=== PATIENT | female | born 1975 | race Caucasian/White ===

== ENCOUNTER 2018-03-28 23:15 | Emergency (ER) | payer MEDICAID, SELFPAY ==
[2018-03-28 23:23] VITALS: BP 155/95; PULSE 93; RESP 18; TEMP 37.1; O2SAT 96
[2018-03-29] MEDS: Lidocaine 5% Patch 1 PATCH TP (01:21)
[2018-03-29] MEDS: Ketorolac 60 MG/2 ML VIAL IM (01:22)
--- NOTE | 2018-03-29 01:47 | W.ED.GENAD ---
Discharge Plan Disposition Patient Disposition: HOME Condition: Stable Discharge Details Chief Complaint: Nk/Back Pain Clinical Impression: Radiculopathy of cervical region Primary Care Provider: Darby Reno ED Provider: David Prajapati Home Meds and New Rx's Prescriptions: Continue triamcinolone acetonide 15 GM cream 1 appful Topical BID PRNQty: 15 RF: 6 erythromycin with ethanol 60 ML solution 60 ml Topical PRN RF: 0 melatonin 5 MG tablet 5 mg PO HS Qty: 90 RF: 3 lorazepam 0.5 MG tablet 0.5 mg PO BID PRN PRNQty: 60 RF: 0 trazodone 50 MG tablet 100 mg PO HS PRNQty: 180 RF: 3 omeprazole 40 MG capsule,delayed release(DR/EC) 40 mg PO DAILY Qty: 90 RF: 3 amlodipine 5 MG tablet 5 mg PO DAILY Qty: 90 RF: 3 bupropion HCl [Wellbutrin XL] 150 MG tablet extended release 24 hr 150 mg PO DAILY Qty: 90 RF: 3 ferrous sulfate 325 MG tablet 325 mg PO DAILY Qty: 90 RF: 3 atorvastatin [Lipitor] 20 MG tablet 20 mg PO DAILY Qty: 90 RF: 3 carbamazepine 100 MG tablet,chewable 200 mg PO HS 90 Days Qty: 180 RF: 1 aspirin [Aspir-81] 81 MG tablet,delayed release (DR/EC) 81 mg PO DAILY Qty: 90 RF: 3 liothyronine 25 mcg tablet 25 mcg PO DAILY Qty: 90 RF: 3 omega-3 fatty acids-fish oil 300-1,000 mg capsule 2 cap PO HS Qty: 180 RF: 3 sertraline 100 mg tablet 200 mg PO DAILY Qty: 180 RF: 3 cholecalciferol (vitamin D3) 5,000 unit tablet 5,000 unit PO DAILY Qty: 90 RF: 3 pregabalin [Lyrica] 75 mg capsule 75 mg PO BID Qty: 60 RF: 0 acetaminophen [Acetaminophen Extra Strength] 500 MG tablet 1,000 mg PO Q8H PRN PRNQty: 120 RF: 0 ibuprofen 800 MG tablet 800 mg PO Q8H PRN PRN (Reason: Pain) Qty: 10 RF: 0 No Action mirabegron [Myrbetriq] 50 mg tablet extended release 24 hr 50 mg PO DAILY Qty: 30 RF: 3 Discharge Instructions Instructions: Lumbar Radiculopathy (ED) Additional Instructions: Return to emergency department immediately for any new or significant worsening of your symptoms including neck pain associate with fever chills, changes in bowel or bladder function inability to move lower extremities, saddle anesthesia Stand Alone Forms: Work Release Referrals: Darby Reno, FORESTRY PROFESSOR [Primary Care Provider] - (As needed for reassessment or if not improving over the next week) Discharge Data Discharge Date/Time-TO BE ENTERED AT DEPARTURE: 03/29/18 02:11 Medical Decision Making Patient presenting the emergency department for chief complaint of back pain. 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 Patient states that when she awoke this morning she had similar symptoms with severe back spasms, and shooting pain. Patient denies any fever chills, changes in bowel or bladder function, inability to move lower extremities, saddle anesthesia. Patient given IM ketorolac and lidocaine patch in the emergency department sent home with Sirisha with prescription for Flexeril and prednisone to begin tomorrow. Patient encouraged to return for any new or worsening symptoms otherwise follow-up with primary care in 1 week for reassessment. After discussion of diagnosis and plan of care patient has no further needs, questions, or concerns and states clear understanding to return to the emergency department for any worsening symptoms. HPI General Mode of arrival: ambulatory. Date/Time Provider Initiated Documentation: 03/28/18 23:16. Limitations to Documentation: no limitations. Information obtained by: patient and RN notes reviewed. History of Present Illness 43 year old F presents to the emergency department with the chief complaint of back pain, described as moderate, with intensity rated at 7. Quality is described as sharp, and is localized to the back. Patient started experiencing this day(s) (1) and it has been constant. No relieving factors improve symptom(s), Movement worsens symptoms . Patient notes no other symptoms.. Related Data Home Medications Medication Instructions Recorded Confirmed triamcinolone acetonide 1 appful TOPICAL BID PRN #15 gm 09/15/16 04/02/18 acetaminophen [Acetaminophen Extra 1,000 mg PO Q8H PRN PRN #120 tab 02/14/17 04/02/18 Strength] erythromycin with ethanol 60 ml TOPICAL PRN script 03/21/17 04/02/18 melatonin 5 mg PO HS #90 tab-cap 03/21/17 04/02/18 lorazepam 0.5 mg PO BID PRN PRN #60 tab 04/17/17 04/02/18 amlodipine 5 mg PO DAILY #90 tab-cap 07/25/17 04/02/18 omeprazole 40 mg PO DAILY #90 tab-cap 07/25/17 04/02/18 trazodone 100 mg PO HS PRN #180 tab 07/25/17 04/02/18 bupropion HCl [Wellbutrin XL] 150 mg PO DAILY #90 tab-cap 10/24/17 04/02/18 ferrous sulfate 325 mg PO DAILY #90 tab-cap 10/24/17 04/02/18 atorvastatin [Lipitor] 20 mg PO DAILY #90 tab-cap 11/21/17 04/02/18 carbamazepine 200 mg PO HS 90 Days #180 tab-cap 11/21/17 04/02/18 ibuprofen 800 mg PO Q8H PRN PRN #10 tab 12/03/17 04/02/18 aspirin [Aspir-81] 81 mg PO DAILY #90 tab-cap 02/01/18 04/02/18 liothyronine 25 mcg tablet 25 mcg PO DAILY #90 tab-cap 03/06/18 04/02/18 omega-3 fatty acids-fish oil 300 2 cap PO HS #180 tab-cap 03/06/18 04/02/18 mg-1,000 mg capsule cholecalciferol (vitamin D3) 5,000 5,000 unit PO DAILY #90 tab-cap 03/22/18 04/02/18 unit tablet pregabalin 75 mg capsule 75 mg PO BID #60 tab-cap 03/22/18 04/02/18 sertraline 100 mg tablet 200 mg PO DAILY #180 tab 03/22/18 04/02/18 mirabegron ER 50 mg 50 mg PO DAILY #30 tab 04/02/18 04/02/18 tablet,extended release 24 hr Previous Rx's Medication Instructions Recorded acetaminophen [Acetaminophen Extra 1,000 mg PO Q8H PRN PRN #120 tab 02/14/17 Strength] melatonin 5 mg PO HS #90 tab-cap 03/21/17 amlodipine 5 mg PO DAILY #90 tab-cap 02/20/18 omeprazole 40 mg PO DAILY #90 tab-cap 07/25/17 bupropion HCl [Wellbutrin XL] 150 mg PO DAILY #90 tab-cap 10/24/17 ferrous sulfate 325 mg PO DAILY #90 tab-cap 10/24/17 atorvastatin [Lipitor] 20 mg PO DAILY #90 tab-cap 11/21/17 carbamazepine 200 mg PO HS 90 Days #180 tab-cap 11/21/17 ibuprofen 800 mg PO Q8H PRN PRN #10 tab 12/03/17 aspirin [Aspir-81] 81 mg PO DAILY #90 tab-cap 02/01/18 liothyronine 25 mcg tablet 25 mcg PO DAILY #90 tab-cap 03/06/18 omega-3 fatty acids-fish oil 300 2 cap PO HS #180 tab-cap 03/06/18 mg-1,000 mg capsule cholecalciferol (vitamin D3) 5,000 5,000 unit PO DAILY #90 tab-cap 03/22/18 unit tablet pregabalin 75 mg capsule 75 mg PO BID #60 tab-cap 03/22/18 sertraline 100 mg tablet 200 mg PO DAILY #180 tab 03/22/18 mirabegron ER 50 mg 50 mg PO DAILY #30 tab 04/02/18 tablet,extended release 24 hr Allergies Allergy/AdvReac Type Severity Reaction Status Date / Time No Known Drug Allergies Allergy Unverified 04/02/18 15:43 General Stated Complaint: Nk/Back Pain TARIK: 4 Review of Systems Constitutional Denies chills and Denies fever(s) Cardiovascular Denies chest pain and Denies dyspnea on exertion Respiratory Denies dyspnea on exertion Gastrointestinal Denies abdominal pain, Denies change in bowel habits, Denies diarrhea, Denies nausea and Denies vomiting Genitourinary Denies urinary incontinence Musculoskeletal Reports as per HPI and Reports back pain Neurologic Denies sensory deficit PFSH Family History Mother Graves' disease Depression Father Alcoholism Grandmother Personal history of malignant neoplasm Other Personal history of malignant neoplasm Medical History Anemia Depression HLD (hyperlipidemia) HTN (hypertension) Migraine SHANTAL (obstructive sleep apnea) Tobacco use disorder Social History Smoking/Tobacco Use Status: Former Tobacco Use Surgical History Hysteroscopy (02/04/15) Pelvic floor reconstruction (~2009) Tonsillectomy & uvulectomy (~2009) Vaginal hysterectomy Exam Const General: cooperative and no acute distress Orientation: alert, awake and oriented x3 Neck Neck: normal visual inspection, full ROM and no meningeal signs Resp Effort & Inspection: normal respiratory effort Auscultation: clear to auscultation bilaterally Cardio Rate: regular rate Rhythm: regular rhythm Heart Sounds: S1 normal and S2 normal GI Palpation: no hepatosplenomegaly, no aortic enlargement, no masses and no pulsatile masses Back/Spine/Pelvis Thoracic/Lumbar Spine: pain with thoraco-lumbar ROM and thoraco-lumbar ROM limited Pelvis: no pain with anterior-posterior compression, no pain with lateral compression, buttock tenderness on the right and sciatic notch tenderness on the right Neuro General: alert, awake and oriented x3 DTR's: Rt Patellar: 2+, Lt Patellar: 2+, Rt Ankle: 2+ and Lt Ankle: 2+ Extrem Right lower extremity: hip/thigh Details: normal to inspection, knee Details: normal to inspection and lower leg Details: normal to inspection Course Vital Signs Temperature 37.1 C 03/28/18 23:23 Pulse 93 H 03/28/18 23:23 Respiratory Rate 18 03/28/18 23:23 Blood Pressure 155/95 H 03/28/18 23:23 Pulse Oximetry 96 03/28/18 23:23 Temperature 37.1 C 03/28/18 23:23 Temperature Source Temporal Artery Scan 03/28/18 23:23 Pulse 93 H 03/28/18 23:23 Respiratory Rate 18 03/28/18 23:23 Respiratory Effort 03/28/18 23:23 Blood Pressure 155/95 H 03/28/18 23:23 Blood Pressure Position Sitting 03/28/18 23:23 Pulse Oximetry 96 03/28/18 23:23 Oxygen Delivery Method Room Air 03/28/18 23:23 Oxygen Flow Rate 0 03/28/18 23:23 Pain Level 5 03/29/18 01:25
[2018-03-29] MEDS: Cyclobenzaprine 10 MG TAB PO (02:03)
[2018-03-29 02:04] VITALS: BP 138/95; PULSE 83; RESP 16; O2SAT 97
== END 2018-03-29 02:11 | disposition home or self-care (01) ==
PROVIDERS: Emergency Provider Nurse Practitioner Family; PCP Nurse Practitioner
DX: M54.12 Radiculopathy, cervical region (principal)
CPT/HCPCS: 96372; 99284; J1885

== ENCOUNTER 2018-05-07 09:05 | Outpatient (CLI) | payer MEDICAID, SELFPAY ==
[2018-05-07 09:55] LABS: HCT 40.9 % (36.0-46.0); HGB 13.4 g/dL (12.0-15.5); Mean Corp. HGB Concentration 32.8 g/dL (32.0-36.0); Mean Corpuscular Hemoglobin 28.4 pg (27.0-33.0); Mean Corpuscular Volume 86.7 fL (80-95); Mean Platelet Volume 10.2 fL (8.0-11.0); Platelet Count 249 x1000/uL (130-400); RBC 4.72 m/cumm (4.00-5.20); RBC Distribution Width 13.3 % (11.7-14.6); White Blood Cell Count 9.19 k/cumm (4.4-10.8)
[2018-05-07 10:39] LABS: ALT 48 U/L (12-78); AST 29 U/L (15-37); Albumin 3.9 g/dL (3.4-5.0); Alkaline Phosphatase 105 U/L (46-116); Anion Gap 8.6 mmol/L (3-11); BUN 14 mg/dL (7-18); Bilirubin, Total 0.3 mg/dL (0.2-1.0); CO2 29.4 mmol/L (21.0-32.0); CREATININE 0.82 mg/dL (0.55-1.02); Calcium 9.8 mg/dL (8.5-10.1); Chloride 102 mmol/L (98-107); Cholesterol 201 mg/dL (50-200); Glucose 152 mg/dL (70-100); HDL Cholesterol 46 mg/dL (40-60); LDL CHOLESTEROL 134 mg/dL (<100); Potassium 4.5 mmol/L (3.5-5.1); Sodium 140 mmol/L (136-145); TSH (W/Ref FT4) 0.91 uIU/mL (0.358-3.74); Total Protein 7.2 g/dL (6.4-8.2); Triglyceride 186 mg/dL (30-150)
[2018-05-07 10:56] LABS: FREE T4 0.64 ng/dL (0.76-1.46)
== END 2018-05-07 09:25 ==
PROVIDERS: PCP Nurse Practitioner; Visit Provider Nurse Practitioner
DX: E78.5 Hyperlipidemia, unspecified (principal); I10 Essential (primary) hypertension; E03.9 Hypothyroidism, unspecified; R07.89 Other chest pain
CPT/HCPCS: 36415; 80053; 80061; 83721; 85027; 84439; 84443

== ENCOUNTER 2018-05-16 15:29 | Outpatient (CLI) | payer MEDICAID, SELFPAY ==
--- NOTE | 2018-05-16 15:35 | DI.RAD_ITS ---
SYMPTOM/DIAGNOSIS: COUGH, POSSIBLE PNEUMONIA, HEADACHE G44.3 CHEST X-RAY: PA and lateral. Comparison 04/10/17 The heart is normal in size. The lungs are clear. The mediastinal structures and pleura appear intact. CONCLUSION: Normal chest.
== END 2018-05-16 15:49 ==
LOC: LBO 15:31 → DI 15:32
PROVIDERS: PCP Nurse Practitioner; Visit Provider Student in an Organized Health Care Education/Training Program
DX: R05 Cough (principal); R51 Headache
CPT/HCPCS: 71046

== ENCOUNTER 2018-05-27 14:53 | Emergency (ER) | payer MEDICAID, SELFPAY ==
[2018-05-27 15:00] VITALS: BP 162/97; PULSE 90; RESP 16; TEMP 36.6; O2SAT 95
[2018-05-27] MEDS: Lidocaine 2% Multi-Dose 50 ML VIAL (15:37)
[2018-05-27] MEDS: Silver Nitrate Stick 1 EACH (15:37)
--- NOTE | 2018-05-27 15:40 | ED.GENADUL_ITS ---
Discharge Plan Disposition Patient Disposition: HOME Condition: Good Discharge Details Chief Complaint: Orthopedic Clinical Impression: Ingrowing toenail Primary Care Provider: Darby Reno ED Provider: Cj De La Rosa Home Meds and New Rx's Prescriptions: No Action bupropion HCl [Wellbutrin XL] 300 mg tablet extended release 24 hr 300 mg PO QAM Qty: 90 RF: 3 lorazepam 0.5 mg tablet 0.5 mg PO BID PRN PRN (Reason: anxiety) Qty: 60 RF: 0 Myrbetriq 50 mg tablet extended release 24 hr 50 mg PO DAILY Qty: 30 RF: 3 benzonatate [Tessalon Perles] 100 mg capsule 100 mg PO QID PRN (Reason: cough) Qty: 20 RF: 0 ProAir HFA 90 mcg/actuation HFA aerosol inhaler 2 puff IH QID Qty: 8.5 RF: 0 triamcinolone acetonide 15 GM cream 1 appful Topical BID PRNQty: 15 RF: 6 erythromycin with ethanol 60 ML solution 60 ml Topical PRN RF: 0 trazodone 50 MG tablet 100 mg PO HS PRNQty: 180 RF: 3 omeprazole 40 MG capsule,delayed release(DR/EC) 40 mg PO DAILY Qty: 90 RF: 3 amlodipine 5 MG tablet 5 mg PO DAILY Qty: 90 RF: 3 ferrous sulfate 325 MG tablet 325 mg PO DAILY Qty: 90 RF: 3 atorvastatin [Lipitor] 20 MG tablet 20 mg PO DAILY Qty: 90 RF: 3 carbamazepine 100 MG tablet,chewable 200 mg PO HS 90 Days Qty: 180 RF: 1 aspirin [Aspir-81] 81 MG tablet,delayed release (DR/EC) 81 mg PO DAILY Qty: 90 RF: 3 liothyronine 25 mcg tablet 25 mcg PO DAILY Qty: 90 RF: 3 omega-3 fatty acids-fish oil 300-1,000 mg capsule 2 cap PO HS Qty: 180 RF: 3 sertraline 100 mg tablet 200 mg PO DAILY Qty: 180 RF: 3 cholecalciferol (vitamin D3) 5,000 unit tablet 5,000 unit PO DAILY Qty: 90 RF: 3 melatonin 5 mg tablet 5 mg PO HS Qty: 90 RF: 3 pregabalin [Lyrica] 75 mg capsule 75 mg PO BID Qty: 60 RF: 2 acetaminophen [Acetaminophen Extra Strength] 500 MG tablet 1,000 mg PO Q8H PRN PRNQty: 120 RF: 0 ibuprofen 800 MG tablet 800 mg PO Q8H PRN PRN (Reason: Pain) Qty: 10 RF: 0 Discharge Instructions Instructions: Ingrown Nail (ED) Additional Instructions: Please take Tylenol and Motrin as needed for pain. Please continue to wrap the toe and gauze and triple antibiotic or bacitracin ointment. If you notice any redness, fever or chills please return immediately. If you notice any worsening pain please return immediately. If you notice any color changes on the end of your toe please return immediately. If you notice any worsening of your symptoms, or any new symptoms such as vomiting, diarrhea, fever, chills, shortness of breath, chest pain, numbness, weakness, or fainting , please return immediately to the emergency department for reevaluation. Please follow up with your primary care provider as soon as possible for reassessment and reevaluation. As always, it was a pleasure participating in your medical care today. Referrals: Darby Reno NP [Primary Care Provider] - Medical Decision Making This is a 43-year-old female who presents for evaluation of ingrown toenail, primarily on her right foot on the great toe. It is located at the lateral aspect of the nail. There is no evidence of significant infection or purulent drainage. Patient presented today for removal of the nail itself. Verbal consent was obtained with nurse at bedside. Under sterile conditions the area was copiously cleaned and irrigated, after anesthetization with a 50-50 mixture of 2% lidocaine and 0.25% bupivacaine the lateral component of the nail was cut, the subungual space was , and the nail subsequently removed back through the base. No retained product was present. The area was then chemically cauterized. A tourniquet was initially placed, after tourniquet removal there was no significant bleeding. The area was covered in bacitracin, and then wrapped in gauze. Patient tolerated the procedure well. No evidence of significant infection I do not think an antibiotic is indicated. Recommended close follow-up with the patient's primary care provider as well as podiatry. We discussed red flags which to return the patient understands. Patient tolerated the procedure well has no questions with instructions. I have extensively reviewed the treatment plan and discharge instructions with the patient. I have addressed all patient concerns at this time. The patient was made aware of what symptoms to monitor for that would warrant a return to the emergency department. Discussed the plan with the patient, they demonstrate verbal understanding and agreement with our assessment and plan at this time. Procedure note nail removal: Verbal consent was obtained with nurse at bedside. Under sterile conditions the area was copiously cleaned and irrigated, after anesthetization with a 50-50 mixture of 2% lidocaine and 0.25% bupivacaine the lateral component of the nail was cut, the subungual space was , and the nail subsequently removed back through the base. No retained product was present. The area was then chemically cauterized. A tourniquet was initially placed, after tourniquet removal there was no significant bleeding. The area was covered in bacitracin, and then wrapped in gauze. Patient tolerated the procedure well. HPI General Date/Time Provider Initiated Documentation: 05/27/18 15:04 . HPI Narrative: This is a pleasant 43-year-old female who presents today for evaluation of ingrown toenail. She has a history of ingrown toes, did require partial nail removal in the past for the medial aspects of both no nails on her great toes. However over the last few weeks she has noticed a recurrence of the ingrown toenail on the lateral component of the great toenails for both feet, worse on the right than the left. She presents today for removal of the toenail and treatment of her symptoms. She denies any symptoms of fever chills drainage or significant redness. She denies any history of diabetes. She has no other complaints at this time. No other modifying factors aside for pain worse with movement and palpation. Related Data Home Medications Medication Instructions Recorded Confirmed triamcinolone acetonide 1 appful TOPICAL BID PRN #15 gm 09/15/16 05/27/18 acetaminophen [Acetaminophen Extra 1,000 mg PO Q8H PRN PRN #120 tab 02/14/17 05/27/18 Strength] erythromycin with ethanol 60 ml TOPICAL PRN script 03/21/17 05/16/18 amlodipine 5 mg PO DAILY #90 tab-cap 07/25/17 05/27/18 omeprazole 40 mg PO DAILY #90 tab-cap 07/25/17 05/27/18 trazodone 100 mg PO HS PRN #180 tab 07/25/17 05/27/18 ferrous sulfate 325 mg PO DAILY #90 tab-cap 10/24/17 05/27/18 atorvastatin [Lipitor] 20 mg PO DAILY #90 tab-cap 11/21/17 05/27/18 carbamazepine 200 mg PO HS 90 Days #180 tab-cap 11/21/17 05/27/18 ibuprofen 800 mg PO Q8H PRN PRN #10 tab 12/03/17 05/27/18 aspirin [Aspir-81] 81 mg PO DAILY #90 tab-cap 02/01/18 05/27/18 liothyronine 25 mcg tablet 25 mcg PO DAILY #90 tab-cap 03/06/18 05/27/18 omega-3 fatty acids-fish oil 300 2 cap PO HS #180 tab-cap 03/06/18 05/27/18 mg-1,000 mg capsule cholecalciferol (vitamin D3) 5,000 5,000 unit PO DAILY #90 tab-cap 03/22/18 05/27/18 unit tablet sertraline 100 mg tablet 200 mg PO DAILY #180 tab 03/22/18 05/27/18 mirabegron ER 50 mg 50 mg PO DAILY #30 tab 04/02/18 05/27/18 tablet,extended release 24 hr bupropion HCl XL 300 mg 24 hr 300 mg PO QAM #90 tab 04/16/18 05/27/18 tablet, extended release lorazepam 0.5 mg tablet 0.5 mg PO BID PRN PRN #60 tab 04/16/18 05/27/18 melatonin 5 mg tablet 5 mg PO HS #90 tab-cap 05/15/18 05/27/18 albuterol sulfate HFA 90 2 puff IH QID #8.5 gm 05/16/18 05/27/18 mcg/actuation aerosol inhaler benzonatate 100 mg capsule 100 mg PO QID PRN #20 cap 05/16/18 05/27/18 pregabalin 75 mg capsule 75 mg PO BID #60 tab-cap 05/16/18 05/27/18 Previous Rx's Medication Instructions Recorded acetaminophen [Acetaminophen Extra 1,000 mg PO Q8H PRN PRN #120 tab 02/14/17 Strength] amlodipine 5 mg PO DAILY #90 tab-cap 02/20/18 omeprazole 40 mg PO DAILY #90 tab-cap 07/25/17 ferrous sulfate 325 mg PO DAILY #90 tab-cap 10/24/17 atorvastatin [Lipitor] 20 mg PO DAILY #90 tab-cap 11/21/17 carbamazepine 200 mg PO HS 90 Days #180 tab-cap 11/21/17 ibuprofen 800 mg PO Q8H PRN PRN #10 tab 12/03/17 aspirin [Aspir-81] 81 mg PO DAILY #90 tab-cap 02/01/18 liothyronine 25 mcg tablet 25 mcg PO DAILY #90 tab-cap 03/06/18 omega-3 fatty acids-fish oil 300 2 cap PO HS #180 tab-cap 03/06/18 mg-1,000 mg capsule cholecalciferol (vitamin D3) 5,000 5,000 unit PO DAILY #90 tab-cap 03/22/18 unit tablet sertraline 100 mg tablet 200 mg PO DAILY #180 tab 03/22/18 mirabegron ER 50 mg 50 mg PO DAILY #30 tab 04/02/18 tablet,extended release 24 hr bupropion HCl XL 300 mg 24 hr 300 mg PO QAM #90 tab 04/16/18 tablet, extended release lorazepam 0.5 mg tablet 0.5 mg PO BID PRN PRN #60 tab 04/16/18 melatonin 5 mg tablet 5 mg PO HS #90 tab-cap 05/15/18 albuterol sulfate HFA 90 2 puff IH QID #8.5 gm 05/16/18 mcg/actuation aerosol inhaler benzonatate 100 mg capsule 100 mg PO QID PRN #20 cap 05/16/18 pregabalin 75 mg capsule 75 mg PO BID #60 tab-cap 05/16/18 Allergies Allergy/AdvReac Type Severity Reaction Status Date / Time No Known Drug Allergies Allergy Verified 05/27/18 15:05 General Stated Complaint: Orthopedic TARIK: 5 Review of Systems Review of Systems All systems reviewed & are unremarkable except as noted in HPI and below PFSH Medical History Anemia Depression HLD (hyperlipidemia) HTN (hypertension) Migraine SHANATL (obstructive sleep apnea) Tobacco use disorder Surgical History Hysteroscopy (02/04/15) Pelvic floor reconstruction (~2009) Tonsillectomy & uvulectomy (~2009) Vaginal hysterectomy Family History Mother Graves' disease Depression Father Alcoholism Grandmother Personal history of malignant neoplasm Other Personal history of malignant neoplasm Social History Smoking/Tobacco Use Status: Former Tobacco Use Exam Narrative Exam Narrative: 1.Const: Well-nourished, Well-developed, appearing stated age 2.Eyes: PERRL, no conjunctival injection, and symmetrical lids. 3.ENT: Atraumatic external nose and ears. Moist MM. Neck: Symmetric, trachea midline, No thyromegaly. 4.CVS: +S1/S2, No murmurs or gallops. Peripheral pulses 2+ and equal in all ex tremities. Brisk capillary refill in all extremities. 5.RESP: Unlabored respiratory effort. Clear to auscultation bilaterally. No wheezes rales or rhonchi 6.GI: Soft, Nontender/Nondistended, No hepatosplenomegaly. No guarding or rebound. 7.MSK: Normocephalic/Atraumatic, Extremities w/o deformity or ttp No cyanosis or clubbing, Normal movement of all extremities 8.Skin: Warm, Dry. No rashes or lesions. The patient's lower extremities demonstrate mild ingrown toenail, worse on the right than the left. Minimal erythema on the lateral aspect. No evidence of pus or purulence. No signs of tendon tenderness. No other significant abnormalities. 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 Sensation grossly intact, no focal neurologic deficits. 10.Psych: (AAO) x3. Appropriate mood and affect Course Vital Signs Temperature 36.6 C 05/27/18 15:00 Pulse 90 05/27/18 15:00 Respiratory Rate 16 05/27/18 15:00 Blood Pressure 162/97 H 05/27/18 15:00 Pulse Oximetry 95 05/27/18 15:00 Temperature 36.6 C 05/27/18 15:00 Temperature Source Temporal Artery Scan 05/27/18 15:00 Pulse 90 05/27/18 15:00 Respiratory Rate 16 05/27/18 15:00 Respiratory Effort Non-Labored 05/27/18 15:03 Blood Pressure 162/97 H 05/27/18 15:00 Blood Pressure Position Sitting 05/27/18 15:00 Pulse Oximetry 95 05/27/18 15:00 Oxygen Delivery Method Room Air 05/27/18 15:00 Oxygen Flow Rate 0 05/27/18 15:00 Pain Level 5 12/23/18 15:09
== END 2018-05-27 15:44 | disposition home or self-care (01) ==
PROVIDERS: Emergency Provider Student in an Organized Health Care Education/Training Program; PCP Nurse Practitioner
DX: L60.0 Ingrowing nail (principal); I10 Essential (primary) hypertension
CPT/HCPCS: 11730

== ENCOUNTER 2018-07-28 09:42 | Emergency (ER) | payer MEDICAID, SELFPAY ==
[2018-07-28 09:50] VITALS: BP 158/88; PULSE 75; RESP 16; TEMP 36.6; O2SAT 99
--- NOTE | 2018-07-28 10:28 | ED.GENADUL_ITS ---
Discharge Plan Disposition Patient Disposition: HOME Condition: Stable Discharge Details Chief Complaint: Vascular Clinical Impression: Peripheral edema, Dependent edema Primary Care Provider: Darby Reno ED Provider: Alam Peñaloza Home Meds and New Rx's Prescriptions: Continued bupropion HCl [Wellbutrin XL] 300 mg tablet extended release 24 hr 300 mg PO QAM Qty: 90 RF: 3 lorazepam 0.5 mg tablet 0.5 mg PO BID PRN PRN (Reason: anxiety) Qty: 60 RF: 0 Myrbetriq 50 mg tablet extended release 24 hr 50 mg PO DAILY Qty: 30 RF: 3 benzonatate [Tessalon Perles] 100 mg capsule 100 mg PO QID PRN (Reason: cough) Qty: 20 RF: 0 ProAir HFA 90 mcg/actuation HFA aerosol inhaler 2 puff IH QID Qty: 8.5 RF: 0 triamcinolone acetonide 15 GM cream 1 appful Topical BID PRNQty: 15 RF: 6 erythromycin with ethanol 60 ML solution 60 ml Topical PRN RF: 0 trazodone 50 MG tablet 100 mg PO HS PRNQty: 180 RF: 3 ferrous sulfate 325 MG tablet 325 mg PO DAILY Qty: 90 RF: 3 atorvastatin [Lipitor] 20 MG tablet 20 mg PO DAILY Qty: 90 RF: 3 aspirin [Aspir-81] 81 MG tablet,delayed release (DR/EC) 81 mg PO DAILY Qty: 90 RF: 3 liothyronine 25 mcg tablet 25 mcg PO DAILY Qty: 90 RF: 3 omega-3 fatty acids-fish oil 300-1,000 mg capsule 2 cap PO HS Qty: 180 RF: 3 sertraline 100 mg tablet 200 mg PO DAILY Qty: 180 RF: 3 cholecalciferol (vitamin D3) 5,000 unit tablet 5,000 unit PO DAILY Qty: 90 RF: 3 melatonin 5 mg tablet 5 mg PO HS Qty: 90 RF: 3 pregabalin [Lyrica] 75 mg capsule 75 mg PO BID Qty: 60 RF: 2 amlodipine 5 mg tablet 5 mg PO DAILY Qty: 90 RF: 3 omeprazole 40 mg capsule,delayed release(DR/EC) 40 mg PO DAILY Qty: 90 RF: 3 carbamazepine 100 mg tablet,chewable 200 mg PO HS 90 Days Qty: 180 RF: 0 acetaminophen [Acetaminophen Extra Strength] 500 MG tablet 1,000 mg PO Q8H PRN PRNQty: 120 RF: 0 ibuprofen 800 MG tablet 800 mg PO Q8H PRN PRN (Reason: Pain) Qty: 10 RF: 0 Discharge Instructions Instructions: Leg Edema (ED) Additional Instructions: Wear compression stockings daily. Watch your salt and sodium intake and processed foods specifically as this can contribute to water retention. Keep your legs elevated as much as possible. Follow-up with your primary care doctor next week for reevaluation. If you are still having leg swelling, she may consider adding a diuretic. If you have any worsening or new concerning symptoms, return to the emergency department for reevaluation and consideration for a leg ultrasound when ultrasound available Monday. Discharge Data Discharge Date/Time-TO BE ENTERED AT DEPARTURE: 07/28/18 10:40 Discharge Physician: Alam Peñaloza Medical Decision Making 43-year-old female who presents with bilateral leg swelling and pain extending from her feet up to her proximal lower legs since last night. She denies injury, recent travel, skin color change, recent surgery, hormone replacement therapy, chest pain, shortness of breath. She states she had been sitting more recently due to her ingrown toenails which were removed 4 days ago. She also states she has been eating [place] food, of which she last ate yesterday. Blood pressure mildly hypertensive, otherwise vitals within normal limits. She has nonpitting mild to moderate edema of her bilateral feet and legs. No calf tenderness. Negative Homans sign. Neurovascularly intact. No focal deficits. Lungs clear to auscultation. Diagnosis appears most likely consistent with dependent edema due to diet, and recent immobility. As her symptoms are bilateral and she has no other DVT/PE risk factors, I do not suspect a DVT. We do not have ultrasound available on the weekend. Patient is instructed to wear compression stockings, keep her legs elevated and limit her sodium intake. At this point in time, I do not see any indication for diuretics unless her symptoms do not improve or worsen. She is instructed to follow-up with her primary care doctor for reevaluation, and if her symptoms do not improve with the above mentioned interventions, to return to the emergency department on Monday for Doppler ultrasound. HPI General Mode of arrival: ambulatory . Date/Time Provider Initiated Documentation: 07/28/18 09:50 . Limitations to Documentation: no limitations . Information obtained by: patient . HPI Narrative: Patient is a 43-year-old female presents with bilateral leg swelling extending from her feeds to her proximal legs since last night. Patient states she had ingrown toenail repair 4 days ago. She states her toes are feeling better and denies any signs of infection. She states she had been sitting more recently due to her ingrown toenails. She also states she has been eating [place] food. She denies any recent travel, recent surgery, hormone replacement therapy, chest pain, shortness of breath. She states she has a history of chronic neuropathy in her feet due to diabetic neuropathy. Related Data Home Medications Medication Instructions Recorded Confirmed triamcinolone acetonide 1 appful TOPICAL BID PRN #15 gm 09/15/16 07/28/18 acetaminophen [Acetaminophen Extra 1,000 mg PO Q8H PRN PRN #120 tab 02/14/17 07/28/18 Strength] erythromycin with ethanol 60 ml TOPICAL PRN script 03/21/17 07/28/18 trazodone 100 mg PO HS PRN #180 tab 07/25/17 07/28/18 ferrous sulfate 325 mg PO DAILY #90 tab-cap 10/24/17 07/28/18 atorvastatin [Lipitor] 20 mg PO DAILY #90 tab-cap 11/21/17 07/28/18 ibuprofen 800 mg PO Q8H PRN PRN #10 tab 12/03/17 07/28/18 aspirin [Aspir-81] 81 mg PO DAILY #90 tab-cap 02/01/18 07/28/18 liothyronine 25 mcg tablet 25 mcg PO DAILY #90 tab-cap 03/06/18 07/28/18 omega-3 fatty acids-fish oil 300 2 cap PO HS #180 tab-cap 03/06/18 07/28/18 mg-1,000 mg capsule cholecalciferol (vitamin D3) 5,000 5,000 unit PO DAILY #90 tab-cap 03/22/18 07/28/18 unit tablet sertraline 100 mg tablet 200 mg PO DAILY #180 tab 03/22/18 07/28/18 mirabegron ER 50 mg 50 mg PO DAILY #30 tab 04/02/18 07/28/18 tablet,extended release 24 hr bupropion HCl XL 300 mg 24 hr 300 mg PO QAM #90 tab 04/16/18 07/28/18 tablet, extended release lorazepam 0.5 mg tablet 0.5 mg PO BID PRN PRN #60 tab 04/16/18 07/28/18 melatonin 5 mg tablet 5 mg PO HS #90 tab-cap 05/15/18 07/28/18 albuterol sulfate HFA 90 2 puff IH QID #8.5 gm 05/16/18 07/28/18 mcg/actuation aerosol inhaler benzonatate 100 mg capsule 100 mg PO QID PRN #20 cap 05/16/18 07/28/18 pregabalin 75 mg capsule 75 mg PO BID #60 tab-cap 05/16/18 07/28/18 amlodipine 5 mg tablet 5 mg PO DAILY #90 tab-cap 06/18/18 07/28/18 omeprazole 40 mg capsule,delayed 40 mg PO DAILY #90 tab-cap 06/18/18 07/28/18 release carbamazepine 100 mg chewable 200 mg PO HS 90 Days #180 tab-cap 06/19/18 07/28/18 tablet Previous Rx's Medication Instructions Recorded acetaminophen [Acetaminophen Extra 1,000 mg PO Q8H PRN PRN #120 tab 02/14/17 Strength] ferrous sulfate 325 mg PO DAILY #90 tab-cap 10/24/17 atorvastatin [Lipitor] 20 mg PO DAILY #90 tab-cap 11/21/17 ibuprofen 800 mg PO Q8H PRN PRN #10 tab 12/03/17 aspirin [Aspir-81] 81 mg PO DAILY #90 tab-cap 02/01/18 liothyronine 25 mcg tablet 25 mcg PO DAILY #90 tab-cap 03/06/18 omega-3 fatty acids-fish oil 300 2 cap PO HS #180 tab-cap 03/06/18 mg-1,000 mg capsule cholecalciferol (vitamin D3) 5,000 5,000 unit PO DAILY #90 tab-cap 03/22/18 unit tablet sertraline 100 mg tablet 200 mg PO DAILY #180 tab 03/22/18 mirabegron ER 50 mg 50 mg PO DAILY #30 tab 04/02/18 tablet,extended release 24 hr bupropion HCl XL 300 mg 24 hr 300 mg PO QAM #90 tab 04/16/18 tablet, extended release lorazepam 0.5 mg tablet 0.5 mg PO BID PRN PRN #60 tab 04/16/18 melatonin 5 mg tablet 5 mg PO HS #90 tab-cap 05/15/18 albuterol sulfate HFA 90 2 puff IH QID #8.5 gm 05/16/18 mcg/actuation aerosol inhaler benzonatate 100 mg capsule 100 mg PO QID PRN #20 cap 05/16/18 pregabalin 75 mg capsule 75 mg PO BID #60 tab-cap 05/16/18 amlodipine 5 mg tablet 5 mg PO DAILY #90 tab-cap 06/18/18 omeprazole 40 mg capsule,delayed 40 mg PO DAILY #90 tab-cap 06/18/18 release carbamazepine 100 mg chewable 200 mg PO HS 90 Days #180 tab-cap 06/19/18 tablet Allergies Allergy/AdvReac Type Severity Reaction Status Date / Time No Known Drug Allergies Allergy Verified 07/28/18 09:54 General Stated Complaint: Vascular TARIK: 4 Review of Systems Review of Systems All systems reviewed & are unremarkable except as noted in HPI and below Constitutional Reports as per HPI, Denies chills and Denies fever(s) Eyes Denies blurry vision ENT Denies dizziness, Denies sore throat and Denies throat swelling Cardiovascular Denies chest pain and Denies dyspnea Respiratory Denies cough and Denies dyspnea Gastrointestinal Denies abdominal pain, Denies diarrhea and Denies vomiting Genitourinary Denies hematuria and Denies dysuria Musculoskeletal Denies back pain and Denies numbness Integumentary/Breasts Denies lesions and Denies rash Neurologic Denies dizziness, Denies focal weakness and Denies numbness Allergic/Immunologic Denies throat swelling [facility] Medical History Anemia Depression HLD (hyperlipidemia) HTN (hypertension) Migraine SHANTAL (obstructive sleep apnea) Tobacco use disorder Surgical History Hysteroscopy (02/04/15) Pelvic floor reconstruction (~2009) Tonsillectomy & uvulectomy (~2009) Vaginal hysterectomy Family History Mother Graves' disease Depression Father Alcoholism Grandmother Personal history of malignant neoplasm Other Personal history of malignant neoplasm Social History (Reviewed 07/28/18 @ 16:36 by CARA Dukes Smoking and Tabacco status: Former Tobacco Use alcohol intake: current alcohol intake frequency: holidays/special occasions only substance use type: does not use Exam Const General: cooperative, healthy appearing and no acute distress HENMT Head: normal to inspection Face and sinus: normal facial exam Eyes General: appearance normal, both eyes and all related structures EOM: EOM intact bilaterally Neck Neck: normal visual inspection and No submandibular swelling Lymphatic: no lymphadenopathy noted Chest Chest: normal inspection of the chest and no tenderness Resp Effort & Inspection: normal respiratory effort and able to speak in complete sentences Auscultation: clear to auscultation bilaterally Cardio Rate: regular rate Rhythm: regular rhythm GI Inspection: normal to inspection Palpation: soft, not firm, not rigid and nontender Auscultation: normal bowel sounds Skin General skin exam: no rashes or lesions noted Neuro General: alert, awake and oriented x3 Cognition: normal cognition Speech: speech normal Motor: muscle tone normal throughout Sensory Exam: no sensory deficits noted Extrem General: full ROM, normal capillary refill, no calf tenderness bilaterally and edema Laterality: bilateral (nonpitting, extending from feet to proximal calf, minimal to moderate) Other: B/L DP/PT pulses intact. She has mild erythema and tenderness at the lateral aspects of the first great toe where she had a recent resection of ingrown toenails. Psych Appearance: grossly normal Mental Status: mental status grossly normal Speech and Movement: speech and movement normal Affect: normal affect Course Vital Signs Temperature 97.9 F 07/28/18 09:50 Pulse 75 07/28/18 09:50 Respiratory Rate 16 07/28/18 09:50 Blood Pressure 158/88 H 07/28/18 09:50 Pulse Oximetry 99 07/28/18 09:50 Temperature 97.9 F 07/28/18 09:50 Temperature Source Skin 07/28/18 09:50 Pulse 75 07/28/18 09:50 Respiratory Rate 16 07/28/18 09:50 Respiratory Effort Non-Labored 07/28/18 09:50 Blood Pressure 158/88 H 07/28/18 09:50 Blood Pressure Position Sitting 07/28/18 09:50 Pulse Oximetry 99 07/28/18 09:50 Oxygen Delivery Method Room Air 07/28/18 09:50 Oxygen Flow Rate 0 07/28/18 09:50 Pain Level 46 07/28/18 10:05
== END 2018-07-28 10:40 | disposition home or self-care (01) ==
LOC: ER 10:57
PROVIDERS: Emergency Provider Physician Assistant; PCP Nurse Practitioner
DX: L60.0 Ingrowing nail (principal); I10 Essential (primary) hypertension; E11.42 Type 2 diabetes mellitus with diabetic polyneuropathy
CPT/HCPCS: 99282

== ENCOUNTER 2018-08-16 01:20 | Outpatient (CLI) | payer MEDICAID, SELFPAY ==
--- NOTE | 2018-08-16 13:38 | DI.MRI_ITS ---
SYMPTOMS/DIAGNOSIS: LOW BACK PAIN, WEAKNESS, NUMBNESS, FALLS MRI OF THE LUMBAR SPINE: Routine noncontrast examination. Comparison Ct scan is 01/18/17. The conus medullaris has a normal appearance and location. At L5-S1, there is disc desiccation. Endplate degenerative signal changes and endplate osteophytes are seen. There is a diffuse disc bulge at this level. There are degenerative changes of the facets. No significant central spinal canal stenosis is seen. There is moderate bilateral neural foraminal stenosis present. There does appear to be some impingement of the nerve roots bilaterally. The remaining disc levels show no focal disc herniation, central spinal canal or neural foraminal stenosis. There is a hemangioma or fatty rest in the L3 and L4 vertebral bodies. Marrow signal is otherwise within normal limits. IMPRESSION: Degenerative disc disease and facet arthropathy at L5-S1 resulting in moderate bilateral neural foraminal stenosis.
== END 2018-08-16 01:40 ==
PROVIDERS: PCP Nurse Practitioner; Visit Provider Nurse Practitioner
DX: M54.5 Low back pain (principal); R20.0 Anesthesia of skin; M51.17 Intervertebral disc disorders with radiculopathy, lumbosacral region; M47.27 Other spondylosis with radiculopathy, lumbosacral region
CPT/HCPCS: 72148

== ENCOUNTER 2018-09-25 13:18 | Outpatient (CLI) | payer MEDICAID, SELFPAY ==
--- NOTE | 2018-09-25 14:20 | DI.MAMMO_ITS ---
SYMPTOM/DIAGNOSIS: LT BREAST PAIN MAMMOGRAMS: Mammograms were interpreted according to the usual protocol including computer analysis with CAD system, tomosynthesis and C view imaging. The patient notes diffuse left breast pain without focal abnormality. Comparison is made with mammograms from [id number]. The breasts are composed of scattered fibroglandular densities, breast density, Category B. No suspicious masses or suspicious microcalcifications or changes are seen. IMPRESSION: Category 1, negative mammogram. Yearly screening mammography is recommended. [facility] ASSESSMENT OF FINDINGS: Negative. Category 1. Patient will receive a letter notifying them of these results. BI-RADS category B. There are scattered areas of fibroglandular density.
== END 2018-09-25 13:38 ==
PROVIDERS: PCP Nurse Practitioner; Visit Provider Nurse Practitioner Family
DX: N64.4 Mastodynia (principal)
CPT/HCPCS: 77062; 77066; G0279

== ENCOUNTER 2018-10-12 16:31 | Outpatient (CLI) | payer MEDICAID, SELFPAY ==
--- NOTE | 2018-10-12 15:45 | DI.RAD_ITS ---
SYMPTOMS/DIAGNOSIS: PAIN IN LEFT AND RT GREAT TOES, M79.675, M79.674 RIGHT GREAT TOE: No fracture or dislocation is seen. The joint spaces are well maintained. No bony erosions or foreign bodies are identified. IMPRESSION: Negative right great toe. LEFT GREAT TOE: No fracture or dislocation is seen. There is no radiopaque foreign body or evidence of bony erosions. There is no hallux valgus. IMPRESSION: Negative left great toe.
== END 2018-10-12 16:51 ==
PROVIDERS: PCP Nurse Practitioner; Visit Provider Student in an Organized Health Care Education/Training Program
DX: M79.674 Pain in right toe(s) (principal); M79.675 Pain in left toe(s)
CPT/HCPCS: 73660

== ENCOUNTER 2018-11-19 12:39 | Outpatient (CLI) | payer MEDICAID, SELFPAY ==
--- NOTE | 2018-11-19 12:43 | DI.MRI_ITS ---
SYMPTOM/DIAGNOSIS: ABNL VISION EXAM, PERIPHERAL VISION LOSS, MEMORY CHANGES, TINGLING IN EXTREMITIES, H53.9,H53.459, R41.3,R20.2 BRAIN MRI: T 2 sagittal, T 1, T 2, FLAIR, diffusion and gradient echo axial sequences were performed. No intracranial hemorrhage, mass or infarct is seen. The ventricles are normal in size. The vascular flow voids appear intact. There are no abnormal high signal lesions in the white matter. The orbits, pituitary and sinuses are unremarkable. IMPRESSION: Negative MRI of the brain.
== END 2018-11-19 12:59 ==
PROVIDERS: PCP Nurse Practitioner; Visit Provider Nurse Practitioner
DX: H53.459 Other localized visual field defect, unspecified eye (principal); H53.9 Unspecified visual disturbance; R20.2 Paresthesia of skin; R41.3 Other amnesia
CPT/HCPCS: 70551

== ENCOUNTER 2018-11-21 16:32 | Outpatient (CLI) | payer MEDICAID, SELFPAY ==
[2018-11-21 18:42] LABS: Vitamin B12 488 pg/mL (193-986)
[2018-11-22 06:49] LABS: Vitamin D 25 Total 48.4 ng/ml (30-100)
== END 2018-11-21 16:52 ==
PROVIDERS: PCP Nurse Practitioner; Visit Provider Nurse Practitioner
DX: E55.9 Vitamin D deficiency, unspecified (principal); G64 Other disorders of peripheral nervous system
CPT/HCPCS: 36415; 82306; 82607

== ENCOUNTER 2018-12-27 01:31 | Outpatient (CLI) | payer MEDICAID, SELFPAY ==
--- NOTE | 2018-12-27 13:35 | DIABASSESS_ITS ---
DESCRIPTION: Nichol Lopez presents for diabetes self management with focus on nutrition and weight loss. She wishes to have a Life with Diabetes type class. Nichol has started using reji lettuce for bread and her children are doing this with her. She has questions about particular diets and is considering the 'whole 30 day' meal plan where she follows what is allowed. Blood sugars 131-164 fasting; occasionally in the 200s. She wonders what happened to her Victoza medication prescription. Nichol has been walking 1 mile some days but hips and knees continue to bother her. She continues to enjoy the reading challenge with her children. She is managing her stress by intentionally slowing down; not rushing; giving her kids time frames to be ready. INTERVENTION: Discussed her food plan and financing the food that is allowed on the whole 30 day program. Encouraged concept and what she can afford. Discussed physical activity and she wishes to check out the pool for non-weight bearing exercise. Discussed stress management and she feels this is managed at thsi time. PLAN: Check out pool Begin 'whole 30 day' food plan as she can afford it She will follow up in 2 weeks. She is engaged in discussion and motivated to continue changes.
== END 2018-12-27 01:51 ==
PROVIDERS: PCP Nurse Practitioner; Visit Provider Dietitian, Registered
DX: E11.9 Type 2 diabetes mellitus without complications (principal); Z71.3 Dietary counseling and surveillance
CPT/HCPCS: 97802

== ENCOUNTER 2019-01-14 11:55 | Emergency (ER) | payer MEDICAID, SELFPAY ==
[2019-01-14] VITALS (52 sets, daily range): BP systolic 117–141; BP diastolic 73–91; PULSE 75–94; RESP 4–30; TEMP 36.6–36.9; O2SAT 91–98
--- NOTE | 2019-01-14 12:02 | ED.GENADUL_ITS ---
Discharge Plan Disposition Patient Disposition: HOME Condition: Stable Discharge Details Chief Complaint: Chest Pain Clinical Impression: Chest pain, Arm numbness Primary Care Provider: Darby Reno ED Provider: Cj De La Rosa Home Meds and New Rx's Prescriptions: Continued bupropion HCl [Wellbutrin XL] 300 mg tablet extended release 24 hr 300 mg PO QAM Qty: 90 RF: 3 lorazepam 0.5 mg tablet 0.5 mg PO BID PRN PRN (Reason: anxiety) Qty: 60 RF: 0 trazodone 50 mg tablet 100 mg PO HS PRN (Reason: insomnia) Qty: 180 RF: 3 Myrbetriq 50 mg tablet extended release 24 hr 50 mg PO DAILY Qty: 30 RF: 3 ferrous sulfate 325 mg (65 mg iron) tablet 325 mg PO DAILY Qty: 90 RF: 3 albuterol sulfate [ProAir HFA] 90 mcg/actuation HFA aerosol inhaler 2 puff IH QID Qty: 8.5 RF: 0 ibuprofen 600 mg tablet 600 mg PO TID Qty: 30 RF: 1 atorvastatin [Lipitor] 20 mg tablet 20 mg PO DAILY Qty: 90 RF: 3 Lyrica 75 mg capsule 75 mg PO BID Qty: 60 RF: 2 (DME) pen needle, diabetic [Advocate Pen Needle] 29 gauge x 1/2 needle See Rx Instructions .ROUTE .MEDSUPPLY Qty: 100 RF: 3 alcohol swabs pads, medicated 1 pad TP DAILY Qty: 200 RF: 3 triamcinolone acetonide 15 GM cream 1 appful Topical BID PRNQty: 15 RF: 6 erythromycin with ethanol 60 ML solution 60 ml Topical PRN RF: 0 aspirin [Aspir-81] 81 MG tablet,delayed release (DR/EC) 81 mg PO DAILY Qty: 90 RF: 3 liothyronine 25 mcg tablet 25 mcg PO DAILY Qty: 90 RF: 3 omega-3 fatty acids-fish oil 300-1,000 mg capsule 2 cap PO HS Qty: 180 RF: 3 sertraline 100 mg tablet 200 mg PO DAILY Qty: 180 RF: 3 cholecalciferol (vitamin D3) 5,000 unit tablet 5,000 unit PO DAILY Qty: 90 RF: 3 melatonin 5 mg tablet 5 mg PO HS Qty: 90 RF: 3 amlodipine 5 mg tablet 5 mg PO DAILY Qty: 90 RF: 3 omeprazole 40 mg capsule,delayed release(DR/EC) 40 mg PO DAILY Qty: 90 RF: 3 (DME) blood-glucose meter [Home LeasingTouch Verio System] misc See Dose Instructions .ROUTE .MEDSUPPLY Qty: 1 RF: 0 (DME) OneTouch Verio strip See Dose Instructions .ROUTE .MEDSUPPLY Qty: 100 RF: 3 (DME) lancets [OneTouch Delica Lancets] 33 gauge misc See Dose Instructions .ROUTE .MEDSUPPLY Qty: 100 RF: 3 capsacin topical BID PRNRF: 0 acetaminophen [Acetaminophen Extra Strength] 500 MG tablet 1,000 mg PO Q8H PRN PRNQty: 120 RF: 0 Vitamin B-12 50 mcg Tablet PO HS RF: 0 ascorbic acid (vitamin C) [Vitamin C] 500 mg Tablet PO HS RF: 0 evening primrose oil 500 mg Capsule 500 mg PO HS RF: 0 No Action metformin 500 mg tablet extended release 24hr 1,000 mg PO DAILY Qty: 60 RF: 2 Discharge Instructions Instructions: Chest Pain (ED), Paresthesia (ED) Additional Instructions: Please return immediately to the emergency department if you develop any new or worsening symptoms or if you become otherwise concerned. It is extremely important that you undergo a stress test this week as we discussed. It is extremely important that you call as soon as possible to make an appointment to be seen in follow-up for this visit. Referrals: Merlin Winchester MD [ NON-[facility] STAFF PHYSICIAN] - Darby Reno NP [Primary Care Provider] - Discharge Data Discharge Date/Time-TO BE ENTERED AT DEPARTURE: 01/14/19 17:25 Medical Decision Making <Madison Westbrook MD - Last Filed: 01/17/19 21:40> Connie Lopez is a 43 y/o woman with history of hypertension, hyperlipidemia, obstructive sleep apnea, diabetes who presented to the emergency department with left arm tightness/numbness since yesterday and chest discomfort since this morning. On exam patient is well and nontoxic appearing. Benign cardiopulmonary exam. Benign neurologic exam. There is no tenderness of the left shoulder, upper arm, forearm. No edema or overlying skin changes. Radial pulses intact and symmetric. Brisk cap refill of the left fingers. Concern for ACS versus PE versus CVA versus other. Low suspicion for upper extremity DVT as patient has low risk for this. Exam/history is not consistent with acute aortic process, arterial pathology involving left upper extremity, sepsis. Plan for EKG, chest x-ray, screening labs including d-dimer, MRI brain. I discussed patient presentation with Dr. Almaraz of neurology, who recommended MRI brain without contrast, will see patient in follow-up next week as scheduled. MRI with some motion artifact but negative per radiology. On reassessment patient reporting chest pressure 6 out of 10. Patient states that she cannot tell if she is continuing to have arm symptoms because of blood pressure cuff placement. Patient is also requesting food. Plan for nitroglycerin for chest pressure, will hold off on food for now. Labs nondiagnostic at this point. Plan for 3-hour troponin and repeat EKG. Patient reports chest pressure relieved after nitroglycerin and also after eating a meal. Repeat troponin negative. Awaiting repeat EKG. Outpatient stress testing scheduled for 01/17/2019. I had a lengthy discussion with the patient regarding return to emergency department precautions, home care, and importance of outpatient follow-up with cardiology/PCP. Patient verbalized understanding of the plan was amenable. All questions were answered. Clear plan for outpatient follow-up was established prior to discharge. Patient was signed out to Dr. De La Rosa at time of shift change pending EKG. Medical Records Medical records reviewed: Yes I reviewed the patient's medical records. Imaging Data Radiologic Study: Attestation: I personally reviewed and interpreted this imaging study as follows: Radiologist's impression: CXR: No acute findings per radiology BRAIN MRI: MRI examination of the brain was performed according to the usual protocol. The examination was somewhat limited due to patient motion on all pulse sequences. Ventricular system is normal in appearance. No signal abnormality identified in the brain. There is normal flow void in the [place] vasculature. The orbital and temporal bone structures appear intact. Diffusion weighted imaging is within normal limits with no evidence of cerebral infarction. Susceptibility weighted imaging shows no evidence of hemorrhage. CONCLUSION: Normal brain MRI. Lab Data Lab results reviewed: Yes I reviewed the patient's lab results. Laboratory Tests Range/Units 01/14/19 01/14/19 01/14/19 12:37 12:37 12:37 WBC (4.4-10.8) k/cumm 8.87 RBC (4.00-5.20) m/cumm 4.78 Hgb (12.0-15.5) g/dL 13.7 Hct (36.0-46.0) % 40.7 MCV (80-95) fL 85.1 MCH (27.0-33.0) pg 28.7 MCHC (32.0-36.0) g/dL 33.7 RDW (11.7-14.6) % 12.6 Plt Count (130-400) x1000/uL 268 MPV (8.0-11.0) fL 10.4 Immature Gran % 0.5 Neutrophils % 57.0 Lymphocytes % 33.6 Monocytes % 7.6 Eosinophils % 0.8 Basophils % 0.5 Absolute Neutrophils (1.2-6.7) k/cumm 5.07 Absolute Lymphocytes (1.2-3.4) k/cumm 2.98 Absolute Monocytes (0.11-0.7) k/cumm 0.67 Absolute Eosinophils (0.0-0.7) k/cumm 0.07 Absolute Basophils (0.0-0.2) k/cumm 0.04 D-Dimer (<500) ng/mlFEU 253 Sodium (136-145) mmol/L 140 Potassium (3.5-5.1) mmol/L 4.0 Chloride (98-107) mmol/L 103 Carbon Dioxide (21.0-32.0) mmol/L 25.4 Anion Gap (3-11) mmol/L 11.6 H BUN (7-18) mg/dL 22 H Creatinine (0.55-1.02) mg/dL 0.78 Estimated GFR/1.73 m2 (mL/min/1.73m2) >= 60.00 Glucose (70-100) mg/dL 114 H Calcium (8.5-10.1) mg/dL 9.3 Magnesium (1.8-2.4) mg/dL 1.9 Total Bilirubin (0.2-1.0) mg/dL 0.2 AST (15-37) U/L 18 ALT (12-78) U/L 46 Alkaline Phosphatase (46-116) U/L 101 Troponin I (0.00-0.06) ng/mL < 0.05 Total Protein (6.4-8.2) g/dL 7.7 Albumin (3.4-5.0) g/dL 3.9 Range/Units 01/14/19 16:00 WBC (4.4-10.8) k/cumm RBC (4.00-5.20) m/cumm Hgb (12.0-15.5) g/dL Hct (36.0-46.0) % MCV (80-95) fL MCH (27.0-33.0) pg MCHC (32.0-36.0) g/dL RDW (11.7-14.6) % Plt Count (130-400) x1000/uL MPV (8.0-11.0) fL Immature Gran % Neutrophils % Lymphocytes % Monocytes % Eosinophils % Basophils % Absolute Neutrophils (1.2-6.7) k/cumm Absolute Lymphocytes (1.2-3.4) k/cumm Absolute Monocytes (0.11-0.7) k/cumm Absolute Eosinophils (0.0-0.7) k/cumm Absolute Basophils (0.0-0.2) k/cumm D-Dimer (<500) ng/mlFEU Sodium (136-145) mmol/L Potassium (3.5-5.1) mmol/L Chloride (98-107) mmol/L Carbon Dioxide (21.0-32.0) mmol/L Anion Gap (3-11) mmol/L BUN (7-18) mg/dL Creatinine (0.55-1.02) mg/dL Estimated GFR/1.73 m2 (mL/min/1.73m2) Glucose (70-100) mg/dL Calcium (8.5-10.1) mg/dL Magnesium (1.8-2.4) mg/dL Total Bilirubin (0.2-1.0) mg/dL AST (15-37) U/L ALT (12-78) U/L Alkaline Phosphatase (46-116) U/L Troponin I (0.00-0.06) ng/mL < 0.05 Total Protein (6.4-8.2) g/dL Albumin (3.4-5.0) g/dL ECG Data Attestation: I personally reviewed and interpreted this ECG (s) as follows: Interpretation: EKG shows sinus rhythm at 84, normal axis, no acute ischemic changes, nondiagnostic EKG <Cj De La Rosa DO - Last Filed: 01/14/19 17:16> Repeat EKG is unchanged and unremarkable. Patient stable for discharge. Please refer to Dr. Venita Westbrook's plan for outpatient plan. EKG 17: 05 Rate 83, intervals normal, sinus rhythm, no significant ST elevations or depressions, no T wave inversions. HPI <Madison Westbrook MD - Last Filed: 01/17/19 21:40> General Mode of arrival: ambulatory . Date/Time Provider Initiated Documentation: 01/14/19 12:02 . Limitations to Documentation: no limitations . Information obtained by: patient, RN notes reviewed and old records reviewed . HPI Narrative: Connie Lopez is a 43 y/o woman with history of hypertension, obstructive sleep apnea, hyperlipidemia, diabetes presenting to the emergency department with left arm numbness and chest discomfort. Patient reports that yesterday she was sitting at her desk at work when she developed a sensation in her left arm as if there was a blood pressure cuff on it. She describes this as a tight somewhat painful sensation in her upper arm and a numb/tingly sensation in her distal arm. Patient reports the sensation has been waxing and waning since onset yesterday but has not resolved fully. It is unchanged with exertion, position, movement of the arm, no known modifiers. Patient also reports that this morning while at rest she developed retrosternal chest discomfort that is mild, feels like heaviness. This pain is nonradiating. She denies any other pain, any other numbness/tingling, weakness, vomiting, diarrhea, shortness of breath, cough. No recent illness, no recent travel, has been eating and drinking as usual. No history of blood clots. Patient does note that several months ago she was seen by an eye doctor, who was concerned that she had peripheral vision loss that could be related to multiple sclerosis. Because of this she had an MRI performed 11/21 that was normal. She is scheduled to see Dr. Almaraz of neurology next week in follow-up for this. Related Data Home Medications Medication Instructions Recorded Confirmed triamcinolone acetonide 1 appful TOPICAL BID PRN #15 gm 09/15/16 01/14/19 acetaminophen [Acetaminophen Extra 1,000 mg PO Q8H PRN PRN #120 tab 02/14/17 01/14/19 Strength] erythromycin with ethanol 60 ml TOPICAL PRN script 03/21/17 01/14/19 aspirin [Aspir-81] 81 mg PO DAILY #90 tab-cap 02/01/18 01/14/19 liothyronine 25 mcg tablet 25 mcg PO DAILY #90 tab-cap 03/06/18 01/14/19 omega-3 fatty acids-fish oil 300 2 cap PO HS #180 tab-cap 03/06/18 01/14/19 mg-1,000 mg capsule cholecalciferol (vitamin D3) 5,000 5,000 unit PO DAILY #90 tab-cap 03/22/18 01/14/19 unit tablet sertraline 100 mg tablet 200 mg PO DAILY #180 tab 03/22/18 01/14/19 bupropion HCl 300 mg 24 hr tablet, 300 mg PO QAM #90 tab 04/16/18 01/14/19 extended release lorazepam 0.5 mg tablet 0.5 mg PO BID PRN PRN #60 tab 04/16/18 01/14/19 melatonin 5 mg tablet 5 mg PO HS #90 tab-cap 05/15/18 01/14/19 albuterol sulfate 90 mcg/actuation 2 puff IH QID #8.5 gm 05/16/18 01/14/19 aerosol inhaler amlodipine 5 mg tablet 5 mg PO DAILY #90 tab-cap 06/18/18 01/14/19 omeprazole 40 mg capsule,delayed 40 mg PO DAILY #90 tab-cap 06/18/18 01/14/19 release blood sugar diagnostic #100 each 08/09/18 12/13/18 blood-glucose meter #1 each 08/09/18 12/13/18 lancets 33 gauge #100 each 08/09/18 12/13/18 ferrous sulfate 325 mg (65 mg 325 mg PO DAILY #90 tab-cap 08/29/18 01/14/19 iron) tablet mirabegron 50 mg tablet,extended 50 mg PO DAILY #30 tab 08/29/18 01/14/19 release 24 hr trazodone 50 mg tablet 100 mg PO HS PRN #180 tab 08/29/18 01/14/19 ibuprofen 600 mg tablet 600 mg PO TID #30 tab 10/12/18 01/14/19 capsacin TOPICAL BID PRN 11/13/18 12/13/18 atorvastatin 20 mg tablet 20 mg PO DAILY #90 tab-cap 11/20/18 01/14/19 pregabalin 75 mg capsule 75 mg PO BID #60 tab-cap 11/20/18 01/14/19 alcohol swabs 1 pad TP DAILY #200 each 12/13/18 01/14/19 pen needle, diabetic 29 gauge x #100 each 12/13/18 12/13/18 1/2 Vitamin B-12 mcg PO HS 01/14/19 ascorbic acid (vitamin C) [Vitamin mg PO HS 01/14/19 C] evening primrose oil 500 mg PO HS 01/14/19 01/14/19 metformin 500 mg tablet,extended 1,000 mg PO DAILY #60 tab 01/17/19 01/17/19 release 24hr Previous Rx's Medication Instructions Recorded acetaminophen [Acetaminophen Extra 1,000 mg PO Q8H PRN PRN #120 tab 02/14/17 Strength] aspirin [Aspir-81] 81 mg PO DAILY #90 tab-cap 02/01/18 liothyronine 25 mcg tablet 25 mcg PO DAILY #90 tab-cap 03/06/18 omega-3 fatty acids-fish oil 300 2 cap PO HS #180 tab-cap 03/06/18 mg-1,000 mg capsule cholecalciferol (vitamin D3) 5,000 5,000 unit PO DAILY #90 tab-cap 03/22/18 unit tablet sertraline 100 mg tablet 200 mg PO DAILY #180 tab 03/22/18 bupropion HCl 300 mg 24 hr tablet, 300 mg PO QAM #90 tab 04/16/18 extended release lorazepam 0.5 mg tablet 0.5 mg PO BID PRN PRN #60 tab 04/16/18 melatonin 5 mg tablet 5 mg PO HS #90 tab-cap 05/15/18 albuterol sulfate 90 mcg/actuation 2 puff IH QID #8.5 gm 05/16/18 aerosol inhaler amlodipine 5 mg tablet 5 mg PO DAILY #90 tab-cap 06/18/18 omeprazole 40 mg capsule,delayed 40 mg PO DAILY #90 tab-cap 06/18/18 release blood sugar diagnostic #100 each 08/09/18 blood-glucose meter #1 each 08/09/18 lancets 33 gauge #100 each 08/09/18 ferrous sulfate 325 mg (65 mg 325 mg PO DAILY #90 tab-cap 08/29/18 iron) tablet mirabegron 50 mg tablet,extended 50 mg PO DAILY #30 tab 08/29/18 release 24 hr trazodone 50 mg tablet 100 mg PO HS PRN #180 tab 08/29/18 ibuprofen 600 mg tablet 600 mg PO TID #30 tab 10/12/18 atorvastatin 20 mg tablet 20 mg PO DAILY #90 tab-cap 11/20/18 pregabalin 75 mg capsule 75 mg PO BID #60 tab-cap 11/20/18 alcohol swabs 1 pad TP DAILY #200 each 12/13/18 pen needle, diabetic 29 gauge x #100 each 12/13/18 1/2 metformin 500 mg tablet,extended 1,000 mg PO DAILY #60 tab 01/17/19 release 24hr Allergies Allergy/AdvReac Type Severity Reaction Status Date / Time No Known Drug Allergies Allergy Verified 01/16/19 18:12 General TARIK: 4 Review of Systems <Madison Westbrook MD - Last Filed: 01/17/19 21:40> Review of Systems Constitutional: denies fevers Eyes: denies eye pain ENT: denies facial pain, dental pain, sore throat Cardiovascular: denies edema, reports chest pain Respiratory: denies SOB, cough GI: denies abdominal pain, vomiting, diarrhea : denies flank pain MSK: denies back pain, neck pain, arthralgias, reports arm pain Skin: denies rash Neuro: denies headaches, numbness, weakness PFSH <Madison Westbrook MD - Last Filed: 01/17/19 21:40> Medical History (Updated 01/16/19 @ 18:29 by Darby Reno NP) Adjustment disorder with mixed anxiety and depressed mood (Acute 08/17/17) Adult BMI > 30 (Acute) Anemia Anxiety (Acute 04/17/17) Depression Diabetes mellitus (Chronic) History of viral pericarditis (Acute 04/17/17) HLD (hyperlipidemia) HTN (hypertension) Incontinence in female (Acute) Migraine SHANTAL (obstructive sleep apnea) Tobacco use disorder Surgical History (Updated 11/13/18 @ 16:08 by Shira Camacho RN) H/O bilateral salpingectomy (Acute 03/05/15) Hysteroscopy (02/04/15) Pelvic floor reconstruction (~2009) Status post vaginal hysterectomy (Acute 03/05/15) Tonsillectomy & uvulectomy (~2009) Vaginal hysterectomy Social History Smoking/Tobacco Use Status: Former Tobacco Use Alcohol Intake: current Alcohol Intake frequency: holidays/special occasions only Drug use: Never Substance use type: does not use Do you feel safe at home: Yes Do you feel safe in your relationship?: Yes Exam <Mdaison Westbrook MD - Last Filed: 01/17/19 21:40> Narrative Exam Narrative: Constitutional: well and [id number], pleasant, conversing normally HENT: head atraumatic/normocephalic/normal inspection, mucous membranes moist Eyes: conjunctiva normal, sclera normal, pupils 3mm b/l RRLA, extraocular movements intact without nystagmus Neck: no stridor, normal ROM, trachea midline Chest: normal inspection Resp: normal work of breathing, LCTAB Cardio: normal rate, normal rhythm, no murmur appreciated GI: abdomen soft, non-tender, non-distended Back: normal inspection, no rash Skin: warm, dry, normal color, no rash Neuro: alert, not altered, cranial nerves II through XII intact, motor 5 out of 5 throughout, sensation of the upper extremities intact and symmetric, normal tone Ext: no edema, no posterior calf tenderness palpation Psych: normal mood, normal affect, normal behavior Sign Out <Madison Westbrook MD - Last Filed: 01/17/19 21:40> Sign Out Data: Sign Out Comment: Patient signed out to Dr. De La Rosa at time of shift change with repeat EKG pending Last updated by Madison Westbrook MD at 01/14/19 17:07
--- NOTE | 2019-01-14 12:34 | DI.RAD_ITS ---
SYMPTOMS/DIAGNOSIS: MID CHEST PAIN X 1 DAY, LEFT ARM NUMBNESS X 2 DAYS PA AND LATERAL CHEST: The heart is normal in size. The lungs are clear. The mediastinal structures and pleura appear intact. CONCLUSION: Normal chest.
[2019-01-14 12:51] LABS: Abs Immature Grans 0.04 k/cumm (0.0-0.09); Absolute Basophil Count 0.04 k/cumm (0.0-0.2); Absolute Eosinophil Count 0.07 k/cumm (0.0-0.7); Absolute Lymphocyte Count 2.98 k/cumm (1.2-3.4); Absolute Monocyte Count 0.67 k/cumm (0.11-0.7); Absolute Neutrophil Count 5.07 k/cumm (1.2-6.7); Basophils % 0.5; Eosinophils % 0.8; HCT 40.7 % (36.0-46.0); HGB 13.7 g/dL (12.0-15.5); Immature Grans % 0.5; Lymphocytes % 33.6; Mean Corp. HGB Concentration 33.7 g/dL (32.0-36.0); Mean Corpuscular Hemoglobin 28.7 pg (27.0-33.0); Mean Corpuscular Volume 85.1 fL (80-95); Mean Platelet Volume 10.4 fL (8.0-11.0); Monocytes % 7.6; Platelet Count 268 x1000/uL (130-400); RBC 4.78 m/cumm (4.00-5.20); RBC Distribution Width 12.6 % (11.7-14.6); White Blood Cell Count 8.87 k/cumm (4.4-10.8)
[2019-01-14 13:03] LABS: ALT 46 U/L (12-78); AST 18 U/L (15-37); Albumin 3.9 g/dL (3.4-5.0); Alkaline Phosphatase 101 U/L (46-116); Anion Gap 11.6 mmol/L (3-11); BUN 22 mg/dL (7-18); Bilirubin, Total 0.2 mg/dL (0.2-1.0); CO2 25.4 mmol/L (21.0-32.0); CREATININE 0.78 mg/dL (0.55-1.02); Calcium 9.3 mg/dL (8.5-10.1); Chloride 103 mmol/L (98-107); Glucose 114 mg/dL (70-100); Magnesium 1.9 mg/dL (1.8-2.4); Sodium 140 mmol/L (136-145); Total Protein 7.7 g/dL (6.4-8.2)
[2019-01-14 13:16] LABS: Troponin I < 0.05 ng/mL (0.00-0.06)
[2019-01-14 13:25] LABS: D-Dimer 253 ng/mlFEU (<500)
--- NOTE | 2019-01-14 13:50 | DI.MRI_ITS ---
SYMPTOMS/DIAGNOSIS: LEFT ARM NUMBNESS BRAIN MRI: MRI examination of the brain was performed according to the usual protocol. The examination was somewhat limited due to patient motion on all pulse sequences. Ventricular system is normal in appearance. No signal abnormality identified in the brain. There is normal flow void in the [place] of [place] vasculature. The orbital and temporal bone structures appear intact. Diffusion weighted imaging is within normal limits with no evidence of cerebral infarction. Susceptibility weighted imaging shows no evidence of hemorrhage. CONCLUSION: Normal brain MRI.
[2019-01-14] MEDS: Normal Saline 1,000 ML 1000 ML IV (15:57)
[2019-01-14 16:26] LABS: Troponin I < 0.05 ng/mL (0.00-0.06)
== END 2019-01-14 17:25 | disposition home or self-care (01) ==
PROVIDERS: Student in an Organized Health Care Education/Training Program; Emergency Provider Student in an Organized Health Care Education/Training Program; PCP Nurse Practitioner
DX: R07.9 Chest pain, unspecified (principal); R20.2 Paresthesia of skin; E11.9 Type 2 diabetes mellitus without complications; I10 Essential (primary) hypertension; Z79.84 Long term (current) use of oral hypoglycemic drugs
CPT/HCPCS: 36415; 80053; 93005; 96360; 96361; 99285; 70551; 71046; 83735; 84484; 85025; 85379; 93010

== ENCOUNTER 2019-01-17 00:06 | Outpatient (CLI) | payer MEDICAID, SELFPAY ==
--- NOTE | 2019-01-17 14:00 | ETT_ITS ---
*[facility]* *[facility]* [address] [place] [address] Stress Electrocardiography Leonardo protocol Date of study: 01/17/2019 *PATIENT PRESENTATION* Height: 167.6cm (66in) Blood Pressure: Weight: 110.5kg (243lb) BSA: 2.32m^2 Ordering physician: Madison Westbrook Impressions: Normal study after maximal exercise. Indication: R07.9. History: REASON FOR TESTING:PT PRESENTED TO THE ER WITH LEFT ARM TIGHTNESS /NUMBNESS AND CHEST DISCOMFORT.KY RULED OUT, D-DIMER SLIGHTLY ELEVATED. PE RULED OUT. CHEST PRESSURE RELIEVED AFTER NITROGLYCERIN, AND EATING. PMH: HYPERTENSION, KIDNEY STONE, MIGRAINE, PERIPHERAL NERVOUS SYSTEM DISEASE, OBSTRUCTIVE SLEEP APNEA, ANEMIA, HYPERLIPIDEMIA, DIABETES MELLITUS, HX OF VIRAL PERICARDITIS, ANXIETY, OBESITY, ADJUSTMENT DISORDER WITH ANXIETY AND DEPRESSION FAMILY HX: GRAVES DISEASE IN MOTHER. SMOKING: QUIT 3 YEARS AGO, STARTED AT AGE 8. 1/2 PPD X 25 YEARS. EXCERCISE: NO REGULAR EXCERCISE. Risk factors: Current tobacco use. Hypertension. Diabetes mellitus. Obesity. Dyslipidemia. Cholesterol: 236mg/dl. HDL: 46mg/dl. LDL: 134mg/dl. Triglycerides: 186mg/dl. ALLERGIES: NKDA. MEDICATIONS: TRIAMCINOLONE ACETONIDE TOPICAL BID PRN, TRAZADONE 100 MG HS PRN, SERTRALINE 200 MG DAILY, PREGABALIN 75 MG BID, OMEPRAZOLE 40 MG DAILY, [id number] MG DAIOLY, MELATONIN 5 MG HS, LORAZEPAM 0.5 MG BID PRN, LIOTHYRONINE 25 MG DAILY, IBUPROFEN 600 MG TID, FERROUS SULFATE 325 MG DAILY, EVENING PRIMROSE OIL 500 MG HS, ERYTHROMYCIN WITH ETHANOL TOPICAL PRN, VIT D3 5000 UNITS DAILY, BUPROPION HCL 300MG DAILY, ATORVASTATIN 20 MG DAILY, ASPIRIN 81 MG DAILY, VIT C HS, AMLODIPINE 5 MG DAILY, ALBUTEROL SULFATE 90 MCG/ACT 2 PUFFS QID. Protocol: Leonardo protocol. Baseline ECG: LAST EKG 01/14/19- SINUS RHYTHM, HR 83. TODAY'S EKG-SINUS RHYTHM, HR 86. Stress protocol: + +---+ +---+ !Stage !HR !BP (mmHg) !Sat! + +---+ +---+ ! !86 !156/82 (107)!---! + +---+ +---+ !Baseline standing !93 !154/90 (111)!97%! + +---+ +---+ !Stage I; 1.7mph, 10degrees; 3 min !130!162/80 (107)!---! + +---+ +---+ !Stage II; 2.5mph, 12degrees; 3 min!145!174/80 (111)!96%! + +---+ +---+ !Recovery; 1 min !150!190/50 (97) !---! + +---+ +---+ !Recovery; 3 min !102!186/64 (105)!---! + +---+ +---+ !Recovery; 6 min !101!166/76 (106)!---! + +---+ +---+ * Stress results: The rate-pressure product for the peak heart rate and blood pressure was 20105hy Hg/min. Stress ECG: EXCERCISE TESTING ENDED IN 7 MINS, 1 SEC DUE TO FATIGUE. MAX HR LUPIS 154, 88% OF TARGET. HYPERTENSIVE AT BASELINE, WITH A HYPERTENSIVE BLOOD PRESSURE RESPONSE. METS: 8.61 ECTOPY: NONE NOTED. ANGINA: NO REPORTED CHEST PAIN OR PRESSURE. ISCHEMIA: NO ISCHEMIC CHANGES NOTED. FUNCTIONAL CAPACITY: AVERAGE CAPACITY. Study data: Miranda Molina MD supervised and was readily available during the procedure. This study was interpreted by [facility]. Study status: Routine. Consent: The risks, benefits, and alternatives to the procedure were explained to the patient and informed consent was obtained. Procedure: Initial setup. A baseline ECG was recorded. Surface ECG leads and manual cuff blood pressure measurements were monitored. Heart sounds: Normal. Lung sounds: Normal. Treadmill exercise testing was performed using the Leonardo protocol. Study completion: The patient tolerated the procedure well and was discharged from the lab. Discharge: The patient left the laboratory in stable condition. Birthdate: Patient birthdate: 1975. Sex: Gender: female. Study date: Study date: 01/17/2019. Study time: 00:01 AM. Signature Documentation: The Stress ECG portion of this study was interpreted by Miranda Molina MD. Electronically signed by Miranda Molina 01/17/2019 15:24
== END 2019-01-17 00:26 ==
PROVIDERS: PCP Nurse Practitioner; Visit Provider Student in an Organized Health Care Education/Training Program
DX: R07.9 Chest pain, unspecified (principal); I10 Essential (primary) hypertension; E78.5 Hyperlipidemia, unspecified; E11.9 Type 2 diabetes mellitus without complications; Z87.891 Personal history of nicotine dependence
CPT/HCPCS: 93017

== ENCOUNTER 2019-01-30 09:16 | Emergency (ER) | payer MEDICAID, SELFPAY ==
[2019-01-30 09:22] VITALS: BP 150/95; PULSE 89; RESP 16; TEMP 37; O2SAT 95
--- NOTE | 2019-01-30 09:26 | W.ED.GENAD ---
Discharge Plan Disposition Patient Disposition: HOME Condition: Improving Discharge Details Chief Complaint: Nk/Back Pain Clinical Impression: Rhomboid muscle strain Primary Care Provider: Darby Reno ED Provider: Brandon Freeman Home Meds and New Rx's Prescriptions: New lidocaine [Lidoderm] 5 % adhesive patch,medicated 3 patch TP DAILY Qty: 3 RF: 0 Continued bupropion HCl [Wellbutrin XL] 300 mg tablet extended release 24 hr 300 mg PO QAM Qty: 90 RF: 3 lorazepam 0.5 mg tablet 0.5 mg PO BID PRN PRN (Reason: anxiety) Qty: 60 RF: 0 trazodone 50 mg tablet 100 mg PO HS PRN (Reason: insomnia) Qty: 180 RF: 3 Myrbetriq 50 mg tablet extended release 24 hr 50 mg PO DAILY Qty: 30 RF: 3 ferrous sulfate 325 mg (65 mg iron) tablet 325 mg PO DAILY Qty: 90 RF: 3 albuterol sulfate [ProAir HFA] 90 mcg/actuation HFA aerosol inhaler 2 puff IH QID Qty: 8.5 RF: 0 ibuprofen 600 mg tablet 600 mg PO TID Qty: 30 RF: 1 atorvastatin [Lipitor] 20 mg tablet 20 mg PO DAILY Qty: 90 RF: 3 Lyrica 75 mg capsule 75 mg PO BID Qty: 60 RF: 2 pregabalin [Lyrica] 150 mg capsule 150 mg PO BID Qty: 180 RF: 3 (DME) pen needle, diabetic [Advocate Pen Needle] 29 gauge x 1/2 needle See Rx Instructions .ROUTE .MEDSUPPLY Qty: 100 RF: 3 alcohol swabs pads, medicated 1 pad TP DAILY Qty: 200 RF: 3 metformin 500 mg tablet extended release 24hr 1,000 mg PO DAILY Qty: 60 RF: 2 triamcinolone acetonide 15 GM cream 1 appful Topical BID PRNQty: 15 RF: 6 erythromycin with ethanol 60 ML solution 60 ml Topical PRN RF: 0 aspirin [Aspir-81] 81 MG tablet,delayed release (DR/EC) 81 mg PO DAILY Qty: 90 RF: 3 liothyronine 25 mcg tablet 25 mcg PO DAILY Qty: 90 RF: 3 omega-3 fatty acids-fish oil 300-1,000 mg capsule 2 cap PO HS Qty: 180 RF: 3 sertraline 100 mg tablet 200 mg PO DAILY Qty: 180 RF: 3 cholecalciferol (vitamin D3) 5,000 unit tablet 5,000 unit PO DAILY Qty: 90 RF: 3 melatonin 5 mg tablet 5 mg PO HS Qty: 90 RF: 3 amlodipine 5 mg tablet 5 mg PO DAILY Qty: 90 RF: 3 omeprazole 40 mg capsule,delayed release(DR/EC) 40 mg PO DAILY Qty: 90 RF: 3 (DME) blood-glucose meter [[employer] Verio System] misc See Dose Instructions .ROUTE .MEDSUPPLY Qty: 1 RF: 0 (DME) OneTouch Verio strip See Dose Instructions .ROUTE .MEDSUPPLY Qty: 100 RF: 3 (DME) lancets [[employer]ica Lancets] 33 gauge misc See Dose Instructions .ROUTE .MEDSUPPLY Qty: 100 RF: 3 capsacin topical BID PRNRF: 0 acetaminophen [Acetaminophen Extra Strength] 500 MG tablet 1,000 mg PO Q8H PRN PRNQty: 120 RF: 0 Vitamin B-12 50 mcg Tablet PO HS RF: 0 ascorbic acid (vitamin C) [Vitamin C] 500 mg Tablet PO HS RF: 0 evening primrose oil 500 mg Capsule 500 mg PO HS RF: 0 Medical Decision Making 44-year-old female presents with right scapula pain that is reproducible at home and been constant over 4 days. Somewhat positional. She has not had a rash. No respiratory symptoms. She recently had a negative cardiac work-up. Most consistent with rhomboid strain, perhaps underlying latissimus attachment irritation. Will treat with lidocaine topical patch. She is stable for home management. She is to get a massage this weekend. She understands return precautions. HPI General Mode of arrival: ambulatory. Date/Time Provider Initiated Documentation: 01/30/19 09:17. Limitations to Documentation: no limitations. Information obtained by: patient. History of Present Illness 44 year old F presents to the emergency department with the chief complaint of Right scapula pain, described as moderate, Quality is described as dull, and is localized to the right and upper extremity. Patient reports no radiation. Patient started experiencing this day(s) and it has been constant. No relieving factors improve symptom(s), No exacerbating factors reported . Patient notes denies chest pain, fever/chills and rash. Patient did receive the following treatments prior to arrival, NSAID Related Data Home Medications Medication Instructions Recorded Confirmed triamcinolone acetonide 1 appful TOPICAL BID PRN #15 gm 09/15/16 01/14/19 acetaminophen [Acetaminophen Extra 1,000 mg PO Q8H PRN PRN #120 tab 02/14/17 01/14/19 Strength] erythromycin with ethanol 60 ml TOPICAL PRN script 03/21/17 01/14/19 aspirin [Aspir-81] 81 mg PO DAILY #90 tab-cap 02/01/18 01/14/19 liothyronine 25 mcg tablet 25 mcg PO DAILY #90 tab-cap 03/06/18 01/14/19 omega-3 fatty acids-fish oil 300 2 cap PO HS #180 tab-cap 03/06/18 01/14/19 mg-1,000 mg capsule cholecalciferol (vitamin D3) 5,000 5,000 unit PO DAILY #90 tab-cap 03/22/18 01/14/19 unit tablet sertraline 100 mg tablet 200 mg PO DAILY #180 tab 03/22/18 01/14/19 bupropion HCl 300 mg 24 hr tablet, 300 mg PO QAM #90 tab 04/16/18 01/14/19 extended release lorazepam 0.5 mg tablet 0.5 mg PO BID PRN PRN #60 tab 04/16/18 01/14/19 melatonin 5 mg tablet 5 mg PO HS #90 tab-cap 05/15/18 01/14/19 albuterol sulfate 90 mcg/actuation 2 puff IH QID #8.5 gm 05/16/18 01/14/19 aerosol inhaler amlodipine 5 mg tablet 5 mg PO DAILY #90 tab-cap 06/18/18 01/14/19 omeprazole 40 mg capsule,delayed 40 mg PO DAILY #90 tab-cap 06/18/18 01/14/19 release blood sugar diagnostic #100 each 08/09/18 12/13/18 blood-glucose meter #1 each 08/09/18 12/13/18 lancets 33 gauge #100 each 08/09/18 12/13/18 ferrous sulfate 325 mg (65 mg 325 mg PO DAILY #90 tab-cap 08/29/18 01/14/19 iron) tablet mirabegron 50 mg tablet,extended 50 mg PO DAILY #30 tab 08/29/18 01/14/19 release 24 hr trazodone 50 mg tablet 100 mg PO HS PRN #180 tab 08/29/18 01/14/19 ibuprofen 600 mg tablet 600 mg PO TID #30 tab 10/12/18 01/14/19 capsacin TOPICAL BID PRN 11/13/18 12/13/18 atorvastatin 20 mg tablet 20 mg PO DAILY #90 tab-cap 11/20/18 01/14/19 pregabalin 75 mg capsule 75 mg PO BID #60 tab-cap 11/20/18 01/14/19 alcohol swabs 1 pad TP DAILY #200 each 12/13/18 01/14/19 pen needle, diabetic 29 gauge x #100 each 12/13/18 12/13/1806/06 Vitamin B-12 mcg PO HS 01/14/19 ascorbic acid (vitamin C) [Vitamin mg PO HS 01/14/19 C] evening primrose oil 500 mg PO HS 01/14/19 01/14/19 metformin 500 mg tablet,extended 1,000 mg PO DAILY #60 tab 01/17/19 01/17/19 release 24hr pregabalin 150 mg capsule 150 mg PO BID #180 cap 01/29/19 01/29/19 lidocaine [Lidoderm] 3 patch TP DAILY #3 each 01/30/19 Previous Rx's Medication Instructions Recorded acetaminophen [Acetaminophen Extra 1,000 mg PO Q8H PRN PRN #120 tab 02/14/17 Strength] aspirin [Aspir-81] 81 mg PO DAILY #90 tab-cap 02/01/18 liothyronine 25 mcg tablet 25 mcg PO DAILY #90 tab-cap 03/06/18 omega-3 fatty acids-fish oil 300 2 cap PO HS #180 tab-cap 03/06/18 mg-1,000 mg capsule cholecalciferol (vitamin D3) 5,000 5,000 unit PO DAILY #90 tab-cap 03/22/18 unit tablet sertraline 100 mg tablet 200 mg PO DAILY #180 tab 03/22/18 bupropion HCl 300 mg 24 hr tablet, 300 mg PO QAM #90 tab 04/16/18 extended release lorazepam 0.5 mg tablet 0.5 mg PO BID PRN PRN #60 tab 04/16/18 melatonin 5 mg tablet 5 mg PO HS #90 tab-cap 05/15/18 albuterol sulfate 90 mcg/actuation 2 puff IH QID #8.5 gm 05/16/18 aerosol inhaler amlodipine 5 mg tablet 5 mg PO DAILY #90 tab-cap 06/18/18 omeprazole 40 mg capsule,delayed 40 mg PO DAILY #90 tab-cap 06/18/18 release blood sugar diagnostic #100 each 08/09/18 blood-glucose meter #1 each 08/09/18 lancets 33 gauge #100 each 08/09/18 ferrous sulfate 325 mg (65 mg 325 mg PO DAILY #90 tab-cap 08/29/18 iron) tablet mirabegron 50 mg tablet,extended 50 mg PO DAILY #30 tab 08/29/18 release 24 hr trazodone 50 mg tablet 100 mg PO HS PRN #180 tab 08/29/18 ibuprofen 600 mg tablet 600 mg PO TID #30 tab 10/12/18 atorvastatin 20 mg tablet 20 mg PO DAILY #90 tab-cap 11/20/18 pregabalin 75 mg capsule 75 mg PO BID #60 tab-cap 11/20/18 alcohol swabs 1 pad TP DAILY #200 each 12/13/18 pen needle, diabetic 29 gauge x #100 each 12/13/18 1/2 metformin 500 mg tablet,extended 1,000 mg PO DAILY #60 tab 01/17/19 release 24hr pregabalin 150 mg capsule 150 mg PO BID #180 cap 01/29/19 lidocaine [Lidoderm] 3 patch TP DAILY #3 each 01/30/19 Allergies Allergy/AdvReac Type Severity Reaction Status Date / Time No Known Drug Allergies Allergy Verified 01/30/19 09:29 General TARIK: 4 Review of Systems Review of Systems No fever, chills, rash. Recent negative cardiac work-up. 6 systems reviewed and otherwise negative [facility] Medical History Adjustment disorder with mixed anxiety and depressed mood (Acute 08/17/17) Adult BMI > 30 (Acute) Anemia Anxiety (Acute 04/17/17) Depression Diabetes mellitus (Chronic) Diabetic neuropathy (Acute) History of viral pericarditis (Acute 04/17/17) HLD (hyperlipidemia) HTN (hypertension) Incontinence in female (Acute) Kidney stone (Acute) Migraine SHANTAL (obstructive sleep apnea) S/P tubal ligation (Acute) Tobacco use disorder Vitamin D deficiency (Acute) Surgical History H/O bilateral salpingectomy (Acute 03/05/15) Hysteroscopy (02/04/15) uterus,cervix,left fallopian tube and salpingectomy. Dr. Wong Pelvic floor reconstruction (~2009) [facility] [place], [place] Dr. Hardin S/P shoulder surgery (Acute) left Status post vaginal hysterectomy (Acute 03/05/15) Stenosis of tear duct (Acute) Tonsillectomy & uvulectomy (~2009) Vaginal hysterectomy 2015 [facility] with Bilateral distal salpingectomy - Dr Smith Family History Mother Graves' disease Depression Father Alcoholism drug addicion Grandmother Personal history of malignant neoplasm skin Other Personal history of malignant neoplasm colon Social History Smoking/Tobacco Use Status: Former Tobacco Use Alcohol Intake: current Alcohol Intake frequency: holidays/special occasions only Drug use: Never Substance use type: does not use Household members: children Number of Children: 4 current occupation: Former [employer]; 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 [employer] Do you feel safe at home: Yes Do you feel safe in your relationship?: Yes Exam Narrative Exam Narrative: GEN: awake, alert, oriented 3. Pleasant, well groomed, interactive. HEAD: Normocephalic, atraumatic ENT: Mucous membranes moist, oropharynx unremarkable, External ear exam unremarkable EYES: PERRL, EOMI NECK: Full ROM, no VERNA, no menigismus CHEST/RESP: Nontender, clear to auscultation bilateral, no wheeze/rhonchi/rales Right posterior scapular pain at inferior border, increased with winging out of the scapula. CARDIOVASCULAR: RRR, no murmur, rub rufina. 2+ Rad pulse bilateral ABDOMEN: Soft, nontender, no mass. +Bowel sounds EXT: Full ROM, no edema, no rash Neuro: Grossly normal neurologic exam, conversant, interactive. Psych: Speech fluent, thoughts congruent, affect normal
[2019-01-30] MEDS: Lidocaine 5% Patch 1 PATCH TP (09:30)
== END 2019-01-30 09:35 | disposition home or self-care (01) ==
PROVIDERS: Emergency Provider Emergency Medicine; PCP Nurse Practitioner
DX: S29.012A Strain of muscle and tendon of back wall of thorax, initial encounter (principal); X58.XXXA Exposure to other specified factors, initial encounter; E11.9 Type 2 diabetes mellitus without complications; Z79.84 Long term (current) use of oral hypoglycemic drugs; I10 Essential (primary) hypertension
CPT/HCPCS: 99282

== ENCOUNTER 2019-02-06 17:27 | Outpatient (REF) | payer MEDICAID, SELFPAY | END 2019-02-06 17:47 | LOC: LBN 17:27 | PROVIDERS: PCP Nurse Practitioner; Visit Provider Internal Medicine | DX: N39.0 Urinary tract infection, site not specified (principal) | CPT/HCPCS: 87077; 87086; 87186 ==

== ENCOUNTER 2019-03-20 02:07 | Outpatient (CLI) | payer MEDICAID, SELFPAY ==
[2019-03-20 08:54] LABS: Total Iron Binding Capacity 319 ug/dL (250-450)
[2019-03-20 09:22] LABS: ALT 49 U/L (14-59); AST 19 U/L (15-37); Albumin 3.7 g/dL (3.4-5.0); Alkaline Phosphatase 98 U/L (46-116); Anion Gap 11.9 mmol/L (3-11); BUN 16 mg/dL (7-18); Bilirubin, Total 0.2 mg/dL (0.2-1.0); CO2 26.1 mmol/L (21.0-32.0); CREATININE 0.88 mg/dL (0.55-1.02); Calcium 9.1 mg/dL (8.5-10.1); Calculated LDL 54 mg/dL; Chloride 106 mmol/L (98-107); Cholesterol 136 mg/dL (50-200); Ferritin 167 ng/mL (8-388); Glucose 125 mg/dL (70-100); HDL Cholesterol 34 mg/dL (40-60); Potassium 4.2 mmol/L (3.5-5.1); Sodium 144 mmol/L (136-145); Total Protein 6.8 g/dL (6.4-8.2); Triglyceride 240 mg/dL (30-150); Vitamin B12 1062 pg/mL (193-986)
== END 2019-03-20 02:27 ==
PROVIDERS: PCP Nurse Practitioner; Visit Provider Nurse Practitioner
DX: I10 Essential (primary) hypertension (principal); E11.9 Type 2 diabetes mellitus without complications
CPT/HCPCS: 36415; 80053; 80061; 82607; 82728; 83550

== ENCOUNTER 2019-03-20 08:03 | Outpatient (REF) | payer MEDICAID, SELFPAY ==
[2019-03-21 12:52] LABS: Helicobacter pylori Ag, Feces Negative (NEGAT)
== END 2019-03-20 08:23 ==
LOC: LBN 08:03
PROVIDERS: PCP Nurse Practitioner; Visit Provider Nurse Practitioner
DX: K21.9 Gastro-esophageal reflux disease without esophagitis (principal)
CPT/HCPCS: 87338

== ENCOUNTER 2019-07-24 12:11 | Emergency (ER) | payer OTHER, SELFPAY ==
[2019-07-24] VITALS (13 sets, daily range): BP systolic 118–124; BP diastolic 68–85; PULSE 77–96; RESP 14–18; TEMP 36.5–36.6; O2SAT 93–98
--- NOTE | 2019-07-24 12:30 | DI.CT_ITS ---
EXAM: CT HEAD WO CLINICAL HISTORY: TONY, Visual changes, can't focus. TECHNIQUE: Imaging Protocol: Axial computed tomography images with coronal and sagittal reformatted images were created and reviewed COMPARISON: CERVICAL SPINE WITHOUT CONTRA from 06/01/2015 FINDINGS: Ventricles and Extra axial spaces: Normal in size and morphology for the patient's age. Hemorrhage: None. Cerebral parenchyma: Normal. Midline shift: None. Brainstem/Cerebellum: Normal. Calvarium: Normal. Visualized Paranasal sinuses/Mastoids: Clear. IMPRESSION: Normal CT of the head. DATA REPOSITORY: All CT scans at this facility are submitted to the National Radiology Data Registry (NRDR) Dose Index Registry (DIR) with the [employer] (ACR). RADIATION OPTIMIZATION: All CT scans at this facility use at least one of these dose optimization te chniques: automated exposure control; mA and/or kV adjustment per patient size (includes targeted exa ms where dose is matched to clinical indication); or iterative reconstruction.
--- NOTE | 2019-07-24 12:59 | ED.GENADUL_ITS ---
Discharge Plan Disposition Patient Disposition: HOME Condition: Stable Discharge Details Chief Complaint: GenMedical Clinical Impression: Cephalgia, Chest pressure Primary Care Provider: Darby Reno ED Provider: Govind Lyle Home Meds and New Rx's Prescriptions: Continued lorazepam 0.5 mg tablet 0.5 mg PO BID PRN PRN (Reason: anxiety) Qty: 60 RF: 0 trazodone 50 mg tablet 100 mg PO HS PRN (Reason: insomnia) Qty: 180 RF: 3 ferrous sulfate 325 mg (65 mg iron) tablet 325 mg PO DAILY Qty: 90 RF: 3 albuterol sulfate [ProAir HFA] 90 mcg/actuation HFA aerosol inhaler 2 puff IH QID Qty: 8.5 RF: 0 ibuprofen 600 mg tablet 600 mg PO TID Qty: 30 RF: 1 alcohol swabs pads, medicated 1 pad TP DAILY Qty: 200 RF: 3 pregabalin [Lyrica] 150 mg capsule 150 mg PO BID RF: 0 bupropion HCl [Wellbutrin XL] 300 mg tablet extended release 24 hr 300 mg PO QHS RF: 0 amlodipine 5 mg tablet 5 mg PO DAILY Qty: 90 RF: 3 atorvastatin [Lipitor] 20 mg tablet 20 mg PO DAILY Qty: 90 RF: 3 liothyronine 25 mcg tablet 25 mcg PO DAILY Qty: 90 RF: 3 melatonin 5 mg tablet 5 mg PO HS Qty: 90 RF: 3 Victoza 3-Rui 0.6 mg/0.1 mL (18 mg/3 mL) pen injector See Rx Instructions SC .COMPLEX Qty: 9 RF: 3 (DME) pen needle, diabetic [Advocate Pen Needle] 29 gauge x 1/2 needle See Rx Instructions .ROUTE .MEDSUPPLY Qty: 100 RF: 3 triamcinolone acetonide 15 GM cream 1 appful Topical BID PRNQty: 15 RF: 6 omeprazole 40 mg capsule,delayed release(DR/EC) 40 mg PO DAILY Qty: 90 RF: 3 cholecalciferol (vitamin D3) 5,000 unit tablet 5,000 unit PO DAILY Qty: 90 RF: 3 Myrbetriq 50 mg tablet extended release 24 hr 50 mg PO DAILY Qty: 90 RF: 2 metformin 500 mg tablet extended release 24hr 1,000 mg PO DAILY Qty: 180 RF: 2 omega-3 fatty acids-fish oil 300-1,000 mg capsule 2 cap PO HS Qty: 180 RF: 2 sertraline 100 mg tablet 200 mg PO DAILY Qty: 180 RF: 2 (DME) OneTouch Verio Strip See Dose Instructions .ROUTE .MEDSUPPLY Qty: 200 RF: 3 (DME) lancets [OneTouch Delica Lancets] 33 gauge misc See Dose Instructions .ROUTE .MEDSUPPLY Qty: 200 RF: 3 acetaminophen [Acetaminophen Extra Strength] 500 MG tablet 1,000 mg PO Q8H PRN PRNQty: 120 RF: 0 Vitamin B-12 50 mcg Tablet 50 mcg PO HS RF: 0 ascorbic acid (vitamin C) [Vitamin C] 500 mg Tablet 500 mg PO HS RF: 0 evening primrose oil 500 mg Capsule 500 mg PO HS RF: 0 Discharge Instructions Instructions: Chest Pain (ED), General Headache (ED) Additional Instructions: Work-up here in the ER including rapid cardiac rule out with 3-hour repeat troponin and EKG, head CT, do not reveal any clear explanation of your symptoms. Please watch for new or worsening symptoms and return to the ER for any concerns. I strongly recommend that you reach out to your primary care provider tomorrow for prompt outpatient reevaluation. Referral to specialty services may be indicated for further evaluation of your ongoing symptoms Medical Decision Making 44-year-old male with extensive history presents with rash under she describes it as visual changes, difficulty focusing, chest pressure, paresthesias in her left arm. These were new symptoms however it sounds as though they had been actually for at least 6 months and she was seen by both her primary care provider and a neurologist for this. Did say of these symptoms are related. She appears well, nontoxic. She is using her cell phone without difficulty. She is neurologically intact. Given her chest pressure and left arm symptoms we will initiate cardiac work-up including a repeat troponin EKG at 3 hours. We will also obtain head CT to rule out intracranial process. Will give aspirin for this. Discussed work-up with patient. She had 2 Grubel wait for repeat troponin and EKG. Upon reevaluation she appears well, nontoxic tach. She is using her cell difficulty. Repeat EKG performed at 1544 reveals sinus rhythm, ventricular rate of 82. No acute ST elevation or depression segments. Unchanged from initial EKG. Repeat troponin is undetectable. Discussed findings with patient. She is there are no acute findings but it is quite sure noted that this for the next half a year with no clear explanation. She is comfortable with discharge at this time, encouraged to return to the ED for any new symptoms, otherwise contact her primary care provider for outpatient evaluation and referral to subspecialties. Patient is neurologically intact. Reports chest pressure or head pressure. She reports that her vision has improved. She reports that she still has occasional dizziness, not like the room is spinning. She was able to ambulate steadily Medical Records Medical records reviewed: Yes I reviewed the patient's medical records. Imaging Data Radiologic Study: Attestation: I personally reviewed and interpreted this imaging study as follows: Imaging: X-Ray My impression: Chest, read as by me Radiologic Study #2: Imaging: CT Scan (neg per radiology) Lab Data Lab results reviewed: Yes I reviewed the patient's lab results. Lab results narrative: Laboratory Tests Range/Units 07/24/19 07/24/19 07/24/19 12:55 12:55 12:55 WBC (4.4-10.8) k/cumm 8.59 RBC (4.00-5.20) m/cumm 4.87 Hgb (12.0-15.5) g/dL 13.2 Hct (36.0-46.0) % 40.7 MCV (80-95) fL 83.6 MCH (27.0-33.0) pg 27.1 MCHC (32.0-36.0) g/dL 32.4 RDW (11.7-14.6) % 14.1 Plt Count (130-400) x1000/uL 271 MPV (8.0-11.0) fL 10.1 Immature Gran % % 0.2 Neutrophils % 55.5 Lymphocytes % 32.9 Monocytes % 9.9 Eosinophils % 0.9 Basophils % 0.6 Absolute Neutrophils (1.2-6.7) k/cumm 4.76 Absolute Lymphocytes (1.2-3.4) k/cumm 2.83 Absolute Monocytes (0.11-0.7) k/cumm 0.85 H Absolute Eosinophils (0.0-0.7) k/cumm 0.08 Absolute Basophils (0.0-0.2) k/cumm 0.05 PT (9.3-11.0) sec 9.9 INR (0.9-1.1) 1.0 APTT (21.0-31.4) sec 22.9 Sodium (136-145) mmol/L 142 Potassium (3.5-5.1) mmol/L 3.8 Chloride (98-107) mmol/L 104 Carbon Dioxide (21.0-32.0) mmol/L 27.1 Anion Gap (3-11) mmol/L 10.9 BUN (7-18) mg/dL 20 H Creatinine (0.55-1.02) mg/dL 0.88 Estimated GFR/1.73 m2 (mL/min/1.73m2) >= 60.00 Glucose (74-106) mg/dL 84 Calcium (8.5-10.1) mg/dL 9.1 Magnesium (1.8-2.4) mg/dL 2.0 Total Bilirubin (0.2-1.0) mg/dL 0.2 AST (15-37) U/L 16 ALT (14-59) U/L 34 Alkaline Phosphatase (46-116) U/L 75 Troponin I (<0.06) ng/Ml < 0.05 Total Protein (6.4-8.2) g/dL 7.2 Albumin (3.4-5.0) g/dL 3.8 Urine Color (Yellow) Urine Clarity (Clear) Urine pH (5-8) Ur Specific Parachute (1.005-1.025) Urine Protein (Negative) mg/dL Urine Ketones (Negative) mg/dL Urine Blood (Negative) Urine Nitrite (Negative) Urine Bilirubin (Negative) Urine Urobilinogen (Up TO 0.2) EU/dL Ur Leukocyte Esterase (Negative) Urine RBC (0-2) HPF Urine WBC (0-5) HPF Ur Epithelial Cells (Negative) HPF Urine Crystals (Negative) HPF Urine Bacteria (Negative) HPF Urine Casts (Negative) LPF Urine Mucus (Negative) Ur Culture Indicated? Urine Glucose (Negative) mg/dL Range/Units 07/24/19 07/24/19 14:00 15:38 WBC (4.4-10.8) k/cumm RBC (4.00-5.20) m/cumm Hgb (12.0-15.5) g/dL Hct (36.0-46.0) % MCV (80-95) fL MCH (27.0-33.0) pg MCHC (32.0-36.0) g/dL RDW (11.7-14.6) % Plt Count (130-400) x1000/uL MPV (8.0-11.0) fL Immature Gran % % Neutrophils % Lymphocytes % Monocytes % Eosinophils % Basophils % Absolute Neutrophils (1.2-6.7) k/cumm Absolute Lymphocytes (1.2-3.4) k/cumm Absolute Monocytes (0.11-0.7) k/cumm Absolute Eosinophils (0.0-0.7) k/cumm Absolute Basophils (0.0-0.2) k/cumm PT (9.3-11.0) sec INR (0.9-1.1) APTT (21.0-31.4) sec Sodium (136-145) mmol/L Potassium (3.5-5.1) mmol/L Chloride (98-107) mmol/L Carbon Dioxide (21.0-32.0) mmol/L Anion Gap (3-11) mmol/L BUN (7-18) mg/dL Creatinine (0.55-1.02) mg/dL Estimated GFR/1.73 m2 (mL/min/1.73m2) Glucose (74-106) mg/dL Calcium (8.5-10.1) mg/dL Magnesium (1.8-2.4) mg/dL Total Bilirubin (0.2-1.0) mg/dL AST (15-37) U/L ALT (14-59) U/L Alkaline Phosphatase (46-116) U/L Troponin I (<0.06) ng/Ml < 0.05 Total Protein (6.4-8.2) g/dL Albumin (3.4-5.0) g/dL Urine Color (Yellow) Yellow Urine Clarity (Clear) Clear Urine pH (5-8) 5.5 Ur Specific Parachute (1.005-1.025) >= 1.030 H Urine Protein (Negative) mg/dL Negative Urine Ketones (Negative) mg/dL Negative Urine Blood (Negative) Negative Urine Nitrite (Negative) Negative Urine Bilirubin (Negative) Negative Urine Urobilinogen (Up TO 0.2) EU/dL 0.2 Ur Leukocyte Esterase (Negative) Small H Urine RBC (0-2) HPF Negative Urine WBC (0-5) HPF 3-5 Ur Epithelial Cells (Negative) HPF Moderate Urine Crystals (Negative) HPF Few amorphous Urine Bacteria (Negative) HPF Few Urine Casts (Negative) LPF Negative Urine Mucus (Negative) Moderate Ur Culture Indicated? No/sq. contamination Urine Glucose (Negative) mg/dL Negative ECG Data Attestation: I personally reviewed and interpreted this ECG (s) as follows: Interpretation: Sinus rhythm, ventricular 80. No ST elevation or depression s egments HPI General Mode of arrival: ambulatory . Date/Time Provider Initiated Documentation: 07/24/19 12:20 . Limitations to Documentation: no limitations . Information obtained by: patient . HPI Narrative: 44-year-old female with an extensive past medical history that includes chronic pain, diabetic neuropathy, fibromyalgia, dysmenorrhea, hypertension, migraines, sleep apnea, anemia, depression, hyperlipidemia, anxiety, presents to the ER for multiple complaints. Initially she tells me a mild global pressure, not really pain, associated with difficulty focusing, and seeing visual strobe lights. She reports this began at work around 9-930 this morning. Patient is left-handed, has had left shoulder surgery, and reports 3-day history of left shoulder discomfort a ssociated with paresthesias throughout the hand, this is not necessarily new. Patient denies any recent illness or trauma. Denies any neck pain, chest pain, abdominal pain, nausea, vomiting, dysuria, hematuria, diarrhea, pain or swelling in her legs. Denies lower extremity numbness, tingling, weakness. She later tells me that she has had chest pressure earlier today but does not describe this as the pain. She told me that she has a history of migraines but this does not really feel like her typical migraine. Typically her migraines are associated with finger discomfort and if it does move into her middle finger this is when she has nausea and vomiting. She has never really had the symptoms that brought her to the ER today but then later tells me that she has been worked up for stroke as an outpatient and 6 months ago had very similar symptoms as to what she has today. She reports to me now that she has felt wonky for a minimum of 6 months, have been evaluated by her primary care provider for the same symptoms without any clear etiology of her symptoms, subsequently sent to neurology for outpatient work-up, she reports the work-up was negative and she was told that she simply has fibromyalgia. Related Data Home Medications Medication Instructions Recorded Confirmed triamcinolone acetonide 1 appful TOPICAL BID PRN #15 gm 09/15/16 07/24/19 acetaminophen [Acetaminophen Extra 1,000 mg PO Q8H PRN PRN #120 tab 02/14/17 07/24/19 Strength] lorazepam 0.5 mg tablet 0.5 mg PO BID PRN PRN #60 tab 04/16/18 07/24/19 albuterol sulfate 90 mcg/actuation 2 puff IH QID #8.5 gm 05/16/18 07/24/19 aerosol inhaler omeprazole 40 mg capsule,delayed 40 mg PO DAILY #90 tab-cap 06/18/18 07/24/19 release ferrous sulfate 325 mg (65 mg 325 mg PO DAILY #90 tab-cap 08/29/18 07/24/19 iron) tablet trazodone 50 mg tablet 100 mg PO HS PRN #180 tab 08/29/18 07/24/19 ibuprofen 600 mg tablet 600 mg PO TID #30 tab 10/12/18 07/24/19 alcohol swabs 1 pad TP DAILY #200 each 12/13/18 07/24/19 Vitamin B-12 50 mcg PO HS 01/14/19 07/24/19 ascorbic acid (vitamin C) [Vitamin 500 mg PO HS 01/14/19 07/24/19 C] evening primrose oil 500 mg PO HS 01/14/19 07/24/19 cholecalciferol (vitamin D3) 125 5,000 unit PO DAILY #90 tab-cap 01/30/19 07/24/19 mcg (5,000 unit) tablet metformin 500 mg tablet,extended 1,000 mg PO DAILY #180 tab 02/07/19 07/24/19 release 24hr mirabegron 50 mg tablet,extended 50 mg PO DAILY #90 tab 02/07/19 07/24/19 release 24 hr omega-3 fatty acids-fish oil 300 2 cap PO HS #180 tab-cap 02/07/19 07/24/19 mg-1,000 mg capsule sertraline 100 mg tablet 200 mg PO DAILY #180 tab 02/07/19 07/24/19 amlodipine 5 mg tablet 5 mg PO DAILY #90 tab-cap 02/19/19 07/24/19 atorvastatin 20 mg tablet 20 mg PO DAILY #90 tab-cap 02/19/19 07/24/19 bupropion HCl 300 mg 24 hr tablet, 300 mg PO QHS tab 02/19/19 07/24/19 extended release liothyronine 25 mcg tablet 25 mcg PO DAILY #90 tab-cap 02/19/19 07/24/19 melatonin 5 mg tablet 5 mg PO HS #90 tab-cap 02/19/19 07/24/19 pregabalin 150 mg capsule 150 mg PO BID cap 03/12/19 07/24/19 liraglutide 0.6 mg/0.1 mL (18 mg/3 See Rx Instructions SC .COMPLEX #9 03/19/19 07/24/19 mL) subcutaneous pen injector ml pen needle, diabetic 29 gauge x #100 each 03/19/19 03/19/19 1 blood sugar diagnostic #200 each 05/27/19 lancets 33 gauge #200 each 05/27/19 Previous Rx's Medication Instructions Recorded acetaminophen [Acetaminophen Extra 1,000 mg PO Q8H PRN PRN #120 tab 02/14/17 Strength] lorazepam 0.5 mg tablet 0.5 mg PO BID PRN PRN #60 tab 04/16/18 albuterol sulfate 90 mcg/actuation 2 puff IH QID #8.5 gm 05/16/18 aerosol inhaler omeprazole 40 mg capsule,delayed 40 mg PO DAILY #90 tab-cap 06/18/18 release ferrous sulfate 325 mg (65 mg 325 mg PO DAILY #90 tab-cap 08/29/18 iron) tablet trazodone 50 mg tablet 100 mg PO HS PRN #180 tab 08/29/18 ibuprofen 600 mg tablet 600 mg PO TID #30 tab 10/12/18 alcohol swabs 1 pad TP DAILY #200 each 12/13/18 cholecalciferol (vitamin D3) 125 5,000 unit PO DAILY #90 tab-cap 01/30/19 mcg (5,000 unit) tablet metformin 500 mg tablet,extended 1,000 mg PO DAILY #180 tab 02/07/19 release 24hr mirabegron 50 mg tablet,extended 50 mg PO DAILY #90 tab 02/07/19 release 24 hr omega-3 fatty acids-fish oil 300 2 cap PO HS #180 tab-cap 02/07/19 mg-1,000 mg capsule sertraline 100 mg tablet 200 mg PO DAILY #180 tab 02/07/19 amlodipine 5 mg tablet 5 mg PO DAILY #90 tab-cap 02/19/19 atorvastatin 20 mg tablet 20 mg PO DAILY #90 tab-cap 02/19/19 liothyronine 25 mcg tablet 25 mcg PO DAILY #90 tab-cap 02/19/19 melatonin 5 mg tablet 5 mg PO HS #90 tab-cap 02/19/19 liraglutide 0.6 mg/0.1 mL (18 mg/3 See Rx Instructions SC .COMPLEX #9 03/19/19 mL) subcutaneous pen injector ml pen needle, diabetic 29 gauge x #100 each 03/19/19 1/ blood sugar diagnostic #200 each 05/27/19 lancets 33 gauge #200 each 05/27/19 Allergies Allergy/AdvReac Type Severity Reaction Status Date / Time No Known Drug Allergies Allergy Verified 07/24/19 12:22 General Stated Complaint: GenMedical TARIK: 3 Review of Systems Constitutional Constitutional: Denies chills, Denies fatigue, Denies fever(s), Reports headache(s) and Denies weakness Eyes Eyes: Reports change in vision ENT Ears, Nose, Mouth, and Throat: Denies vertigo, Reports dizziness, Reports headache(s) and Denies sore throat Cardiovascular Cardiovascular: Denies chest pain, Denies syncope, Denies edema, Denies dyspnea and Reports other (Chest pressure) Respiratory Respiratory: Denies cough and Denies dyspnea Gastrointestinal Gastrointestinal: Denies abdominal pain, Denies nausea and Denies vomiting Genitourinary Genitourinary: Denies dysuria Musculoskeletal Musculoskeletal: Reports myalgias (Chronic) Integumentary/Breasts Skin/Breast: Denies rash Neurologic Neurologic: Reports confusion, Denies vertigo, Reports dizziness, Denies syncope, Reports headache(s) and Denies weakness Psychiatric Psychiatric: Reports anxiety and Reports confusion Endocrine Endocrine: Denies fatigue FOR[facility] Medical History Adjustment disorder with mixed anxiety and depressed mood (Acute 08/17/17) Adult BMI > 30 (Acute) Anemia Anxiety (Acute 04/17/17) Depression Diabetes mellitus (Chronic) Diabetic neuropathy (Acute) History of viral pericarditis (Acute 04/17/17) HLD (hyperlipidemia) HTN (hypertension) Incontinence in female (Acute) Kidney stone (Acute) Migraine SHANTAL (obstructive sleep apnea) Tobacco use disorder Vitamin D deficiency (Acute) Surgical History H/O bilateral salpingectomy (Acute 03/05/15) Hysteroscopy (02/04/15) uterus,cervix,left fallopian tube and salpingectomy. Dr. Wong Pelvic floor reconstruction (~2009) [facility] Dr. Hardin S/P shoulder surgery (Acute) left S/P tubal ligation (Acute) Status post vaginal hysterectomy (Acute 03/05/15) Stenosis of tear duct (Acute) Tonsillectomy & uvulectomy (~2009) Vaginal hysterectomy 2015 TV with Bilateral distal salpingectomy - Dr Smith Family History Mother Graves' disease Depression Father Alcoholism drug addicion Grandmother Personal history of malignant neoplasm skin Other Personal history of malignant neoplasm colon Social History Smoking/Tobacco Use Status: Former Tobacco Use Alcohol Intake: current Alcohol Intake frequency: holidays/special occasions only Drug use: Never Substance use type: does not use Household members: children Number of Children: 4 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 occupation: 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 [employer]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[employer]; 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 [employer] Do you feel safe at home: Yes Do you feel safe in your relationship?: Yes Exam Const General: cooperative, healthy appearing, comfortable and no acute distress Orientation: alert, awake and oriented x3 HENMT Head: normal to inspection, normocephalic and atraumatic Ears: hearing grossly normal bilaterally, external ears normal, TM's normal bilaterally and EAC's normal Mouth: oral mucosae normal and moist mucous membranes Throat: posterior oropharynx normal Eyes General: appearance normal, both eyes and all related structures Periorbital: periorbital findings normal Eyelids: eyelids normal Conjunctivae: conjunctivae normal Sclera: sclerae normal Cornea: corneas normal Pupils: PERRL EOM: EOM intact bilaterally Direct ophthalmoscopy: normal light reflex Neck Neck: normal visual inspection, full ROM, no lymphadenopathy, no meningeal signs, trachea midline and supple Resp Effort & Inspection: normal respiratory effort and able to speak in complete sentences Auscultation: clear to auscultation bilaterally Cardio Rate: regular rate Rhythm: regular rhythm GI Inspection: normal to inspection Palpation: soft and nontender Skin General skin exam: no rashes or lesions noted Neuro General: alert, awake, oriented x3, gait normal, moves all extremities and no focal motor deficits Cranial Nerves: CN's II-XI intact bilaterally Cognition: normal cognition Speech: speech normal Gait: normal gait Motor: muscle tone normal throughout, strength 5/5 throughout, no pronator drift, no movement abnormalities noted and no fasciculations Sensory Exam: no sensory deficits noted Extrem General: normal to inspection, full ROM and normal capillary refill Psych Appearance: grossly normal Mental Status: mental status grossly normal Course Vital Signs Vital signs: Vital Signs Temperature 36.5 C 07/24/19 12:18 Pulse 84 07/24/19 12:18 Respiratory Rate 18 07/24/19 12:18 Blood Pressure 124/85 07/24/19 12:18 Pulse Oximetry 98 07/24/19 12:18 Temperature 36.5 C 07/24/19 12:18 Temperature Source Skin 07/24/19 12:18 Pulse 84 07/24/19 12:18 Respiratory Rate 18 07/24/19 12:18 Respiratory Effort Non-Labored 07/24/19 12:20 Blood Pressure 124/85 07/24/19 12:18 Blood Pressure Position Sitting 07/24/19 12:18 Pulse Oximetry 98 07/24/19 12:18 Oxygen Delivery Method Room Air 07/24/19 12:18 Oxygen Flow Rate 0 07/24/19 12:18
[2019-07-24 13:04] LABS: Abs Immature Grans 0.02 k/cumm (0.0-0.09); Absolute Basophil Count 0.05 k/cumm (0.0-0.2); Absolute Eosinophil Count 0.08 k/cumm (0.0-0.7); Absolute Lymphocyte Count 2.83 k/cumm (1.2-3.4); Absolute Monocyte Count 0.85 k/cumm (0.11-0.7); Absolute Neutrophil Count 4.76 k/cumm (1.2-6.7); Basophils % 0.6; Eosinophils % 0.9; HCT 40.7 % (36.0-46.0); HGB 13.2 g/dL (12.0-15.5); Immature Grans % 0.2 %; Lymphocytes % 32.9; Mean Corp. HGB Concentration 32.4 g/dL (32.0-36.0); Mean Corpuscular Hemoglobin 27.1 pg (27.0-33.0); Mean Corpuscular Volume 83.6 fL (80-95); Mean Platelet Volume 10.1 fL (8.0-11.0); Monocytes % 9.9; Neutrophils % 55.5; Platelet Count 271 x1000/uL (130-400); RBC 4.87 m/cumm (4.00-5.20); RBC Distribution Width 14.1 % (11.7-14.6); White Blood Cell Count 8.59 k/cumm (4.4-10.8)
--- NOTE | 2019-07-24 13:08 | DI.RAD_ITS ---
EXAM: XR CHEST 2V PA LATERAL CLINICAL HISTORY: CP, L arm pain. TECHNIQUE: 2D digital imaging was performed. COMPARISON: XR CHEST 2V PA LATERAL from 01/14/2019 FINDINGS: LUNGS: Clear. No pleural abnormality seen. HEART: Normal. MEDIASTINUM: Normal. OTHER FINDINGS:Normal. BONE:Normal. IMPRESSION: No acute pulmonary findings.
[2019-07-24 13:16] LABS: PTT Activated 22.9 sec (21.0-31.4); Prothrombin Time 9.9 sec (9.3-11.0)
[2019-07-24 13:25] LABS: ALT 34 U/L (14-59); AST 16 U/L (15-37); Albumin 3.8 g/dL (3.4-5.0); Alkaline Phosphatase 75 U/L (46-116); Anion Gap 10.9 mmol/L (3-11); BUN 20 mg/dL (7-18); Bilirubin, Total 0.2 mg/dL (0.2-1.0); CO2 27.1 mmol/L (21.0-32.0); CREATININE 0.88 mg/dL (0.55-1.02); Calcium 9.1 mg/dL (8.5-10.1); Chloride 104 mmol/L (98-107); Glucose 84 mg/dL (74-106); Potassium 3.8 mmol/L (3.5-5.1); Sodium 142 mmol/L (136-145); Total Protein 7.2 g/dL (6.4-8.2)
[2019-07-24] MEDS: Aspirin 81 MG CHEW 324 MG CH (13:25)
[2019-07-24 13:26] LABS: Troponin I < 0.05 ng/Ml (<0.06)
[2019-07-24 14:12] LABS: Bilirubin Negative (Negative); Blood Negative (Negative); Clarity Clear (Clear); Glucose Negative (Negative); Ketones Negative (Negative); Leukocyte Esterase Small (Negative); Nitrite Negative (Negative); Specific Gravity >= 1.030 (1.005-1.025); Urobilinogen 0.2 EU/dL (Up TO 0.2); pH 5.5 (5-8)
[2019-07-24 14:24] LABS: Bacteria Few HPF (Negative); C & S Indicated? No/Sq. Contamination; Casts Negative LPF (Negative); Crystals Few Amorphous HPF (Negative); Epithelial Cells Moderate HPF (Negative); Mucus Moderate (Negative); RBC Negative HPF (0-2)
[2019-07-24 16:06] LABS: Troponin I < 0.05 ng/Ml (<0.06)
== END 2019-07-24 16:31 | disposition home or self-care (01) ==
PROVIDERS: Emergency Provider Physician Assistant; PCP Nurse Practitioner
DX: R07.89 Other chest pain (principal); R51 Headache; I10 Essential (primary) hypertension; E11.40 Type 2 diabetes mellitus with diabetic neuropathy, unspecified; Z79.84 Long term (current) use of oral hypoglycemic drugs
CPT/HCPCS: 36415; 80053; 99284; 70450; 71046; 81003; 81015; 83735; 84484; 85025; 85610; 85730

== ENCOUNTER 2019-07-25 11:14 | Outpatient (CLI) | payer OTHER, SELFPAY ==
[2019-07-25 12:43] LABS: ESR 7 mm/hr (0-20)
[2019-07-25 12:44] LABS: C-Reactive Protein 0.17 mg/dL (0.0-0.3)
[2019-07-25 16:52] LABS: Rheumatoid Factor <8.6 IU/mL (<12.0)
[2019-07-26 15:14] LABS: ANA Interpretation Negative (Negative)
== END 2019-07-25 11:34 ==
PROVIDERS: PCP Nurse Practitioner; Visit Provider Nurse Practitioner
DX: R53.83 Other fatigue (principal); R20.2 Paresthesia of skin; M25.50 Pain in unspecified joint
CPT/HCPCS: 36415; 85652; 84443; 86038; 86140; 86431

== ENCOUNTER 2019-11-16 19:26 | Emergency (ER) | payer OTHER, SELFPAY ==
[2019-11-16 19:35] VITALS: BP 140/80; PULSE 93; RESP 18; TEMP 36.6; O2SAT 97
--- NOTE | 2019-11-16 20:00 | DI.RAD_ITS ---
EXAM: XR CHEST 2V PA LATERAL CLINICAL HISTORY: chest pain, suspect pericarditis TECHNIQUE: 2D digital imaging was performed. COMPARISON: CR XR CHEST 2V PA LATERAL from 07/24/2019 FINDINGS: MEDIASTINUM: Normal. HEART: Normal. PULMONARY VASCULATURE: Normal. LUNGS: Clear. PLEURAL SPACE: No pleural effusion or pneumothorax. BONE:Normal. OTHER FINDINGS:Normal. IMPRESSION: No acute pulmonary findings. DATA REPOSITORY: RADIATION DOSE DELIVERED:
[2019-11-16 20:10] LABS: Abs Immature Grans 0.04 k/cumm (0.0-0.09); Absolute Basophil Count 0.03 k/cumm (0.0-0.2); Absolute Eosinophil Count 0.12 k/cumm (0.0-0.7); Absolute Lymphocyte Count 3.06 k/cumm (1.2-3.4); Absolute Monocyte Count 0.74 k/cumm (0.11-0.7); Absolute Neutrophil Count 4.13 k/cumm (1.2-6.7); Basophils % 0.4; Eosinophils % 1.5; HCT 39.6 % (36.0-46.0); HGB 13.1 g/dL (12.0-15.5); Immature Grans % 0.5 %; Lymphocytes % 37.7; Mean Corp. HGB Concentration 33.1 g/dL (32.0-36.0); Mean Corpuscular Hemoglobin 27.2 pg (27.0-33.0); Mean Corpuscular Volume 82.2 fL (80-95); Mean Platelet Volume 10.6 fL (8.0-11.0); Monocytes % 9.1; Neutrophils % 50.8; Platelet Count 282 x1000/uL (130-400); RBC 4.82 m/cumm (4.00-5.20); RBC Distribution Width 14.3 % (11.7-14.6); White Blood Cell Count 8.12 k/cumm (4.4-10.8)
[2019-11-16] MEDS: Acetaminophen 500 MG TAB 1000 MG PO (20:17)
[2019-11-16] MEDS: Ketorolac 30 MG/ML VIAL IVP (20:18)
[2019-11-16 20:23] LABS: ALT 46 U/L (14-59); AST 21 U/L (15-37); Albumin 3.8 g/dL (3.4-5.0); Alkaline Phosphatase 116 U/L (46-116); Anion Gap 10.4 mmol/L (3-11); BUN 16 mg/dL (7-18); Bilirubin, Total 0.2 mg/dL (0.2-1.0); CO2 26.6 mmol/L (21.0-32.0); CREATININE 1.03 mg/dL (0.55-1.02); Calcium 9.4 mg/dL (8.5-10.1); Chloride 103 mmol/L (98-107); Estimated GFR 57.95 (mL/min/1.73m2); Glucose 203 mg/dL (74-106); Potassium 3.8 mmol/L (3.5-5.1); Sodium 140 mmol/L (136-145); Total Protein 7.3 g/dL (6.4-8.2); Troponin I < 0.05 ng/mL (<0.06)
--- NOTE | 2019-11-16 20:27 | W.ED.GENAD ---
Discharge Plan Disposition Patient Disposition: HOME Condition: Good Discharge Details Chief Complaint: Chest Pain Clinical Impression: Pericarditis Primary Care Provider: Darby Reno ED Provider: Cj De La Rosa Home Meds and New Rx's Prescriptions: Continued lorazepam 0.5 mg tablet 0.5 mg PO BID PRN PRN (Reason: anxiety) Qty: 60 RF: 0 trazodone 50 mg tablet 100 mg PO HS PRN (Reason: insomnia) Qty: 180 RF: 3 ferrous sulfate 325 mg (65 mg iron) tablet 325 mg PO DAILY Qty: 90 RF: 3 albuterol sulfate [ProAir HFA] 90 mcg/actuation HFA aerosol inhaler 2 puff IH QID Qty: 8.5 RF: 0 ibuprofen 600 mg tablet 600 mg PO TID Qty: 30 RF: 1 alcohol swabs pads, medicated 1 pad TP DAILY Qty: 200 RF: 3 amlodipine 5 mg tablet 5 mg PO DAILY Qty: 90 RF: 3 atorvastatin [Lipitor] 20 mg tablet 20 mg PO DAILY Qty: 90 RF: 3 liothyronine 25 mcg tablet 25 mcg PO DAILY Qty: 90 RF: 3 melatonin 5 mg tablet 5 mg PO HS Qty: 90 RF: 3 (DME) pen needle, diabetic [Advocate Pen Needle] 29 gauge x 1/2 needle See Rx Instructions .ROUTE .MEDSUPPLY Qty: 100 RF: 3 triamcinolone acetonide 15 GM cream 1 appful Topical BID PRNQty: 15 RF: 6 cholecalciferol (vitamin D3) 5,000 unit tablet 5,000 unit PO DAILY Qty: 90 RF: 3 Myrbetriq 50 mg tablet extended release 24 hr 50 mg PO DAILY Qty: 90 RF: 2 metformin 500 mg tablet extended release 24hr 1,000 mg PO DAILY Qty: 180 RF: 2 omega-3 fatty acids-fish oil 300-1,000 mg capsule 2 cap PO HS Qty: 180 RF: 2 (DME) blood sugar diagnostic [OneTouch Verio test strips] Strip See Dose Instructions .ROUTE .MEDSUPPLY Qty: 200 RF: 3 sertraline 100 mg tablet 200 mg PO DAILY Qty: 180 RF: 2 Victoza 3-Rui 0.6 mg/0.1 mL (18 mg/3 mL) pen injector See Rx Instructions SC .COMPLEX Qty: 9 RF: 3 omeprazole 40 mg capsule,delayed release(DR/EC) 40 mg PO DAILY Qty: 90 RF: 3 bupropion HCl [Wellbutrin XL] 300 mg tablet extended release 24 hr 300 mg PO QHS Qty: 90 RF: 3 pregabalin [Lyrica] 150 mg capsule 150 mg PO BID Qty: 60 RF: 2 (DME) lancets [OneTouch Delica Plus Lancet] 33 gauge misc 0 .ROUTE .MEDSUPPLY Qty: 200 RF: 3 (DME) lancing device with lancets [OneTouch Delica Plus Lanc Dev] Kit See Rx Instructions .ROUTE .MEDSUPPLY Qty: 200 RF: 3 acetaminophen [Acetaminophen Extra Strength] 500 MG tablet 1,000 mg PO Q8H PRN PRNQty: 120 RF: 0 Vitamin B-12 50 mcg Tablet 50 mcg PO HS RF: 0 ascorbic acid (vitamin C) [Vitamin C] 500 mg Tablet 500 mg PO HS RF: 0 evening primrose oil 500 mg Capsule 500 mg PO HS RF: 0 Discharge Instructions Instructions: Acute Pericarditis (ED) Additional Instructions: At this time I feel that your symptoms are secondary to mild pericarditis. Please take 1000 mg of Tylenol every 6 hours and 800 mg of ibuprofen every 6 hours. These are the maximum doses. Get plenty of rest. Drink plenty of fluids. If your symptoms do not improve over the next 5 to 7 days, I do think it is prudent to follow-up closely with your primary care provider for reassessment and potential additional testing. If you notice any worsening of your symptoms, or any new symptoms such as vomiting, diarrhea, fever, chills, shortness of breath, chest pain, numbness, weakness, or fainting , please return immediately to the emergency department for reevaluation. Please follow up with your primary care provider as soon as possible for reassessment and reevaluation. As always, it was a pleasure participating in your medical care today. Referrals: Darby Reno NP [Primary Care Provider] - Medical Decision Making Very pleasant 44-year-old female with past medical history of previous viral pericarditis, fibromyalgia, diabetes, hypertension, mild obesity, previous tobacco abuse in the past, presents today for evaluation of chest pain. Patient states that for the last 2 to 3 weeks she has developed mild right-sided chest pain, which she describes as an achy-like sensation, it is only relieved when she presses on her right anterior chest wall. It is worsened when she lies back, improves when she sits up and leans forward. Questionable minimal exertional component, but more so related to movement and palpation/leaning forward. She denies any cough, fever, chills, recent URI, or other complaints. She denies any tearing or ripping sensation. She denies any severe shortness of breath, denies PE risk factors such as recent long car rides, immobilization, recent surgery, prior history of DVT or PE, family history of PE or DVT, morbid obesity, exogenous estrogen and smoking, hemoptysis, history of cancer. Patient states that her symptoms feel notably similar to her previous episode of pericarditis. She has not taken any NSAIDs. She denies any history of cardiac disease otherwise. No other complaints. No trauma recently. No other modifying factors. Physical exam is notably unremarkable, she does have a questionable small mild friction rub, symptoms notably improved here when sitting upright and leaning forward. Small amount of reproducible chest pain on the right anterior chest wall. No calf tenderness. Signs and symptoms appear inconsistent with PE or dissection. Symptoms are certainly concerning for mild pericarditis. Portable bedside ultrasound shows minimal trace pericardial effusion, no significant wall motion abnormalities. Because of the patient's risk factors we will perform a basic cardiac work-up, we will give NSAIDs for suspected pericarditis, monitor closely gand reassess. 9 PM Patient's chest x-ray has returned negative per virtual radiology, EKG unremarkable, laboratory work-up benign, no white count left shift bandemia electrolyte abnormality or other abnormality. Troponin negative. Patient has notable improvement of her symptomatology with Toradol and Tylenol. Signs and symptoms appear clinically consistent with pericarditis, mild. Inconsistent clinically at this time with PE, dissection, or STEMI. Patient will be discharged home, recommend close follow-up with PCP if symptoms do not improve. Discussed red flags which to return. I have extensively reviewed the treatment plan and discharge instructions with the patient. I have addressed all patient concerns at this time. The patient was made aware of what symptoms to monitor for that would warrant a return to the emergency department. Discussed the plan with the patient, they demonstrate verbal understanding and agreement with our assessment and plan at this time. EKG 19: 34 Rate 83, intervals normal, sinus rhythm, no significant ST elevations or depressions, no evidence of STEMI, no electrical alternans. FINDINGS: Lungs: Unremarkable. No consolidation. Pleural space: Unremarkable. No pleural effusion. No pneumothorax. Heart/Mediastinum: Unremarkable. No cardiomegaly. Bones/joints: Unremarkable. IMPRESSION: No acute findings. Thank you for allowing us to participate in the care of your patient. Dictated and Authenticated by: Dickson Purvis MD 11/16/2019 8:56 PM Eastern Time ([place] & [place]) HPI General Date/Time Provider Initiated Documentation: 11/16/19 19:30. HPI Narrative: Very pleasant 44-year-old female with past medical history of previous viral pericarditis, fibromyalgia, diabetes, hypertension, mild obesity, previous tobacco abuse in the past, presents today for evaluation of chest pain. Patient states that for the last 2 to 3 weeks she has developed mild right-sided chest pain, which she describes as an achy-like sensation, it is only relieved when she presses on her right anterior chest wall. It is worsened when she lies back, improves when she sits up and leans forward. Questionable minimal exertional component, but more so related to movement and palpation/leaning forward. She denies any cough, fever, chills, recent URI, or other complaints. She denies any tearing or ripping sensation. She denies any severe shortness of breath, denies PE risk factors such as recent long car rides, immobilization, recent surgery, prior history of DVT or PE, family history of PE or DVT, morbid obesity, exogenous estrogen and smoking, hemoptysis, history of cancer. Patient states that her symptoms feel notably similar to her previous episode of pericarditis. She has not taken any NSAIDs. She denies any history of cardiac disease otherwise. No other complaints. No trauma recently. No other modifying factors. Related Data Home Medications Medication Instructions Recorded Confirmed triamcinolone acetonide 1 appful TOPICAL BID PRN #15 gm 09/15/16 11/16/19 acetaminophen [Acetaminophen Extra 1,000 mg PO Q8H PRN PRN #120 tab 02/14/17 11/16/19 Strength] lorazepam 0.5 mg tablet 0.5 mg PO BID PRN PRN #60 tab 04/16/18 11/16/19 albuterol sulfate 90 mcg/actuation 2 puff IH QID #8.5 gm 05/16/18 11/16/19 aerosol inhaler ferrous sulfate 325 mg (65 mg 325 mg PO DAILY #90 tab-cap 08/29/18 11/16/19 iron) tablet trazodone 50 mg tablet 100 mg PO HS PRN #180 tab 08/29/18 11/16/19 ibuprofen 600 mg tablet 600 mg PO TID #30 tab 10/12/18 11/16/19 alcohol swabs 1 pad TP DAILY #200 each 12/13/18 11/16/19 Vitamin B-12 50 mcg PO HS 01/14/19 11/16/19 ascorbic acid (vitamin C) [Vitamin 500 mg PO HS 01/14/19 11/16/19 C] evening primrose oil 500 mg PO HS 01/14/19 11/16/19 cholecalciferol (vitamin D3) 125 5,000 unit PO DAILY #90 tab-cap 01/30/19 11/16/19 mcg (5,000 unit) tablet metformin 500 mg tablet,extended 1,000 mg PO DAILY #180 tab 02/07/19 11/16/19 release 24hr mirabegron 50 mg tablet,extended 50 mg PO DAILY #90 tab 02/07/19 11/16/19 release 24 hr omega-3 fatty acids-fish oil 300 2 cap PO HS #180 tab-cap 02/07/19 11/16/19 mg-1,000 mg capsule amlodipine 5 mg tablet 5 mg PO DAILY #90 tab-cap 02/19/19 11/16/19 atorvastatin 20 mg tablet 20 mg PO DAILY #90 tab-cap 02/19/19 11/16/19 liothyronine 25 mcg tablet 25 mcg PO DAILY #90 tab-cap 02/19/19 11/16/19 melatonin 5 mg tablet 5 mg PO HS #90 tab-cap 02/19/19 11/16/19 pen needle, diabetic 29 gauge x #100 each 03/19/19 11/16/19 1/2 blood sugar diagnostic #200 each 05/27/19 11/16/19 sertraline 100 mg tablet 200 mg PO DAILY #180 tab 07/29/19 11/16/19 liraglutide 0.6 mg/0.1 mL (18 mg/3 See Rx Instructions SC .COMPLEX #9 08/06/19 11/16/19 mL) subcutaneous pen injector ml bupropion HCl 300 mg 24 hr tablet, 300 mg PO QHS #90 tab 08/19/19 11/16/19 extended release omeprazole 40 mg capsule,delayed 40 mg PO DAILY #90 tab-cap 08/19/19 11/16/19 release pregabalin 150 mg capsule 150 mg PO BID #60 cap 08/20/19 11/16/19 lancets 33 gauge #200 each 11/14/19 11/16/19 lancing device with lancets #200 each 11/14/19 11/16/19 Previous Rx's Medication Instructions Recorded acetaminophen [Acetaminophen Extra 1,000 mg PO Q8H PRN PRN #120 tab 02/14/17 Strength] lorazepam 0.5 mg tablet 0.5 mg PO BID PRN PRN #60 tab 04/16/18 albuterol sulfate 90 mcg/actuation 2 puff IH QID #8.5 gm 05/16/18 aerosol inhaler ferrous sulfate 325 mg (65 mg 325 mg PO DAILY #90 tab-cap 08/29/18 iron) tablet trazodone 50 mg tablet 100 mg PO HS PRN #180 tab 08/29/18 ibuprofen 600 mg tablet 600 mg PO TID #30 tab 10/12/18 alcohol swabs 1 pad TP DAILY #200 each 12/13/18 cholecalciferol (vitamin D3) 125 5,000 unit PO DAILY #90 tab-cap 01/30/19 mcg (5,000 unit) tablet metformin 500 mg tablet,extended 1,000 mg PO DAILY #180 tab 02/07/19 release 24hr mirabegron 50 mg tablet,extended 50 mg PO DAILY #90 tab 02/07/19 release 24 hr omega-3 fatty acids-fish oil 300 2 cap PO HS #180 tab-cap 02/07/19 mg-1,000 mg capsule amlodipine 5 mg tablet 5 mg PO DAILY #90 tab-cap 02/19/19 atorvastatin 20 mg tablet 20 mg PO DAILY #90 tab-cap 02/19/19 liothyronine 25 mcg tablet 25 mcg PO DAILY #90 tab-cap 02/19/19 melatonin 5 mg tablet 5 mg PO HS #90 tab-cap 02/19/19 pen needle, diabetic 29 gauge x #100 each 10/15/19 1/2 blood sugar diagnostic #200 each 05/27/19 sertraline 100 mg tablet 200 mg PO DAILY #180 tab 07/29/19 liraglutide 0.6 mg/0.1 mL (18 mg/3 See Rx Instructions SC .COMPLEX #9 08/06/19 mL) subcutaneous pen injector ml bupropion HCl 300 mg 24 hr tablet, 300 mg PO QHS #90 tab 08/19/19 extended release omeprazole 40 mg capsule,delayed 40 mg PO DAILY #90 tab-cap 08/19/19 release pregabalin 150 mg capsule 150 mg PO BID #60 cap 08/20/19 lancets 33 gauge #200 each 11/14/19 lancing device with lancets #200 each 11/14/19 Allergies Allergy/AdvReac Type Severity Reaction Status Date / Time No Known Drug Allergies Allergy Verified 07/25/19 10:41 General Stated Complaint: Chest Pain TARIK: 2 Review of Systems All systems reviewed & are unremarkable except as noted in HPI and below PFS Medical History Adjustment disorder with mixed anxiety and depressed mood (Acute 08/17/17) Adult BMI > 30 (Acute) Anemia Anxiety (Acute 04/17/17) Depression Diabetes mellitus (Chronic) Diabetic neuropathy (Acute) History of viral pericarditis (Acute 04/17/17) HLD (hyperlipidemia) HTN (hypertension) Incontinence in female (Acute) Kidney stone (Acute) Migraine SHANTAL (obstructive sleep apnea) Tobacco use disorder Vitamin D deficiency (Acute) Surgical History H/O bilateral salpingectomy (Acute 03/05/15) Hysteroscopy (02/04/15) uterus,cervix,left fallopian tube and salpingectomy. Dr. Wong Pelvic floor reconstruction (~2009) [facility] [place] Dr. Hardin S/P shoulder surgery (Acute) left S/P tubal ligation (Acute) Status post vaginal hysterectomy (Acute 03/05/15) Stenosis of tear duct (Acute) Tonsillectomy & uvulectomy (~2009) Vaginal hysterectomy 2014 [facility] with Bilateral distal salpingectomy - Dr Smith Family History Mother Graves' disease Depression Father Alcoholism drug addicion Grandmother Personal history of malignant neoplasm skin Other Personal history of malignant neoplasm colon Social History Smoking/Tobacco Use Status: Former Tobacco Use Alcohol Intake: current Alcohol Intake frequency: holidays/special occasions only Drug use: Never Substance use type: does not use Household members: children Number of Children: 4 current occupation: Former [employer]; 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 [employer] Do you feel safe at home: Yes Do you feel safe in your relationship?: Yes Exam Narrative Exam Narrative: 1.Const: Well-nourished, Well-developed, appearing stated age 2.Eyes: PERRL, no conjunctival injection, and symmetrical lids. 3.ENT: Atraumatic external nose and ears. Moist MM. Neck: Symmetric, trachea midline, No thyromegaly. 4.CVS: +S1/S2, No murmurs or gallops. Peripheral pulses 2+ and equal in all extremities. Brisk capillary refill in all extremities. Minimal questionable friction rub. 5.RESP: Unlabored respiratory effort. Clear to auscultation bilaterally. No wheezes rales or rhonchi 6.GI: Soft, Nontender/Nondistended, No hepatosplenomegaly. No guarding or rebound. 7.MSK: Normocephalic/Atraumatic, Extremities w/o deformity or ttp No cyanosis or clubbing, Normal movement of all extremities. Reproducible chest pain over the right anterior parasternal border. 8.Skin: Warm, Dry. No rashes or lesions. 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 Sensation grossly intact, no focal neurologic deficits. 10.Psych: (AAO) x3. Appropriate mood and affect Course Vital Signs Vital signs: Vital Signs Temperature 36.6 C 11/16/19 19:35 Pulse 93 H 11/16/19 19:35 Respiratory Rate 18 11/16/19 19:35 Blood Pressure 140/80 11/16/19 19:35 Pulse Oximetry 97 11/16/19 19:35 Temperature 36.6 C 11/16/19 19:35 Temperature Source Temporal Artery Scan 11/16/19 19:35 Pulse 93 H 11/16/19 19:35 Respiratory Rate 18 11/16/19 19:35 Respiratory Effort 11/16/19 19:42 Blood Pressure 140/80 11/16/19 19:35 Pulse Oximetry 97 11/16/19 19:35 Oxygen Delivery Method Room Air 11/16/19 19:35 Oxygen Flow Rate 0 11/16/19 19:35 Pain Level 8 11/16/19 19:35 Lab/Test Results Lab/Test Results: Laboratory Tests Range/Units 11/16/19 11/16/19 20:05 20:05 WBC (4.4-10.8) k/cumm 8.12 RBC (4.00-5.20) m/cumm 4.82 Hgb (12.0-15.5) g/dL 13.1 Hct (36.0-46.0) % 39.6 MCV (80-95) fL 82.2 MCH (27.0-33.0) pg 27.2 MCHC (32.0-36.0) g/dL 33.1 RDW (11.7-14.6) % 14.3 Plt Count (130-400) x1000/uL 282 MPV (8.0-11.0) fL 10.6 Immature Gran % % 0.5 Neutrophils % 50.8 Lymphocytes % 37.7 Monocytes % 9.1 Eosinophils % 1.5 Basophils % 0.4 Absolute Neutrophils (1.2-6.7) k/cumm 4.13 Absolute Lymphocytes (1.2-3.4) k/cumm 3.06 Absolute Monocytes (0.11-0.7) k/cumm 0.74 H Absolute Eosinophils (0.0-0.7) k/cumm 0.12 Absolute Basophils (0.0-0.2) k/cumm 0.03 Sodium (136-145) mmol/L 140 Potassium (3.5-5.1) mmol/L 3.8 Chloride (98-107) mmol/L 103 Carbon Dioxide (21.0-32.0) mmol/L 26.6 Anion Gap (3-11) mmol/L 10.4 BUN (7-18) mg/dL 16 Creatinine (0.55-1.02) mg/dL 1.03 H Estimated GFR/1.73 m2 (mL/min/1.73m2) 57.95 Glucose (74-106) mg/dL 203 H Calcium (8.5-10.1) mg/dL 9.4 Magnesium (1.8-2.4) mg/dL 2.0 Total Bilirubin (0.2-1.0) mg/dL 0.2 AST (15-37) U/L 21 ALT (14-59) U/L 46 Alkaline Phosphatase (46-116) U/L 116 Troponin I (<0.06) ng/mL < 0.05 Total Protein (6.4-8.2) g/dL 7.3 Albumin (3.4-5.0) g/dL 3.8
--- NOTE | 2019-11-16 20:56 | DI.VRAD_ITS ---
PROCEDURE INFORMATION: Exam: XR Chest, 2 Views Exam date and time: 11/16/2019 8:40 PM Age: 44 years old Clinical indication: Other: Cp, ? pericarditis TECHNIQUE: Imaging protocol: XR of the chest Views: 2 views. COMPARISON: CR XR CHEST 2V PA LATERAL 07/24/2019 1:04 PM FINDINGS: Lungs: Unremarkable. No consolidation. Pleural space: Unremarkable. No pleural effusion. No pneumothorax. Heart/Mediastinum: Unremarkable. No cardiomegaly. Bones/joints: Unremarkable. IMPRESSION: No acute findings. Dictated and Authenticated by: Dickson Purvis MD. Ordering:JARRET Corona MD
== END 2019-11-16 21:30 | disposition home or self-care (01) ==
PROVIDERS: Physician Assistant; Emergency Provider Student in an Organized Health Care Education/Training Program; PCP Nurse Practitioner
DX: I30.8 Other forms of acute pericarditis (principal); I10 Essential (primary) hypertension; E11.9 Type 2 diabetes mellitus without complications; Z79.84 Long term (current) use of oral hypoglycemic drugs
CPT/HCPCS: 36415; 80053; 93005; 96374; 99285; 71046; 83735; 84484; 85025; 93010; 99284; J1885

== ENCOUNTER 2020-02-28 07:54 | Outpatient (CLI) | payer OTHER, SELFPAY ==
[2020-02-29 23:41] LABS: COVID-19 RT-PCR Result NEGATIVE (Negative)
== END 2020-02-28 08:14 ==
PROVIDERS: PCP Nurse Practitioner; Visit Provider Surgery
DX: Z11.59 Encounter for screening for other viral diseases (principal); Z01.818 Encounter for other preprocedural examination
CPT/HCPCS: U0003

== ENCOUNTER 2020-03-02 06:08 | Day surgery (SDC) | payer OTHER, SELFPAY ==
[2020-03-02 06:26] VITALS: BP 123/81; PULSE 83; RESP 18; TEMP 36.5; O2SAT 99
[2020-03-02] MEDS: Lactated Ringers 1,000 ML 80 ML IV (06:53)
--- NOTE | 2020-03-02 07:55 | STOM_PTH ---
PATIENT: Connie Lopez LOC: [facility] U#:[id number] AGE/SX: 45/F ROOM: RE03/02/[address]: Yessy Wheeler : 1975 BED: DIS: 03/02/2020 SPEC #: [id number] RECD: 03/02/20 12:55 STATUS: MAURICIO RE #: [id number] NORTH: 03/02/20 07:[address]: Yessy Wheeler DEPT: Surgical Specimen RECD BY: Muriel Hernández ENTERED: 03/02/20 12:56 SP TYPE: STOMACH OTHR DR: Darby Reno APRN Tissues: 1 - BIOPSY BOWEL 2 - STOMACH BIOPSY 3 - STOMACH BIOPSY 4 - ESOPHAGUS BIOPSY 5 - ESOPHAGUS BIOPSY Procedures: GROSS AND MICRO LEVEL 4 Comments: [id number]
--- NOTE | 2020-03-02 08:14 | ENDO_ITS ---
Date of service: 03/02/20 Time of Service: 08:14 Endoscopy Report DATE OF PROCEDURE: 03/02/20 PRE-OP DIAGNOSIS: GERD POST-OP DIAGNOSIS: other (gastritis/sm hiatal hernia/esophagitis ) PROCEDURE: EGD w/ Bx SURGEON: Yessy Wheeler ANESTHESIA: GETA ESTIMATED BLOOD LOSS: 1 PATHOLOGY: other COMPLICATIONS: None DISPOSITION: same day PROCEDURE DESCRIPTION: After informed consent was obtained the patient was take to the procedure room and placed in a supine position. Monitors were applied and a time out was done. The patients name, date of , procedure type, allergies to medications and metal in their body was reviewed. A bite block was placed and the patient was sedated. Once sedated and comfortable the gastroscope was advanced through the oropharynx which was grossly normal into the esophagus. The proximal and mid-esophagus were nl. In the distal esophagus there was no: varices/diverticula or strictures apparent. There is mild esophagitis, no signs of Gardiner's. The scope was advanced into the stomach a nd through the pylorus into the 3rd portion of the duodenum. The duodenum was noted to be nl. Biopsies were done: all specimens are retrieved adn no bleeding is noted. She has some mild gastritis in a striped fashion radiating out from the antrum. The scope was retracted back into the stomach and biopsies were done to rule out H. pylori. There were no ulcers. The scope was retroflexed. The cardia and fundus were noted to be normal. There is a small hiatal hernia noted. The scope was retracted back into the esophagus and biopsies were done of the GE junction to rule out Gardiner's. The Z line was irregular. The GE junction was at 40 cm. The scope was removed and the patient was woken up and taken back to [facility] in stable condition. Incidentally noted the pt has severe sleep apnea and desaturates significantly and has severe obstruction w/ sleep and should be on CPAP- possibly BiPAP. Jaw thrush maneuver had to be employed continuously throughout the case in order to maintain airway.
--- NOTE | 2020-03-02 08:23 | W.PM.DSUDISC ---
Discharge Plan Disposition Patient Disposition: HOME Condition: Good Discharge Details Reason For Visit: stomach scope Attending Provider: Yessy hWeeler Primary Care Provider: Darby Reno Home Meds and New Rx's Prescriptions: Continued lorazepam 0.5 mg tablet 0.5 mg PO BID PRN PRN (Reason: anxiety) Qty: 60 RF: 0 ferrous sulfate 325 mg (65 mg iron) tablet 325 mg PO DAILY Qty: 90 RF: 3 albuterol sulfate [ProAir HFA] 90 mcg/actuation HFA aerosol inhaler 2 puff IH QID Qty: 8.5 RF: 0 alcohol swabs pads, medicated 1 pad TP DAILY Qty: 200 RF: 3 melatonin 5 mg tablet 5 mg PO HS Qty: 90 RF: 3 (DME) pen needle, diabetic [Advocate Pen Needle] 29 gauge x 1/2 needle See Rx Instructions .ROUTE .MEDSUPPLY Qty: 100 RF: 3 sucralfate [Carafate] 1 gram tablet 1 g PO BID Qty: 60 RF: 12 triamcinolone acetonide 15 GM cream 1 appful Topical BID PRNQty: 15 RF: 6 cholecalciferol (vitamin D3) 5,000 unit tablet 5,000 unit PO DAILY Qty: 90 RF: 3 omega-3 fatty acids-fish oil 300-1,000 mg capsule 2 cap PO HS Qty: 180 RF: 2 (DME) OneTouch Verio test strips Strip See Dose Instructions .ROUTE .MEDSUPPLY Qty: 200 RF: 3 sertraline 100 mg tablet 200 mg PO DAILY Qty: 180 RF: 2 Victoza 3-Rui 0.6 mg/0.1 mL (18 mg/3 mL) pen injector See Rx Instructions SC .COMPLEX Qty: 9 RF: 3 bupropion HCl [Wellbutrin XL] 300 mg tablet extended release 24 hr 300 mg PO QHS Qty: 90 RF: 3 (DME) lancets [OneTouch Delica Plus Lancet] 33 gauge misc 0 .ROUTE .MEDSUPPLY Qty: 200 RF: 3 (DME) lancing device with lancets [OneTouch Delica Plus Lanc Dev] Kit See Rx Instructions .ROUTE .MEDSUPPLY Qty: 200 RF: 3 metformin 500 mg tablet extended release 24hr 1,000 mg PO DAILY Qty: 180 RF: 3 pregabalin [Lyrica] 150 mg capsule 150 mg PO BID Qty: 60 RF: 3 Myrbetriq 50 mg tablet extended release 24 hr 50 mg PO DAILY Qty: 90 RF: 2 atorvastatin [Lipitor] 20 mg tablet 20 mg PO DAILY Qty: 90 RF: 3 trazodone 50 mg tablet 100 mg PO HS PRN (Reason: insomnia) Qty: 180 RF: 3 liothyronine 25 mcg tablet 25 mcg PO DAILY Qty: 90 RF: 3 amlodipine 5 mg tablet 5 mg PO DAILY Qty: 90 RF: 3 acetaminophen [Acetaminophen Extra Strength] 500 MG tablet 1,000 mg PO Q8H PRN PRNQty: 120 RF: 0 Vitamin B-12 50 mcg Tablet 50 mcg PO HS RF: 0 evening primrose oil 500 mg Capsule 500 mg PO HS RF: 0 Discontinued ibuprofen 600 mg tablet 600 mg PO TID Qty: 30 RF: 1 omeprazole 40 mg capsule,delayed release(DR/EC) 40 mg PO DAILY Qty: 90 RF: 3 ascorbic acid (vitamin C) [Vitamin C] 500 mg Tablet 500 mg PO HS RF: 0 Discharge Instructions Additional Instructions: Findings:gastritis/hiatal hernia Severe sleep apnea. You need to wear sleep apnea mask when sleeping. Continue with lifestyle modifications: no alcohol, tobacco products, Aspirin or NSAID's (ibuprofen, Motrin, Naprosyn, aleve, etc), soda pop/any carbonated beverages, caffeine (including tea & chocolate), and acidic foods, (tomatoes, citrus, onions, peppermints) spicy or fried/fatty foods. Do not lie down for 30 minutes after eating, and do not eat 2 hours prior to bedtime. Avoid wearing tight fitting clothing/ belts use carafate in am, at bedtime, and if taking NSAID's or caffeine Follow up:2-3 wks. Please call if you develop: fevers >101.5 Nausea or Vomiting Abdominal pain that is not transient DAY SURGERY UNIT POST COLONOSCOPY INSTRUCTIONS 1. Because there will be medication in your system for the next 24 hours, you may feel a little sleepy. Your coordination will be affected. Therefore: a. Do not drive or operate dangerous equipment for 24 hours. b. Do not drink alcohol beverages for 24 hours (not even beer). c. Plan to go home and rest for the day. 2. Generally there are no restrictions on your activity after a day or so has gone by, but you may feel a bit fatigued for a few days. 3 After you arrive home you may have a light meal and return to a normal diet as you can tolerate it without feeling sick to your stomach. 4. After surgery, you may feel pain or discomfort. This should be only transient, but if it persists please contact your doctor. 5. If there are any questions regarding the findings of your procedure, please feel free to contact your doctor. 6. If you are unable to contact your doctor with a problem, contact the hospital at [phone]. 7. Continue all your regular medications unless directed otherwise. I understand the above instructions and have no questions. Signature of Patient or Responsible Adult Escort Date/Time Name of Responsible Adult Escort Signature of Nurse Date/Time Activity:: no strenuous acitivty or liftig over 20#'s x 24 hrs Diet:: small light meals x 24 hrs Discharge Orders Discharge Orders: Discharge Order (Routine); Ordered 03/02/20 Ordered By: Yessy Wheeler DS: Diagnosis Discharge Diagnosis (1) Sleep apnea, obstructive: Status: Chronic (2) Hiatal hernia with GERD: Status: Acute (3) Chronic erosive gastritis: Status: Acute (4) Chronic erosive gastritis: Status: Acute
[2020-03-02 08:52] VITALS: BP 115/75; PULSE 80; RESP 17; TEMP 36.5; O2SAT 94
== END 2020-03-02 09:25 | disposition home or self-care (01) ==
PROVIDERS: PCP Nurse Practitioner; Visit Provider Surgery
PROC: 0DJ68ZZ Inspection of Stomach, Via Natural or Artificial Opening Endoscopic (ICD-10-PCS; CPT 43235; principal; 2020-03-02 07:30)
DX: K29.60 Other gastritis without bleeding (principal); K44.9 Diaphragmatic hernia without obstruction or gangrene; K20.9 Esophagitis, unspecified
CPT/HCPCS: 43239; 88305; J2250; J2704

== ENCOUNTER 2020-03-02 14:07 | Emergency (ER) | payer OTHER, SELFPAY ==
--- NOTE | 2020-03-02 14:15 | RT.EKG_ITS ---
APPROVED REPORT Exam: Resting ECG Patient Location: E HR:75 bpm ECG Measurements Heart Rate 75 AXIS MN 184 P 29 QRSd 89 QRS 13 QT 397 T 32 QTc 444 Conclusion Sinus rhythm...normal P axis, V-rate 60- 99
[2020-03-02 14:27] VITALS: BP 127/77; PULSE 80; RESP 19; TEMP 36.6; O2SAT 95
--- NOTE | 2020-03-02 14:45 | DI.CT_ITS ---
EXAM: CT CHEST W CLINICAL HISTORY: Pain status post endoscopy TECHNIQUE: Imaging Protocol: Axial computed tomography images with coronal and sagittal reformatted images were created and reviewed CONTRAST MATERIAL: Intravenous: Omnipaque 350 Contrast volume:structured data in ml. COMPARISON: CT CHEST ABD PELVIS WITH CONTRAST from 12/03/2017 CR,XR XR CHEST 2V PA LATERAL from 11/16/2019 FINDINGS: Tracheobronchial tree: Patent where visualized. Mediastinum and Marissa: No dominant adenopathy or fluid collection. Mediastinum. Pulmonary parenchyma: No consolidation or dominant measurable mass. No architectural distortion. Pleura: No effusion or pneumothorax. Heart: The heart is not dilated. No coronary artery calcifications are seen. Aorta: Thoracic aorta non-dilated. Upper abdomen: Fatty liver. The stomach a and esophagus appear normal. No evidence of free air or fluid. Lymph nodes: Within normal limits. Bones: Minimal degenerative disc changes. Soft tissues: Unremarkable. IMPRESSION: Normal CT of the thorax. RADIATION DOSE DELIVERED: 827.86mGy.cm Total DLP DATA REPOSITORY: All CT scans at this facility are submitted to the National Radiology Data Registry (NRDR) Dose Index Registry (DIR) with the [employer] (A[employer]). RADIATION OPTIMIZATION: All CT scans at this facility use at least one of these dose optimization te chniques: automated exposure control; mA and/or kV adjustment per patient size (includes targeted exa ms where dose is matched to clinical indication); or iterative reconstruction.
--- NOTE | 2020-03-02 14:56 | ED.GENADUL_ITS ---
Discharge Plan Disposition Patient Disposition: HOME Condition: Stable Discharge Details Clinical Impression: Abdominal pain Primary Care Provider: Darby Reno ED Provider: Govind Lyle Home Meds and New Rx's Prescriptions: Continued lorazepam 0.5 mg tablet 0.5 mg PO BID PRN PRN (Reason: anxiety) Qty: 60 RF: 0 ferrous sulfate 325 mg (65 mg iron) tablet 325 mg PO DAILY Qty: 90 RF: 3 albuterol sulfate [ProAir HFA] 90 mcg/actuation HFA aerosol inhaler 2 puff IH QID Qty: 8.5 RF: 0 alcohol swabs pads, medicated 1 pad TP DAILY Qty: 200 RF: 3 melatonin 5 mg tablet 5 mg PO HS Qty: 90 RF: 3 (DME) pen needle, diabetic [Advocate Pen Needle] 29 gauge x 1/2 needle See Rx Instructions .ROUTE .MEDSUPPLY Qty: 100 RF: 3 sucralfate [Carafate] 1 gram tablet 1 g PO BID Qty: 60 RF: 12 triamcinolone acetonide 15 GM cream 1 appful Topical BID PRNQty: 15 RF: 6 cholecalciferol (vitamin D3) 5,000 unit tablet 5,000 unit PO DAILY Qty: 90 RF: 3 omega-3 fatty acids-fish oil 300-1,000 mg capsule 2 cap PO HS Qty: 180 RF: 2 (DME) OneTouch Verio test strips Strip See Dose Instructions .ROUTE .MEDSUPPLY Qty: 200 RF: 3 sertraline 100 mg tablet 200 mg PO DAILY Qty: 180 RF: 2 Victoza 3-Rui 0.6 mg/0.1 mL (18 mg/3 mL) pen injector See Rx Instructions SC .COMPLEX Qty: 9 RF: 3 bupropion HCl [Wellbutrin XL] 300 mg tablet extended release 24 hr 300 mg PO QHS Qty: 90 RF: 3 (DME) lancets [OneTouch Delica Plus Lancet] 33 gauge misc 0 .ROUTE .MEDSUPPLY Qty: 200 RF: 3 (DME) lancing device with lancets [OneTouch Delica Plus Lanc Dev] Kit See Rx Instructions .ROUTE .MEDSUPPLY Qty: 200 RF: 3 metformin 500 mg tablet extended release 24hr 1,000 mg PO DAILY Qty: 180 RF: 3 pregabalin [Lyrica] 150 mg capsule 150 mg PO BID Qty: 60 RF: 3 Myrbetriq 50 mg tablet extended release 24 hr 50 mg PO DAILY Qty: 90 RF: 2 atorvastatin [Lipitor] 20 mg tablet 20 mg PO DAILY Qty: 90 RF: 3 trazodone 50 mg tablet 100 mg PO HS PRN (Reason: insomnia) Qty: 180 RF: 3 liothyronine 25 mcg tablet 25 mcg PO DAILY Qty: 90 RF: 3 amlodipine 5 mg tablet 5 mg PO DAILY Qty: 90 RF: 3 acetaminophen [Acetaminophen Extra Strength] 500 MG tablet 1,000 mg PO Q8H PRN PRNQty: 120 RF: 0 Vitamin B-12 50 mcg Tablet 50 mcg PO HS RF: 0 evening primrose oil 500 mg Capsule 500 mg PO HS RF: 0 Discharge Instructions Instructions: Abdominal Pain (ED) Additional Instructions: At this time your work-up here in the ER does not reveal any obvious emergent process. We discussed dietary precautions. You already take a PPI medication, we discussed adding on an H2 hugh like Pepcid as directed. Please watch for new or worsening symptoms and return to the ER for any concerns. I would like you to contact both your primary care provider and your surgeon tomorrow for prompt outpatient reevaluation. Medical Decision Making 45-year-old female who had outpatient endoscopy earlier today presents for epigastric pain. Very well could be secondary to her chronic GERD, erosive gastritis, pain from the biopsy however certainly cannot rule out diagnosis such as esophageal, or gastric tear, atypical ACS, etc. Will obtain CBC, CMP, lipase, urinalysis, troponin, EKG and give Mylanta-lidocaine. Apparently Dr. Wheeler called down to the ER, I personally take the call, but Dr. Freeman relays the request of a chest CT for further evaluation. Laboratories pending. Patient reports modest relief with Mylanta and lidocaine. Laboratory values reveal a white blood cell count of 7.13 hemoglobin 12.4 hematocrit 39.2 platelet count 245. Electrolytes unremarkable, creatinine 0.81 with a GFR greater than 60. LFTs unremarkable. Troponin less than 0.05. Lipase 138. CT of the chest with contrast read by radiology as negative. Discussed work-up including laboratory values and CT findings with Dr. Wheeler. She had no additional suggestions here from the ER and felt as though the patient could be safely discharged. I discussed work-up per my conversation with Dr. Wheeler with the patient. She is relieved that her work-up is unremarkable for obvious emergent process and does report modest relief with the Mylanta and lidocaine. Patient already takes a proton pump inhibitor, we did discuss the addition of an H2 hugh such as Pepcid for additional relief. We discussed dietary restrictions. She was encouraged to watch for new or worsening symptoms and return to the ER for any concerns. Otherwise contacting her primary care provider and/or surgeon tomorrow for prompt outpatient reevaluation. Medical Records Medical records reviewed: Yes I reviewed the patient's medical records. Lab Data Lab results reviewed: Yes I reviewed the patient's lab results. Lab results narrative: Laboratory Tests Range/Units 03/02/20 03/02/20 15:05 15:05 WBC (4.4-10.8) 10^3/uL 7.13 RBC (3.93-5.22) 10^6/uL 4.70 Hgb (11.2-15.7) g/dL 12.4 Hct (36.0-46.0) % 39.2 MCV (80-95) fL 83.4 MCH (27.0-33.0) pg 26.4 L MCHC (32.0-36.0) % 31.6 L RDW (11.7-14.6) % 13.5 Plt Count (130-400) 10^3/uL 245 MPV (8.0-11.0) fL 10.4 Immature Gran % 0.4 Neutrophils % 52.2 Lymphocytes % 35.3 Monocytes % 10.5 Eosinophils % 1.0 Basophils % 0.6 Nucleated RBC % % 0 Absolute Neutrophils (1.2-6.7) 10^3/uL 3.72 Absolute Lymphocytes (1.2-3.4) 10^3/uL 2.52 Absolute Monocytes (0.1-0.8) 10^3/uL 0.75 Absolute Eosinophils (0.0-0.7) 10^3/uL 0.07 Absolute Basophils (0.0-0.2) 10^3/uL 0.04 Sodium (136-145) mmol/L 141 Potassium (3.5-5.1) mmol/L 3.7 Chloride (98-107) mmol/L 107 Carbon Dioxide (21.0-32.0) mmol/L 25.9 Anion Gap (3-11) mmol/L 8.1 BUN (7-18) mg/dL 18 Creatinine (0.55-1.02) mg/dL 0.81 Estimated GFR/1.73 m2 (mL/min/1.73m2) >= 60.00 Glucose (74-106) mg/dL 129 H Calcium (8.5-10.1) mg/dL 9.1 Total Bilirubin (0.2-1.0) mg/dL 0.2 AST (15-37) U/L 21 ALT (14-59) U/L 44 Alkaline Phosphatase (46-116) U/L 94 Troponin I (<0.06) ng/mL < 0.05 Total Protein (6.4-8.2) g/dL 7.2 Albumin (3.4-5.0) g/dL 3.8 Lipase (73-393) U/L 138 ECG Data Attestation: I personally reviewed and interpreted this ECG (s) as follows: Interpretation: Please see official report by Dr. Freeman. Sinus rhythm, ventricular rate of 75, no STEMI HPI General Mode of arrival: ambulatory . Date/Time Provider Initiated Documentation: 03/02/20 14:43 . Limitations to Documentation: no limitations . Information obtained by: patient . HPI Narrative: This is a 45-year-old female with history of hiatal hernia, GERD, chronic erosive gastritis, former smoker, migraines, hypertension, fibromyalgia, diabetes, presenting to the ER today for evaluation of epigastric discomfort. She tells me she had an endoscopy this morning around [address] Wheeler. She was subsequently discharged without any complication and home by 1015. She developed pain around 11:00 which was mild in nature, progressively got worse and by 1230 the pain was much more severe. Associate with mild nausea but no vomiting. She denies any chest pain, headache, fever, lower abdominal pain, dysuria, hematuria, diarrhea or constipation. She reports that the pain is slightly worse when taking a deep breath and does occasionally radiate into her back. Related Data Home Medications Medication Instructions Recorded Confirmed triamcinolone acetonide 1 appful TOPICAL BID PRN #15 gm 09/15/16 03/02/20 acetaminophen [Acetaminophen Extra 1,000 mg PO Q8H PRN PRN #120 tab 02/14/17 03/02/20 Strength] lorazepam 0.5 mg tablet 0.5 mg PO BID PRN PRN #60 tab 04/16/18 03/02/20 albuterol sulfate 90 mcg/actuation 2 puff IH QID #8.5 gm 05/16/18 03/02/20 aerosol inhaler ferrous sulfate 325 mg (65 mg 325 mg PO DAILY #90 tab-cap 08/29/18 03/02/20 iron) tablet alcohol swabs 1 pad TP DAILY #200 each 12/13/18 03/02/20 Vitamin B-12 50 mcg PO HS 01/14/19 03/02/20 evening primrose oil 500 mg PO HS 01/14/19 03/02/20 cholecalciferol (vitamin D3) 125 5,000 unit PO DAILY #90 tab-cap 01/30/19 03/02/20 mcg (5,000 unit) tablet omega-3 fatty acids-fish oil 300 2 cap PO HS #180 tab-cap 02/07/19 03/02/20 mg-1,000 mg capsule melatonin 5 mg tablet 5 mg PO HS #90 tab-cap 02/19/19 03/02/20 pen needle, diabetic 29 gauge x #100 each 03/19/19 03/02/20 1/2 blood sugar diagnostic #200 each 05/27/19 03/02/20 sertraline 100 mg tablet 200 mg PO DAILY #180 tab 07/29/19 03/02/20 liraglutide 0.6 mg/0.1 mL (18 mg/3 See Rx Instructions SC .COMPLEX #9 08/06/19 03/02/20 mL) subcutaneous pen injector ml bupropion HCl 300 mg 24 hr tablet, 300 mg PO QHS #90 tab 08/19/19 03/02/20 extended release lancets 33 gauge #200 each 11/14/19 03/02/20 lancing device with lancets kit #200 each 11/14/19 03/02/20 metformin 500 mg tablet,extended 1,000 mg PO DAILY #180 tab 11/27/19 03/02/20 release 24hr pregabalin 150 mg capsule 150 mg PO BID #60 cap 11/27/19 03/02/20 mirabegron 50 mg tablet,extended 50 mg PO DAILY #90 tab 01/30/20 03/02/20 release 24 hr atorvastatin 20 mg tablet 20 mg PO DAILY #90 tab-cap 02/14/20 03/02/20 trazodone 50 mg tablet 100 mg PO HS PRN #180 tab 02/14/20 03/02/20 sucralfate 1 gram tablet 1 g PO BID #60 tab 02/19/20 03/02/20 amlodipine 5 mg tablet 5 mg PO DAILY #90 tab-cap 02/21/20 03/02/20 liothyronine 25 mcg tablet 25 mcg PO DAILY #90 tab-cap 02/21/20 03/02/20 Previous Rx's Medication Instructions Recorded acetaminophen [Acetaminophen Extra 1,000 mg PO Q8H PRN PRN #120 tab 02/14/17 Strength] lorazepam 0.5 mg tablet 0.5 mg PO BID PRN PRN #60 tab 04/16/18 albuterol sulfate 90 mcg/actuation 2 puff IH QID #8.5 gm 05/16/18 aerosol inhaler ferrous sulfate 325 mg (65 mg 325 mg PO DAILY #90 tab-cap 08/29/18 iron) tablet alcohol swabs 1 pad TP DAILY #200 each 12/13/18 cholecalciferol (vitamin D3) 125 5,000 unit PO DAILY #90 tab-cap 01/30/19 mcg (5,000 unit) tablet omega-3 fatty acids-fish oil 300 2 cap PO HS #180 tab-cap 02/07/19 mg-1,000 mg capsule melatonin 5 mg tablet 5 mg PO HS #90 tab-cap 02/19/19 pen needle, diabetic 29 gauge x #100 each 03/19/19 1 blood sugar diagnostic #200 each 05/27/19 sertraline 100 mg tablet 200 mg PO DAILY #180 tab 07/29/19 liraglutide 0.6 mg/0.1 mL (18 mg/3 See Rx Instructions SC .COMPLEX #9 08/06/19 mL) subcutaneous pen injector ml bupropion HCl 300 mg 24 hr tablet, 300 mg PO QHS #90 tab 08/19/19 extended release lancets 33 gauge #200 each 11/14/19 lancing device with lancets kit #200 each 11/14/19 metformin 500 mg tablet,extended 1,000 mg PO DAILY #180 tab 11/27/19 release 24hr pregabalin 150 mg capsule 150 mg PO BID #60 cap 11/27/19 mirabegron 50 mg tablet,extended 50 mg PO DAILY #90 tab 01/30/20 release 24 hr atorvastatin 20 mg tablet 20 mg PO DAILY #90 tab-cap 02/14/20 trazodone 50 mg tablet 100 mg PO HS PRN #180 tab 02/14/20 sucralfate 1 gram tablet 1 g PO BID #60 tab 02/19/20 amlodipine 5 mg tablet 5 mg PO DAILY #90 tab-cap 02/21/20 liothyronine 25 mcg tablet 25 mcg PO DAILY #90 tab-cap 02/21/20 Allergies Allergy/AdvReac Type Severity Reaction Status Date / Time No Known Drug Allergies Allergy Verified 03/02/20 14:36 General Stated Complaint: Abd Prob TARIK: 3 Review of Systems Constitutional Constitutional: Denies fever(s) Cardiovascular Cardiovascular: Denies chest pain and Denies dyspnea Respiratory Respiratory: Denies cough and Denies dyspnea Gastrointestinal Gastrointestinal: Reports abdominal pain, Reports nausea and Denies vomiting Genitourinary Genitourinary: Denies dysuria Musculoskeletal Musculoskeletal: Reports back pain Integumentary/Breasts Skin/Breast: Denies rash [facility], [facility] Medical History Adjustment disorder with mixed anxiety and depressed mood (08/17/17) Adult BMI > 30 Anemia Anxiety (04/17/17) Chronic erosive gastritis Chronic erosive gastritis Depression Diabetes mellitus Diabetic neuropathy Hiatal hernia with GERD History of viral pericarditis (04/17/17) Per pt. states, 04/2018 felt like her chest was so heavy and couldn't take a breath, was admitted for observation, and was tx with rx and stated it resolved HLD (hyperlipidemia) HTN (hypertension) Incontinence in female Kidney stone Migraine SHANTAL (obstructive sleep apnea) Sleep apnea, obstructive Tobacco use disorder Vitamin D deficiency Surgical History H/O bilateral salpingectomy (03/05/15) Hysteroscopy (02/04/15) uterus,cervix,left fallopian tube and salpingectomy. Dr. Wong Pelvic floor reconstruction (~2009) [facility] Dr. Hardin S/P shoulder surgery left S/P tubal ligation Status post vaginal hysterectomy (03/05/15) Stenosis of tear duct Tonsillectomy & uvulectomy (~2009) Vaginal hysterectomy 2015 [facility] with Bilateral distal salpingectomy - Dr Smith Family History Mother Graves' disease Depression Father Alcoholism drug addicion Grandmother Personal history of malignant neoplasm skin Other Personal history of malignant neoplasm colon Social History Smoking/Tobacco Use Status: Former Tobacco Use Quit Date: 04/05/16 Alcohol Intake: current Alcohol Intake frequency: holidays/special occasions only Drug use: Never Substance use type: does not use Household members: children Number of Children: 4 current occupation: Former [employer]; 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 [employer] Current gender identity: female Do you feel safe at home: Yes Additional Social history: not in a relationship Exam Const General: cooperative, healthy appearing, comfortable and no acute distress Orientation: alert and awake HENMT Head: normal to inspection, normocephalic and atraumatic Mouth: moist mucous membranes Throat: posterior oropharynx normal Eyes Conjunctivae: conjunctivae normal Sclera: sclerae normal Neck Neck: normal visual inspection, full ROM, trachea midline and supple Resp Effort & Inspection: normal respiratory effort and able to speak in complete sentences Auscultation: clear to auscultation bilaterally Cardio Rate: regular rate Rhythm: regular rhythm GI Inspection: normal to inspection Palpation: soft, not firm, no guarding, not rigid and tender in the epigastrum; with no rebound tenderness Auscultation: normal bowel sounds Back/Spine/Pelvis Back: No back tenderness Skin General skin exam: no rashes or lesions noted Neuro General: patient alert, patient awake, moves all extremities and no focal motor deficits Sensory Exam: no sensory deficits noted Psych Appearance: grossly normal Mental Status: mental status grossly normal Course Vital Signs Vital signs: Vital Signs Temperature 36.6 C 03/02/20 14:27 Pulse 80 03/02/20 14:27 Respiratory Rate 19 03/02/20 14:27 Blood Pressure 127/77 03/02/20 14:27 Pulse Oximetry 95 03/02/20 14:27 Temperature 36.6 C 03/02/20 14:27 Temperature Source Temporal Artery Scan 03/02/20 14:27 Pulse 80 03/02/20 14:27 Respiratory Rate 19 03/02/20 14:27 Respiratory Effort 03/02/20 14:32 Blood Pressure 127/77 03/02/20 14:27 Blood Pressure Position Supine 03/02/20 14:27 Pulse Oximetry 95 03/02/20 14:27 Oxygen Delivery Method Room Air 03/02/20 14:27 Oxygen Flow Rate 0 03/02/20 14:27 Pain Level 7 03/02/20 14:27
[2020-03-02 15:12] LABS: Abs Immature Grans 0.03 10^3/uL (0.0-0.06); Absolute Basophil Count 0.04 10^3/uL (0.0-0.2); Absolute Eosinophil Count 0.07 10^3/uL (0.0-0.7); Absolute Lymphocyte Count 2.52 10^3/uL (1.2-3.4); Absolute Monocyte Count 0.75 10^3/uL (0.1-0.8); Absolute Neutrophil Count 3.72 10^3/uL (1.2-6.7); Basophils % 0.6; HCT 39.2 % (36.0-46.0); HGB 12.4 g/dL (11.2-15.7); Immature Grans % 0.4; Lymphocytes % 35.3; MCH 26.4 pg (27.0-33.0); MCHC 31.6 % (32.0-36.0); MCV 83.4 fL (80-95); MPV 10.4 fL (8.0-11.0); Monocytes % 10.5; Neutrophils % 52.2; Nucleated RBC 0 %; Platelet Count 245 10^3/uL (130-400); RDW 13.5 % (11.7-14.6); RDW-SD 41.1 fL; WBC 7.13 10^3/uL (4.4-10.8)
[2020-03-02] MEDS: Omnipaque 350 MG/ML 100 ML BTL IJ (15:32)
[2020-03-02] MEDS: Normal Saline - Diluent 50 ML VIAL IV (15:32)
[2020-03-02 15:36] LABS: ALT 44 U/L (14-59); AST 21 U/L (15-37); Albumin 3.8 g/dL (3.4-5.0); Alkaline Phosphatase 94 U/L (46-116); Anion Gap 8.1 mmol/L (3-11); BUN 18 mg/dL (7-18); Bilirubin, Total 0.2 mg/dL (0.2-1.0); CO2 25.9 mmol/L (21.0-32.0); CREATININE 0.81 mg/dL (0.55-1.02); Calcium 9.1 mg/dL (8.5-10.1); Chloride 107 mmol/L (98-107); Glucose 129 mg/dL (74-106); Lipase 138 U/L (73-393); Potassium 3.7 mmol/L (3.5-5.1); Sodium 141 mmol/L (136-145); Total Protein 7.2 g/dL (6.4-8.2)
[2020-03-02 15:37] LABS: Troponin I < 0.05 ng/mL (<0.06)
[2020-03-02 16:11] VITALS: BP 122/82; PULSE 72; RESP 16; TEMP 36.4; O2SAT 96
== END 2020-03-02 16:10 | disposition home or self-care (01) ==
PROVIDERS: Emergency Provider Physician Assistant; PCP Nurse Practitioner
DX: R10.13 Epigastric pain (principal); G89.18 Other acute postprocedural pain; R11.0 Nausea; Y84.8 Other medical procedures as the cause of abnormal reaction of the patient, or of later complication, without mention of misadventure at the time of the procedure; K29.00 Acute gastritis without bleeding; E11.9 Type 2 diabetes mellitus without complications; Z79.84 Long term (current) use of oral hypoglycemic drugs; I10 Essential (primary) hypertension
CPT/HCPCS: 36415; 80053; 83690; 93005; 99285; 71260; 81003; 84484; 85025; 93010; 99284; J3490

== ENCOUNTER 2020-03-26 11:27 | Outpatient (CLI) | payer OTHER, SELFPAY ==
[2020-03-26 12:10] LABS: Bilirubin Negative (Negative); Blood Moderate (Negative); Clarity Sl Cloudy (Clear); Glucose Negative (Negative); Ketones Negative (Negative); Leukocyte Esterase Moderate (Negative); Nitrite Positive (Negative); Specific Gravity 1.025 (1.005-1.025)
[2020-03-26 12:17] LABS: Bacteria Many HPF (Negative); C & S Indicated? Yes; Epithelial Cells Few HPF (Negative); WBC >50 HPF (0-5)
== END 2020-03-26 11:47 ==
PROVIDERS: Family Medicine; PCP Nurse Practitioner; Visit Provider Internal Medicine
DX: R39.15 Urgency of urination (principal)
CPT/HCPCS: 87077; 81003; 81015; 87086; 87186

== ENCOUNTER 2020-05-12 04:16 | Outpatient (CLI) | payer OTHER, SELFPAY ==
[2020-05-12 08:33] LABS: Hemoglobin A1C 6.6 % (<5.7)
[2020-05-12 09:22] LABS: Calculated LDL 85 mg/dL (<100); Cholesterol 167 mg/dL (<200); HDL Cholesterol 48 mg/dL (40-60); Triglyceride 170 mg/dL (<150)
== END 2020-05-12 04:36 ==
PROVIDERS: PCP Nurse Practitioner; Visit Provider Nurse Practitioner
DX: E11.9 Type 2 diabetes mellitus without complications (principal)
CPT/HCPCS: 36415; 80061; 83036; 84443

== ENCOUNTER 2020-05-28 00:39 | Outpatient (CLI) | payer OTHER, SELFPAY ==
--- OUTSIDE RECORDS SUMMARY | 2020-05-28 00:43 | XMS_ITS ---
:1975 Author Care Team Providers Name Role Phone ALICJA SAUNDERS NP Primary Care Provider [phone] Allergies Code Code System Name Reaction Severity Status Onset NKDA ? Medications Name Status Start Date Stop Date ? ? Ambien 5 mg tablet Active ? Not available take 1-2 PO night of sleep study if needed amlodipine Active ? Not available atorvastatin Active ? Not available Erythrocin Active ? Not available Flexeril Active ? Not available liothyronine Active ? Not available melatonin Active ? Not available metformin Active ? Not available Mobic Active ? Not available multivitamin Active ? Not available Myrbetriq Active ? Not available omeprazole Completed ? 03/25/2020 pantoprazole Active ? Not available sertraline Active ? Not available trazodone Active ? Not available Vitamin D-3 with Aloe Active ? Not availa ble Problems Name Status Onset Date Source ? Anemia Active 03/24/2020 ? 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 Tobacco User Active 03/24/2020 ? Migraine Active 03/24/2020 ? Allergic Rhinitis Active 03/24/2020 ? Kidney Stone Active 03/24/2020 ? Dysmenorrhea Active 03/24/2020 ? Pain in Pelvis Active 03/24/2020 ? Menorrhagia Active 03/24/2020 ? Eczema Active 03/24/2020 ? Shoulder Pain Active 03/24/2020 ? Congenital Blocked Tear Duct Active 03/24/2020 ? Upper Airway Resistance Syndrome Active 03/24/2020 ? Fatigue Active 03/24/2020 ? Dyspnea Active 03/24/2020 ? Sleep Related Hypoxemia Active 04/20/2020 ? Tobacco Dependence Syndrome Active ? Hist ory Depressive Disorder Active ? History Obstructive Sleep Apnea Syndrome Active ? History Organic Sleep Disorder Active ? History Lack of Energy Active ? History Snoring Active ? History Procedures Date Name Performed by ? 03/25/2020 Polysomnogram Information not avai lable Results Lab Results None recorded. Past Encounters 04/21/2020 Obstructive Sleep Apnea Syndrome; Sleep Related Hypoxemia Malu Banuelos EQUIP TECH: [address] [place] [phone], Ph. 03/25/2020 Obstructive Sleep Apnea Syndrome Malu Banuelos, EQUIP TECH: [address] [place] [address] [address] [facility] [address], [place] [address], Ph. Social History Tobacco Smoking Status Former Smoker (2 PPW) Notes: 04/14 Vaccine List None recorded. Plan of Care Reminders Provider Appointments None ? ? recorded. Lab None ? ? recorded. Referral None ? ? recorded. Procedures None ? ? recorded. Surgeries None ? ? recorded. Imaging None ? ? recorded. Vitals 04/21/2020 11:15AM Office 30 Height Weight BMI 167.64 cm 111.13 kg 39.5 kg/m2 03/25/2020 09:00AM New Patient 45 Height Weight BMI Blood Pressure 167.64 cm 112.08 kg 39.9 kg/m2 130/68 mm[Hg] 05/25/2015 Weight Blood Pressure 108.86 kg 150/80 mm[Hg] 03/09/2015 Height Weight Blood Pressure 170.18 cm 102.71 kg 142/82 mm[Hg]
--- OUTSIDE RECORDS SUMMARY | 2020-05-28 00:43 | XMS_ITS | Encounter Summary ---
:1975 Author Care Team Providers Name Role Phone Darby Reno NP Primary Care Provider [phone] Reason for Visit None recorded. Assessment and Plan 1. Obstructive sleep apnea syndr ome SHANTAL initially diagnosed in 200 7 at [facility] while and AHI was 13/hr. She subsequently had a UPPP. A repeat study in 03/2015 (BMI 35.39) revealed an RDI of 3.4/hr. Recent PSG showed very m ild SHANTAL with an AHI of 4/hr, RDI of 6/hr and significant hypoxemia out of proportion to the SHANTAL with sp02 lila of 83% and 85 minutes spent with 02 saturation <88%. She failed an appliance in the pas t and already had a UPPP. She used CPAP in the past and did not love it but was able to use it some. She found the mask bulky and made her feel claustrophobic. CPAP is recommended today and she is agree able to trying this again. CPAP 6-16cm i s ordered. I discussed different mask options and the importance of finding the mask that will work for her within the first 30 days. I discussed how to adjust hu midity for dryness/congestion and that t he goal will be to use nightly for her total sleep time. I covered insurance compliance requirements and the DME's mask exchange policy. She will have a titration study for fine tuning of therapy and to ensure adequate oxygenation on CPAP therapy. I will see her back between 31-90 days after starting CPAP and he is encouraged to call me sooner if she is having a ny difficulties tolerating CPAP. Drowsy driving precautions were reviewed I provided greater than 25 minutes in th e care of this patient, more than half the time was spent in [id number] counseling. ? CPAP machine ? Ambien 5 mg tablet 2. Sleep related hypoxemia Her recent PSG showed nocturna l hypoxemia out of proportion to the mild sleep apnea noted. No known cardiac, pul monary or neuromuscular disease. Will start CPAP and get follow-up titration to ensu re adequate oxygenation. If unable to tolerate CPAP will start nocturnal 02 at 2 lpm. Consider further work-up (PFT's ECHO). Discussion Note: None recorded.Patient educational handouts: No information available. Plan of Care Reminders Provider Appointments Office 30 06/25/2020 Daljit Banuelos, 8:00AM BASEBALL PLAYER Lab None ? ? recorded. Referral None ? ? recorded. Procedures None ? ? recorded. Surgeries None ? ? recorded. Imaging None ? ? recorded. Medications Name Start Date ? ? Ambien 5 mg tablet ? take 1-2 PO night of sleep study if needed amlodipine ? atorvastatin ? Erythrocin ? Flexeril ? liothyronine ? melatonin ? metformin ? Mobic ? multivitamin ? Myrbetriq ? pantoprazole ? sertraline ? trazodone ? Vitamin D-3 with Aloe ? Medications Administered None recorded. Vitals Height Weight BMI 5 ft 6 in 245 lbs 39.5 kg/m2 Results Lab Results None recorded. Allergies Code Code System Name Reaction Severity Onset NKDA ? ? ? Problems Name Status Onset Date Source ? [...] ? 03/25/2020 Polysomnogram Information not avai lable Vaccine List None recorded. Social History Tobacco Smoking Status Former Smoker (2 PPW) Notes: 04/14 Alcohol intake None Live alone or with others? with others Notes: 2 fernie enrique 13 year old 11 year old Animal exposure? Y Notes: 2 dogs cat dragon fish Are you currently employed? Y Smokeless Tobacco Status Never used smokeless tobacco Blind or serious difficulty N Notes: we ars glasses seeing Chewing tobacco none Hard of hearing or deaf in N one or both ears? E-cigarette/Vape Status Never used electronic cigarettes Caffeine intake None Drug Use N Guns present in home N Occupation acess sp. Functional Status No Impairment. Past Encounters 04/21/2020 Obstructive Sleep Apnea Syndrome; Sleep Related Hypoxemia Malu Banuelos BASEBALL PLAYER: [address] [place] [phone], Ph. 03/25/2020 Obstructive Sleep Apnea Syndrome Malu Banuelos BASEBALL PLAYER: [address] [place] [address], [place] [address], Ph. History of Present Illness Note: <p>Connie Lopez has a phone visit for PSG results. She has given consent to have a telehealth visit. Patient is at home, provider is in the office</p><p>
</p><p>Connie was seen by me on 03/25/20. She has a medical history to include migraine, GERD, fibromyalgia, DM, diabetic peripheral neuropathy, depression, obesity and SHANTAL. PSG 04/24/07 AHI 13/hr, supine AHI 40/hr sp02 lila did not go below 90%. She subsequently had a UPPP. PSG 03/21/15 (BMI 35.39), AHI 3.4/hr, RDI 3.4/hr, sp02 lila 87%, PLMi 5.4/hr, PLMai 2.8/hr. She was fit with an oral appliance after her last PSG and she used it only occasionally when she was around other people to help with the snoring but she found it difficult to sleep with and would come out at night in her sleep. She also did not perceive any benefit from it. Labs reviewed from 03/02/20 CBC unremarkable, CMP glucose 129, remainder unremarkable. She had an endoscopy on 03/02/20 and was told by the that 02 dropped to 40% and they had to hold her jaw forward while she was under sedation so she was told she needed to be evaluated here.</p><p>She noted symptoms of loud snoring, non- restorative sleep, nocturia, nocturnal heartburn and daytime sleepiness (ESS 9).</p><p>Polysomnogram was completed on {{DATE 04/12/2020}} (BMI 39.86) and I reviewed the results with {{him her*}} in detail today. Sleep efficiency was {{92# 80}}%, AHI {{4# NUMBER}}/hr, RDI {{6# NUMBER}}/hr, REM AHI {{3.4# NUMBER}}/hr, REM RDI {{6# NUMBER}}/hr, supine AHI {{7# NUMBER}}/hr, right lateral AHI {{1# NUMBER}}/hr, left lateral AHI {{7# NUMBER}}/hr, sp02 lila {{83# NUMBER}}%, {{85# NUMBER}} minutes were spent at a saturation <88%, arousal index {{8# NUMBER}}/hr, PLMi {{7.1# NUMBER}}/hr, PLM arousal index {{1.6# NUMBER}}/hr. EKG showed {{PVC's and PAC's# NSR}}.</p><p>
</p><p>Nichol tells me things went well for the study. She slept well with the Ambien. She still has above symptoms and no new sleep complaints today. </p>Review of Systems: ROS as noted in the HPI Review of Systems None recorded. Physical Exam ? Notes: <p>N/A</p>
--- OUTSIDE RECORDS SUMMARY | 2020-05-28 00:43 | XMS_ITS ---
:1975 Author Care Team Providers Name Role Phone DR. ALICJA SAUNDERS Primary Care Provider [phone] DR. ALICJA SAUNDERS Referring Provider [phone] Allergies Code Code System Name Reaction Severity Status Onset NKDA ? Medications Name Status Start Date Stop Date ? ? acetaminophen 500 mg tablet Completed ? 07/07 Take 2 tablets every 8 hours by oral route as needed. albuterol sulfate HFA 90 mcg/actuation aerosol inhaler Active ? Not available Inhale 2 puffs every 4 hours by inhalation route as needed. amlodipine 5 mg tablet Active ? Not avail able Take 1 tablet every day by oral route. Aspir-81 mg tablet,delayed release Active ? Not available Take 1 tablet every day by oral route. atorvastatin 20 mg tablet Active ? Not av ailable Take 1 tablet every day by oral route. benzonatate 100 mg capsule Active ? Not a vailable Take 1 capsule 4 times a day by oral route. bupropion HCl XL 300 mg 24 hr tablet, extended release Active ? Not available Take 1 tablet every day by oral route. carbamazepine 200 mg tablet Active ? Not available Take 1 tablet every day by oral route. erythromycin with ethanol 2 % topical gel Active ? Not available APPLY A THIN LAYER TO THE AFFECTED AREA (S) BY TOPICAL ROUTE 2 TIMES PER DAY IN THE MORNING AND EVENING ferrous sulfate 325 mg (65 mg iron) tablet Active ? Not available Take 1 tablet every day by oral route. ibuprofen 800 mg tablet Active ? Not avai lable Take 1 tablet every 8 hours by oral route as needed. liothyronine 25 mcg tablet Active ? Not a vailable Take 1 tablet every day by oral route. lorazepam 0.5 mg tablet Active ? Not avai lable Take 1 tablet twice a day by oral route as needed. melatonin 5 mg capsule Active ? Not avail able Take 1 capsule every day by oral route. mirabegron ER 50 mg tablet,extended release 24 hr Active ? Not available Take 1 tablet every day by oral route. omega 3 183.3 mg-dha 75 mg-epa 91.6 mg-fish oil 306 mg capsule A ctive ? Not available Take 1 capsule every day by oral route. omeprazole 40 mg capsule,delayed release Active ? Not available Take 1 capsule every day by oral route. pregabalin 75 mg capsule Active ? Not benji ilable Take 1 capsule twice a day by oral route. sertraline 100 mg tablet Active ? Not benji ilable Take 2 tablets every day by oral route. trazodone 100 mg tablet Active ? Not avai lable Take 1 tablet as needed by oral route at bedtime. triamcinolone acetonide 0.1 % topical cream Active ? Not available APPLY A THIN LAYER TO THE AFFECTED AREA(S) BY TOPICAL ROUTE 2 T IMES PER DAY Vitamin D3 Active ? Not available 5000 units daily Problems Name Status Onset Date Source ? Hypothyroidism Active 05/31/2018 ? Hyperlipidemia Active 05/31/2018 ? Anemia Active 05/31/2018 ? Tobacco User Active 05/31/2018 ? Depressive Disorder Active 05/31/2018 ? Obstructive Sleep Apnea Syndrome Active 05/31/2018 ? Migraine Active 05/31/2018 ? Essential Hypertension Active 05/31/2018 ? Ingrowing Nail Active 05/31/2018 ? Degeneration of Intervertebral Disc Active 05/31/2018 ? Low Back Pain Active 05/31/2018 ? Chest Pain Active 05/31/2018 ? Pain in Toe Active 10/16/2018 ? Procedures Date Name Performed by ? 02/04/2013 Hysteroscopy Information not avai lable 06/05/2009 Tonsilectomy/adenoids Information not av ailable 06/05/2009 Reconstruction of Pelvic Floor Informati on not available ? Hysterectomy Information not avai lable Results Lab Results None recorded. Past Encounters None recorded. Social History Tobacco Smoking Status Never Smoker Notes: 11/13/18 Vaccine List None recorded. Plan of Care Reminders Provider Appointments None ? ? recorded. Lab None ? ? recorded. Referral None ? ? recorded. Procedures None ? ? recorded. Surgeries None ? ? recorded. Imaging None ? ? recorded. Vitals 11/13/2018 02:00PM PODIATRY FOLLOW UP Height Weight BMI Blood Pressure 167.64 cm 108.86 kg 38.7 kg/m2 126/66 mm[Hg] 08/09/2018 09:00AM PODIATRY FOLLOW UP Height Weight BMI Blood Pressure 167.64 cm 108.86 kg 38.7 kg/m2 124/68 mm[Hg] 07/25/2018 03:30PM PODIATRY NEW PATIENT Height Weight BMI Blood Pressure 167.64 cm 108.86 kg 38.7 kg/m2 122/68 mm[Hg]
--- OUTSIDE RECORDS SUMMARY | 2020-05-28 00:43 | XMS_ITS | Encounter Summary ---
:1975 Author Care Team Providers Name Role Phone Darby Reno NP Primary Care Provider [phone] Reason for Visit None recorded. Assessment and Plan 1. Obstructive sleep apnea syndr ome SHANTAL initially diagnosed in 200 7 at [facility] while and AHI was 13/hr. She subsequently had a UPPP. A repeat study in 03/2015 (BMI 35.39) revealed an RDI of 3.4/hr. She now has symptoms of loud snoring, non-restorative sleep, noc turia, nocturnal heartburn and daytime sleepiness with a [place] score of 3/3 indicating a high likelihood of sleep apnea. She has HTN and DM which may be caused o r worsened by untreated sleep apnea. Giv en her symptoms and weight gain (her BMI is up to 39.9 from 35.4 at the time of her last study), it is very likely that she may have clinically significant sleep apnea again. I reminded her of the patho physiology of obstructive sleep apnea and the potential consequences of untreated SHANTAL including how it relates to her symptoms and comorbidities. I ordered a poly somnogram and discussed what will take p branyd the night of the sleep study. She is given a Rx for Ambien fr the study and she is advised that if taken she will need to not drive for at least eight hours after taking or longer if for any residu al drowsiness. Also will need to use caution when getting up at night after taking Ambien. I will see her back to review the results as soon as they are available. Drowsy driving precautions were reviewed. I provided greater than 40 minutes in e care of this patient, more than half the time was spent in [id number] counseling. ? polysomnogram ? Ambien 5 mg tablet Discussion Note: None recorded.Patient educational handouts: No information available. Plan of Care Reminders Provider Appointments Office 30 Daljit Banuelos, 06/25/2020 FLIGHT SERVICE AGENT 8:00AM Lab None recorded. ? ? Referral None recorded. ? ? Procedures None recorded. ? ? Surgeries None recorded. ? ? Imaging Polysomnogram ? 03/25/2020 Medications Name Start Date ? ? Ambien 5 mg tablet ? take 1-2 PO night of sleep study if needed amlodipine ? atorvastatin ? Erythrocin ? Flexeril ? liothyronine ? melatonin ? metformin ? Mobic ? multivitamin ? Myrbetriq ? pantoprazole ? sertraline ? trazodone ? Vitamin D-3 with Aloe ? Medications Administered None recorded. Vitals Height Weight BMI Blood Pressure 5 ft 6 in 247.1 lbs 39.9 kg/m2 130/68 mm[Hg] Results Lab Results None recorded. Allergies Code [...] sp. Functional Status No Impairment. Past Encounters 03/25/2020 Obstructive Sleep Apnea Syndrome Malu Banuelos NP: [address] [place] [address] [address], [place] [phone], Ph. History of Present Illness Note: <p>Connie Lopez is seen in consultation at the request of Agnes Baltazar NP for evaluation of hypoxemia.</p><p>
</p><p>Connie has a medical history to include migraine, GERD, fibromyalgia, DM, diabetic peripheral neuropathy, depression, obesity and SHANTAL. PSG 04/24/07 AHI 13/hr, supine AHI 40/hr sp02 lila did not go below 90%. She subsequently had a UPPP. PSG 03/21/15 (BMI 35.39), AHI 3.4/hr, RDI 3.4/hr, sp02 lila 87%, PLMi 5.4/hr, PLMai 2.8/hr. She was last seen in our sleep clinic by Dr. Conroy on 05/25/15. Her PSG results were discussed and she wanted to work on weight loss. Labs reviewed from 03/02/20 CBC unremarkable, CMP glucose 129, remainderunremarkable. Nichol tells me she actually was fit with an oral appliance after her last PSG and she used it only occasionally when she was around other people to help with the snoring but she found it difficult to sleep with and would come out at night in her sleep. She also did not perceive any benefitfrom it. </p><p>
</p><p>She had an endoscopy on 03/02/20 and was told by the that 02 dropped to 40% and they had to hold her jaw forward while she was under sedation so she was told she needed to be evaluated here. </p><p>
</p><p>{{Connie# Patient}} feels {{his her*}} biggest problem with sleep is {{snoring waking up a lot not feeling rested*}}. {{He She*}} typically goes to bed at {{9:30# 9}}pm. It takes {{20-30# 5}} minutesto fall asleep. {{He She*}} wakes up {{2-3# 1 2 3}} times a night to use the {{unknown reason pain bathroom*}} and it takes {{a few# }} minutes up to hours (this is rare) to get back to sleep. {{He She *}} gets up at {{6# 5 6 7 8}}am to start {{his her*}} day. {{He She*}} does take naps whenever she gets a chance for about two hours. {{He She*}} has disturbances to {{his her*}} sleep but likes a radion on at night. {{He She*}} sleeps {{alone * with someone}} in a bed.&lt ;br>
SLEEP QUALITY: Feels quality of sleep most nights is {{good okay poor*}}.

DAYTIME ALERTNESS: Reports level of alertness most days to be {{alert low energy * sleepy very sleepy}}.

PSYCH SYMPTOMS: {{Has Has not*}} noted worsening memory {{but has# and or}} concentration. {{Does have* Denies current problems with }} irritability and depression, {{but denies# and or}} anxiety. {{Has Has not*}} noted difficulty with calculations.

INSOMNIA SYMPTOMS: {{Does have * Does not have}} an active mind at night when trying to sleep. {{Does have Does not have*}} stressful thoughts interfering with sleep. {{Does Does not*}} watch the clock throughout the night. {{Does * Does not}} worry about getting a good night's sleep.

BREATHING SYMPTOMS: {{Does have * Does not have}} snoring. {{Does have Does not have*}} witnessed apnea. {{Does have Does not have*}} nocturnal choking/gasping/dyspnea.{{Does have Does not have*}} mouth breathing. {{Does have Does not have*}} nasal congestion at night.

MOVEMENT SYMPTOMS: {{Does have * Does not have}} tossing & turning. {{Does have * Does not have}} messy sheets in the morning. {{Does have Does not have*}} leg or arm jerks, kicks or twitches in sleep or prior to falling asleep. {{Does * Does not}} have an aching, restless or crawling feeling in legs at night. {{Does * Does not}} have a hard time keeping legs still when trying to sleep. <span>She has neuropathy with a tingling/burning feeling in feet at night. This more recently has started to affect her legs but there is no reliefwhen moves them. </span> {{Does Does not*}} have muscle cramps or Anthony horses. {{Does Does not*}} have sleep walking or talking.

DREAM SYMPTOMS: {{Does have Does not have*}} nightmares often that affect ability to sleep. {{Does have Does not have*}} dreams of suffocating/drowning. {{Does Does not*}} dream shortly after falling asleep. {{Does Does not*}} see dreams in the room even when awake.{{Does Does not*}} see or hear things in the room when falling asleep that aren't really there. {{Does Does not*}} see things in the road when driving that aren't really there. {{Has Has not*}} had someone see then act our their dreams. {{Has Has not*}} accidentally injured themselves while sleeping due to own movements/behaviors.

CATAPLEXY SYMPTOMS: {{Does have Does not have*}} feel limp, lose strength, or fall asleep when veryangry, surprised or laughing. {{Does have Does not have*}} leg, arm or face weakness when upset. {{Has Has not*}} had episodes of being unable to move when waking up which is often frightening.

DRIVING: {{Has Has not*}} fallen asleep or nearly fallen asleep driving. {{Has had Has not had*}} an accident related to drowsy driving or not paying attention. {{Does Does not*}} forget the last few miles or minutes while driving. {{Has Has not*}} driven out of julio and crossedcenter line or gone onto shoulder when driving. {{Has Has not*}} had a passenger tell them they look sleepy when driving.

ESS today 02/26
[place] Questionnaire Score /3</p>Review of Systems: ROS as noted in the HPI Review of Systems ? Notes: <p>wakes with dry mouth, rachele th clenching, heartburn (wakes with this if not taking omeprazole), nocturia 2-3/night, headaches (not waking with these recently), joint pain (arms and legs), numbness/tingling (feet/legs). </p> Physical Exam ? Notes: <p>General: A&O, well groome d, answers questions appropriately, {{over weight obese * morbidly obese normal weight thin}}.
HEAD: normocephalic & atraumatic, {{normal appeari ng chin * retrognathia}}.
EYES: non icteric.
NOSE: open nasal passages, septum midline, no polyps or masses.
THROAT/MOUTH: kerri st mucous membranes, modified mallampati score {{1 2 3 4*}}, tonsils and uvula surgically absent. Lateral wall narrowing grade {{1 * 2 3}}. Tongue scalloping {{is * is not}} noted.
NECK: supple without palpable lymp h nodes.
LUNGS: CTA all meadows. Good air movement.
CARDIO: RRR wit hout murmur, gallop or thrill.
ABDOMEN: soft and non tender with positive bowel sounds.
MS: Good ROM of all extremities. No cyanosis, clubbing or adriane ma.
NEURO: A&O. Normal gait.
PSYCH: Normal mood and affect.
CUTANEOU S: no overt lesions or rashes</p>
--- NOTE | 2020-05-28 06:30 | DI.MAMMO_ITS ---
EXAM: MG MAMMO SCREENING CLINICAL HISTORY: screening,Z12.39 TECHNIQUE: Bilateral full field digital CC and MLO mammographic images were obtained with 3D tomosyn thesis and utilizing computer aided detection (CAD). COMPARISON: Available for comparison. FINDINGS: Masses/Architectural Distortion: None seen. Microcalcifications: No suspicious pleomorphic-type are seen. Skin Thickening/Nipple Retraction: None. IMPRESSION: 1. No significant interval change with no specific features of malignancy noted. 2. Unless there is more urgent need, screening mammography is recommended, as per [employer] guidelines. BI-RADS Category 1 - Negative Breast Density - Category B - Scattered areas of fibroglandular density Breast density category C or D implies that the patient has dense breast tissue. Dense breast tissue is very common and is not abnormal but dense breast tissue can make it harder to find cancer on a ma mmogram. Also, dense breast tissue may increase their breast cancer risk. This information about the result of the mammogram report was provided to the patient to raise their awareness. Use this report when you speak with the patient about their risks for breast cancer, which includes their family hist ory. At that time, you may recommend for more screening tests (Ultrasound or MRI) as they might be us eful based on their risk. A negative radiographic report should not delay biopsy if a dominant or clinically suspicious mass is present. Up to ten percent of cancers are not identified on mammography. A negative report may reinforce clinical impression. Adenosis and dense breasts may obscure an underlying neoplasm. False positive reports average 6 to 10%. Patient will receive a letter notifying them of these results.
== END 2020-05-28 00:59 ==
PROVIDERS: PCP Nurse Practitioner; Visit Provider Nurse Practitioner
DX: Z12.31 Encounter for screening mammogram for malignant neoplasm of breast (principal)
CPT/HCPCS: 77063; 77067

== ENCOUNTER 2020-06-12 00:19 | Outpatient (CLI) | payer OTHER, SELFPAY ==
--- NOTE | 2020-06-12 11:00 | NS.NUTBLAN_ITS ---
Connie was referred for Medical Nutrition Therapy for obesity and diabetes management. Wt: 260 lbs, 5'6 BMI 42. She reports that she lost 30 lbs last year by following low sugar diet but regained it when she stopped meal plan. Her goal weight is 180-190 lbs. Current diet recall indicates that she typically skips breakfast, eats lunch and dinner. Meals are mostly well balanced however, she does endorse binge eating at night. Binge foods tend to be simple carbohydrates such as cookies. She works FT and has 4 daughters. She is single mother with little time to herself. She denies smoking and drinking. She has a therapist and has seen Dr. Rodriguez in the past for medical management of depression. Most recent A1c; 6.6% indicating well controlled DM2. Meds include victoza and metfromin 500 mg BID Discussion today included information on weight loss expectation with diet/exercise and touched on the benefits/dangers of weight loss surgery. At this time, Brittney would like to pursue diet/exercise to achieve goal weight. Plan is for her to follow [id number] kcal meal plan with emphasis on complex carbs, lean protein and non starchy vegetables - 3 meals/2 snacks daily with 30 min of cardio 6 x per week. No follow up visit planned at this time. Brittney will reach out when she needs more diet guidance.
== END 2020-06-12 00:39 ==
PROVIDERS: PCP Nurse Practitioner; Visit Provider Dietitian, Registered
DX: E11.9 Type 2 diabetes mellitus without complications (principal); Z79.84 Long term (current) use of oral hypoglycemic drugs; E66.9 Obesity, unspecified; Z68.41 Body mass index [BMI] 40.0-44.9, adult; Z71.3 Dietary counseling and surveillance
CPT/HCPCS: 97802

== ENCOUNTER 2020-07-09 01:59 | Outpatient (CLI) | payer OTHER, SELFPAY ==
[2020-07-10 15:33] LABS: COVID-19 RT-PCR UVMMC Result Negative (Negative)
== END 2020-07-09 02:00 | disposition home or self-care (01) ==
LOC: LBO 02:00
PROVIDERS: PCP Nurse Practitioner; Visit Provider Nurse Practitioner
DX: R05 Cough (principal); Z20.822 Contact with and (suspected) exposure to COVID-19
CPT/HCPCS: U0003

== ENCOUNTER 2020-08-13 11:40 | Outpatient (CLI) | payer OTHER, SELFPAY ==
--- NOTE | 2020-08-13 11:07 | DI.RAD_ITS ---
EXAM: XR WRIST LT COMP NAVICULAR CLINICAL HISTORY: thumb pain. TECHNIQUE: 2D digital imaging was performed. COMPARISON: No exams were available for comparison FINDINGS: BONES: No acute fracture is present. No bony destructive lesion is seen. JOINTS: The carpal bones are normally aligned. Mild hypertrophic changes are seen at the 1st CMC join t. SOFT TISSUE: Normal. IMPRESSION: Mild degenerative changes of the 1st CMC joint. DATA REPOSITORY: RADIATION DOSE DELIVERED:
== END 2020-08-13 11:41 | disposition home or self-care (01) ==
LOC: DIORS 11:41
PROVIDERS: PCP Nurse Practitioner; Referring Provider Nurse Practitioner; Visit Provider Physician Assistant Surgical
DX: M18.12 Unilateral primary osteoarthritis of first carpometacarpal joint, left hand (principal)
CPT/HCPCS: 73110

== ENCOUNTER 2020-09-28 01:48 | Outpatient (CLI) | payer OTHER, SELFPAY ==
[2020-09-28 08:12] LABS: CREATININE 0.9 mg/dL (0.55-1.02)
[2020-09-28] MEDS: Normal Saline - Diluent 50 ML VIAL IV (08:49)
[2020-09-28] MEDS: Omnipaque 350 MG/ML 100 ML BTL IJ (08:50)
--- NOTE | 2020-09-28 09:02 | DI.CT_ITS ---
EXAM: CT NECK W CLINICAL HISTORY: LT SIDED FOCAL PAIN WITH SWALLOWING,CERVICALGIA,M54,2. TECHNIQUE: Imaging Protocol: Axial CT angiography was performed with multi-slice acquisition and mu lti-planar and/or 3D reconstructions. CONTRAST MATERIAL: Intravenous: Omnipaque 350 Contrast volume:structured data in ml COMPARISON: CT CERVICAL SPINE WITHOUT CONTRA from 06/01/2015 FINDINGS: PARANASAL SINUSES: Clear. Mastoid air cells are also clear VISUALIZED ORBITS: Unremarkable. NASOPHARYNX: Tissues of the nasopharynx are symmetrical. No mass at this level. OROPHARYNX: The uvula is midline. No obvious mass at this level. HYPOPHARYNX: Free edge of the epiglottis appears unremarkable as do the vallecula by. Aryepiglottic folds appear unremarkable. VOCAL CORDS: Unremarkable, as is the subglottic airway. THYROID: Unremarkable SALIVARY GLANDS: The parotid and submandibular gland appear unremarkable. No masses nor calculi. LYMPH NODES: There is no significant lymphadenopathy in the neck and supraclavicular regions. VESSELS: No significant stenosis in the visualized common carotid arteries, carotid bifurcations, nor within the internal carotid arteries in neck. OSSEOUS: No significant osseous lesions evident. IMPRESSION: 1. No significant focal soft tissue abnormality evident in the neck. No mass evident. 2. No lymphadenopathy evident. RADIATION DOSE DELIVERED: 570.72mGy.cm Total DLP DATA REPOSITORY: All CT scans at this facility are submitted to the National Radiology Data Registry (NRDR) Dose Index Registry (DIR) with the [employer] (A[employer]). RADIATION OPTIMIZATION: All CT scans at this facility use at least one of these dose optimization te chniques: automated exposure control; mA and/or kV adjustment per patient size (includes targeted exa ms where dose is matched to clinical indication); or iterative reconstruction.
== END 2020-09-28 02:08 ==
PROVIDERS: PCP Nurse Practitioner; Visit Provider Otolaryngology
DX: M54.2 Cervicalgia (principal); R13.19 Other dysphagia
CPT/HCPCS: 70491; 82565; J3490

== ENCOUNTER 2020-11-10 20:21 | Emergency (ER) | payer OTHER, SELFPAY ==
[2020-11-10 20:43] VITALS: BP 132/97; PULSE 87; RESP 18; TEMP 36.4; O2SAT 97
[2020-11-10 20:47] VITALS: RESP 18
--- NOTE | 2020-11-10 21:08 | ED.GENADUL_ITS ---
Discharge Plan Disposition Patient Disposition: HOME Condition: Good Discharge Details Clinical Impression: Bilateral leg pain Primary Care Provider: Darby Reno ED Provider: Muriel Greenwood Home Meds and New Rx's Prescriptions: New cyclobenzaprine 10 mg tablet 10 mg PO TID PRNQty: 10 RF: 0 Continued lorazepam 0.5 mg tablet 0.5 mg PO BID PRN PRN (Reason: anxiety) Qty: 60 RF: 0 ferrous sulfate 325 mg (65 mg iron) tablet 325 mg PO DAILY Qty: 90 RF: 3 pantoprazole [Protonix] 40 mg tablet,delayed release (DR/EC) 40 mg PO DAILY Qty: 30 RF: 12 turmeric PO RF: 0 nystatin 100,000 unit/gram powder 1 applic topical TID PRN (Reason: Abdominal fold rash) Qty: 60 RF: 3 alcohol swabs pads, medicated 1 pad TP DAILY Qty: 200 RF: 3 melatonin 5 mg tablet 5 mg PO HS Qty: 90 RF: 3 (DME) pen needle, diabetic [Advocate Pen Needle] 29 gauge x 1/2 needle See Rx Instructions .ROUTE .MEDSUPPLY Qty: 100 RF: 3 diclofenac sodium 1 % gel 2 g topical QID Qty: 2 RF: 1 bupropion HCl [Wellbutrin XL] 300 mg tablet extended release 24 hr 300 mg PO QHS Qty: 90 RF: 3 lisinopril 20 mg tablet 20 mg PO DAILY Qty: 90 RF: 3 Amberen 2 cap PO DAILY RF: 0 pregabalin 200 mg capsule 200 mg PO BID Qty: 60 RF: 3 triamcinolone acetonide 15 GM cream 1 appful Topical BID PRNQty: 15 RF: 6 cholecalciferol (vitamin D3) 5,000 unit tablet 5,000 unit PO DAILY Qty: 90 RF: 3 omega-3 fatty acids-fish oil 300-1,000 mg capsule 2 cap PO HS Qty: 180 RF: 2 (DME) OneTouch Verio test strips Strip See Dose Instructions .ROUTE .MEDSUPPLY Qty: 200 RF: 3 Victoza 3-Rui 0.6 mg/0.1 mL (18 mg/3 mL) pen injector See Rx Instructions SC .COMPLEX Qty: 9 RF: 3 (DME) lancets [OneTouch Delica Plus Lancet] 33 gauge misc 0 .ROUTE .MEDSUPPLY Qty: 200 RF: 3 (DME) lancing device with lancets [OneTouch Delica Plus Lanc Dev] Kit See Rx Instructions .ROUTE .MEDSUPPLY Qty: 200 RF: 3 metformin 500 mg tablet extended release 24hr 1,000 mg PO DAILY Qty: 180 RF: 3 Myrbetriq 50 mg tablet extended release 24 hr 50 mg PO DAILY Qty: 90 RF: 2 atorvastatin [Lipitor] 20 mg tablet 20 mg PO DAILY Qty: 90 RF: 3 trazodone 50 mg tablet 100 mg PO HS PRN (Reason: insomnia) Qty: 180 RF: 3 liothyronine 25 mcg tablet 25 mcg PO DAILY Qty: 90 RF: 3 sertraline 100 mg tablet 200 mg PO DAILY Qty: 180 RF: 2 (DME) FreeStyle Sandeep 14 Day Union Misc See Rx Instructions .ROUTE .MEDSUPPLY Qty: 1 RF: 0 (DME) FreeStyle Sandeep 14 Day Sensor Kit See Rx Instructions .ROUTE .MEDSUPPLY Qty: 1 RF: 12 acetaminophen [Acetaminophen Extra Strength] 500 MG tablet 1,000 mg PO Q8H PRN PRNQty: 120 RF: 0 Vitamin B-12 50 mcg Tablet 50 mcg PO HS RF: 0 evening primrose oil 500 mg Capsule 500 mg PO HS RF: 0 Discharge Instructions Instructions: Leg Pain (ED) Additional Instructions: Please follow-up with primary care physician in 1 to 2 days for reevaluation Take muscle as needed for pain Tylenol 650 every 4-6 hours Elevate your leg Return earlier should you have new or worsening complaints Stand Alone Forms: Work Release Discharge Data Discharge Date/Time-TO BE ENTERED AT DEPARTURE: 11/10/20 22:42 Medical Decision Making diagnostic labs wnl for pt, mild hyperglycemia very low clinical suspicion for dvt, bilateral tenderness to LE, primarily anter ior distal pulses intact ambulatory with steady gait mild improvement with patients baldomerorica instructed to f/u with pcp do not see any concerning reason for pt's symptoms at this time, recheck in 24 hours recommended HPI General Mode of arrival: ambulatory . Date/Time Provider Initiated Documentation: 11/10/20 20:33 . Limitations to Documentation: no limitations . Information obtained by: patient . HPI Narrative: This 45-year-old female with diabetes, vitamin D deficiency, hypertension, hyperlipidemia presents with bilateral lower extremity pain morning. Is located in both of her lower extremities. She denies any chest pain or shortness of breath. She states she had a similar episode several years ago with vitamin D deficiency. She denies any fever or chills. She denies any injuries. She denies any new medications. She denies stiff neck or headache. She denies chest pain or shortness of breath. Denies chance of . Related Data Home Medications Medication Instructions Recorded Confirmed triamcinolone acetonide 1 appful TOPICAL BID PRN #15 gm 09/15/16 11/11/20 acetaminophen [Acetaminophen Extra 1,000 mg PO Q8H PRN PRN #120 tab 02/14/17 11/11/20 Strength] lorazepam 0.5 mg tablet 0.5 mg PO BID PRN PRN #60 tab 04/16/18 11/11/20 ferrous sulfate 325 mg (65 mg 325 mg PO DAILY #90 tab-cap 08/29/18 11/11/20 iron) tablet alcohol swabs 1 pad TP DAILY #200 each 12/13/18 11/11/20 Vitamin B-12 50 mcg PO HS 01/14/19 11/11/20 evening primrose oil 500 mg PO HS 01/14/19 11/11/20 cholecalciferol (vitamin D3) 125 5,000 unit PO DAILY #90 tab-cap 01/30/19 11/11/20 mcg (5,000 unit) tablet omega-3 fatty acids-fish oil 300 2 cap PO HS #180 tab-cap 02/07/19 11/11/20 mg-1,000 mg capsule melatonin 5 mg tablet 5 mg PO HS #90 tab-cap 02/19/19 11/11/20 pen needle, diabetic 29 gauge x #100 each 03/19/19 11/11/20 1/2 blood sugar diagnostic #200 each 05/27/19 11/11/20 liraglutide 0.6 mg/0.1 mL (18 mg/3 See Rx Instructions SC .COMPLEX #9 08/06/19 11/11/20 mL) subcutaneous pen injector ml lancets 33 gauge #200 each 11/14/19 11/11/20 lancing device with lancets kit #200 each 11/14/19 11/11/20 metformin 500 mg tablet,extended 1,000 mg PO DAILY #180 tab 11/27/19 11/11/20 release 24hr mirabegron 50 mg tablet,extended 50 mg PO DAILY #90 tab 01/30/20 11/11/20 release 24 hr atorvastatin 20 mg tablet 20 mg PO DAILY #90 tab-cap 02/14/20 11/11/20 trazodone 50 mg tablet 100 mg PO HS PRN #180 tab 02/14/20 11/11/20 liothyronine 25 mcg tablet 25 mcg PO DAILY #90 tab-cap 02/21/20 11/11/20 pantoprazole 40 mg tablet,delayed 40 mg PO DAILY #30 tab 03/11/20 11/11/20 release diclofenac sodium 1 % topical gel 2 g TOPICAL QID #2 g 04/08/20 11/11/20 sertraline 100 mg tablet 200 mg PO DAILY #180 tab 05/05/20 11/11/20 nystatin 100,000 unit/gram topical 1 applic TOPICAL TID PRN #60 g 05/25/20 11/11/20 powder turmeric PO 05/25/20 11/11/20 flash glucose scanning reader #1 ea 06/15/20 11/11/20 flash glucose sensor #1 ea 06/15/20 11/11/20 bupropion HCl 300 mg 24 hr tablet, 300 mg PO QHS #90 tab 07/20/20 11/11/20 extended release lisinopril 20 mg tablet 20 mg PO DAILY #90 tab 07/20/20 11/11/20 Amberen 2 cap PO DAILY 10/26/20 11/11/20 pregabalin 200 mg capsule 200 mg PO BID #60 cap 10/26/20 11/11/20 cyclobenzaprine 10 mg PO TID PRN #10 tab 11/10/20 11/11/20 Previous Rx's Medication Instructions Recorded acetaminophen [Acetaminophen Extra 1,000 mg PO Q8H PRN PRN #120 tab 02/14/17 Strength] lorazepam 0.5 mg tablet 0.5 mg PO BID PRN PRN #60 tab 04/16/18 ferrous sulfate 325 mg (65 mg 325 mg PO DAILY #90 tab-cap 08/29/18 iron) tablet alcohol swabs 1 pad TP DAILY #200 each 12/13/18 cholecalciferol (vitamin D3) 125 5,000 unit PO DAILY #90 tab-cap 01/30/19 mcg (5,000 unit) tablet omega-3 fatty acids-fish oil 300 2 cap PO HS #180 tab-cap 02/07/19 mg-1,000 mg capsule melatonin 5 mg tablet 5 mg PO HS #90 tab-cap 02/19/19 pen needle, diabetic 29 gauge x #100 each 03/19/19 1/2 blood sugar diagnostic #200 each 05/27/19 liraglutide 0.6 mg/0.1 mL (18 mg/3 See Rx Instructions SC .COMPLEX #9 08/06/19 mL) subcutaneous pen injector ml lancets 33 gauge #200 each 11/14/19 lancing device with lancets kit #200 each 11/14/19 metformin 500 mg tablet,extended 1,000 mg PO DAILY #180 tab 11/27/19 release 24hr mirabegron 50 mg tablet,extended 50 mg PO DAILY #90 tab 01/30/20 release 24 hr atorvastatin 20 mg tablet 20 mg PO DAILY #90 tab-cap 02/14/20 trazodone 50 mg tablet 100 mg PO HS PRN #180 tab 02/14/20 liothyronine 25 mcg tablet 25 mcg PO DAILY #90 tab-cap 02/21/20 pantoprazole 40 mg tablet,delayed 40 mg PO DAILY #30 tab 03/11/20 release diclofenac sodium 1 % topical gel 2 g TOPICAL QID #2 g 04/08/20 sertraline 100 mg tablet 200 mg PO DAILY #180 tab 05/05/20 nystatin 100,000 unit/gram topical 1 applic TOPICAL TID PRN #60 g 05/25/20 powder flash glucose scanning reader #1 ea 06/15/20 flash glucose sensor #1 ea 06/15/20 bupropion HCl 300 mg 24 hr tablet, 300 mg PO QHS #90 tab 07/20/20 extended release lisinopril 20 mg tablet 20 mg PO DAILY #90 tab 07/20/20 pregabalin 200 mg capsule 200 mg PO BID #60 cap 10/26/20 cyclobenzaprine 10 mg PO TID PRN #10 tab 11/10/20 Allergies Allergy/AdvReac Type Severity Reaction Status Date / Time No Known Drug Allergies Allergy Verified 11/11/20 15:26 General Stated Complaint: GenMedical TARIK: 4 Review of Systems Narrative: Review of systems obtained x7 aside from where indicated in HPI [facility] Medical History Adjustment disorder with mixed anxiety and depressed mood (08/17/17) Adult BMI > 30 Anemia Anxiety (04/17/17) Bilateral carpal tunnel syndrome Chronic erosive gastritis Depression Diabetes mellitus Diabetic neuropathy Hiatal hernia with GERD History of viral pericarditis (04/17/17) Per pt. states, 04/2018 felt like her chest was so heavy and couldn't take a breath, was admitted for observation, and was tx with rx and stated it resolved HLD (hyperlipidemia) HTN (hypertension) Incontinence in female Kidney stone Migraine Obesity SHANTAL (obstructive sleep apnea) Sleep apnea, obstructive 04/12/20-sleep study. baseline significant nocturnal hypoxemia. the degree of hypoxemia is out of proportion to the degree of sleep apnea. Govind Conroy MD Tobacco use disorder Vitamin D deficiency Surgical History H/O bilateral salpingectomy (03/05/15) Hysteroscopy (02/04/15) uterus,cervix,left fallopian tube and salpingectomy. Dr. Wong Pelvic floor reconstruction (~2009) [facility] [place] S/P shoulder surgery left S/P tubal ligation Status post vaginal hysterectomy (03/05/15) Stenosis of tear duct Tonsillectomy & uvulectomy (~2009) Vaginal hysterectomy 2014 [facility] with Bilateral distal salpingectomy - Dr Smith Family History Mother Graves' disease Depression Father Alcoholism drug addicion Grandmother Personal history of malignant neoplasm skin Other Personal history of malignant neoplasm colon Social History Smoking/Tobacco Use Status: Former Tobacco Use Smoking risk assessment performed?: Yes Alcohol Intake: current Alcohol Intake frequency: holidays/special occasions only Drug use: Never Substance use type: does not use Household members: children Number of Children: 4 Communication Needs: Corrective Lenses current occupation: Former [employer]; 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 [employer] Current gender identity: female Do you feel safe at home: Yes Additional Social history: not in a relationship Exam Const General: cooperative, comfortable and no acute distress Orientation: alert and oriented x3 Resp Effort & Inspection: normal respiratory effort Auscultation: clear to auscultation bilaterally Cardio Rate: regular rate Rhythm: regular rhythm Other: distal pulses intact GI Other: No abdominal bruit or pulsatile mass, no CVA tenderness Back/Spine/Pelvis Other: No midline tenderness Skin General skin exam: no rashes or lesions noted Neuro General: patient alert and patient oriented x3 Extrem Other: No peripheral edema, no calf swelling or tenderness Predominantly tender to anterior portion of legs Course Vital Signs Vital signs: Vital Signs Temperature 36.4 C L 11/10/20 20:43 Pulse 87 11/10/20 20:43 Respiratory Rate 18 11/10/20 20:43 Blood Pressure 132/97 H 11/10/20 20:43 Pulse Oximetry 97 11/10/20 20:43 Temperature 36.4 C L 11/10/20 20:43 Temperature Source Temporal Artery Scan 11/10/20 20:43 Pulse 87 11/10/20 20:43 Respiratory Rate 18 11/10/20 20:47 Respiratory Effort Non-Labored 11/10/20 20:47 Respiratory Pattern Normal 11/10/20 20:47 Blood Pressure 132/97 H 11/10/20 20:43 Pulse Oximetry 97 11/10/20 20:43 Oxygen Delivery Method Room Air 11/10/20 20:43 Oxygen Flow Rate 0 11/10/20 20:43 Pain Level 8 11/10/20 20:43
[2020-11-10 21:32] LABS: Abs Immature Grans 0.03 10^3/uL (0.0-0.06); Absolute Basophil Count 0.04 10^3/uL (0.0-0.2); Absolute Lymphocyte Count 3.47 10^3/uL (1.2-3.4); Absolute Monocyte Count 0.76 10^3/uL (0.1-0.8); Absolute Neutrophil Count 3.53 10^3/uL (1.2-6.7); Basophils % 0.5; Eosinophils % 1.3; HCT 39.2 % (36.0-46.0); Immature Grans % 0.4; Lymphocytes % 43.8; MCH 28.3 pg (27.0-33.0); MCHC 33.2 % (32.0-36.0); MCV 85.4 fL (80-95); MPV 10.6 fL (8.0-11.0); Monocytes % 9.6; Neutrophils % 44.4; Nucleated RBC 0 %; Platelet Count 225 10^3/uL (130-400); RBC 4.59 10^6/uL (3.93-5.22); RDW 12.8 % (11.7-14.6); RDW-SD 39.6 fL; WBC 7.93 10^3/uL (4.4-10.8)
[2020-11-10 21:40] LABS: ALT 49 U/L (14-59); AST 16 U/L (15-37); Albumin 3.9 g/dL (3.4-5.0); Alkaline Phosphatase 118 U/L (46-116); Anion Gap 6.8 mmol/L (3-11); BUN 18 mg/dL (7-18); Bilirubin, Total 0.2 mg/dL (0.2-1.0); CO2 27.2 mmol/L (21.0-32.0); CREATININE 0.8 mg/dL (0.55-1.02); Calcium 9.2 mg/dL (8.5-10.1); Chloride 104 mmol/L (98-107); Creatine Kinase 75 U/L (26-192); Glucose 195 mg/dL (74-106); Potassium 3.6 mmol/L (3.5-5.1); Sodium 138 mmol/L (136-145); Total Protein 7.2 g/dL (6.4-8.2)
== END 2020-11-10 22:42 | disposition home or self-care (01) ==
PROVIDERS: Emergency Provider Physician Assistant; PCP Nurse Practitioner
DX: M79.661 Pain in right lower leg (principal); M79.662 Pain in left lower leg
CPT/HCPCS: 80053; 80061; 82550; 99283; 83036; 83735; 85025; 86140

== ENCOUNTER 2020-11-17 15:26 | Outpatient (CLI) | payer OTHER, SELFPAY ==
[2020-11-11 16:50] LABS: ESR 7 mm/hr (0-20)
[2020-11-11 16:56] LABS: Hemoglobin A1C 6.7 % (<5.7)
[2020-11-11 17:28] LABS: Calculated LDL 52 mg/dL (<100); Cholesterol 162 mg/dL (<200); HDL Cholesterol 36 mg/dL (40-60); Triglyceride 372 mg/dL (<150)
[2020-11-11 17:43] LABS: C-Reactive Protein 0.11 mg/dL (0.0-0.3)
[2020-11-13 10:22] LABS: Lyme Ab w Rflx to Lyme Confirm Negative (Negative)
[2020-11-13 13:46] LABS: ANA Interpretation Negative (Negative)
[2020-11-13 22:37] LABS: Anaplasma phagocytophilum Negative (Negative); B. miyamotoi PCR Negative (Negative); Babesia divergens/MO-1 Negative (Negative); Babesia duncani Negative (Negative); Babesia microti Negative (Negative); Ehrlichia chaffeensis Negative (Negative); Ehrlichia ewingii/canis Negative (Negative); Ehrlichia muris eauclairensis Negative (Negative)
== END 2020-11-17 15:27 | disposition home or self-care (01) ==
LOC: LBO 15:27
PROVIDERS: PCP Nurse Practitioner; Visit Provider Nurse Practitioner
DX: M79.604 Pain in right leg (principal); M79.605 Pain in left leg
CPT/HCPCS: 36415; 85652; 87798; 86038; 86618

== ENCOUNTER 2021-01-01 10:31 | Emergency (ER) | payer OTHER, SELFPAY ==
[2021-01-01] VITALS (54 sets, daily range): BP systolic 94–142; BP diastolic 60–88; PULSE 66–108; RESP 9–26; TEMP 36.2; O2SAT 90–97
--- NOTE | 2021-01-01 10:41 | W.ED.GENAD ---
Discharge Plan Disposition Patient Disposition: HOME Condition: Improving Discharge Details Clinical Impression: Headache, Dizziness Primary Care Provider: Darby Reno ED Provider: Alma Peñaloza Home Meds and New Rx's Prescriptions: Continued lorazepam 0.5 mg tablet 0.5 mg PO BID PRN PRN (Reason: anxiety) Qty: 60 RF: 0 ferrous sulfate 325 mg (65 mg iron) tablet 325 mg PO DAILY Qty: 90 RF: 3 pantoprazole [Protonix] 40 mg tablet,delayed release (DR/EC) 40 mg PO DAILY Qty: 30 RF: 12 turmeric PO RF: 0 nystatin 100,000 unit/gram powder 1 applic topical TID PRN (Reason: Abdominal fold rash) Qty: 60 RF: 3 alcohol swabs pads, medicated 1 pad TP DAILY Qty: 200 RF: 3 melatonin 5 mg tablet 5 mg PO HS Qty: 90 RF: 3 (DME) pen needle, diabetic [Advocate Pen Needle] 29 gauge x 1/2 needle See Rx Instructions .ROUTE .MEDSUPPLY Qty: 100 RF: 3 diclofenac sodium 1 % gel 2 g topical QID Qty: 2 RF: 1 bupropion HCl [Wellbutrin XL] 300 mg tablet extended release 24 hr 300 mg PO QHS Qty: 90 RF: 3 lisinopril 20 mg tablet 20 mg PO DAILY Qty: 90 RF: 3 Amberen 2 cap PO DAILY RF: 0 prednisone 5 mg tablet 5 mg PO DAILY Qty: 30 RF: 0 triamcinolone acetonide 15 GM cream 1 appful Topical BID PRNQty: 15 RF: 6 cholecalciferol (vitamin D3) 5,000 unit tablet 5,000 unit PO DAILY Qty: 90 RF: 3 omega-3 fatty acids-fish oil 300-1,000 mg capsule 2 cap PO HS Qty: 180 RF: 2 (DME) BeelineTouch Verio test strips Strip See Dose Instructions .ROUTE .MEDSUPPLY Qty: 200 RF: 3 Victoza 3-Rui 0.6 mg/0.1 mL (18 mg/3 mL) pen injector See Rx Instructions SC .COMPLEX Qty: 9 RF: 3 (DME) lancets [OneTouch Delica Plus Lancet] 33 gauge misc 0 .ROUTE .MEDSUPPLY Qty: 200 RF: 3 (DME) lancing device with lancets [OneTouch Delica Plus Lanc Dev] Kit See Rx Instructions .ROUTE .MEDSUPPLY Qty: 200 RF: 3 atorvastatin [Lipitor] 20 mg tablet 20 mg PO DAILY Qty: 90 RF: 3 trazodone 50 mg tablet 100 mg PO HS PRN (Reason: insomnia) Qty: 180 RF: 3 liothyronine 25 mcg tablet 25 mcg PO DAILY Qty: 90 RF: 3 sertraline 100 mg tablet 200 mg PO DAILY Qty: 180 RF: 2 (DME) FreeStyle Sandeep 14 Day Dumont Misc See Rx Instructions .ROUTE .MEDSUPPLY Qty: 1 RF: 0 (DME) FreeStyle Sandeep 14 Day Sensor Kit See Rx Instructions .ROUTE .MEDSUPPLY Qty: 1 RF: 12 metformin 500 mg tablet extended release 24hr 1,000 mg PO DAILY Qty: 180 RF: 3 Myrbetriq 50 mg tablet extended release 24 hr 50 mg PO DAILY Qty: 90 RF: 3 pregabalin 200 mg capsule 200 mg PO BID Qty: 60 RF: 3 acetaminophen [Acetaminophen Extra Strength] 500 MG tablet 1,000 mg PO Q8H PRN PRNQty: 120 RF: 0 Vitamin B-12 50 mcg Tablet 50 mcg PO HS RF: 0 evening primrose oil 500 mg Capsule 500 mg PO HS RF: 0 cyclobenzaprine 10 mg tablet 10 mg PO TID PRNQty: 10 RF: 0 Discharge Instructions Instructions: Dizziness (ED), General Headache (ED) Additional Instructions: Drink plenty of fluids and get plenty of rest. Take Tylenol as needed and directed for headache or pain. Take the tramadol as needed and directed for pain not relieved with Tylenol. Follow-up with your primary care doctor in 1 week. Return to the emergency department with any worsening or new concerning symptoms such as persistent headaches, persistent dizziness or any other concerns. Discharge Data Discharge Date/Time-TO BE ENTERED AT DEPARTURE: 01/01/21 16:21 Discharge Physician: Alma Peñaloza Medical Decision Making 5530 -- 45-year-old female with a history of obesity, diabetes, fibromyalgia, anxiety, depression presents for headache, dizziness, chest pain or shortness of breath today. She has had headache and dizziness for the past couple days but worse today. Patient appears nontoxic she is afebrile with normal heart rate and blood pressure. Her oxygen saturation is low to mid 90s on room air. Her lungs are clear bilaterally. She has no calf tenderness or focal deficits. Differential diagnosis includes dehydration, viral syndrome, electrolyte abnormality, or less likely PE. History and presentation does not appear consistent with subarachnoid hemorrhage, ACS or dissection. Will obtain screening labs, urinalysis, D-dimer and imaging of chest accordingly. Will place an IV, give bolus IV fluids, Tylenol, Toradol and decadron and reassess. 1220 --patient reassessed and her headache is improved. She admits to fatigue. Oxygen saturation into the low 90s when sleeping. She has a history of sleep apnea. Labs reviewed and unremarkable. Normal white blood cell count. Trop negative. D-dimer negative. VBG negative. EKG unremarkable. 1400 --patient complained of some repeated headaches on the top of her head and requested food and additional fluids. 1530 -- She was able to eat and given additional fluids and states her headache is no worse. Patient states she would like to go home to rest. Discussed that I do not think her presentation appears consistent with an acute neurological condition such as meningitis or stroke, but we can proceed with CT imaging which she declines. Patient states she would rather go home and get some rest. She states she needs to drive herself home and does not want any further medication here. She was given a dose of Tylenol prior to discharge. Due to her persistent pain, we will send with 2 tabs of tramadol to take if needed. Otherwise she is advised to just get plenty of rest and fluids and take Tylenol. She is advised to return here immediately if her headaches continue to persist or worsen for reevaluation and consideration for imaging at that time. Medical Records Medical records reviewed: Yes I reviewed the patient's medical records. Imaging Data Radiologic Study: Radiologist's impression: XR CHEST 2V PA LATERAL CLINICAL HISTORY: shortness of breath, r/o acute disease TECHNIQUE: 2D digital imaging was performed. COMPARISON: CR,XR XR CHEST 2V PA LATERAL from 11/16/2019 FINDINGS: MEDIASTINUM: Normal. HEART: Normal. PULMONARY VASCULATURE: Normal. LUNGS: Clear. PLEURAL SPACE: No pleural effusion or pneumothorax. BONE:Within normal limits for the patient's age. OTHER FINDINGS:Normal. IMPRESSION: No acute pulmonary findings. Lab Data Lab results reviewed: Yes I reviewed the patient's lab results. Labs: Laboratory Tests Range/Units 01/01/21 01/01/21 01/01/21 10:42 10:42 10:57 WBC (4.4-10.8) 10^3/uL RBC (3.93-5.22) 10^6/uL Hgb (11.2-15.7) g/dL Hct (36.0-46.0) % MCV (80-95) fL MCH (27.0-33.0) pg MCHC (32.0-36.0) % RDW (11.7-14.6) % Plt Count (130-400) 10^3/uL MPV (8.0-11.0) fL Immature Gran % Neutrophils % Lymphocytes % Monocytes % Eosinophils % Basophils % Nucleated RBC % % Absolute Neutrophils (1.2-6.7) 10^3/uL Absolute Lymphocytes (1.2-3.4) 10^3/uL Absolute Monocytes (0.1-0.8) 10^3/uL Absolute Eosinophils (0.0-0.7) 10^3/uL Absolute Basophils (0.0-0.2) 10^3/uL D-Dimer (<500) ng/mlFEU VBG pH (7.31-7.41) 7.39 VBG pCO2 (41-51) mmHg 44 VBG pO2 mmHg 60 VBG HCO3 (23-28) mmol/L 27 VBG Total CO2 (24-29) mmol/L 24 VBG O2 Saturation % 90 VBG Base Excess (-2-3) mmol/L 2 Sodium (136-145) mmol/L 140 Potassium (3.5-5.1) mmol/L 4.2 Chloride (98-107) mmol/L 103 Carbon Dioxide (21.0-32.0) mmol/L 26.1 Anion Gap (3-11) mmol/L 10.9 BUN (7-18) mg/dL 19 H Creatinine (0.55-1.02) mg/dL 0.9 Estimated GFR/1.73 m2 (mL/min/1.73m2) >= 60.00 Glucose (74-106) mg/dL 176 H Calcium (8.5-10.1) mg/dL 9.4 Total Bilirubin (0.2-1.0) mg/dL 0.3 AST (15-37) U/L 20 ALT (14-59) U/L 54 Alkaline Phosphatase (46-116) U/L 85 Troponin I (<0.06) ng/mL < 0.05 Total Protein (6.4-8.2) g/dL 7.2 Albumin (3.4-5.0) g/dL 3.8 Urine Color (Yellow) Urine Clarity (Clear) Urine pH (5-8) Ur Specific [place] (1.005-1.025) Urine Protein (Negative) mg/dL Urine Ketones (Negative) mg/dL Urine Blood (Negative) Urine Nitrite (Negative) Urine Bilirubin (Negative) Urine Urobilinogen (Up TO 0.2) EU/dL Ur Leukocyte Esterase (Negative) Urine Glucose (Negative) mg/dL Range/Units 01/01/21 01/01/21 01/01/21 10:57 11:03 11:28 WBC (4.4-10.8) 10^3/uL 6.36 RBC (3.93-5.22) 10^6/uL 4.61 Hgb (11.2-15.7) g/dL 13.0 Hct (36.0-46.0) % 39.8 MCV (80-95) fL 86.3 MCH (27.0-33.0) pg 28.2 MCHC (32.0-36.0) % 32.7 RDW (11.7-14.6) % 12.7 Plt Count (130-400) 10^3/uL 246 MPV (8.0-11.0) fL 10.6 Immature Gran % 0.5 Neutrophils % 49.6 Lymphocytes % 38.5 Monocytes % 10.2 Eosinophils % 0.6 Basophils % 0.6 Nucleated RBC % % 0 Absolute Neutrophils (1.2-6.7) 10^3/uL 3.15 Absolute Lymphocytes (1.2-3.4) 10^3/uL 2.45 Absolute Monocytes (0.1-0.8) 10^3/uL 0.65 Absolute Eosinophils (0.0-0.7) 10^3/uL 0.04 Absolute Basophils (0.0-0.2) 10^3/uL 0.04 D-Dimer (<500) ng/mlFEU 285 VBG pH (7.31-7.41) VBG pCO2 (41-51) mmHg VBG pO2 mmHg VBG HCO3 (23-28) mmol/L VBG Total CO2 (24-29) mmol/L VBG O2 Saturation % VBG Base Excess (-2-3) mmol/L Sodium (136-145) mmol/L Potassium (3.5-5.1) mmol/L Chloride (98-107) mmol/L Carbon Dioxide (21.0-32.0) mmol/L Anion Gap (3-11) mmol/L BUN (7-18) mg/dL Creatinine (0.55-1.02) mg/dL Estimated GFR/1.73 m2 (mL/min/1.73m2) Glucose (74-106) mg/dL Calcium (8.5-10.1) mg/dL Total Bilirubin (0.2-1.0) mg/dL AST (15-37) U/L ALT (14-59) U/L Alkaline Phosphatase (46-116) U/L Troponin I (<0.06) ng/mL Total Protein (6.4-8.2) g/dL Albumin (3.4-5.0) g/dL Urine Color (Yellow) Yellow Urine Clarity (Clear) Clear Urine pH (5-8) 5.5 Ur Specific [place] (1.005-1.025) >= 1.030 H Urine Protein (Negative) mg/dL Negative Urine Ketones (Negative) mg/dL Negative Urine Blood (Negative) Negative Urine Nitrite (Negative) Negative Urine Bilirubin (Negative) Negative Urine Urobilinogen (Up TO 0.2) EU/dL 0.2 Ur Leukocyte Esterase (Negative) Negative Urine Glucose (Negative) mg/dL Negative ECG Data Attestation: I personally reviewed and interpreted this ECG (s) as follows: Interpretation: rate of 76, sinus, no acute ST elevation or depression. AR 182. QTc 428. HPI General Mode of arrival: ambulatory. Date/Time Provider Initiated Documentation: 01/01/21 10:41. Limitations to Documentation: no limitations. Information obtained by: patient. HPI Narrative: Patient is a 45-year-old female with a history of obesity, diabetes, fibromyalgia, GERD, hysterectomy presents for headache, dizziness, chest pain, shortness of breath for the past couple days, worse this morning. Patient states she developed a left-sided headache a few days ago but states it is worse today, aching and currently 6/10. She states it feels different than her usual migraine and that she usually has nausea and vomiting with this. Patient states she has intermittent chest pain and shortness of breath along with headache and dizziness that she gets with her hot flashes but states the dizziness is worse today than usual. She feels more woozy and and that she is having difficulty concentrating. 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 She states it is not worse with movement or deep breath. She states she does have anxiety episodes and can have similar chest pain or shortness of breath with this. She states she usually does not have the difficulty for the same with her anxiety episodes. She took Tylenol at 630 this morning. She denies any known fever, blurry vision, neck pain, acute cough, abdominal pain, recent travel, leg pain or swelling Related Data Home Medications Medication Instructions Recorded Confirmed triamcinolone acetonide 1 appful TOPICAL BID PRN #15 gm 09/15/16 11/14/20 acetaminophen [Acetaminophen Extra 1,000 mg PO Q8H PRN PRN #120 tab 02/14/17 12/24/20 Strength] lorazepam 0.5 mg tablet 0.5 mg PO BID PRN PRN #60 tab 04/16/18 11/14/20 ferrous sulfate 325 mg (65 mg 325 mg PO DAILY #90 tab-cap 08/29/18 11/14/20 iron) tablet alcohol swabs 1 pad TP DAILY #200 each 12/13/18 11/14/20 Vitamin B-12 50 mcg PO HS 01/14/19 11/14/20 evening primrose oil 500 mg PO HS 01/14/19 11/14/20 cholecalciferol (vitamin D3) 125 5,000 unit PO DAILY #90 tab-cap 01/30/19 11/14/20 mcg (5,000 unit) tablet omega-3 fatty acids-fish oil 300 2 cap PO HS #180 tab-cap 02/07/19 11/14/20 mg-1,000 mg capsule melatonin 5 mg tablet 5 mg PO HS #90 tab-cap 02/19/19 11/14/20 pen needle, diabetic 29 gauge x #100 each 03/19/19 11/14/20 1/2 blood sugar diagnostic #200 each 05/27/19 11/14/20 liraglutide 0.6 mg/0.1 mL (18 mg/3 See Rx Instructions SC .COMPLEX #9 08/06/19 11/14/20 mL) subcutaneous pen injector ml lancets 33 gauge #200 each 11/14/19 11/14/20 lancing device with lancets kit #200 each 11/14/19 11/14/20 atorvastatin 20 mg tablet 20 mg PO DAILY #90 tab-cap 02/14/20 11/14/20 trazodone 50 mg tablet 100 mg PO HS PRN #180 tab 02/14/20 11/14/20 liothyronine 25 mcg tablet 25 mcg PO DAILY #90 tab-cap 02/21/20 11/14/20 pantoprazole 40 mg tablet,delayed 40 mg PO DAILY #30 tab 03/11/20 11/14/20 release diclofenac sodium 1 % topical gel 2 g TOPICAL QID #2 g 04/08/20 12/24/20 sertraline 100 mg tablet 200 mg PO DAILY #180 tab 05/05/20 11/14/20 nystatin 100,000 unit/gram topical 1 applic TOPICAL TID PRN #60 g 05/25/20 11/14/20 powder turmeric PO 05/25/20 11/14/20 flash glucose scanning reader #1 ea 06/15/20 11/14/20 flash glucose sensor #1 ea 06/15/20 11/14/20 bupropion HCl 300 mg 24 hr tablet, 300 mg PO QHS #90 tab 07/20/20 11/14/20 extended release lisinopril 20 mg tablet 20 mg PO DAILY #90 tab 07/20/20 11/14/20 Amberen 2 cap PO DAILY 10/26/20 11/14/20 cyclobenzaprine 10 mg PO TID PRN #10 tab 11/10/20 11/14/20 prednisone 5 mg tablet 5 mg PO DAILY #30 tab 11/13/20 11/13/20 metformin 500 mg tablet,extended 1,000 mg PO DAILY #180 tab 11/16/20 release 24hr mirabegron 50 mg tablet,extended 50 mg PO DAILY #90 tab 11/16/20 release 24 hr pregabalin 200 mg capsule 200 mg PO BID #60 cap 11/16/20 Previous Rx's Medication Instructions Recorded acetaminophen [Acetaminophen Extra 1,000 mg PO Q8H PRN PRN #120 tab 02/14/17 Strength] lorazepam 0.5 mg tablet 0.5 mg PO BID PRN PRN #60 tab 04/16/18 ferrous sulfate 325 mg (65 mg 325 mg PO DAILY #90 tab-cap 08/29/18 iron) tablet alcohol swabs 1 pad TP DAILY #200 each 12/13/18 cholecalciferol (vitamin D3) 125 5,000 unit PO DAILY #90 tab-cap 01/30/19 mcg (5,000 unit) tablet omega-3 fatty acids-fish oil 300 2 cap PO HS #180 tab-cap 02/07/19 mg-1,000 mg capsule melatonin 5 mg tablet 5 mg PO HS #90 tab-cap 02/19/19 pen needle, diabetic 29 gauge x #100 each 03/19/19 1/ blood sugar diagnostic #200 each 05/27/19 liraglutide 0.6 mg/0.1 mL (18 mg/3 See Rx Instructions SC .COMPLEX #9 08/06/19 mL) subcutaneous pen injector ml lancets 33 gauge #200 each 11/14/19 lancing device with lancets kit #200 each 11/14/19 atorvastatin 20 mg tablet 20 mg PO DAILY #90 tab-cap 02/14/20 trazodone 50 mg tablet 100 mg PO HS PRN #180 tab 02/14/20 liothyronine 25 mcg tablet 25 mcg PO DAILY #90 tab-cap 02/21/20 pantoprazole 40 mg tablet,delayed 40 mg PO DAILY #30 tab 03/11/20 release diclofenac sodium 1 % topical gel 2 g TOPICAL QID #2 g 04/08/20 sertraline 100 mg tablet 200 mg PO DAILY #180 tab 05/05/20 nystatin 100,000 unit/gram topical 1 applic TOPICAL TID PRN #60 g 05/25/20 powder flash glucose scanning reader #1 ea 06/15/20 flash glucose sensor #1 ea 06/15/20 bupropion HCl 300 mg 24 hr tablet, 300 mg PO QHS #90 tab 07/20/20 extended release lisinopril 20 mg tablet 20 mg PO DAILY #90 tab 07/20/20 cyclobenzaprine 10 mg PO TID PRN #10 tab 11/10/20 prednisone 5 mg tablet 5 mg PO DAILY #30 tab 11/13/20 metformin 500 mg tablet,extended 1,000 mg PO DAILY #180 tab 11/16/20 release 24hr mirabegron 50 mg tablet,extended 50 mg PO DAILY #90 tab 11/16/20 release 24 hr pregabalin 200 mg capsule 200 mg PO BID #60 cap 11/16/20 Allergies Allergy/AdvReac Type Severity Reaction Status Date / Time No Known Drug Allergies Allergy Verified 11/13/20 08:18 General Stated Complaint: Diabetes TARIK: 3 Review of Systems All systems reviewed & are unremarkable except as noted in HPI and below Constitutional Constitutional: Reports as per HPI, Denies chills, Denies fever(s) and Reports headache(s) Eyes Eyes: Denies blurry vision ENT Ears, Nose, Mouth, and Throat: Reports dizziness, Reports headache(s), Denies sore throat and Denies throat swelling Cardiovascular Cardiovascular: Reports chest pain and Reports dyspnea Respiratory Respiratory: Reports cough and Reports dyspnea Gastrointestinal Gastrointestinal: Denies abdominal pain, Denies diarrhea and Denies vomiting Genitourinary Genitourinary: Denies hematuria and Denies dysuria Musculoskeletal Musculoskeletal: Denies back pain and Denies numbness Integumentary/Breasts Skin/Breast: Denies lesions and Denies rash Neurologic Neurologic: Reports dizziness, Reports headache(s), Denies localized weakness and Denies numbness Allergic/Immunologic Allergic/Immunologic: Denies throat swelling [facility] Medical History Adjustment disorder with mixed anxiety and depressed mood (08/17/17) Adult BMI > 30 Anemia Anxiety (04/17/17) Bilateral carpal tunnel syndrome Chronic erosive gastritis Depression Diabetes mellitus Diabetic neuropathy Hiatal hernia with GERD History of viral pericarditis (04/17/17) Per pt. states, 04/2018 felt like her chest was so heavy and couldn't take a breath, was admitted for observation, and was tx with rx and stated it resolved HLD (hyperlipidemia) HTN (hypertension) Incontinence in female Kidney stone Migraine Obesity SHANTAL (obstructive sleep apnea) Sleep apnea, obstructive 04/12/20-sleep study. baseline significant nocturnal hypoxemia. the degree of hypoxemia is out of proportion to the degree of sleep apnea. Govind Conroy MD Tobacco use disorder Vitamin D deficiency Surgical History H/O bilateral salpingectomy (03/05/15) Hysteroscopy (02/04/15) uterus,cervix,left fallopian tube and salpingectomy. Dr. Wong Pelvic floor reconstruction (~2009) [facility] [place] Dr. Hardin S/P shoulder surgery left S/P tubal ligation Status post vaginal hysterectomy (03/05/15) Stenosis of tear duct Tonsillectomy & uvulectomy (~2009) Vaginal hysterectomy 2015 TV with Bilateral distal salpingectomy - Dr Smith Family History Mother Graves' disease Depression Father Alcoholism drug addicion Grandmother Personal history of malignant neoplasm skin Other Personal history of malignant neoplasm colon Social History Smoking/Tobacco Use Status: Former Tobacco Use Quit Date: 04/05/17 Smoking risk assessment performed?: Yes Alcohol Intake: current Alcohol Intake frequency: holidays/special occasions only Drug use: Never Substance use type: does not use Household members: children Number of Children: 4 Communication Needs: Corrective Lenses current occupation: Former [email or web address]; 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 [employer] Current gender identity: female Do you feel safe at home: Yes Additional Social history: not in a relationship Exam Const General: cooperative, healthy appearing and no acute distress Orientation: alert, awake and oriented x3 HENMT Head: normal to inspection Ears: hearing grossly normal bilaterally, external ears normal and TM's normal bilaterally General nose exam: external nose normal Face and sinus: normal facial exam Mouth: oral mucosae normal Teeth and gingiva: dentition normal Throat: posterior oropharynx normal Eyes General: appearance normal, both eyes and all related structures Eyelids: eyelids normal Pupils: PERRL EOM: EOM intact bilaterally Neck Neck: normal visual inspection Lymphatic: no lymphadenopathy noted Chest Chest: normal inspection of the chest, normal palpation of entire chest wall and no tenderness Resp Effort & Inspection: normal respiratory effort and able to speak in complete sentences Auscultation: clear to auscultation bilaterally Cardio Rate: regular rate Rhythm: regular rhythm GI Inspection: normal to inspection and obesity Palpation: soft, not firm, no guarding, no hepatosplenomegaly, no masses and nontender Auscultation: normal bowel sounds Back/Spine/Pelvis Back: no CVA tenderness Skin General skin exam: no rashes or lesions noted Neuro General: patient alert, patient awake, patient oriented x3, moves all extremities, no meningeal signs and no focal motor deficits Cranial Nerves: CN's II-XI intact bilaterally Cognition: normal cognition Speech: speech normal Gait: normal gait Motor: muscle tone normal throughout and strength 5/5 throughout Sensory Exam: no sensory deficits noted Extrem General: normal to inspection, full ROM and capillary refill normal Psych Appearance: grossly normal Mental Status: mental status grossly normal Speech and Movement: speech and movement normal Affect: normal affect Thought Process: normal Course Vital Signs Vital signs: Vital Signs Temperature 97.2 F L 01/01/21 10:33 Pulse 88 01/01/21 10:33 Respiratory Rate 20 01/01/21 10:33 Blood Pressure 135/75 01/01/21 10:33 Pulse Oximetry 96 01/01/21 10:33 Temperature 97.2 F L 01/01/21 10:33 Temperature Source Skin 01/01/21 10:33 Pulse 88 01/01/21 10:33 Respiratory Rate 20 01/01/21 10:33 Blood Pressure 135/75 01/01/21 10:33 Blood Pressure Position Sitting 01/01/21 10:33 Pulse Oximetry 96 01/01/21 10:33 Oxygen Delivery Method Room Air 01/01/21 10:33 Oxygen Flow Rate 0 01/01/21 10:33 Pain Level 6 01/01/21 10:33
[2021-01-01 11:10] LABS: Bilirubin Negative (Negative); Blood Negative (Negative); Clarity Clear (Clear); Glucose Negative (Negative); Ketones Negative (Negative); Leukocyte Esterase Negative (Negative); Nitrite Negative (Negative); Specific Gravity >= 1.030 (1.005-1.025); Urobilinogen 0.2 EU/dL (Up TO 0.2); pH 5.5 (5-8)
[2021-01-01] MEDS: Normal Saline 1,000 ML 1000 ML IV ×2 (11:14→13:00)
--- NOTE | 2021-01-01 11:15 | RT.EKG_ITS ---
APPROVED REPORT Exam: Resting ECG Reason for Exam: chest pain Patient Location: E HR:76 bpm ECG Measurements Heart Rate 76 AXIS VT 182 P 20 QRSd 88 QRS 6 QT 379 T 27 QTc 428 Conclusion Sinus rhythm...normal P axis, V-rate 60- 99 Low voltage, precordial leads...precordial leads <1.0mV. No STEMI. I have reviewed and interpreted ECG and agree with software generated interpretation.
[2021-01-01 11:17] LABS: Abs Immature Grans 0.03 10^3/uL (0.0-0.06); Absolute Basophil Count 0.04 10^3/uL (0.0-0.2); Absolute Eosinophil Count 0.04 10^3/uL (0.0-0.7); Absolute Lymphocyte Count 2.45 10^3/uL (1.2-3.4); Absolute Monocyte Count 0.65 10^3/uL (0.1-0.8); Absolute Neutrophil Count 3.15 10^3/uL (1.2-6.7); Basophils % 0.6; Eosinophils % 0.6; HCT 39.8 % (36.0-46.0); Immature Grans % 0.5; Lymphocytes % 38.5; MCH 28.2 pg (27.0-33.0); MCHC 32.7 % (32.0-36.0); MCV 86.3 fL (80-95); MPV 10.6 fL (8.0-11.0); Monocytes % 10.2; Neutrophils % 49.6; Nucleated RBC 0 %; Platelet Count 246 10^3/uL (130-400); RBC 4.61 10^6/uL (3.93-5.22); RDW 12.7 % (11.7-14.6); RDW-SD 39.8 fL; WBC 6.36 10^3/uL (4.4-10.8)
[2021-01-01 11:18] LABS: BE (Venous) 2 mmol/L (-2-3); HCO3 (Venous) 27 mmol/L (23-28); O2 Sat (Venous) 90 %; TCO2 (Venous) 24 mmol/L (24-29); pCO2 (Venous) 44 mmHg (41-51); pH (Venous) 7.39 (7.31-7.41); pO2 (Venous) 60 mmHg
[2021-01-01 11:39] LABS: ALT 54 U/L (14-59); AST 20 U/L (15-37); Albumin 3.8 g/dL (3.4-5.0); Alkaline Phosphatase 85 U/L (46-116); Anion Gap 10.9 mmol/L (3-11); BUN 19 mg/dL (7-18); Bilirubin, Total 0.3 mg/dL (0.2-1.0); CO2 26.1 mmol/L (21.0-32.0); CREATININE 0.9 mg/dL (0.55-1.02); Calcium 9.4 mg/dL (8.5-10.1); Chloride 103 mmol/L (98-107); Glucose 176 mg/dL (74-106); Potassium 4.2 mmol/L (3.5-5.1); Sodium 140 mmol/L (136-145); Total Protein 7.2 g/dL (6.4-8.2)
[2021-01-01] MEDS: Ketorolac 30 MG/ML VIAL IVP (11:40)
[2021-01-01] MEDS: ACETAMINOPHEN 1,000 MG/100 ML BTL 400 MG IVPB (11:40)
[2021-01-01] MEDS: Dexamethasone 10 MG/ML VIAL IVP (11:41)
[2021-01-01 12:12] LABS: D-Dimer 285 ng/mlFEU (<500)
--- NOTE | 2021-01-01 12:30 | DI.RAD_ITS ---
Exam(s) XR CHEST 2V PA LATERAL EXAM: XR CHEST 2V PA LATERAL CLINICAL HISTORY: shortness of breath, r/o acute disease TECHNIQUE: 2D digital imaging was performed. COMPARISON: CR,XR XR CHEST 2V PA LATERAL from 11/16/2019 FINDINGS: MEDIASTINUM: Normal. HEART: Normal. PULMONARY VASCULATURE: Normal. LUNGS: Clear. PLEURAL SPACE: No pleural effusion or pneumothorax. BONE:Within normal limits for the patient's age. OTHER FINDINGS:Normal. IMPRESSION: No acute pulmonary findings. DATA REPOSITORY: RADIATION DOSE DELIVERED:
[2021-01-01 13:37] LABS: Troponin I < 0.05 ng/mL (<0.06)
[2021-01-01] MEDS: Normal Saline 500 ML IV (15:41)
[2021-01-01] MEDS: Acetaminophen 325 MG TAB 650 MG PO (16:13)
== END 2021-01-01 16:21 | disposition home or self-care (01) ==
PROVIDERS: Emergency Provider Physician Assistant; PCP Nurse Practitioner
DX: R51.9 Headache, unspecified (principal); R42 Dizziness and giddiness; R07.9 Chest pain, unspecified; R06.02 Shortness of breath
CPT/HCPCS: 36415; 36416; 80053; 81025; 82805; 82962; 93005; 96361; 96365; 96375; 99285; 71046; 81003; 84484; 85025; 85379; 93010; J0131; J1100; J1885

== ENCOUNTER 2021-04-27 07:29 | Emergency (ER) | payer OTHER, SELFPAY ==
--- NOTE | 2021-04-27 08:00 | DI.RAD_ITS ---
Exam(s) XR PORTABLE CHEST AP EXAM: XR PORTABLE CHEST AP CLINICAL HISTORY: cough. TECHNIQUE: 2D digital imaging was performed. COMPARISON: CR XR CHEST 2V PA LATERAL from 01/01/2021 FINDINGS: LUNGS: Clear. No pleural abnormality seen. HEART: Normal. MEDIASTINUM: Normal. OTHER FINDINGS: None. IMPRESSION: No acute pulmonary findings. DATA REPOSITORY: RADIATION DOSE DELIVERED: Total DLP
[2021-04-27 08:10] VITALS: BP 125/74; PULSE 115; RESP 16; TEMP 36.2; O2SAT 96
--- NOTE | 2021-04-27 08:12 | ED.GENADUL_ITS ---
Discharge Plan Disposition Patient Disposition: HOME Condition: Stable Discharge Details Clinical Impression: URI (upper respiratory infection) Primary Care Provider: Darby Reno ED Provider: Mariella Casanova Home Meds and New Rx's Prescriptions: Continued lorazepam 0.5 mg tablet 0.5 mg PO BID PRN PRN (Reason: anxiety) Qty: 60 RF: 0 ferrous sulfate 325 mg (65 mg iron) tablet 325 mg PO DAILY Qty: 90 RF: 3 turmeric PO RF: 0 nystatin 100,000 unit/gram powder 1 applic topical TID PRN (Reason: Abdominal fold rash) Qty: 60 RF: 3 pregabalin 150 mg capsule 150 mg PO TID Qty: 90 RF: 3 phentermine-topiramate 7.5-46 mg capsule, ER multiphase 24 hr 1 cap PO DAILY Qty: 28 RF: 0 pantoprazole [Protonix] 40 mg tablet,delayed release (DR/EC) 40 mg PO DAILY Qty: 90 RF: 3 venlafaxine [Effexor XR] 150 mg capsule,extended release 24hr 150 mg PO QHS Qty: 90 RF: 3 alcohol swabs pads, medicated 1 pad TP DAILY Qty: 200 RF: 3 melatonin 5 mg tablet 5 mg PO HS Qty: 90 RF: 3 bupropion HCl [Wellbutrin XL] 300 mg tablet extended release 24 hr 300 mg PO QHS Qty: 90 RF: 3 lisinopril 20 mg tablet 20 mg PO DAILY Qty: 90 RF: 3 Amberen 2 cap PO DAILY RF: 0 cholecalciferol (vitamin D3) 5,000 unit tablet 5,000 unit PO DAILY Qty: 90 RF: 3 omega-3 fatty acids-fish oil 300-1,000 mg capsule 2 cap PO HS Qty: 180 RF: 2 (DME) lancing device with lancets [OneTouch Delica Plus Lanc Dev] Kit See Rx Instructions .ROUTE .MEDSUPPLY Qty: 200 RF: 3 (DME) FreeStyle Snadeep 14 Day [place] Misc See Rx Instructions .ROUTE .MEDSUPPLY Qty: 1 RF: 0 (DME) FreeStyle Sandeep 14 Day Sensor Kit See Rx Instructions .ROUTE .MEDSUPPLY Qty: 1 RF: 12 metformin 500 mg tablet extended release 24hr 1,000 mg PO DAILY Qty: 180 RF: 3 Myrbetriq 50 mg tablet extended release 24 hr 50 mg PO DAILY Qty: 90 RF: 3 (DME) OneTouch Verio test strips Strip See Dose Instructions .ROUTE .MEDSUPPLY Qty: 200 RF: 3 (DME) lancets [OneTouch Delica Plus Lancet] 33 gauge misc 0 .ROUTE .MEDSUPPLY Qty: 200 RF: 3 Victoza 3-Rui 0.6 mg/0.1 mL (18 mg/3 mL) pen injector See Rx Instructions SC .COMPLEX Qty: 9 RF: 3 (DME) pen needle, diabetic [Advocate Pen Needle] 29 gauge x 1/2 needle See Rx Instructions .ROUTE .MEDSUPPLY Qty: 100 RF: 3 diclofenac sodium 1 % gel 2 g topical QID Qty: 2 RF: 1 (DME) blood-glucose meter [OneTouch Verio Meter] Misc See Rx Instructions .ROUTE .MEDSUPPLY Qty: 1 RF: 0 diphenhydramine HCl 25 mg capsule 25 mg PO Q6H PRN (Reason: itching) Qty: 20 RF: 0 triamcinolone acetonide 0.1 % cream 1 applic Topical BID PRN (Reason: hand rash) Qty: 15 RF: 0 atorvastatin [Lipitor] 20 mg tablet 20 mg PO DAILY Qty: 90 RF: 3 liothyronine 25 mcg tablet 25 mcg PO DAILY Qty: 90 RF: 3 trazodone 50 mg tablet 100 mg PO HS PRN (Reason: insomnia) Qty: 180 RF: 3 acetaminophen [Acetaminophen Extra Strength] 500 MG tablet 1,000 mg PO Q8H PRN PRNQty: 120 RF: 0 Vitamin B-12 50 mcg Tablet 50 mcg PO HS RF: 0 evening primrose oil 500 mg Capsule 500 mg PO HS RF: 0 cyclobenzaprine 10 mg tablet 10 mg PO TID PRNQty: 10 RF: 0 Discharge Instructions Instructions: Upper Respiratory Infection (ED) Additional Instructions: Your x-ray and exam are reassuring here today. Likely a viral illness. No evidence of a bacterial pneumonia. Please encourage hydration. Tylenol and/or ibuprofen as needed for discomfort. As discussed, you will need to quarantine until your COVID-19 test results are back. We will call you with results as they have come in. If you develop shortness of breath, chest pain, difficulty breathing or other new/worsening symptom please seek care urgently once again. Otherwise, please follow-up with your primary care in the next 1 to 2 weeks for reevaluation Referrals: Darby Reno NP [Primary Care Provider] - Medical Decision Making Patient is a pleasant 46-year-old female presented with chief complaint of cough. States that this began 4 days ago. Her children have been sick with the same. Patient has had a COVID-19 vaccine as well as her. Her children have been negative for Covid. She denies any shortness of breath. Denies any GI upset. States that she has been having general malaise, myalgias and chills at night. On exam, patient appears nontoxic. She was initially slightly tachycardic with heart rate ranging between 110 and 115. Her lungs are clear, normal respiratory effort, oxygen normal limits. Normal HEENT exam. Patient is PERC negative. Her lungs are clear and she is afebrile. Low suspicion for bacterial infection. However, out of an abundance of caution I do feel that chest x-ray would be appropriate with her cough. Do not see indication at this time to obtain laboratory evaluation. Will obtain outpatient COVID-19 testing. Surgical history is pertinent for hysterectomy. Past medical history is pertinent for obesity, GERD, SHANTAL, fibromyalgia hyperlipidemia hypertension, anxiety. Patient was seen by primary care physician yesterday. Chart review shows that patient is therefore phentermine topiramate refill. No note at that time for acute illness. FINDINGS: LUNGS: Clear. No pleural abnormality seen. HEART: Normal. MEDIASTINUM: Normal. OTHER FINDINGS: None. IMPRESSION: No acute pulmonary findings. Vital signs stable. Patient feels improved after Toradol and Tylenol for her body aches. She was encouraged to increase oral hydration. She will continue with Tylenol and ibuprofen as needed for discomfort. Return precautions were discussed. Advise follow-up with primary care in the next 1 to 2 weeks for reevaluation. Advise quarantine until results of her COVID-19 testing have returned. All of her questions and concerns were addressed and she is in agreement this plan. HPI General Mode of arrival: ambulatory . Date/Time Provider Initiated Documentation: 04/27/21 08:11 . Limitations to Documentation: no limitations . Information obtained by: patient and RN notes reviewed . History of Present Illness 46 year old F presents to the emergency department with the chief complaint of cough, general malaise, body aches, described as mild, with intensity rated at 3. Quality is described as aching (general body aches), Patient started experiencing this day(s) (4) and it has been constant. No relieving factors improve symptom(s), No exacerbating factors reported . Patient notes cough and fever/chills (chills, no fever); denies chest pain, diaphoresis, headaches, loss of appetite, nausea/vomiting, rash and shortness of breath. Patient did receive the following treatments prior to arrival, none Related Data Home Medications Medication Instructions Recorded Confirmed acetaminophen [Acetaminophen Extra 1,000 mg PO Q8H PRN PRN #120 tab 02/14/17 04/27/21 Strength] lorazepam 0.5 mg tablet 0.5 mg PO BID PRN PRN #60 tab 04/16/18 04/27/21 ferrous sulfate 325 mg (65 mg 325 mg PO DAILY #90 tab-cap 08/29/18 04/27/21 iron) tablet alcohol swabs 1 pad TP DAILY #200 each 12/13/18 04/27/21 Vitamin B-12 50 mcg PO HS 01/14/19 04/27/21 evening primrose oil 500 mg PO HS 01/14/19 04/27/21 cholecalciferol (vitamin D3) 125 5,000 unit PO DAILY #90 tab-cap 01/30/19 04/27/21 mcg (5,000 unit) tablet omega-3 fatty acids-fish oil 300 2 cap PO HS #180 tab-cap 02/07/19 04/27/21 mg-1,000 mg capsule melatonin 5 mg tablet 5 mg PO HS #90 tab-cap 02/19/19 04/27/21 lancing device with lancets kit #200 each 11/14/19 04/27/21 nystatin 100,000 unit/gram topical 1 applic TOPICAL TID PRN #60 g 05/25/20 04/27/21 powder turmeric PO 05/25/20 03/29/21 flash glucose scanning reader #1 ea 06/15/20 04/27/21 flash glucose sensor #1 ea 06/15/20 04/27/21 bupropion HCl 300 mg 24 hr tablet, 300 mg PO QHS #90 tab 07/20/20 04/27/21 extended release lisinopril 20 mg tablet 20 mg PO DAILY #90 tab 07/20/20 04/27/21 Amberen 2 cap PO DAILY 10/26/20 04/27/21 cyclobenzaprine 10 mg PO TID PRN #10 tab 11/10/20 04/27/21 metformin 500 mg tablet,extended 1,000 mg PO DAILY #180 tab 11/16/20 04/27/21 release 24hr mirabegron 50 mg tablet,extended 50 mg PO DAILY #90 tab 11/16/20 04/27/21 release 24 hr blood sugar diagnostic #200 each 01/27/21 04/27/21 diclofenac sodium 1 % topical gel 2 g TOPICAL QID #2 g 01/27/21 04/27/21 lancets 33 gauge #200 each 01/27/21 04/27/21 liraglutide 0.6 mg/0.1 mL (18 mg/3 See Rx Instructions SC .COMPLEX #9 01/27/21 04/27/21 mL) subcutaneous pen injector ml pen needle, diabetic 29 gauge x #100 each 01/27/21 04/27/21 1/2 blood-glucose meter #1 ea 01/29/21 04/27/21 pregabalin 150 mg capsule 150 mg PO TID #90 cap 02/01/21 04/27/21 diphenhydramine HCl 25 mg capsule 25 mg PO Q6H PRN #20 cap 02/05/21 04/27/21 triamcinolone acetonide 0.1 % 1 applic TOPICAL BID PRN #15 g 02/05/21 04/27/21 topical cream atorvastatin 20 mg tablet 20 mg PO DAILY #90 tab-cap 03/16/21 04/27/21 liothyronine 25 mcg tablet 25 mcg PO DAILY #90 tab-cap 03/16/21 04/27/21 trazodone 50 mg tablet 100 mg PO HS PRN #180 tab 03/16/21 04/27/21 pantoprazole 40 mg tablet,delayed 40 mg PO DAILY #90 tab 04/26/21 04/27/21 release phentermine 7.5 mg-topiramate ER 1 cap PO DAILY #28 cap 04/26/21 04/27/21 46 mg capsule,ext.release 24hr mphase venlafaxine 150 mg 150 mg PO QHS #90 cap 04/26/21 04/27/21 capsule,extended release 24 hr Previous Rx's Medication Instructions Recorded acetaminophen [Acetaminophen Extra 1,000 mg PO Q8H PRN PRN #120 tab 02/14/17 Strength] lorazepam 0.5 mg tablet 0.5 mg PO BID PRN PRN #60 tab 04/16/18 ferrous sulfate 325 mg (65 mg 325 mg PO DAILY #90 tab-cap 08/29/18 iron) tablet alcohol swabs 1 pad TP DAILY #200 each 12/13/18 cholecalciferol (vitamin D3) 125 5,000 unit PO DAILY #90 tab-cap 01/30/19 mcg (5,000 unit) tablet omega-3 fatty acids-fish oil 300 2 cap PO HS #180 tab-cap 02/07/19 mg-1,000 mg capsule melatonin 5 mg tablet 5 mg PO HS #90 tab-cap 02/19/19 lancing device with lancets kit #200 each 11/14/19 nystatin 100,000 unit/gram topical 1 applic TOPICAL TID PRN #60 g 05/25/20 powder flash glucose scanning reader #1 ea 06/15/20 flash glucose sensor #1 ea 06/15/20 bupropion HCl 300 mg 24 hr tablet, 300 mg PO QHS #90 tab 07/20/20 extended release lisinopril 20 mg tablet 20 mg PO DAILY #90 tab 07/20/20 cyclobenzaprine 10 mg PO TID PRN #10 tab 11/10/20 metformin 500 mg tablet,extended 1,000 mg PO DAILY #180 tab 11/16/20 release 24hr mirabegron 50 mg tablet,extended 50 mg PO DAILY #90 tab 11/16/20 release 24 hr blood sugar diagnostic #200 each 01/27/21 diclofenac sodium 1 % topical gel 2 g TOPICAL QID #2 g 01/27/21 lancets 33 gauge #200 each 01/27/21 liraglutide 0.6 mg/0.1 mL (18 mg/3 See Rx Instructions SC .COMPLEX #9 01/27/21 mL) subcutaneous pen injector ml pen needle, diabetic 29 gauge x #100 each 01/27/21 1/2 blood-glucose meter #1 ea 01/29/21 pregabalin 150 mg capsule 150 mg PO TID #90 cap 02/01/21 diphenhydramine HCl 25 mg capsule 25 mg PO Q6H PRN #20 cap 02/05/21 triamcinolone acetonide 0.1 % 1 applic TOPICAL BID PRN #15 g 02/05/21 topical cream atorvastatin 20 mg tablet 20 mg PO DAILY #90 tab-cap 03/16/21 liothyronine 25 mcg tablet 25 mcg PO DAILY #90 tab-cap 03/16/21 trazodone 50 mg tablet 100 mg PO HS PRN #180 tab 03/16/21 pantoprazole 40 mg tablet,delayed 40 mg PO DAILY #90 tab 04/26/21 release phentermine 7.5 mg-topiramate ER 1 cap PO DAILY #28 cap 04/26/21 46 mg capsule,ext.release 24hr mphase venlafaxine 150 mg 150 mg PO QHS #90 cap 04/26/21 capsule,extended release 24 hr Allergies Allergy/AdvReac Type Severity Reaction Status Date / Time No Known Drug Allergies Allergy Verified 04/27/21 08:14 General TARIK: 3 Review of Systems Constitutional Constitutional: Reports as per HPI and Denies headache(s) Eyes Eyes: Reports as per HPI, Denies eye discharge and Denies irritation ENT Ears, Nose, Mouth, and Throat: Reports as per HPI and Denies headache(s) Cardiovascular Cardiovascular: Reports as per HPI, Denies chest pain and Denies dyspnea Respiratory Respiratory: Reports as per HPI and Denies dyspnea Gastrointestinal Gastrointestinal: Reports as per HPI, Denies abdominal pain, Denies change in bowel habits, Denies nausea and Denies vomiting Integumentary/Breasts Skin/Breast: Reports as per HPI and Denies rash Neurologic Neurologic: Reports as per HPI and Denies headache(s) [facility] Medical History Adjustment disorder with mixed anxiety and depressed mood (08/17/17) Adult BMI > 30 Anemia Anxiety (04/17/17) Bilateral carpal tunnel syndrome Chronic erosive gastritis Depression Diabetes mellitus Diabetic neuropathy Hiatal hernia with GERD History of viral pericarditis (04/17/17) Per pt. states, 04/2018 felt like her chest was so heavy and couldn't take a breath, was admitted for observation, and was tx with rx and stated it resolved HLD (hyperlipidemia) HTN (hypertension) Incontinence in female Kidney stone Migraine Obesity SHANTAL (obstructive sleep apnea) Sleep apnea, obstructive 04/12/20-sleep study. baseline significant nocturnal hypoxemia. the degree of hypoxemia is out of proportion to the degree of sleep apnea. Govind Conroy MD Tobacco use disorder Vitamin D deficiency Surgical History Hysteroscopy (02/04/15) uterus,cervix,left fallopian tube and salpingectomy. Dr. Wong Pelvic floor reconstruction (~2009) [facility] Dr. Hardin S/P shoulder surgery left S/P tubal ligation Stenosis of tear duct Tonsillectomy & uvulectomy (~2009) Vaginal hysterectomy 2015 [facility] with Bilateral distal salpingectomy - Dr Smith Family History Mother Graves' disease Depression Father Alcoholism drug addicion Grandmother Personal history of malignant neoplasm skin Other Personal history of malignant neoplasm colon Social History Smoking/Tobacco Use Status: Former Tobacco Use Quit Date: 04/05/17 Smoking risk assessment performed?: Yes Alcohol Intake: current Alcohol Intake frequency: holidays/special occasions only Drug use: Never Substance use type: does not use Household members: children Number of Children: 4 Communication Needs: Corrective Lenses 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; 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 [employer] Current gender identity: female Do you feel safe at home: Yes Additional Social history: not in a relationship Exam Const General: cooperative, healthy appearing, comfortable, no acute distress, well developed and well groomed Nutritional Appearance: well nourished and overweight Orientation: alert and awake [facility] Head: normal to inspection, normocephalic and atraumatic Ears: hearing grossly normal bilaterally, external ears normal and TM's normal bilaterally General nose exam: external nose normal and nares normal Face and sinus: normal facial exam, sinuses nontender and face symmetric Mouth: oral mucosae normal, lip normal, tongue normal, oropharynx normal and moist mucous membranes Teeth and gingiva: dentition normal Throat: posterior oropharynx normal, tonsils normal and uvula not midline (no uvula) Eyes General: appearance normal, both eyes and all related structures Neck Neck: normal visual inspection, full ROM, no lymphadenopathy and no meningeal signs Resp Effort & Inspection: normal respiratory effort, able to speak in complete sentences and no respiratory distress Auscultation: clear to auscultation bilaterally, no rales, no rhonchi and no wheezes Cardio Rate: regular rate Rhythm: regular rhythm Heart Sounds: S1 normal and S2 normal Skin General skin exam: no rashes or lesions noted Neuro General: patient alert and patient awake Cognition: normal cognition Speech: speech normal Gait: normal gait Extrem General: no pedal edema, no calf tenderness and normal gait Psych Appearance: grossly normal and well kempt Mental Status: mental status grossly normal Speech and Movement: speech and movement normal
[2021-04-27] MEDS: Acetaminophen 500 MG TAB 1000 MG PO (08:28)
[2021-04-27] MEDS: Ketorolac 15 MG/ML VIAL IM (08:29)
[2021-04-27 09:36] VITALS: BP 127/84; PULSE 85; RESP 18; TEMP 37; O2SAT 98
[2021-04-28 15:53] LABS: COVID-19 RT-PCR UVMMC Result Negative (Negative)
--- NOTE | 2021-04-30 09:26 | NUR.NOTE ---
negative covid result relayed to pt via phone.Nursing Note:
== END 2021-04-27 09:52 | disposition home or self-care (01) ==
PROVIDERS: Emergency Provider Physician Assistant; PCP Nurse Practitioner
DX: J06.9 Acute upper respiratory infection, unspecified (principal)
CPT/HCPCS: 96372; 99284; U0003; 71045; 99283; J1885

== ENCOUNTER 2021-08-09 16:10 | Outpatient (CLI) | payer OTHER, SELFPAY ==
--- NOTE | 2021-08-09 12:30 | DI.RAD_ITS ---
Exam(s) XR FOOT LT COMPLETE XR FOOT RT COMPLETE EXAM: XR FOOT LT COMPLETE CLINICAL HISTORY: bilateral foot pain M79.671 M79.672. TECHNIQUE: 2D digital imaging was performed. COMPARISON: CR XR FOOT RT COMPLETE from 08/09/2021 FINDINGS: BONES: No acute fracture is present. No bony destructive lesion is seen. JOINTS: No dislocation present. No significant degenerative changes. SOFT TISSUE: Normal. IMPRESSION: Unremarkable radiographs of the bilateral feet DATA REPOSITORY: RADIATION DOSE DELIVERED:
== END 2021-08-09 16:30 ==
PROVIDERS: PCP Nurse Practitioner; Visit Provider Nurse Practitioner
DX: M79.671 Pain in right foot (principal); M79.672 Pain in left foot
CPT/HCPCS: 73630

== ENCOUNTER 2021-08-10 07:51 | Emergency (ER) | payer OTHER, SELFPAY ==
[2021-08-10 07:54] VITALS: BP 114/82; PULSE 95; RESP 16; TEMP 36.2; O2SAT 95
--- NOTE | 2021-08-10 08:15 | DI.RAD_ITS ---
Exam(s) XR WRIST RT COMPLETE EXAM: XR WRIST RT COMPLETE CLINICAL HISTORY: fell, pain around ular styloid. TECHNIQUE: 2D digital imaging was performed. COMPARISON: CR XR WRIST LT COMP NAVICULAR from 08/13/2020 FINDINGS: Three views of the right wrist reveal no evidence of fracture nor dislocation. No significant ulnar variance. Bone density is normal. No osseous lesions IMPRESSION: No significant radiographic findings. DATA REPOSITORY: RADIATION DOSE DELIVERED:
--- NOTE | 2021-08-10 08:35 | W.ED.GENAD ---
Discharge Plan Disposition Patient Disposition: HOME Condition: Stable Discharge Details Clinical Impression: Muscle strain of right wrist Primary Care Provider: Darby Reno ED Provider: Muriel Greenwood Home Meds and New Rx's Prescriptions: Continued lorazepam 0.5 mg tablet 0.5 mg PO BID PRN PRN (Reason: anxiety) Qty: 60 0RF ferrous sulfate 325 mg (65 mg iron) tablet 325 mg PO DAILY Qty: 90 3RF Rx Instructions: FOR HISTORY OF LOW IRON turmeric PO 0RF nystatin 100,000 unit/gram powder 1 applic topical TID PRN (Reason: Abdominal fold rash) Qty: 60 3RF pantoprazole [Protonix] 40 mg tablet,delayed release (DR/EC) 40 mg PO DAILY Qty: 90 3RF venlafaxine [Effexor XR] 150 mg capsule,extended release 24hr 150 mg PO QHS Qty: 90 3RF melatonin 5 mg tablet 5 mg PO HS Qty: 90 3RF bupropion HCl [Wellbutrin XL] 300 mg tablet extended release 24 hr 300 mg PO QHS Qty: 90 3RF lisinopril 20 mg tablet 20 mg PO DAILY Qty: 90 3RF meclizine 12.5 mg tablet 12.5 mg PO TID PRN (Reason: dizziness) Qty: 20 0RF pregabalin 150 mg capsule 150 mg PO TID Qty: 90 3RF semaglutide 0.25 mg or 0.5 mg(2 mg/1.5 mL) pen injector 0.25 mg subcut QWEEK Qty: 1.5 0RF Rx Instructions: for 4 doses cholecalciferol (vitamin D3) 5,000 unit tablet 5,000 unit PO DAILY Qty: 90 3RF omega-3 fatty acids-fish oil 300-1,000 mg capsule 2 cap PO HS Qty: 180 2RF (DME) lancing device with lancets [OneTouch Delica Plus Lanc Dev] Kit See Rx Instructions .ROUTE .MEDSUPPLY Qty: 200 3RF Rx Instructions: Test BID (DME) FreeStyle Sandeep 14 Day [place] Misc See Rx Instructions .ROUTE .MEDSUPPLY Qty: 1 0RF Rx Instructions: Test BID, keep A1c under 7 (DME) FreeStyle Sandeep 14 Day Sensor Kit See Rx Instructions .ROUTE .MEDSUPPLY Qty: 1 12RF Rx Instructions: Test BID, keep A1c under 7 metformin 500 mg tablet extended release 24hr 1,000 mg PO DAILY Qty: 180 3RF Myrbetriq 50 mg tablet extended release 24 hr 50 mg PO DAILY Qty: 90 3RF (DME) OneTouch Verio test strips Strip See Dose Instructions .ROUTE .MEDSUPPLY Qty: 200 3RF Dose Instruction: As directed Rx Instructions: Test BID (DME) lancets [OneTouch Delica Plus Lancet] 33 gauge misc 0 .ROUTE .MEDSUPPLY Qty: 200 3RF Rx Instructions: Test BID (DME) pen needle, diabetic [Advocate Pen Needle] 29 gauge x 1/2 needle See Rx Instructions .ROUTE .MEDSUPPLY Qty: 100 3RF Rx Instructions: As directed daily with Victoza diclofenac sodium 1 % gel 2 g topical QID Qty: 2 1RF Rx Instructions: apply to single elbow, wrist or hand; for hand includes palm/fingers/back of hand (DME) blood-glucose meter [OneTouch Verio Meter] Misc See Rx Instructions .ROUTE .MEDSUPPLY Qty: 1 0RF Rx Instructions: As directed diphenhydramine HCl 25 mg capsule 25 mg PO Q6H PRN (Reason: itching) Qty: 20 0RF triamcinolone acetonide 0.1 % cream 1 applic Topical BID PRN (Reason: hand rash) Qty: 15 0RF atorvastatin [Lipitor] 20 mg tablet 20 mg PO DAILY Qty: 90 3RF liothyronine 25 mcg tablet 25 mcg PO DAILY Qty: 90 3RF trazodone 50 mg tablet 100 mg PO HS PRN (Reason: insomnia) Qty: 180 3RF Rx Instructions: for mood and sleep acetaminophen [Acetaminophen Extra Strength] 500 MG tablet 1,000 mg PO Q8H PRN PRNQty: 120 0RF Vitamin B-12 50 mcg Tablet 50 mcg PO HS 0RF evening primrose oil 500 mg Capsule 500 mg PO HS 0RF cyclobenzaprine 10 mg tablet 10 mg PO TID PRNQty: 10 0RF Discharge Instructions Instructions: Muscle Strain (ED) Additional Instructions: You may apply Voltaren gel as needed for discomfort Take Tylenol as needed for pain every 4-6 hours Follow with PCP with persistent discomfort Referrals: Darby Reno NP [Primary Care Provider] - Discharge Data Discharge Date/Time-TO BE ENTERED AT DEPARTURE: 08/10/21 08:45 Medical Decision Making Patient appears well, no additional evidence of trauma X-ray did not show a fracture to my interpretation, pending radiology review Plan Repeat x-ray in 1 week with persistent pain Patient otherwise appears well Return precautions discussed and patient expressed understanding Medical Records Medical records reviewed: Yes I reviewed the patient's medical records. HPI General Date/Time Provider Initiated Documentation: 08/10/21 08:05. HPI Narrative: This 46-year-old female presents with report of right wrist pain for the past week. She denies any trauma but does have used her mouth frequently at work. She is left-hand dominant. She states today she was moving bags and accidentally lost her balance, falling onto her right wrist. She denies any additional injuries. She took some Tylenol prior to arrival. She denies chance of . She denies any numbness or tingling. She had elbow pain. Related Data Home Medications Medication Instructions Recorded Confirmed acetaminophen 500 mg tablet 1,000 mg PO Q8H PRN PRN #120 tab 02/14/17 08/10/21 (Acetaminophen Extra Strength) lorazepam 0.5 mg tablet 0.5 mg PO BID PRN PRN #60 tab 04/16/18 08/10/21 ferrous sulfate 325 mg (65 mg 325 mg PO DAILY #90 tab-cap 08/29/18 08/10/21 iron) tablet cyanocobalamin (vitamin B-12) 50 50 mcg PO HS 01/14/19 08/10/21 mcg tablet (Vitamin B-12) evening primrose oil 500 mg capsule 500 mg PO HS 01/14/19 08/10/21 cholecalciferol (vitamin D3) 125 5,000 unit PO DAILY #90 tab-cap 01/30/19 08/10/21 mcg (5,000 unit) tablet omega-3 fatty acids-fish oil 300 2 cap PO HS #180 tab-cap 02/07/19 08/10/21 mg-1,000 mg capsule melatonin 5 mg tablet 5 mg PO HS #90 tab-cap 02/19/19 08/10/21 lancing device with lancets kit #200 each 11/14/19 08/02/21 (OneTouch Delica Plus Lanc Dev) nystatin 100,000 unit/gram topical 1 applic TOPICAL TID PRN #60 g 05/25/20 08/10/21 powder turmeric PO 05/25/20 08/02/21 flash glucose scanning reader #1 ea 06/15/20 08/02/21 (FreeStyle Sandeep 14 Day [place]) flash glucose sensor (FreeStyle #1 ea 06/15/20 08/02/21 Sandeep 14 Day Sensor) bupropion HCl 300 mg 24 hr tablet, 300 mg PO QHS #90 tab 07/20/20 08/10/21 extended release (Wellbutrin XL) lisinopril 20 mg tablet 20 mg PO DAILY #90 tab 07/20/20 08/10/21 cyclobenzaprine 10 mg tablet 10 mg PO TID PRN #10 tab 11/10/20 08/10/21 metformin 500 mg tablet,extended 1,000 mg PO DAILY #180 tab 11/16/20 08/10/21 release 24hr mirabegron 50 mg tablet,extended 50 mg PO DAILY #90 tab 11/16/20 08/10/21 release 24 hr (Myrbetriq) blood sugar diagnostic (OneTouch #200 each 01/27/21 08/02/21 Verio test strips) diclofenac sodium 1 % topical gel 2 g TOPICAL QID #2 g 01/27/21 08/10/21 lancets 33 gauge (OneTouch Delica #200 each 01/27/21 08/02/21 Plus Lancet) pen needle, diabetic 29 gauge x #100 each 01/27/21 08/02/21 1/2 (Advocate Pen Needle) blood-glucose meter (OneTouch #1 ea 01/29/21 08/02/21 Verio Meter) diphenhydramine HCl 25 mg capsule 25 mg PO Q6H PRN #20 cap 02/05/21 08/10/21 triamcinolone acetonide 0.1 % 1 applic TOPICAL BID PRN #15 g 02/05/21 08/10/21 topical cream atorvastatin 20 mg tablet (Lipitor) 20 mg PO DAILY #90 tab-cap 03/16/21 08/10/21 liothyronine 25 mcg tablet 25 mcg PO DAILY #90 tab-cap 03/16/21 08/10/21 trazodone 50 mg tablet 100 mg PO HS PRN #180 tab 03/16/21 08/10/21 pantoprazole 40 mg tablet,delayed 40 mg PO DAILY #90 tab 04/26/21 08/10/21 release (Protonix) venlafaxine 150 mg 150 mg PO QHS #90 cap 04/26/21 08/10/21 capsule,extended release 24 hr (Effexor XR) meclizine 12.5 mg tablet 12.5 mg PO TID PRN #20 tab 05/10/21 08/10/21 pregabalin 150 mg capsule 150 mg PO TID #90 cap 07/01/21 08/10/21 semaglutide 0.25 mg (0.2 mL) SUBCUT QWEEK #1.5 08/02/21 08/10/21 ml Previous Rx's Medication Instructions Recorded acetaminophen 500 mg tablet 1,000 mg PO Q8H PRN PRN #120 tab 02/14/17 (Acetaminophen Extra Strength) lorazepam 0.5 mg tablet 0.5 mg PO BID PRN PRN #60 tab 04/16/18 ferrous sulfate 325 mg (65 mg 325 mg PO DAILY #90 tab-cap 08/29/18 iron) tablet cholecalciferol (vitamin D3) 125 5,000 unit PO DAILY #90 tab-cap 01/30/19 mcg (5,000 unit) tablet omega-3 fatty acids-fish oil 300 2 cap PO HS #180 tab-cap 02/07/19 mg-1,000 mg capsule melatonin 5 mg tablet 5 mg PO HS #90 tab-cap 02/19/19 lancing device with lancets kit #200 each 11/14/19 (OneTouch Delica Plus Lanc Dev) nystatin 100,000 unit/gram topical 1 applic TOPICAL TID PRN #60 g 05/25/20 powder flash glucose scanning reader #1 ea 06/15/20 (FreeStyle Sandeep 14 Day [place]) flash glucose sensor (FreeStyle #1 ea 06/15/20 Sandeep 14 Day Sensor) bupropion HCl 300 mg 24 hr tablet, 300 mg PO QHS #90 tab 07/20/20 extended release (Wellbutrin XL) lisinopril 20 mg tablet 20 mg PO DAILY #90 tab 07/20/20 cyclobenzaprine 10 mg tablet 10 mg PO TID PRN #10 tab 11/10/20 metformin 500 mg tablet,extended 1,000 mg PO DAILY #180 tab 11/16/20 release 24hr mirabegron 50 mg tablet,extended 50 mg PO DAILY #90 tab 11/16/20 release 24 hr (Myrbetriq) blood sugar diagnostic ([facility] each 01/27/21 Verio test strips) diclofenac sodium 1 % topical gel 2 g TOPICAL QID #2 g 01/27/21 lancets 33 gauge (OneTouch Delica #200 each 01/27/21 Plus Lancet) pen needle, diabetic 29 gauge x #100 each 01/27/21 1/2 (Advocate Pen Needle) blood-glucose meter (OneTouch #1 ea 01/29/21 Verio Meter) diphenhydramine HCl 25 mg capsule 25 mg PO Q6H PRN #20 cap 02/05/21 triamcinolone acetonide 0.1 % 1 applic TOPICAL BID PRN #15 g 02/05/21 topical cream atorvastatin 20 mg tablet (Lipitor) 20 mg PO DAILY #90 tab-cap 03/16/21 liothyronine 25 mcg tablet 25 mcg PO DAILY #90 tab-cap 03/16/21 trazodone 50 mg tablet 100 mg PO HS PRN #180 tab 03/16/21 pantoprazole 40 mg tablet,delayed 40 mg PO DAILY #90 tab 04/26/21 release (Protonix) venlafaxine 150 mg 150 mg PO QHS #90 cap 04/26/21 capsule,extended release 24 hr (Effexor XR) meclizine 12.5 mg tablet 12.5 mg PO TID PRN #20 tab 05/10/21 pregabalin 150 mg capsule 150 mg PO TID #90 cap 07/01/21 semaglutide 0.25 mg (0.2 mL) SUBCUT QWEEK #1.5 08/02/21 ml Allergies Allergy/AdvReac Type Severity Reaction Status Date / Time No Known Drug Allergies Allergy Verified 08/10/21 08:00 General Stated Complaint: Orthopedic TARIK: 4 Review of Systems Narrative: Review of systems obtained x3 and negative aside from indication history PFSH All Active Problems (Updated 08/10/21 @ 08:39 by MELISSA Galicia) Muscle strain of right wrist (Acute) URI (upper respiratory infection) (Acute) Obesity (Chronic) Hot flashes (Acute) Hoarseness (Acute) Headache (Acute) Dizziness (Acute) Cervicalgia (Acute) Bilateral leg pain (Acute) Skin breakdown (Acute) Chronic neck and back pain (Acute) Large breasts (Acute) Medial epicondylitis, left elbow (Acute) Arthritis of carpometacarpal (CMC) joint of thumb (Chronic) left Globus sensation (Acute) Left elbow pain (Acute) Binge eating (Acute) Obesity (Chronic) Bilateral carpal tunnel syndrome (Acute) Pain in both upper extremities (Acute) Neck pain, bilateral posterior (Acute) Chronic erosive gastritis (Acute) Hiatal hernia with GERD (Acute) Sleep apnea, obstructive (Chronic) 04/12/20-sleep study. baseline significant nocturnal hypoxemia. the degree of hypoxemia is out of proportion to the degree of sleep apnea. Govind Conroy MD Paresthesia and pain of both upper extremities (Acute) Peripheral nervous system disease (Acute) per Dr. Dee, 11/13/18, RH H/O bilateral salpingectomy (Acute 03/05/15) Tobacco use disorder (Acute) Status post vaginal hysterectomy (Acute 03/05/15) Pain in female pelvis (Acute 11/24/14) Migraine (Acute) Menorrhagia (Acute 11/24/14) Elevated blood-pressure reading without diagnosis of hypertension (Acute 06/16/15) Dysmenorrhea (Acute 11/24/14) Dry eye (Acute) Refraction error (Acute) Fibromyalgia (Acute) Chronic pain (Chronic) Memory changes (Acute) Cephalgia (Acute) Chest pressure (Acute) Fatigue (Acute) Paresthesia (Acute) Vision changes (Acute) Skin lesion (Acute) Encounter for screening for other viral diseases (Acute) GERD (gastroesophageal reflux disease) (Chronic) Kidney stone (Acute) Diabetic neuropathy (Acute) Incontinence in female (Acute) Diabetes mellitus (Chronic) H/O bilateral salpingectomy (Acute 03/05/15) Status post vaginal hysterectomy (Acute 03/05/15) History of viral pericarditis (Acute 04/17/17) Per pt. states, 04/2018 felt like her chest was so heavy and couldn't take a breath, was admitted for observation, and was tx with rx and stated it resolved Anxiety (Acute 04/17/17) Adult BMI > 30 (Acute) Adjustment disorder with mixed anxiety and depressed mood (Acute 08/17/17) Medical History Adjustment disorder with mixed anxiety and depressed mood (08/17/17) Adult BMI > 30 Anemia Anxiety (04/17/17) Bilateral carpal tunnel syndrome Chronic erosive gastritis Depression Diabetes mellitus Diabetic neuropathy Hiatal hernia with GERD History of viral pericarditis (04/17/17) Per pt. states, 04/2018 felt like her chest was so heavy and couldn't take a breath, was admitted for observation, and was tx with rx and stated it resolved HLD (hyperlipidemia) HTN (hypertension) Incontinence in female Kidney stone Migraine Obesity SHANTAL (obstructive sleep apnea) Sleep apnea, obstructive 04/12/20-sleep study. baseline significant nocturnal hypoxemia. the degree of hypoxemia is out of proportion to the degree of sleep apnea. Govind Conroy MD Tobacco use disorder Vitamin D deficiency Surgical History Hysteroscopy (02/04/15) uterus,cervix,left fallopian tube and salpingectomy. Dr. Wong Pelvic floor reconstruction (~2009) [facility] [place] S/P shoulder surgery left S/P tubal ligation Stenosis of tear duct Tonsillectomy & uvulectomy (~2009) Vaginal hysterectomy 2014 [facility] with Bilateral distal salpingectomy - Dr Smith Family History Mother Graves' disease Depression Father Alcoholism drug addicion Grandmother Personal history of malignant neoplasm skin Other Personal history of malignant neoplasm colon Social History Smoking/Tobacco Use Status: Former Tobacco Use Quit Date: 04/05/17 Smoking risk assessment performed?: Yes Alcohol Intake: current Alcohol Intake frequency: holidays/special occasions only Drug use: Never Substance use type: does not use Household members: children Number of Children: 4 Communication Needs: Corrective Lenses 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; 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 [employer] Current gender identity: female Do you feel safe at home: Yes Do you feel safe in your relationship?: Yes Additional Social history: not in a relationship Exam Extrem Other: Right wrist with tenderness, predominantly over her ulnar styloid Flexion and extension without discomfort, neurovascularly intact No tenderness to palpation over elbow Course Vital Signs Vital signs: Vital Signs Temperature 36.2 C L 08/10/21 07:54 Pulse 95 H 08/10/21 07:54 Respiratory Rate 16 08/10/21 07:54 Blood Pressure 114/82 08/10/21 07:54 Pulse Oximetry 95 08/10/21 07:54 Temperature 36.2 C L 08/10/21 07:54 Temperature Source Temporal Artery Scan 08/10/21 07:54 Pulse 95 H 08/10/21 07:54 Respiratory Rate 16 08/10/21 07:54 Respiratory Effort Non-Labored 08/10/21 07:58 Blood Pressure 114/82 08/10/21 07:54 Blood Pressure Position Sitting 08/10/21 07:54 Pulse Oximetry 95 08/10/21 07:54 Oxygen Delivery Method Room Air 08/10/21 07:54 Oxygen Flow Rate 0 08/10/21 07:54 Pain Level 8 08/10/21 07:59
== END 2021-08-10 08:45 | disposition home or self-care (01) ==
PROVIDERS: Emergency Provider Physician Assistant; PCP Nurse Practitioner
DX: S66.811A Strain of other specified muscles, fascia and tendons at wrist and hand level, right hand, initial encounter (principal); W18.39XA Other fall on same level, initial encounter
CPT/HCPCS: 29125; 99283; 73110

== ENCOUNTER → 2021-08-30 11:16 | Outpatient (CLI) | payer OTHER, SELFPAY ==
--- NOTE | 2021-08-30 10:16 | DI.RAD_ITS ---
Exam(s) XR CHEST 2V PA LATERAL EXAM: XR CHEST 2V PA LATERAL CLINICAL HISTORY: Diff taking deep breath. Covid +, U07.1, R06.02 TECHNIQUE: 2D digital imaging was performed. COMPARISON: CR XR PORTABLE CHEST AP from 04/27/2021 FINDINGS: MEDIASTINUM: Normal. HEART: Normal. PULMONARY VASCULATURE: Normal. LUNGS: Clear. PLEURAL SPACE: No pleural effusion or pneumothorax. BONE:Unremarkable for age. IMPRESSION: No acute abnormality. DATA REPOSITORY: RADIATION DOSE DELIVERED:
== END ==
PROVIDERS: PCP Nurse Practitioner; Visit Provider Nurse Practitioner
DX: R06.02 Shortness of breath (principal); U07.1 COVID-19; R06.89 Other abnormalities of breathing
CPT/HCPCS: 71046

== ENCOUNTER → 2021-11-22 01:37 | Outpatient (CLI) | payer OTHER, SELFPAY ==
--- NOTE | 2021-11-22 11:59 | DI.MAMMO_ITS ---
Exam(s) MAMMO SCREENING EXAM: MAMMO SCREENING CLINICAL HISTORY: screening, Z12.39 TECHNIQUE: Bilateral full field digital CC and MLO mammographic images were obtained with 3D tomosyn thesis and utilizing computer aided detection (CAD). COMPARISON: Available for comparison. FINDINGS: Masses/Architectural Distortion: There appears to be a new ovoid soft tissue nodule in the upper cent ral left breast on the MLO and CC view. This area should be further evaluated with a spot compressio n view. Microcalcifications: No suspicious pleomorphic-type are seen. Skin Thickening/Nipple Retraction: None. IMPRESSION: 1. New ovoid density in the central left breast. This area should be further evaluated with a spot c ompression view. 2. Ultrasound may be indicated at that time. BI-RADS Category 0 - Assessment Incomplete: Need additional imaging evaluation Breast Density - Category B - Scattered areas of fibroglandular density Breast density category C or D implies that the patient has dense breast tissue. Dense breast tissue is very common and is not abnormal but dense breast tissue can make it harder to find cancer on a ma mmogram. Also, dense breast tissue may increase their breast cancer risk. This information about the result of the mammogram report was provided to the patient to raise their awareness. Use this report when you speak with the patient about their risks for breast cancer, which includes their family hist ory. At that time, you may recommend for more screening tests (Ultrasound or MRI) as they might be us eful based on their risk. A negative radiographic report should not delay biopsy if a dominant or clinically suspicious mass is present. Up to ten percent of cancers are not identified on mammography. A negative report may reinforce clinical impression. Adenosis and dense breasts may obscure an underlying neoplasm. False positive reports average 6 to 10%. Patient will receive a letter notifying them of these results.
== END ==
PROVIDERS: PCP Nurse Practitioner; Visit Provider Nurse Practitioner
DX: Z12.31 Encounter for screening mammogram for malignant neoplasm of breast (principal); R92.8 Other abnormal and inconclusive findings on diagnostic imaging of breast
CPT/HCPCS: 77063; 77067

== ENCOUNTER 2021-11-25 03:26 | Outpatient (CLI) | payer OTHER, SELFPAY ==
[2021-11-25 10:12] LABS: ALT 40 U/L (14-59); AST 18 U/L (15-37); Albumin 3.8 g/dL (3.4-5.0); Alkaline Phosphatase 73 U/L (46-116); BUN 16 mg/dL (7-18); Bilirubin, Total 0.3 mg/dL (0.2-1.0); CREATININE 0.8 mg/dL (0.55-1.02); Calcium 9.2 mg/dL (8.5-10.1); Calculated LDL 88 mg/dL (<100); Chloride 103 mmol/L (98-107); Cholesterol 174 mg/dL (<200); Glucose 110 mg/dL (74-106); HDL Cholesterol 50 mg/dL (40-60); Potassium 4.4 mmol/L (3.5-5.1); Sodium 139 mmol/L (136-145); TSH (W/Ref FT4) 0.42 uIU/mL (0.36-3.74); Total Protein 7.3 g/dL (6.4-8.2); Triglyceride 183 mg/dL (<150)
[2021-11-25 18:52] LABS: Estradiol <12 pg/mL (See Note)
[2021-11-25 19:12] LABS: FSH 54.1 mIU/mL (See Note); LH 22.4 mIU/mL (See Note)
== END 2021-11-25 03:27 | disposition home or self-care (01) ==
LOC: LBO 03:26
PROVIDERS: PCP Nurse Practitioner; Visit Provider Nurse Practitioner
DX: I10 Essential (primary) hypertension (principal); E11.9 Type 2 diabetes mellitus without complications; E55.9 Vitamin D deficiency, unspecified; F32.89 Other specified depressive episodes; E66.9 Obesity, unspecified; R61 Generalized hyperhidrosis
CPT/HCPCS: 36415; 80053; 80061; 82306; 82670; 83001; 83002; 84443

== ENCOUNTER → 2021-11-26 00:22 | Outpatient (CLI) | payer OTHER, SELFPAY ==
--- NOTE | 2021-11-26 | DI.US_ITS ---
Exam(s) MG MAMMO SCREEN CALL BACK UNI US BREAST LT COMPLETE EXAM: MG MAMMO SCREEN CALL BACK UNI and U/S breast LT complete CLINICAL HISTORY: F/U ABNL MAMMO, NEW OVOID DENSITY IN CENTRAL LT BREAST. TECHNIQUE: Craniocaudal and mediolateral oblique Full Field Digital Mammography views of the left br east with Computer Aided Diagnosis followed by Tomosynthesis and left breast ultrasound. COMPARISON: Comparison with prior examinations. FINDINGS: Mammography/Tomosynthesis: Masses/Architectural Distortion: The ovoid density persists on the additional views. Microcalcifictions: No suspicious pleomorphic-type are seen. Skin Thickening/Nipple Retraction: None. Complete left breast US: Echotexture: Normal appearance of the glandular tissue. Shadowing: No suspicious foci. Cyst: There is a 0.5 x 0.1 x 0.3 cm cyst at the 12 o'clock position of the left breast 2 cm from the nipple. Solid lesions: None seen. Ductal dilation: None. IMPRESSION: 1. No evidence of malignancy is noted. 2. A six-month follow-up left mammogram is recommended for re-evaluation. 3. The findings were discussed with the patient on the date of the examination. BI-RADS Category 3 - 6 month - Probably Benign Finding: Recommend follow-up imaging in 6 months Breast Density - Category B - Scattered areas of fibroglandular density Breast density Category C or D implies that the patient has dense breast tissue. Dense breast tissue can make it harder to find cancer on a mammogram. Dense breast tissue is also associated with an incr eased risk of breast cancer. This information about the result of the mammogram report was provided to the patient to raise their awareness. Use this report when you speak with the patient about their risks for breast cancer, which includes their family history. At that time, you may recommend additional screening tests (Ultrasoun d or MRI) as these tests may add significant information. A negative radiographic report should not delay biopsy if a dominant or clinically suspicious mass is present. Up to ten percent of cancers are not identified on mammography. A negative report may reinforce clinical impression. Adenosis and dense breasts may obscure an underlying neoplasm. False positive reports average 6 to 10%. Patient will receive a letter notifying them of these results.
== END ==
PROVIDERS: PCP Nurse Practitioner; Visit Provider Nurse Practitioner
DX: Z12.31 Encounter for screening mammogram for malignant neoplasm of breast (principal); R92.8 Other abnormal and inconclusive findings on diagnostic imaging of breast; N60.02 Solitary cyst of left breast
CPT/HCPCS: 76642; 77063; 77067

== ENCOUNTER 2021-12-24 22:55 | Emergency (ER) | payer OTHER, SELFPAY ==
[2021-12-24] VITALS (10 sets, daily range): BP systolic 139–187; BP diastolic 78–133; PULSE 88–119; RESP 14–28; O2SAT 92–98
--- NOTE | 2021-12-24 22:45 | RT.EKG_ITS ---
APPROVED REPORT Exam: Resting ECG Reason for Exam: chest pain Patient Location: E HR:112 bpm ECG Measurements Heart Rate 112 AXIS RI 190 P 40 QRSd 93 QRS 20 QT 316 T 23 QTc 432 Conclusion Sinus tachycardia...rate> 99 Physician: Sinus tachycardia, rate 112, intervals normal, no significant ST elevations or depressions . No evidence of STEMI.
--- NOTE | 2021-12-24 23:00 | DI.CT_ITS ---
Exam(s) CT THORAX CTA EXAM: CT THORAX CTA CLINICAL HISTORY: right upper chest pain, r/o dissection. TECHNIQUE: Imaging Protocol: Axial CT angiography was performed with multi-slice acquisition and mu lti-planar and/or 3D reconstructions. CONTRAST MATERIAL: Intravenous: Omnipaque 350 contrast volume:100 mL COMPARISON: CT CT CHEST W from 03/02/2020 FINDINGS: Tracheobronchial tree: Patent where visualized. Pulmonary parenchyma: No consolidation or dominant measurable mass. No architectural distortion. Pulmonary Arteries: No evidence of filling defect to suggest pulmonary emboli. Mediastinum and Marissa: No dominant adenopathy or fluid collection. The esophagus is unremarkable. Visualized thyroid gland: No suspicious thyroid nodules. Pleura: No effusion or pneumothorax. Heart: The heart is not dilated. No coronary artery calcifications are seen. No pericardial effusion. Aorta: Thoracic aorta non-dilated. No evidence of dissection. Upper abdomen: Unremarkable. Soft tissues: Unremarkable. Bones: Within normal limits for the patient's age. IMPRESSION: 1. No evidence of pulmonary embolism, thoracic aortic dissection or aneurysm. 2. No acute pulmonary process. RADIATION DOSE DELIVERED: 627.24mGy.cm Total DLP 627.24mGy.cm Total DLP DATA REPOSITORY: All CT scans at this facility are submitted to the National Radiology Data Registry (NRDR) Dose Index Registry (DIR) with the [employer] (ACR). RADIATION OPTIMIZATION: All CT scans at this facility use at least one of these dose optimization te chniques: automated exposure control; mA and/or kV adjustment per patient size (includes targeted exa ms where dose is matched to clinical indication); or iterative reconstruction.
[2021-12-24] MEDS: MORPHine 4 MG/ML SYR (23:06)
--- NOTE | 2021-12-24 23:13 | ED.GENADUL_ITS ---
Discharge Plan Disposition Patient Disposition: HOME Condition: Good Discharge Details Clinical Impression: Right-sided chest pain Primary Care Provider: Darby Reno ED Provider: Cj De La Rosa Home Meds and New Rx's Prescriptions: No Action lorazepam 0.5 mg tablet 0.5 mg PO BID PRN PRN (Reason: anxiety) Qty: 60 0RF ferrous sulfate 325 mg (65 mg iron) tablet 325 mg PO DAILY Qty: 90 3RF Rx Instructions: FOR HISTORY OF LOW IRON turmeric 1 tab PO DAILY nystatin 100,000 unit/gram powder 1 applic topical TID PRN (Reason: Abdominal fold rash) Qty: 60 3RF pantoprazole [Protonix] 40 mg tablet,delayed release (DR/EC) 40 mg PO DAILY Qty: 90 3RF venlafaxine [Effexor XR] 150 mg capsule,extended release 24hr 150 mg PO QHS Qty: 90 3RF melatonin 5 mg tablet 5 mg PO HS Qty: 90 3RF meclizine 12.5 mg tablet 12.5 mg PO TID PRN (Reason: dizziness) Qty: 20 0RF Myrbetriq 50 mg tablet extended release 24 hr 50 mg PO DAILY Qty: 90 3RF semaglutide (weight loss) 1 mg/0.5 mL pen injector 1 mg subcut QWEEK Qty: 2 2RF metformin 500 mg tablet extended release 24hr 1,000 mg PO DAILY Qty: 180 3RF cholecalciferol (vitamin D3) 5,000 unit tablet 5,000 unit PO DAILY Qty: 90 3RF omega-3 fatty acids-fish oil 300-1,000 mg capsule 2 cap PO HS Qty: 180 2RF (DME) lancing device with lancets [OneTouch Delica Plus Lanc Dev] Kit See Rx Instructions .ROUTE .MEDSUPPLY Qty: 200 3RF Rx Instructions: Test BID (DME) FreeStyle Sandeep 14 Day [place] Misc See Rx Instructions .ROUTE .MEDSUPPLY Qty: 1 0RF Rx Instructions: Test BID, keep A1c under 7 (DME) FreeStyle Sandeep 14 Day Sensor Kit See Rx Instructions .ROUTE .MEDSUPPLY Qty: 1 12RF Rx Instructions: Test BID, keep A1c under 7 (DME) OneTouch Verio test strips Strip See Dose Instructions .ROUTE .MEDSUPPLY Qty: 200 3RF Dose Instruction: As directed Rx Instructions: Test BID (DME) lancets [OneTouch Delica Plus Lancet] 33 gauge misc 0 .ROUTE .MEDSUPPLY Qty: 200 3RF Rx Instructions: Test BID (DME) pen needle, diabetic [Advocate Pen Needle] 29 gauge x 1/2 needle See Rx Instructions .ROUTE .MEDSUPPLY Qty: 100 3RF Rx Instructions: As directed daily with Victoza diclofenac sodium 1 % gel 2 g topical QID Qty: 2 1RF Rx Instructions: apply to single elbow, wrist or hand; for hand includes palm/fingers/back of hand (DME) blood-glucose meter [OneTouch Verio Meter] Misc See Rx Instructions .ROUTE .MEDSUPPLY Qty: 1 0RF Rx Instructions: As directed diphenhydramine HCl 25 mg capsule 25 mg PO Q6H PRN (Reason: itching) Qty: 20 0RF triamcinolone acetonide 0.1 % cream 1 applic Topical BID PRN (Reason: hand rash) Qty: 15 0RF atorvastatin [Lipitor] 20 mg tablet 20 mg PO DAILY Qty: 90 3RF liothyronine 25 mcg tablet 25 mcg PO DAILY Qty: 90 3RF trazodone 50 mg tablet 100 mg PO HS PRN (Reason: insomnia) Qty: 180 3RF Rx Instructions: for mood and sleep bupropion HCl [Wellbutrin XL] 300 mg tablet extended release 24 hr 300 mg PO QHS Qty: 90 3RF albuterol sulfate 90 mcg/actuation HFA aerosol inhaler 2 puff inhalation Q4H PRN (Reason: shortness of breath or wheezing) Qty: 8.5 1RF lisinopril 20 mg tablet 20 mg PO DAILY Qty: 90 3RF pregabalin 150 mg capsule 150 mg PO TID Qty: 90 3RF acetaminophen [Acetaminophen Extra Strength] 500 MG tablet 1,000 mg PO Q8H PRN PRNQty: 120 0RF Vitamin B-12 50 mcg Tablet 50 mcg PO HS evening primrose oil 500 mg Capsule 500 mg PO HS Discharge Instructions Instructions: Chest Pain (ED) Additional Instructions: At this time your laboratory work-up shows no evidence of significant abnormality associated with the chest pain that you had. Your heart, gallbladder, pancreas and lung work-up shows no signs of concerning abnormality. You may have had a strain in the muscles, a spasm of your gallbladder, or any irritation in the lining of your lungs that causes symptoms, however thankfully there is no other evidence of significant abnormality at this time. If you notice any worsening of your symptoms, or any new symptoms such as vomiting, diarrhea, fever, chills, shortness of breath, chest pain, numbness, weakness, or fainting , please return immediately to the emergency department for reevaluation. Please follow up with your primary care provider as soon as possible for reassessment and reevaluation. As always, it was a pleasure participating in your medical care today. Stand Alone Forms: Work Release Referrals: Darby Reno NP [Primary Care Provider] - Medical Decision Making 46-year-old female with a past medical history pelvic floor reconstruction, tubal ligation and salpingectomy, hysterectomy, fibromyalgia, who presents today for evaluation of right upper chest pain. Patient states that an hour or 2 ago she developed sudden squeezing severe right-sided chest pain that radiated to her back. She had some fish earlier this evening but nothing greasy. Pain is made worse with breathing, improved by nothing. She denies vomiting or diarrhea. She denies ever having symptoms like this before. She denies numbness, tingling or weakness. She denies any cough or fever. She denies any trauma. She denies any family history of dissection, pulmonary embolism, or myocardial infarction. No other complaints at this time. No other modifying factors. Physical exam demonstrates a notably uncomfortable female who is writhing on the bed. She appears to be in notable pain. She received nitroglycerin, 325 aspirin, and fentanyl via EMS. The only thing that improved her pain with EMS was fentanyl. Currently the pain in his her back right chest. It is not reproducible. Gallbladder looks slightly enlarged on bedside ultrasound, but she has a notably negative sonographic Jackson sign. No reproducible pain in the right upper quadrant. Bedside limited echo demonstrates a trace cardial effusion, but no other significant abnormality. Differential includes cardiac etiology, PE, dissection, we will evaluate for these etiologies, monitor closely and reassess. 2:10 AM On reassessment after pain medications patient is feeling much better, pain has completely resolved after Dilaudid, morphine and Toradol. She feels well and comfortable. She no longer has any chest or back pain. Repeat exam continues to demonstrate an otherwise normal exam. Laboratory work-up demonstrates negative troponin x2, normal laboratory work-up otherwise. CTA was performed to rule out dissection/aneurysm, and it is negative for acute process. No evidence of pulmonary embolism, gallbladder pathology, no other significant abnormality. With complete resolution of his the patient's symptoms, with a heart score being in the low risk category, and her work-up showing no clinical evidence of ACS, or other acute life-threatening etiology I do feel that the patient is stable for discharge. Discussed red flags for which to return. I have extensively reviewed the treatment plan and discharge instructions with the patient. I have addressed all patient concerns at this time. The patient was made aware of what symptoms to monitor for that would warrant a return to the emergency department. Discussed the plan with the patient, they demonstrate verbal understanding and agreement with our assessment and plan at this time. The documentation in this chart was dictated using sliceX dictation software. Please excuse any dictation errors. EKG 23: 04 Sinus tachycardia, rate 112, intervals normal, no significant ST elevations or depressions. No evidence of STEMI. FINDINGS: Pulmonary arteries: No evidence of pulmonary embolism. Aorta: Normal caliber thoracic aorta without dissection or aneurysm. Lungs: No alveolar or ground glass infiltrate. Pleural spaces: No pleural fluid collection. No pneumothorax. Heart: No right ventricular strain. No pericardial effusion. Lymph nodes: No enlarged lymph nodes. Bones/joints: Unremarkable. No acute fracture. Soft tissues: Unremarkable. IMPRESSION: 1. Normal caliber thoracic aorta without dissection or aneurysm. 2. No evidence of pulmonary embolism. 3. No pulmonary infiltrate or pleural fluid collection. Thank you for allowing us to participate in the care of your patient. Dictated and Authenticated by: Nick Kerr MD 12/25/2021 12:14 AM Eastern Time ([place] & [place]) HPI General Date/Time Provider Initiated Documentation: 12/24/21 23:09 . HPI Narrative: 46-year-old female with a past medical history pelvic floor reconstruction, tubal ligation and salpingectomy, hysterectomy, fibromyalgia, who presents today for evaluation of right upper chest pain. Patient states that an hour or 2 ago she developed sudden squeezing severe right-sided chest pain that radiated to her back. She had some fish earlier this evening but nothing greasy. Pain is made worse with breathing, improved by nothing. She denies vomiting or diarrhea. She denies ever having symptoms like this before. She denies numbness, tingling or weakness. She denies any cough or fever. She denies any trauma. She denies any family history of dissection, pulmonary embolism, or myocardial infarction. No other complaints at this time. No other modifying factors. Related Data Home Medications Medication Instructions Recorded Confirmed acetaminophen 500 mg tablet 1,000 mg PO Q8H PRN PRN #120 tabs 02/14/17 12/24/21 (Acetaminophen Extra Strength) lorazepam 0.5 mg tablet 0.5 mg PO BID PRN PRN anxiety #60 04/16/18 12/24/21 tabs ferrous sulfate 325 mg (65 mg 325 mg PO DAILY #90 tab-caps 08/29/18 12/24/21 iron) tablet cyanocobalamin (vitamin B-12) 50 50 mcg PO HS 01/14/19 12/24/21 mcg tablet (Vitamin B-12) evening primrose oil 500 mg capsule 500 mg PO HS 01/14/19 12/24/21 cholecalciferol (vitamin D3) 125 5,000 unit PO DAILY #90 tab-caps 01/30/19 12/24/21 mcg (5,000 unit) tablet omega-3 fatty acids-fish oil 300 2 cap PO HS #180 tab-caps 02/07/19 12/24/21 mg-1,000 mg capsule melatonin 5 mg tablet 5 mg PO HS #90 tab-caps 02/19/19 12/24/21 lancing device with lancets kit #200 ea 11/14/19 09/20/21 (Yotpo Delica Plus Lancing Device kit) nystatin 100,000 unit/gram topical 1 applic topical TID PRN Abdominal 05/25/20 12/24/21 powder fold rash #60 grams turmeric 1 tab PO DAILY 05/25/20 12/24/21 flash glucose scanning reader #1 ea 06/15/20 09/20/21 (FreeStyle Sandeep 14 Day [place]) flash glucose sensor (FreeStyle #1 ea 06/15/20 09/20/21 Sandeep 14 Day Sensor kit) blood sugar diagnostic (cdream networkTouch #200 ea 01/27/21 09/20/21 Verio test strips) diclofenac sodium 1 % topical gel 2 g topical QID #2 grams 01/27/21 12/24/21 lancets 33 gauge (OneTouch Delica #200 ea 01/27/21 09/20/21 Plus Lancet) pen needle, diabetic 29 gauge x #100 ea 01/27/21 09/20/21 1/2 (Advocate Pen Needle) blood-glucose meter (OneTouch #1 ea 01/29/21 09/20/21 Verio Meter) diphenhydramine HCl 25 mg capsule 25 mg PO Q6H PRN itching #20 caps 02/05/21 12/24/21 triamcinolone acetonide 0.1 % 1 applic topical BID PRN hand rash 02/05/21 12/24/21 topical cream #15 grams atorvastatin 20 mg tablet (Lipitor) 20 mg PO DAILY #90 tab-caps 03/16/21 12/24/21 liothyronine 25 mcg tablet 25 mcg PO DAILY #90 tab-caps 03/16/21 12/24/21 trazodone 50 mg tablet 100 mg PO HS PRN insomnia #180 tabs 03/16/21 12/24/21 pantoprazole 40 mg tablet,delayed 40 mg PO DAILY #90 tabs 04/26/21 12/24/21 release (Protonix) venlafaxine 150 mg 150 mg PO QHS #90 caps 04/26/21 12/24/21 capsule,extended release 24 hr (Effexor XR) meclizine 12.5 mg tablet 12.5 mg PO TID PRN dizziness #20 05/10/21 12/24/21 tabs bupropion HCl 300 mg 24 hr tablet, 300 mg PO QHS #90 tabs 08/24/21 12/24/21 extended release (Wellbutrin XL) albuterol sulfate 90 mcg/actuation 2 puff inhalation Q4H PRN 08/30/21 12/24/21 aerosol inhaler shortness of breath or wheezing #8.5 grams mirabegron 50 mg tablet,extended 50 mg PO DAILY #90 tabs 09/20/21 12/24/21 release 24 hr (Myrbetriq) lisinopril 20 mg tablet 20 mg PO DAILY #90 tabs 10/19/21 12/24/21 pregabalin 150 mg capsule 150 mg PO TID #90 caps 11/09/21 12/24/21 metformin 500 mg tablet,extended 1,000 mg PO DAILY #180 tabs 11/18/21 12/24/21 release 24hr semaglutide (weight loss) 1 mg/0.5 1 mg (0.5 mL) subcut QWEEK #2 mL 11/18/21 12/24/21 mL subcutaneous pen injector Previous Rx's Medication Instructions Recorded acetaminophen 500 mg tablet 1,000 mg PO Q8H PRN PRN #120 tabs 02/14/17 (Acetaminophen Extra Strength) lorazepam 0.5 mg tablet 0.5 mg PO BID PRN PRN anxiety #60 04/16/18 tabs ferrous sulfate 325 mg (65 mg 325 mg PO DAILY #90 tab-caps 08/29/18 iron) tablet cholecalciferol (vitamin D3) 125 5,000 unit PO DAILY #90 tab-caps 01/30/19 mcg (5,000 unit) tablet omega-3 fatty acids-fish oil 300 2 cap PO HS #180 tab-caps 02/07/19 mg-1,000 mg capsule melatonin 5 mg tablet 5 mg PO HS #90 tab-caps 02/19/19 lancing device with lancets kit #200 ea 11/14/19 (cdream networkTouch Delica Plus Lancing Device kit) nystatin 100,000 unit/gram topical 1 applic topical TID PRN Abdominal 05/25/20 powder fold rash #60 grams flash glucose scanning reader #1 ea 06/15/20 (FreeStyle Sandeep 14 Day [place]) flash glucose sensor (FreeStyle #1 ea 06/15/20 Sandeep 14 Day Sensor kit) blood sugar diagnostic (OneTouch #200 ea 01/27/21 Verio test strips) diclofenac sodium 1 % topical gel 2 g topical QID #2 grams 01/27/21 lancets 33 gauge (cdream networkTouch Delica #200 ea 01/27/21 Plus Lancet) pen needle, diabetic 29 gauge x #100 ea 01/27/21 1/2 (Advocate Pen Needle) blood-glucose meter (cdream networkTouch #1 ea 01/29/21 Verio Meter) diphenhydramine HCl 25 mg capsule 25 mg PO Q6H PRN itching #20 caps 02/05/21 triamcinolone acetonide 0.1 % 1 applic topical BID PRN hand rash 09/03/21 topical cream #15 grams atorvastatin 20 mg tablet (Lipitor) 20 mg PO DAILY #90 tab-caps 03/16/21 liothyronine 25 mcg tablet 25 mcg PO DAILY #90 tab-caps 03/16/21 trazodone 50 mg tablet 100 mg PO HS PRN insomnia #180 tabs 03/16/21 pantoprazole 40 mg tablet,delayed 40 mg PO DAILY #90 tabs 04/26/21 release (Protonix) venlafaxine 150 mg 150 mg PO QHS #90 caps 04/26/21 capsule,extended release 24 hr (Effexor XR) meclizine 12.5 mg tablet 12.5 mg PO TID PRN dizziness #20 05/10/21 tabs bupropion HCl 300 mg 24 hr tablet, 300 mg PO QHS #90 tabs 08/24/21 extended release (Wellbutrin XL) albuterol sulfate 90 mcg/actuation 2 puff inhalation Q4H PRN 08/30/21 aerosol inhaler shortness of breath or wheezing #8.5 grams mirabegron 50 mg tablet,extended 50 mg PO DAILY #90 tabs 09/20/21 release 24 hr (Myrbetriq) lisinopril 20 mg tablet 20 mg PO DAILY #90 tabs 10/19/21 pregabalin 150 mg capsule 150 mg PO TID #90 caps 11/09/21 metformin 500 mg tablet,extended 1,000 mg PO DAILY #180 tabs 11/18/21 release 24hr semaglutide (weight loss) 1 mg/0.5 1 mg (0.5 mL) subcut QWEEK #2 mL 11/18/21 mL subcutaneous pen injector Allergies Allergy/AdvReac Type Severity Reaction Status Date / Time No Known Drug Allergies Allergy Verified 12/24/21 23:05 General Stated Complaint: Chest Pain TARIK: 2 Review of Systems All systems reviewed & are unremarkable except as noted in HPI and below PFSH All Active Problems (Updated 12/25/21 @ 01:54 by Cj De La Rosa DO) Right-sided chest pain (Acute) Abnormal mammogram of left breast (Acute) Type 2 diabetes mellitus (Acute) Primary osteoarthritis, left ankle and foot (Acute) 10/20/21 Podiatry note Neuralgia and neuritis (Acute) 10/20/21 Podiatry note COVID (Acute ~08/26/21) Encounter for screening laboratory testing for COVID-19 virus (Acute) URI (upper respiratory infection) (Acute) Obesity (Chronic) Hot flashes (Acute) Hoarseness (Acute) Headache (Acute) Dizziness (Acute) Cervicalgia (Acute) Bilateral leg pain (Acute) Skin breakdown (Acute) Chronic neck and back pain (Acute) Large breasts (Acute) Medial epicondylitis, left elbow (Acute) Arthritis of carpometacarpal (CMC) joint of thumb (Chronic) left Globus sensation (Acute) Left elbow pain (Acute) Binge eating (Acute) Obesity (Chronic) Bilateral carpal tunnel syndrome (Acute) Pain in both upper extremities (Acute) Neck pain, bilateral posterior (Acute) Chronic erosive gastritis (Acute) Hiatal hernia with GERD (Acute) Sleep apnea, obstructive (Chronic) 04/12/20-sleep study. baseline significant nocturnal hypoxemia. the degree of hypoxemia is out of proportion to the degree of sleep apnea. Govind Conroy MD Paresthesia and pain of both upper extremities (Acute) Peripheral nervous system disease (Acute) per Dr. Dee, 11/13/18, [facility] H/O bilateral salpingectomy (Acute 03/05/15) Tobacco use disorder (Acute) Status post vaginal hysterectomy (Acute 03/05/15) Pain in female pelvis (Acute 11/24/14) Migraine (Acute) Menorrhagia (Acute 11/24/14) Elevated blood-pressure reading without diagnosis of hypertension (Acute 06/16/15) Dysmenorrhea (Acute 11/24/14) Dry eye (Acute) Refraction error (Acute) Fibromyalgia (Acute) Chronic pain (Chronic) Memory changes (Acute) Cephalgia (Acute) Chest pressure (Acute) Fatigue (Acute) Paresthesia (Acute) Vision changes (Acute) Skin lesion (Acute) Encounter for screening for other viral diseases (Acute) GERD (gastroesophageal reflux disease) (Chronic) Kidney stone (Acute) Diabetic neuropathy (Acute) Incontinence in female (Acute) Diabetes mellitus (Chronic) H/O bilateral salpingectomy (Acute 03/05/15) Status post vaginal hysterectomy (Acute 03/05/15) History of viral pericarditis (Acute 04/17/17) Per pt. states, 04/2018 felt like her chest was so heavy and couldn't take a breath, was admitted for observation, and was tx with rx and stated it resolved Anxiety (Acute 04/17/17) Adult BMI > 30 (Acute) Adjustment disorder with mixed anxiety and depressed mood (Acute 08/17/17) Medical History Vitamin D deficiency Surgical History Hysteroscopy (02/04/15) uterus,cervix,left fallopian tube and salpingectomy. Dr. Wong Pelvic floor reconstruction (~2009) [facility] [place] S/P shoulder surgery left S/P tubal ligation Stenosis of tear duct Tonsillectomy & uvulectomy (~2009) Vaginal hysterectomy 2015 [facility] with Bilateral distal salpingectomy - Dr Smith Family History Mother Graves' disease Depression Father Alcoholism drug addicion Grandmother Personal history of malignant neoplasm skin Other Personal history of malignant neoplasm colon Social History Smoking/Tobacco Use Status: Former Tobacco Use Quit Date: 04/05/17 Smoking risk assessment performed?: Yes Alcohol Intake: current Alcohol Intake frequency: holidays/special occasions only Drug use: Never Substance use type: does not use Household members: children Number of Children: 4 Communication Needs: Corrective Lenses 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 3.ENT: Atraumatic external nose and ears. Moist MM. Neck: Symmetric, trachea midline, No thyromegaly. 4.CVS: +S1/S2, No murmurs or gallops. Peripheral pulses 2+ and equal in all extremities. Brisk capillary refill in all extremities. No reproducible chest wall tenderness 5.RESP: Unlabored respiratory effort. Clear to auscultation bilaterally. No wheezes rales or rhonchi 6.GI: Soft, Nontender/Nondistended, No hepatosplenomegaly. No guarding or rebound. Negative Jackson sign, negative sonographic Jackson sign. No pain to McBurney's point. 7.MSK: Normocephalic/Atraumatic, Extremities w/o deformity or ttp No cyanosis or clubbing, Normal movement of all extremities 8.Skin: Warm, Dry. No rashes or lesions. 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 Sensation grossly intact, no focal neurologic deficits. 10.Psych: (AAO) x3. Appropriate mood and affect Course Vital Signs Vital signs: Vital Signs Pulse 117 H 12/24/21 22:57 Respiratory Rate 28 H 12/24/21 22:57 Blood Pressure 187/133 H 12/24/21 22:57 Pulse Oximetry 96 12/24/21 22:57 Pulse 117 H 12/24/21 22:57 Respiratory Rate 28 H 12/24/21 22:57 Respiratory Effort 12/24/21 23:07 Blood Pressure 187/133 H 12/24/21 22:57 Pulse Oximetry 96 12/24/21 22:57 Pain Level 10 12/24/21 23:06
[2021-12-24 23:26] LABS: HCT 43.5 % (36.0-46.0); MCH 28.1 pg (27.0-33.0); MCHC 32.2 % (32.0-36.0); MCV 87 fL (80-95); MPV 10.4 fL (8.0-11.0); Platelet Count 279 10^3/uL (130-400); RBC 4.99 10^6/uL (3.93-5.22); RDW 12.3 % (11.7-14.6); RDW-SD 39.2 fL; WBC 12.81 10^3/uL (4.4-10.8)
[2021-12-24] MEDS: HYDROmorphone 2 MG/ML VIAL 1 MG IVP (23:26)
[2021-12-24] MEDS: Normal Saline 500 ML IV (23:26)
[2021-12-24] MEDS: Omnipaque 350 MG/ML 100 ML BTL IJ (23:31)
[2021-12-24 23:37] LABS: Absolute Lymphocyte Count 5.89 10^3/uL (1.2-3.4); Absolute Neutrophil Count 6.02 10^3/uL (1.2-6.7); Atypical Lymphocytes % 3; Diff Comment Manual Differential; RBC Morphology Normal
[2021-12-24 23:41] LABS: ALT 68 U/L (14-59); AST 50 U/L (15-37); Albumin 4.2 g/dL (3.4-5.0); Alkaline Phosphatase 96 U/L (46-116); Anion Gap 9.5 mmol/L (3-11); BUN 19 mg/dL (7-18); Bilirubin, Total 0.3 mg/dL (0.2-1.0); CO2 27.5 mmol/L (21.0-32.0); Calcium 9.4 mg/dL (8.5-10.1); Chloride 102 mmol/L (98-107); Estimated GFR 59.43 (mL/min/1.73m2); Glucose 142 mg/dL (74-106); Lipase 165 U/L (73-393); Potassium 3.8 mmol/L (3.5-5.1); Sodium 139 mmol/L (136-145); Total Protein 7.7 g/dL (6.4-8.2); Troponin I < 50 ng/L (<or=60)
[2021-12-24 23:45] LABS: INR 0.9 (0.9-1.1); Prothrombin Time 9.4 sec (9.3-11.0)
[2021-12-25] VITALS (19 sets, daily range): BP systolic 120–138; BP diastolic 70–85; PULSE 70–91; RESP 10–23; TEMP 36.6; O2SAT 92–100
--- NOTE | 2021-12-25 00:15 | DI.VRAD_ITS ---
PROCEDURE INFORMATION: Exam: CTA Chest With Contrast Exam date and time: 12/24/2021 11:18 PM Age: 46 years old Clinical indication: Pain; Right-sided upper chest pain, R/O aortic dissection TECHNIQUE: Imaging protocol: Computed tomographic angiography of the chest with contrast. 3D rendering (Not supervised by radiologist): MIP and/or 3D reconstructed images were created by the technologist. Radiation optimization: All CT scans at this facility use at least one of these dose optimization techniques: automated exposure control; mA and/or kV adjustment per patient size (includes targeted exams where dose is matched to clinical indication); or iterative reconstruction. Contrast material: OMNI 350; Contrast volume: 100 ml; Contrast route: INTRAVENOUS (IV); COMPARISON: CT CHEST W 03/02/2020 3:25 PM FINDINGS: Pulmonary arteries: No evidence of pulmonary embolism. Aorta: Normal caliber thoracic aorta without dissection or aneurysm. Lungs: No alveolar or ground glass infiltrate. Pleural spaces: No pleural fluid collection. No pneumothorax. Heart: No right ventricular strain. No pericardial effusion. Lymph nodes: No enlarged lymph nodes. Bones/joints: Unremarkable. No acute fracture. Soft tissues: Unremarkable. IMPRESSION: 1. Normal caliber thoracic aorta without dissection or aneurysm. 2. No evidence of pulmonary embolism. 3. No pulmonary infiltrate or pleural fluid collection. Dictated and Authenticated by: Nick Kerr MD. Ordering:JARRET Corona MD
[2021-12-25] MEDS: Ketorolac 15 MG/ML VIAL IVP (00:32)
[2021-12-25] MEDS: Acetaminophen 500 MG TAB 1000 MG PO (00:33)
[2021-12-25 01:56] LABS: Troponin I < 50 ng/L (<or=60)
== END 2021-12-25 02:18 | disposition home or self-care (01) ==
PROVIDERS: Emergency Provider Student in an Organized Health Care Education/Training Program; PCP Nurse Practitioner
DX: R07.9 Chest pain, unspecified (principal); R00.0 Tachycardia, unspecified; Z87.891 Personal history of nicotine dependence
CPT/HCPCS: 71275; 80053; 83690; 93005; 96361; 96374; 96375; 99285; 84484; 85025; 85610; 85730; 93010; 99284; J1885; J2270; J3490

== ENCOUNTER 2022-02-04 15:37 | Outpatient (REF) | payer OTHER, SELFPAY | END 2022-02-04 15:38 | disposition home or self-care (01) | LOC: LBN 15:37 | PROVIDERS: PCP Nurse Practitioner; Visit Provider Advanced Practice Midwife | DX: N89.8 Other specified noninflammatory disorders of vagina (principal) | CPT/HCPCS: 87480; 87510; 87660 ==

== ENCOUNTER 2022-02-14 06:08 | Day surgery (SDC) | payer OTHER, SELFPAY ==
[2022-02-14 06:10] VITALS: BP 134/99; PULSE 106; RESP 20; TEMP 36.5; O2SAT 97
[2022-02-14] MEDS: Lactated Ringers 1,000 ML 80 ML IV (06:45)
--- NOTE | 2022-02-14 06:57 | W.ANESPRE ---
General Info Date of Service Date Performed: 02/14/22 Height: 5 ft 6 in Weight: 103.5 kg Body Mass Index (BMI): 36.8 Surgical Procedure: Operation Date: 02/14/22 07:35 Proposed Procedure Side Surgeon p Colonoscopy Opal Dorado MD Meds Allergies and Home Medications Allergies Allergy/AdvReac Type Severity Reaction Status Date / Time No Known Drug Allergies Allergy Verified 02/14/22 06:27 Home Medication Medication Instructions Recorded acetaminophen 500 mg tablet 1,000 mg PO Q8H PRN PRN #120 tabs 02/14/17 (Acetaminophen Extra Strength) lorazepam 0.5 mg tablet 0.5 mg PO BID PRN PRN anxiety #60 04/16/18 tabs ferrous sulfate 325 mg (65 mg 325 mg PO DAILY #90 tab-caps 08/29/18 iron) tablet cyanocobalamin (vitamin B-12) 50 50 mcg PO HS 01/14/19 mcg tablet (Vitamin B-12) evening primrose oil 500 mg capsule 500 mg PO HS 01/14/19 cholecalciferol (vitamin D3) 125 5,000 unit PO DAILY #90 tab-caps 01/30/19 mcg (5,000 unit) tablet omega-3 fatty acids-fish oil 300 2 cap PO HS #180 tab-caps 02/07/19 mg-1,000 mg capsule melatonin 5 mg tablet 5 mg PO HS #90 tab-caps 02/19/19 lancing device with lancets kit #200 ea 11/14/19 (CloudRunner I/Ouch Delica Plus Lancing Device kit) nystatin 100,000 unit/gram topical 1 applic topical TID PRN Abdominal 05/25/20 powder fold rash #60 grams turmeric 1 tab PO DAILY 05/25/20 flash glucose scanning reader #1 ea 06/15/20 (FreeStyle Sandeep 14 Day [place]) flash glucose sensor (FreeStyle #1 ea 06/15/20 Sandeep 14 Day Sensor kit) blood sugar diagnostic ([employer]Runner I/Ouch #200 ea 01/27/21 Verio test strips) diclofenac sodium 1 % topical gel 2 g topical QID #2 grams 01/27/21 lancets 33 gauge ([employer] Gen[employer]Touch Delica #200 ea 01/27/21 Plus Lancet) pen needle, diabetic 29 gauge x #100 ea 01/27/21 1/ (Advocate Pen Needle) blood-glucose meter (CloudRunner I/Ouch #1 ea 01/29/21 Verio Meter) diphenhydramine HCl 25 mg capsule 25 mg PO Q6H PRN itching #20 caps 02/05/21 triamcinolone acetonide 0.1 % 1 applic topical BID PRN hand rash 02/05/21 topical cream #15 grams atorvastatin 20 mg tablet (Lipitor) 20 mg PO DAILY #90 tab-caps 03/16/21 liothyronine 25 mcg tablet 25 mcg PO DAILY #90 tab-caps 03/16/21 trazodone 50 mg tablet 100 mg PO HS PRN insomnia #180 tabs 03/16/21 pantoprazole 40 mg tablet,delayed 40 mg PO DAILY #90 tabs 04/26/21 release (Protonix) venlafaxine 150 mg 150 mg PO QHS #90 caps 04/26/21 capsule,extended release 24 hr (Effexor XR) meclizine 12.5 mg tablet 12.5 mg PO TID PRN dizziness #20 05/10/21 tabs bupropion HCl 300 mg 24 hr tablet, 300 mg PO QHS #90 tabs 08/24/21 extended release (Wellbutrin XL) mirabegron 50 mg tablet,extended 50 mg PO DAILY #90 tabs 09/20/21 release 24 hr (Myrbetriq) lisinopril 20 mg tablet 20 mg PO DAILY #90 tabs 10/19/21 pregabalin 150 mg capsule 150 mg PO TID #90 caps 11/09/21 metformin 500 mg tablet,extended 1,000 mg PO DAILY #180 tabs 11/18/21 release 24hr semaglutide 2 mg/dose (8 mg/3 mL) 2 mg (0.75 mL) subcut QWEEK #3 mL 01/03/22 subcutaneous pen injector Current Visit Medications: Current Medications Generic Name Dose Route Start Last Admin Trade Name Freq PRN Reason Stop Dose Admin Ringer's Solution 1,000 mls @ 80 mls/hr 02/14/22 06:00 02/14/22 06:45 IV 03/13/22 23:59 80 mls/hr INFUSION PAOLO Administration IV Miscellaneous Supplies 1 each 02/14/22 06:00 Iv Access IV 03/13/22 23:59 DIRECTED PAOLO Sodium Chloride 0 ml 09/12/22 06:00 Normal Saline Flush 10 Ml Syr IV 03/13/22 23:59 PRN PRN Sodium Chloride 0 ml 02/14/22 06:00 Normal Saline 10 Ml Vial IJ 03/13/22 23:59 DIRECTED PRN Sterile Water 0 ml 02/14/22 06:00 Water,Injection,Sterile 10 Ml Vial IJ 03/13/22 23:59 DIRECTED PRN PFSH Active Problems Active Problems: Problem Status Onset Code Vaginal irritation N89.8 Family history of colon cancer Z80.0 Screening for colon cancer Z12.11 Abnormal mammogram of left breast R92.8 Type 2 diabetes mellitus E11.9 Primary osteoarthritis, left ankle and foot M19.072 Neuralgia and neuritis M79.2 COVID ~08/26/21 U07.1 Encounter for screening laboratory testing for COVID-19 virus Z20.822 URI (upper respiratory infection) J06.9 Obesity E66.9 Hot flashes R23.2 Hoarseness R49.0 Headache R51.9 Dizziness R42 Cervicalgia M54.2 Bilateral leg pain M79.604, M79.605 Skin breakdown R23.8 Chronic neck and back pain M54.2, M54.9, G89.29 Large breasts N62 Medial epicondylitis, left elbow M77.02 Arthritis of carpometacarpal (CMC) joint of thumb M18.10 Globus sensation R09.89 Left elbow pain M25.522 Binge eating R63.2 Obesity E66.9 Bilateral carpal tunnel syndrome G56.03 Pain in both upper extremities M79.601, M79.602 Neck pain, bilateral posterior M54.2 Chronic erosive gastritis K29.40 Hiatal hernia with GERD K21.9, K44.9 Sleep apnea, obstructive G47.33 Paresthesia and pain of both upper extremities R20.2, M79.601, M79.602 Peripheral nervous system disease G64 H/O bilateral salpingectomy 03/05/15 Z90.79 Tobacco use disorder F17.200 Status post vaginal hysterectomy 03/05/15 Z90.710 Pain in female pelvis 11/24/14 R10.2 Migraine G43.909 Menorrhagia 11/24/14 N92.0 Elevated blood-pressure reading without diagnosis of hypertension 06/16/15 R03.0 Dysmenorrhea 11/24/14 N94.6 Dry eye H04.129 Refraction error H52.7 Fibromyalgia M79.7 Chronic pain G89.29 Memory changes R41.3 Cephalgia R51 Chest pressure R07.89 Fatigue R53.83 Paresthesia R20.2 Vision changes H53.9 Skin lesion L98.9 Encounter for screening for other viral diseases Z11.59 GERD (gastroesophageal reflux disease) K21.9 Kidney stone N20.0 Diabetic neuropathy E11.40 Incontinence in female R32 Diabetes mellitus E11.9 H/O bilateral salpingectomy 03/05/15 Z90.79 Status post vaginal hysterectomy 03/05/15 Z90.710 History of viral pericarditis 04/17/17 Z86.79 Anxiety 04/17/17 F41.9 Adult BMI > 30 Adjustment disorder with mixed anxiety and depressed mood 08/17/17 F43.23 Medical History Medical History Vitamin D deficiency Medical History Comments:: Pt. requesting anti-anxiety medication prior to procedure Surgical History Surgical History Hysteroscopy (02/04/15) uterus,cervix,left fallopian tube and salpingectomy. Dr. Wong Pelvic floor reconstruction (~2009) [facility] [place] Hardin S/P shoulder surgery left S/P tubal ligation Stenosis of tear duct Tonsillectomy & uvulectomy (~2009) Vaginal hysterectomy 2015 [facility] with Bilateral distal salpingectomy - Dr Smith Tobacco Smoking/Tobacco Use Status: Former Tobacco Use Alcohol Alcohol Intake: current Alcohol intake frequency: holidays/special occasions only Substance Use Substance use: Never Substance use type: does not use Vital Signs and Lab Results Vital Signs Most Recent Vital Signs in EMR: Most Recent Vital Signs Temp Pulse Resp BP Pulse Ox 36.5 C 106 H 20 134/99 H 97 02/14/22 06:10 02/14/22 06:10 02/14/22 06:10 02/14/22 06:10 02/14/22 06:10 Point of Care Results Point of Care Results: Finger Stick Blood Glucose 121 02/14/22 06:36 Lab Results Blood Type / Crossmatch: No Data to Display Complete Blood Count: No Data to Display Complete Metabolic Panel: No Data to Display Liver Function Panel: No Data to Display Coagulation Panel: No Data to Display Cardiac Panel: No Data to Display Arterial Blood Gas: No Data to Display Venous Blood Gas: No Data to Display Pancreas Panel: No Data to Display Thyroid Panel: No Data to Display Infectious Disease: No Data to Display Blood Cultures: No Data to Display Toxicology Panel: No Data to Display Panel: No Data to Display Anesthesia Assessment and Plan Anesthesia History Personal History: No History of Anesthesia Complications Family History: No Family History of Anesthesia Complications Exercise Tolerance Exercise Tolerance: Metabolic Equivalents>4 Pertinent Negatives Pertinent Negatives: No Symptoms of GERD, No Major Cardiovascular Symptoms or Complaints, No Major Pulmonary Symptoms or Complaints (SHANTAL does not wear CPAP) and No History of CVA/TIA Cardiac & Pulmonary Exam Cardiac Exam: Normal S1/S2 Heart Sounds Pulmonary Exam: Clear Bilateral Breath Sounds Implantable Cardiac Device Does patient have a Pacemaker or an ICD?: No Airway Exam Known Difficult Airway: No Mallampati Class: 1 Mouth Opening: Normal (> 3cm) Thyromental Distance: Greater than 3 cm Neck Range of Motion: Full ROM Neck Circumference: Normal Teeth Condition: Normal Dentition Airway Comments: #45 implant ASA Classification ASA Score: ASA 2 Emergency Case?: No NPO Status NPO Status: NPO Clears >2 hours, Solids >8 hours Status Status: History of Hysterectomy Anesthesia Plan Resuscitation Status: Full Code Anesthesia Technique: General Anesthesia Airway Planned: Natural Airway Monitors Used: Standard Monitors
--- NOTE | 2022-02-14 06:58 | W.COLOREPORT ---
Colonoscopy Report Date of procedure: 02/14/22 Pre-op diagnosis general: colon cancer screening Post-op diagnosis procedure note: other (sigmoid polyp) Procedure: Colonoscopy with polypectomy Surgeon: Opal Dorado Anesthesia Type: General:No Airway Estimated blood loss (mL): 2 Pathology: other (sigmoid polyp) Complications: None Disposition: same day Indications: I think she is a good candidate for screening colonoscopy.? We discussed the role of screening colonoscopy in routine healthcare and health maintenance.? She has some mild obstructive sleep apnea that was evaluated with a sleep study and does not require CPAP at this time.? We talked about the risks and benefits, and she provided informed consent. Prep: Miralax/Dulcolax Procedure Start Time: 07:46 Procedure End Time: 08:10 Retraction Time: 12 minutes Findings: Sigmoid polyp Procedure Description: After informed consent was obtained the patient was taken to the procedure room and placed in a left decubitous position. Monitors were applied and a time out was done. The patients name, date of , procedure, allergies to medications and metal in their body was reviewed. The patient was then sedated. Once sedated and comfortable a rectal exam was done. External exam was normal. Internal exam revealed a normal sphincter tone and no palpable masses. The scope was then introduced and retro-flexed. No internal hemorrhoids, polyps or masses were identified on retro-flexion. The scope was then advanced to the cecum without difficulty. The ileocecal vlave and appendiceal orifice were identified. The prep was good. The scope was then slowly retracted over 12 minutes back into the rectum. Polyps were removed with cold forceps in the sigmoid colon. There was no diverticulosis noted. The scope was removed and the patient was woken up and taken back to Same day surgery in stable condition. The patient tolerated the procedure well and there were no immediate complications.
--- NOTE | 2022-02-14 06:59 | PDOC.DSDIS_ITS ---
Discharge Plan Disposition Patient Disposition: HOME Condition: Good Discharge Details Reason For Visit: colonoscopy Attending Provider: Opal Dorado Primary Care Provider: Darby Reno Home Meds and New Rx's Prescriptions: Continued lorazepam 0.5 mg tablet 0.5 mg PO BID PRN PRN (Reason: anxiety) Qty: 60 0RF ferrous sulfate 325 mg (65 mg iron) tablet 325 mg PO DAILY Qty: 90 3RF Rx Instructions: FOR HISTORY OF LOW IRON turmeric 1 tab PO DAILY nystatin 100,000 unit/gram powder 1 applic topical TID PRN (Reason: Abdominal fold rash) Qty: 60 3RF pantoprazole [Protonix] 40 mg tablet,delayed release (DR/EC) 40 mg PO DAILY Qty: 90 3RF venlafaxine [Effexor XR] 150 mg capsule,extended release 24hr 150 mg PO QHS Qty: 90 3RF semaglutide 2 mg/dose (8 mg/3 mL) pen injector 2 mg subcut QWEEK Qty: 3 1RF melatonin 5 mg tablet 5 mg PO HS Qty: 90 3RF meclizine 12.5 mg tablet 12.5 mg PO TID PRN (Reason: dizziness) Qty: 20 0RF Myrbetriq 50 mg tablet extended release 24 hr 50 mg PO DAILY Qty: 90 3RF metformin 500 mg tablet extended release 24hr 1,000 mg PO DAILY Qty: 180 3RF cholecalciferol (vitamin D3) 5,000 unit tablet 5,000 unit PO DAILY Qty: 90 3RF omega-3 fatty acids-fish oil 300-1,000 mg capsule 2 cap PO HS Qty: 180 2RF (DME) lancing device with lancets [OneTouch Delica Plus Lanc Dev] Kit See Rx Instructions .ROUTE .MEDSUPPLY Qty: 200 3RF Rx Instructions: Test BID (DME) FreeStyle Sandeep 14 Day [place] Misc See Rx Instructions .ROUTE .MEDSUPPLY Qty: 1 0RF Rx Instructions: Test BID, keep A1c under 7 (DME) FreeStyle Sandeep 14 Day Sensor Kit See Rx Instructions .ROUTE .MEDSUPPLY Qty: 1 12RF Rx Instructions: Test BID, keep A1c under 7 (DME) OneTouch Verio test strips Strip See Dose Instructions .ROUTE .MEDSUPPLY Qty: 200 3RF Dose Instruction: As directed Rx Instructions: Test BID (DME) lancets [OneTouch Delica Plus Lancet] 33 gauge misc 0 .ROUTE .MEDSUPPLY Qty: 200 3RF Rx Instructions: Test BID (DME) pen needle, diabetic [Advocate Pen Needle] 29 gauge x 1/2 needle See Rx Instructions .ROUTE .MEDSUPPLY Qty: 100 3RF Rx Instructions: As directed daily with Victoza diclofenac sodium 1 % gel 2 g topical QID Qty: 2 1RF Rx Instructions: apply to single elbow, wrist or hand; for hand includes palm/fingers/back of hand (DME) blood-glucose meter [OneTouch Verio Meter] Misc See Rx Instructions .ROUTE .MEDSUPPLY Qty: 1 0RF Rx Instructions: As directed diphenhydramine HCl 25 mg capsule 25 mg PO Q6H PRN (Reason: itching) Qty: 20 0RF triamcinolone acetonide 0.1 % cream 1 applic Topical BID PRN (Reason: hand rash) Qty: 15 0RF atorvastatin [Lipitor] 20 mg tablet 20 mg PO DAILY Qty: 90 3RF liothyronine 25 mcg tablet 25 mcg PO DAILY Qty: 90 3RF trazodone 50 mg tablet 100 mg PO HS PRN (Reason: insomnia) Qty: 180 3RF Rx Instructions: for mood and sleep bupropion HCl [Wellbutrin XL] 300 mg tablet extended release 24 hr 300 mg PO QHS Qty: 90 3RF lisinopril 20 mg tablet 20 mg PO DAILY Qty: 90 3RF pregabalin 150 mg capsule 150 mg PO TID Qty: 90 3RF acetaminophen [Acetaminophen Extra Strength] 500 MG tablet 1,000 mg PO Q8H PRN PRNQty: 120 0RF Vitamin B-12 50 mcg Tablet 50 mcg PO HS evening primrose oil 500 mg Capsule 500 mg PO HS Discharge Instructions Instructions: Colorectal Polyps (DC) Additional Instructions: Findings: One polyp Follow up: most likely 5 years Please call if you develop: fevers >101.5 Nausea or Vomiting Abdominal pain that is not transient Rectal bleeding that is more then a tbsp A hard abdomen and inability to pass gas DAY SURGERY UNIT POST ENDOSCOPY INSTRUCTIONS Instructions for everyone who is given Anesthesia: For your safety, please do the following for the next 24 Hours: a. Do not drive or operate dangerous equipment b. Do not drink alcohol beverages or use any recreational drugs for the first 24 hours or while taking pain medications. The medications in your body may have a reaction that can be dangerous. c. Do not make any important decisions or sign any important papers 1. Generally there are no restrictions on your activity after a day or so has gone by, but you may feel a bit fatigued for a few days. 2. After you arrive home you may have a light meal and return to a normal diet as you can tolerate it without feeling sick to your stomach. 3. After surgery, you may feel pain or discomfort. This should be only transient, but if it persists please contact your doctor. 4. If there are any questions regarding the findings of your procedure, please feel free to contact your doctor. 6. If you are unable to contact your doctor with a problem, contact the hospital at [phone]. 7. Continue all your regular medications unless directed otherwise. I understand the above instructions and have no questions. Signature of Patient or Responsible Adult Escort Date/Time Name of Responsible Adult Escort Signature of Nurse Date/Time Activity:: Activity as Tolerated Diet:: As Tolerated Discharge Orders Discharge Orders: Discharge Order (Routine); Ordered 02/14/22 Ordered By: Opal Dorado
[2022-02-14 07:01] VITALS: BMI 36.8
--- NOTE | 2022-02-14 08:05 | BOWEL_PTH ---
PATIENT: Connie Lopez LOC: [facility] U#:[id number] AGE/SX: 47/F ROOM: RE02/14/[address]: Opal Dorado MD : 1975 BED: DIS: 02/14/2022 SPEC #: [id number] RECD: 02/14/22 12:51 STATUS: MAURICIO REMona #: [id number] NORTH: 02/14/22 08:[address]: Opal Dorado DEPT: Surgical Specimen RECD BY: Muriel Hernández ENTERED: 02/14/22 12:52 SP TYPE: Bowel OTHR DR: Darby Reno APRN Tissues: 1 - BIOPSY BOWEL Procedures: GROSS AND MICRO LEVEL 4 Comments: [id number]
[2022-02-14 08:25] VITALS: BP 125/78; PULSE 100; RESP 16; TEMP 36.5; O2SAT 95
[2022-02-14 08:51] VITALS: BP 117/76; PULSE 94; RESP 18; TEMP 36.7; O2SAT 97
--- NOTE | 2022-02-14 16:13 | W.ANESPOSTOP ---
Postoperative Evaluation Date, Time and Location Date Performed: 02/14/22 Time Performed: 08:52 Patient Location: Day Surgery Unit Vital Signs Most Recent Imported Vital Signs: Most Recent Vital Signs Temp Pulse Resp BP Pulse Ox 36.7 C 94 H 18 117/76 97 02/14/22 08:51 02/14/22 08:51 02/14/22 08:51 02/14/22 08:51 02/14/22 08:51 Pain Score Most Recent Pain Score: Most Recent Pain Score Pain Level 0 02/14/22 08:51 Assessment Mental Status: Awake (Alert & Oriented to Patient Baseline) Airway and Respiratory Function: Patent airway with normal (patient baseline) respiratory exam Cardiovascular Function: Hemodynamically Stable Hydration Status: Adequately Hydrated Nausea & Vomiting: No Nausea or Vomiting Pain: Pt. Denies Any Pain Peripheral Nerve Block: Patient did not receive a nerve block
== END 2022-02-14 09:27 | disposition home or self-care (01) ==
PROVIDERS: PCP Nurse Practitioner; Visit Provider Surgery
PROC: 0DJD8ZZ Inspection of Lower Intestinal Tract, Via Natural or Artificial Opening Endoscopic (ICD-10-PCS; CPT 45378; principal; 2022-02-14 07:30)
DX: Z12.11 Encounter for screening for malignant neoplasm of colon (principal); E11.42 Type 2 diabetes mellitus with diabetic polyneuropathy; K63.5 Polyp of colon
CPT/HCPCS: 45380; 88305; J2250

== ENCOUNTER 2022-03-02 08:53 | Emergency (ER) | payer OTHER, SELFPAY ==
[2022-03-02 09:03] VITALS: BP 143/89; PULSE 108; RESP 18; TEMP 36.9; O2SAT 97
--- NOTE | 2022-03-02 09:11 | ED.GENADUL_ITS ---
Discharge Plan Disposition Patient Disposition: HOME Condition: Improving Discharge Details Clinical Impression: Colitis Primary Care Provider: Darby Reno ED Provider: Govind Lyle Home Meds and New Rx's Prescriptions: New dicyclomine 20 mg tablet 20 mg PO TID Qty: 10 0RF Continued lorazepam 0.5 mg tablet 0.5 mg PO BID PRN PRN (Reason: anxiety) Qty: 60 0RF ferrous sulfate 325 mg (65 mg iron) tablet 325 mg PO DAILY Qty: 90 3RF Rx Instructions: FOR HISTORY OF LOW IRON turmeric 1 tab PO DAILY nystatin 100,000 unit/gram powder 1 applic topical TID PRN (Reason: Abdominal fold rash) Qty: 60 3RF pantoprazole [Protonix] 40 mg tablet,delayed release (DR/EC) 40 mg PO DAILY Qty: 90 3RF venlafaxine [Effexor XR] 150 mg capsule,extended release 24hr 150 mg PO QHS Qty: 90 3RF semaglutide 2 mg/dose (8 mg/3 mL) pen injector 2 mg subcut QWEEK Qty: 3 1RF melatonin 5 mg tablet 5 mg PO HS Qty: 90 3RF meclizine 12.5 mg tablet 12.5 mg PO TID PRN (Reason: dizziness) Qty: 20 0RF Myrbetriq 50 mg tablet extended release 24 hr 50 mg PO DAILY Qty: 90 3RF metformin 500 mg tablet extended release 24hr 1,000 mg PO DAILY Qty: 180 3RF cholecalciferol (vitamin D3) 5,000 unit tablet 5,000 unit PO DAILY Qty: 90 3RF omega-3 fatty acids-fish oil 300-1,000 mg capsule 2 cap PO HS Qty: 180 2RF (DME) lancing device with lancets [OneTouch Delica Plus Lanc Dev] Kit See Rx Instructions .ROUTE .MEDSUPPLY Qty: 200 3RF Rx Instructions: Test BID (DME) FreeStyle Sandeep 14 Day Karnack Misc See Rx Instructions .ROUTE .MEDSUPPLY Qty: 1 0RF Rx Instructions: Test BID, keep A1c under 7 (DME) FreeStyle Sandeep 14 Day Sensor Kit See Rx Instructions .ROUTE .MEDSUPPLY Qty: 1 12RF Rx Instructions: Test BID, keep A1c under 7 (DME) OneTouch Verio test strips Strip See Dose Instructions .ROUTE .MEDSUPPLY Qty: 200 3RF Dose Instruction: As directed Rx Instructions: Test BID (DME) lancets [OneTouch Delica Plus Lancet] 33 gauge misc 0 .ROUTE .MEDSUPPLY Qty: 200 3RF Rx Instructions: Test BID (DME) pen needle, diabetic [Advocate Pen Needle] 29 gauge x 1/2 needle See Rx Instructions .ROUTE .MEDSUPPLY Qty: 100 3RF Rx Instructions: As directed daily with Victoza diclofenac sodium 1 % gel 2 g topical QID Qty: 2 1RF Rx Instructions: apply to single elbow, wrist or hand; for hand includes palm/fingers/back of hand (DME) blood-glucose meter [OneTouch Verio Meter] Misc See Rx Instructions .ROUTE .MEDSUPPLY Qty: 1 0RF Rx Instructions: As directed diphenhydramine HCl 25 mg capsule 25 mg PO Q6H PRN (Reason: itching) Qty: 20 0RF triamcinolone acetonide 0.1 % cream 1 applic Topical BID PRN (Reason: hand rash) Qty: 15 0RF atorvastatin [Lipitor] 20 mg tablet 20 mg PO DAILY Qty: 90 3RF liothyronine 25 mcg tablet 25 mcg PO DAILY Qty: 90 3RF trazodone 50 mg tablet 100 mg PO HS PRN (Reason: insomnia) Qty: 180 3RF Rx Instructions: for mood and sleep bupropion HCl [Wellbutrin XL] 300 mg tablet extended release 24 hr 300 mg PO QHS Qty: 90 3RF lisinopril 20 mg tablet 20 mg PO DAILY Qty: 90 3RF pregabalin 150 mg capsule 150 mg PO TID Qty: 90 3RF acetaminophen [Acetaminophen Extra Strength] 500 MG tablet 1,000 mg PO Q8H PRN PRNQty: 120 0RF Vitamin B-12 50 mcg Tablet 50 mcg PO HS evening primrose oil 500 mg Capsule 500 mg PO HS Discharge Instructions Instructions: Colitis (ED) Additional Instructions: CT imaging reveals colitis. Clear liquid diet, advance to bananas, rice, applesauce, tea, toast. Plsu-wwy-exyjjoh medications as directed for symptomatic control. I have provided you a prescription of Brittney for abdominal cramping. As we discussed please watch for new or worsening symptoms and return to the ER for any concerns. If symptoms are to progress or evolve that antibiotics may be required. Otherwise please contact your primary care provider later today or tomorrow to discuss your ER visit and need for outpatient reevaluation. Medical Decision Making 47-year-old female presents to the ER for evaluation of lower abdominal pain and cramping that began around 1:00 this morning, she reports multiple episodes of diarrhea until 4 AM but the diarrhea has resolved. She denies black tarry stools or bright red blood in her stools but reports that her stool was darker than usual. She had a colonoscopy on the of this month and had a benign polyp. Denies recent antibiotic use, recent illness, bad food exposure or sick contacts. Plan is to obtain IV access, give IV fluid, obtain routine screening laboratory values and reassess. Laboratory values reveal leukocytosis, will pursue CT imaging of the abdomen and pelvis. Other laboratory values do not reveal any obvious emergent process. Upon reevaluation patient is resting comfortably using her cell phone. There is been no vomiting or diarrhea under my care. CT imaging consistent with colitis. Patient is afebrile, symptoms have been present for 10 hours, I do not believe that we need to reflexively treat this with antibiotics. We discussed the importance of adequate hydration, hdky-ltw-yfmqbrs medication for symptomatic control such as Imodium, and I will provide a prescription for Bentyl. We discussed that if she develops new or worsening symptoms or this is a prolonged course, she may require antibiotics. Standard discharge and return precautions were provided. Patient understands, is agreeable to this plan, and has no additional questions or concerns upon discharge. This documentation was generated using rVue dictation system, please disregard any oddities of phrase or misspellings. Medical Records Medical records reviewed: Yes I reviewed the patient's medical records. Imaging Data Radiologic Study: Attestation: I personally reviewed and interpreted this imaging study as follows: Imaging: CT Scan Radiologist's impression: Exam(s) CT ABDOMEN PELVIS W EXAM: CT ABDOMEN PELVIS W INDICATION: low abd pain, elevated wbc, diarrhea. COMPARISON: CT CT THORAX CTA from 12/24/2021 TECHNIQUE: FINDINGS: CT examination of the abdomen and pelvis was performed with intravenous infusion of 100 cc of Omnipaque 350. Images obtained through the lung bases are unremarkable. The liver is unremarkable in appearance. Gallbladder and bile ducts are CT normal. Pancreas appears normal. Spleen is unremarkable in appearance. Adrenals appear normal. The kidneys are unremarkable with no evidence of hydronephrosis, nephrolithiasis, or renal mass.. Urinary bladder unremarkable. Abdominal aorta is of normal diameter and no major vascular abnormality is seen. No abdominal wall hernia. No abdominal or pelvic adenopathy. Uterus appears to be atrophic or absent. Appendix is normal. No evidence of diverticulitis or bowel obstruction. There is possible wall thickening descending and proximal sigmoid colon, this is difficult to confirm due to the lack of bowel contents. No gross pericolonic fat stranding. IMPRESSION: Appearance of the descending and proximal sigmoid colon is suspicious for colitis, please correlate clinically.. Lab Data Lab results reviewed: Yes I reviewed the patient's lab results. Labs: Laboratory Tests Range/Units 03/02/22 03/02/22 09:15 09:15 WBC (4.4-10.8) 10^3/uL 13.42 H RBC (3.93-5.22) 10^6/uL 4.94 Hgb (11.2-15.7) g/dL 13.9 Hct (36.0-46.0) % 42.3 MCV (80-95) fL 86 MCH (27.0-33.0) pg 28.1 MCHC (32.0-36.0) % 32.9 RDW (11.7-14.6) % 13.5 Plt Count (130-400) 10^3/uL 292 MPV (8.0-11.0) fL 10.3 Immature Gran % 0.0 Neutrophils % 85.0 Lymphocytes % 12.0 Monocytes % 3.0 Eosinophils % 0.0 Basophils % 0.0 Nucleated RBC % (0.0-0.3) % 0.0 Absolute Neutrophils (1.2-6.7) 10^3/uL 11.41 H Absolute Lymphocytes (1.2-3.4) 10^3/uL 1.61 Absolute Monocytes (0.1-0.8) 10^3/uL 0.40 Absolute Eosinophils (0.0-0.7) 10^3/uL 0.00 Absolute Basophils (0.0-0.2) 10^3/uL 0.00 RBC Morphology Normal Sodium (136-145) mmol/L 137 Potassium (3.5-5.1) mmol/L 4.2 Chloride (98-107) mmol/L 100 Carbon Dioxide (21.0-32.0) mmol/L 27.9 Anion Gap (3-11) mmol/L 9.1 BUN (7-18) mg/dL 19 H Creatinine (0.55-1.02) mg/dL 1.0 Est GFR (CKD-EPI 2020) (mL/min/1.73m2) 69.49 Glucose (74-106) mg/dL 135 H Calcium (8.5-10.1) mg/dL 10.0 Total Bilirubin (0.2-1.0) mg/dL 0.5 AST (15-37) U/L 17 ALT (14-59) U/L 41 Alkaline Phosphatase (46-116) U/L 80 Total Protein (6.4-8.2) g/dL 8.3 H Albumin (3.4-5.0) g/dL 4.6 Lipase (73-393) U/L 97 HPI General Mode of arrival: ambulatory . Date/Time Provider Initiated Documentation: 03/02/22 08:53 . Limitations to Documentation: no limitations . Information obtained by: patient . History of Present Illness 47 year old F presents to the emergency department with the chief complaint of Abd pain, described as moderate, with intensity rated at 7. Quality is described as aching, and is localized to the abdomen. Patient reports no radiation. Patient started experiencing this hour(s) (8) and it has been constant. No relieving factors improve symptom(s), No exacerbating factors reported . Patient notes other (Diarrhea and constipation). Patient did receive the following treatments prior to arrival, none Related Data Home Medications Medication Instructions Recorded Confirmed acetaminophen 500 mg tablet 1,000 mg PO Q8H PRN PRN #120 tabs 02/14/17 03/02/22 (Acetaminophen Extra Strength) lorazepam 0.5 mg tablet 0.5 mg PO BID PRN PRN anxiety #60 04/16/18 03/02/22 tabs ferrous sulfate 325 mg (65 mg 325 mg PO DAILY #90 tab-caps 08/29/18 03/02/22 iron) tablet cyanocobalamin (vitamin B-12) 50 50 mcg PO HS 01/14/19 03/02/22 mcg tablet (Vitamin B-12) evening primrose oil 500 mg capsule 500 mg PO HS 01/14/19 03/02/22 cholecalciferol (vitamin D3) 125 5,000 unit PO DAILY #90 tab-caps 01/30/19 03/02/22 mcg (5,000 unit) tablet omega-3 fatty acids-fish oil 300 2 cap PO HS #180 tab-caps 02/07/19 03/02/22 mg-1,000 mg capsule melatonin 5 mg tablet 5 mg PO HS #90 tab-caps 02/19/19 03/02/22 lancing device with lancets kit #200 ea 11/14/19 03/02/22 (LifeOnKeyTouch Delica Plus Lancing Device kit) nystatin 100,000 unit/gram topical 1 applic topical TID PRN Abdominal 05/25/20 03/02/22 powder fold rash #60 grams turmeric 1 tab PO DAILY 05/25/20 03/02/22 flash glucose scanning reader #1 ea 06/15/20 03/02/22 (BidThatProjectStyle Sandeep 14 Day Karnack) flash glucose sensor (BidThatProjectStyle #1 ea 06/15/20 03/02/22 Sandeep 14 Day Sensor kit) blood sugar diagnostic (OneTouch #200 ea 01/27/21 03/02/22 Verio test strips) diclofenac sodium 1 % topical gel 2 g topical QID #2 grams 01/27/21 03/02/22 lancets 33 gauge (OneTouch Delica #200 ea 01/27/21 03/02/22 Plus Lancet) pen needle, diabetic 29 gauge x #100 ea 01/27/21 03/02/22 1/2 (Advocate Pen Needle) blood-glucose meter (OneTouch #1 ea 01/29/21 03/02/22 Verio Meter) diphenhydramine HCl 25 mg capsule 25 mg PO Q6H PRN itching #20 caps 02/05/21 03/02/22 triamcinolone acetonide 0.1 % 1 applic topical BID PRN hand rash 02/05/21 03/02/22 topical cream #15 grams atorvastatin 20 mg tablet (Lipitor) 20 mg PO DAILY #90 tab-caps 03/16/21 03/02/22 liothyronine 25 mcg tablet 25 mcg PO DAILY #90 tab-caps 03/16/21 03/02/22 trazodone 50 mg tablet 100 mg PO HS PRN insomnia #180 tabs 03/16/21 03/02/22 pantoprazole 40 mg tablet,delayed 40 mg PO DAILY #90 tabs 04/26/21 03/02/22 release (Protonix) venlafaxine 150 mg 150 mg PO QHS #90 caps 04/26/21 03/02/22 capsule,extended release 24 hr (Effexor XR) meclizine 12.5 mg tablet 12.5 mg PO TID PRN dizziness #20 05/10/21 03/02/22 tabs bupropion HCl 300 mg 24 hr tablet, 300 mg PO QHS #90 tabs 08/24/21 03/02/22 extended release (Wellbutrin XL) mirabegron 50 mg tablet,extended 50 mg PO DAILY #90 tabs 09/20/21 03/02/22 release 24 hr (Myrbetriq) lisinopril 20 mg tablet 20 mg PO DAILY #90 tabs 10/19/21 03/02/22 pregabalin 150 mg capsule 150 mg PO TID #90 caps 11/09/21 03/02/22 metformin 500 mg tablet,extended 1,000 mg PO DAILY #180 tabs 11/18/21 03/02/22 release 24hr semaglutide 2 mg/dose (8 mg/3 mL) 2 mg (0.75 mL) subcut QWEEK #3 mL 01/03/22 03/02/22 subcutaneous pen injector dicyclomine 20 mg tablet 20 mg PO TID #10 tabs 03/02/22 Previous Rx's Medication Instructions Recorded acetaminophen 500 mg tablet 1,000 mg PO Q8H PRN PRN #120 tabs 02/14/17 (Acetaminophen Extra Strength) lorazepam 0.5 mg tablet 0.5 mg PO BID PRN PRN anxiety #60 04/16/18 tabs ferrous sulfate 325 mg (65 mg 325 mg PO DAILY #90 tab-caps 08/29/18 iron) tablet cholecalciferol (vitamin D3) 125 5,000 unit PO DAILY #90 tab-caps 01/30/19 mcg (5,000 unit) tablet omega-3 fatty acids-fish oil 300 2 cap PO HS #180 tab-caps 02/07/19 mg-1,000 mg capsule melatonin 5 mg tablet 5 mg PO HS #90 tab-caps 02/19/19 lancing device with lancets kit #200 ea 11/14/19 (OneTouch Delica Plus Lancing Device kit) nystatin 100,000 unit/gram topical 1 applic topical TID PRN Abdominal 05/25/20 powder fold rash #60 grams flash glucose scanning reader #1 ea 06/15/20 (FreeStyle Sandeep 14 Day Karnack) flash glucose sensor (FreeStyle #1 ea 06/15/20 Sandeep 14 Day Sensor kit) blood sugar diagnostic (OneTouch #200 ea 01/27/21 Verio test strips) diclofenac sodium 1 % topical gel 2 g topical QID #2 grams 01/27/21 lancets 33 gauge (OneTouch Delica #200 ea 01/27/21 Plus Lancet) pen needle, diabetic 29 gauge x #100 ea 01/27/21 1/ (Advocate Pen Needle) blood-glucose meter (OneTouch #1 ea 01/29/21 Verio Meter) diphenhydramine HCl 25 mg capsule 25 mg PO Q6H PRN itching #20 caps 02/05/21 triamcinolone acetonide 0.1 % 1 applic topical BID PRN hand rash 02/05/21 topical cream #15 grams atorvastatin 20 mg tablet (Lipitor) 20 mg PO DAILY #90 tab-caps 03/16/21 liothyronine 25 mcg tablet 25 mcg PO DAILY #90 tab-caps 03/16/21 trazodone 50 mg tablet 100 mg PO HS PRN insomnia #180 tabs 03/16/21 pantoprazole 40 mg tablet,delayed 40 mg PO DAILY #90 tabs 04/26/21 release (Protonix) venlafaxine 150 mg 150 mg PO QHS #90 caps 04/26/21 capsule,extended release 24 hr (Effexor XR) meclizine 12.5 mg tablet 12.5 mg PO TID PRN dizziness #20 05/10/21 tabs bupropion HCl 300 mg 24 hr tablet, 300 mg PO QHS #90 tabs 08/24/21 extended release (Wellbutrin XL) mirabegron 50 mg tablet,extended 50 mg PO DAILY #90 tabs 09/20/21 release 24 hr (Myrbetriq) lisinopril 20 mg tablet 20 mg PO DAILY #90 tabs 10/19/21 pregabalin 150 mg capsule 150 mg PO TID #90 caps 11/09/21 metformin 500 mg tablet,extended 1,000 mg PO DAILY #180 tabs 11/18/21 release 24hr semaglutide 2 mg/dose (8 mg/3 mL) 2 mg (0.75 mL) subcut QWEEK #3 mL 01/03/22 subcutaneous pen injector dicyclomine 20 mg tablet 20 mg PO TID #10 tabs 03/02/22 Allergies Allergy/AdvReac Type Severity Reaction Status Date / Time No Known Drug Allergies Allergy Verified 03/02/22 09:09 General Stated Complaint: Nausea/Vomit/Diar TARIK: 3 Review of Systems Constitutional Constitutional: Denies fever(s) Cardiovascular Cardiovascular: Denies chest pain and Denies dyspnea Respiratory Respiratory: Denies cough and Denies dyspnea Gastrointestinal Gastrointestinal: Reports abdominal pain, Denies melena, Denies hematochezia, Reports diarrhea, Reports loose stools, Denies nausea and Denies vomiting Genitourinary Genitourinary: Denies abnormal vaginal bleeding, Denies dysuria and Denies vaginal discharge Musculoskeletal Musculoskeletal: Denies back pain Integumentary/Breasts Skin/Breast: Denies rash PFSH All Active Problems (Updated 03/02/22 @ 11:06 by MELISSA Zamudio) Colitis (Acute) Vaginal irritation (Acute) Family history of colon cancer (Acute) maternal uncle in his 60's Screening for colon cancer (Acute) Abnormal mammogram of left breast (Acute) Type 2 diabetes mellitus (Acute) Primary osteoarthritis, left ankle and foot (Acute) 10/20/21 Podiatry note Neuralgia and neuritis (Acute) 10/20/21 Podiatry note COVID (Acute ~08/26/21) Encounter for screening laboratory testing for COVID-19 virus (Acute) URI (upper respiratory infection) (Acute) Obesity (Chronic) Hot flashes (Acute) Hoarseness (Acute) Headache (Acute) Dizziness (Acute) Cervicalgia (Acute) Bilateral leg pain (Acute) Skin breakdown (Acute) Chronic neck and back pain (Acute) Large breasts (Acute) Medial epicondylitis, left elbow (Acute) Arthritis of carpometacarpal (CMC) joint of thumb (Chronic) left Globus sensation (Acute) Left elbow pain (Acute) Binge eating (Acute) Obesity (Chronic) Bilateral carpal tunnel syndrome (Acute) Pain in both upper extremities (Acute) Neck pain, bilateral posterior (Acute) Chronic erosive gastritis (Acute) Hiatal hernia with GERD (Acute) Sleep apnea, obstructive (Chronic) 04/12/20-sleep study. baseline significant nocturnal hypoxemia. the degree of hypoxemia is out of proportion to the degree of sleep apnea. Govind Conroy MD Paresthesia and pain of both upper extremities (Acute) Peripheral nervous system disease (Acute) per Dr. Dee, 11/13/18, RH H/O bilateral salpingectomy (Acute 03/05/15) Tobacco use disorder (Acute) Status post vaginal hysterectomy (Acute 03/05/15) Pain in female pelvis (Acute 11/24/14) Migraine (Acute) Menorrhagia (Acute 11/24/14) Elevated blood-pressure reading without diagnosis of hypertension (Acute 06/16/15) Dysmenorrhea (Acute 11/24/14) Dry eye (Acute) Refraction error (Acute) Fibromyalgia (Acute) Chronic pain (Chronic) Memory changes (Acute) Cephalgia (Acute) Chest pressure (Acute) Fatigue (Acute) Paresthesia (Acute) Vision changes (Acute) Skin lesion (Acute) Encounter for screening for other viral diseases (Acute) GERD (gastroesophageal reflux disease) (Chronic) Kidney stone (Acute) Diabetic neuropathy (Acute) Incontinence in female (Acute) Diabetes mellitus (Chronic) H/O bilateral salpingectomy (Acute 03/05/15) Status post vaginal hysterectomy (Acute 03/05/15) History of viral pericarditis (Acute 04/17/17) Per pt. states, 04/2018 felt like her chest was so heavy and couldn't take a breath, was admitted for observation, and was tx with rx and stated it resolved Anxiety (Acute 04/17/17) Adult BMI > 30 (Acute) Adjustment disorder with mixed anxiety and depressed mood (Acute 08/17/17) Medical History Vitamin D deficiency Surgical History Hysteroscopy (02/04/15) uterus,cervix,left fallopian tube and salpingectomy. Dr. Wong Pelvic floor reconstruction (~2009) [facility] [place]. Hardin S/P shoulder surgery left S/P tubal ligation Stenosis of tear duct Tonsillectomy & uvulectomy (~2009) Vaginal hysterectomy 2015 [facility] with Bilateral distal salpingectomy - Dr Smith Family History Mother Graves' disease Depression Father Alcoholism drug addicion Grandmother Personal history of malignant neoplasm skin Other Personal history of malignant neoplasm colon Social History Smoking/Tobacco Use Status: Former Tobacco Use Quit Date: 04/05/17 Smoking risk assessment performed?: Yes Alcohol Intake: current Alcohol Intake frequency: holidays/special occasions only Drug use: Never Substance use type: does not use Household members: children Number of Children: 4 Communication Needs: Corrective Lenses current occupation: Former [employer]; 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 [email or web address] Current gender identity: female Do you feel safe at home: Yes Do you feel safe in your relationship?: Yes Additional Social history: not in relationship Exam Const General: cooperative, healthy appearing, comfortable and no acute distress Orientation: alert and awake [facility] Head: normal to inspection, normocephalic and atraumatic Face and sinus: normal facial exam Mouth: moist mucous membranes Eyes General: appearance normal, both eyes and all related structures Conjunctivae: conjunctivae normal Neck Neck: normal visual inspection, full ROM, trachea midline and supple Resp Effort & Inspection: normal respiratory effort and able to speak in complete sentences Auscultation: clear to auscultation bilaterally Cardio Rate: regular rate Rhythm: regular rhythm GI Inspection: obesity Palpation: soft, not firm, no guarding, no pulsatile masses and tender (Diffuse mild lower) with no rebound tenderness Auscultation: normal bowel sounds Back/Spine/Pelvis Back: No back tenderness Skin General skin exam: no rashes or lesions noted Neuro General: patient alert, patient awake, moves all extremities and no focal motor deficits Sensory Exam: no sensory deficits noted Psych Appearance: grossly normal Mental Status: mental status grossly normal Course Vital Signs Vital signs: Vital Signs Temperature 36.9 C 03/02/22 09:03 Pulse 108 H 03/02/22 09:03 Respiratory Rate 18 03/02/22 09:03 Blood Pressure 143/89 H 03/02/22 09:03 Pulse Oximetry 97 03/02/22 09:03 Temperature 36.9 C 03/02/22 09:03 Temperature Source Temporal Artery Scan 03/02/22 09:03 Pulse 108 H 03/02/22 09:03 Respiratory Rate 18 03/02/22 09:03 Respiratory Effort Non-Labored 03/02/22 09:09 Blood Pressure 143/89 H 03/02/22 09:03 Blood Pressure Position Supine 03/02/22 09:03 Pulse Oximetry 97 03/02/22 09:03 Oxygen Delivery Method Room Air 03/02/22 09:03 Oxygen Flow Rate 0 03/02/22 09:03 Pain Level 6 03/02/22 09:03
[2022-03-02] MEDS: Normal Saline 1,000 ML 1000 ML IV (09:22)
[2022-03-02 09:27] LABS: HCT 42.3 % (36.0-46.0); HGB 13.9 g/dL (11.2-15.7); MCH 28.1 pg (27.0-33.0); MCHC 32.9 % (32.0-36.0); MCV 86 fL (80-95); MPV 10.3 fL (8.0-11.0); Platelet Count 292 10^3/uL (130-400); RBC 4.94 10^6/uL (3.93-5.22); RDW 13.5 % (11.7-14.6); RDW-SD 41.4 fL; WBC 13.42 10^3/uL (4.4-10.8)
[2022-03-02 09:38] LABS: Absolute Lymphocyte Count 1.61 10^3/uL (1.2-3.4); Absolute Neutrophil Count 11.41 10^3/uL (1.2-6.7); Diff Comment Manual Differential; RBC Morphology Normal
[2022-03-02 09:40] LABS: ALT 41 U/L (14-59); AST 17 U/L (15-37); Albumin 4.6 g/dL (3.4-5.0); Alkaline Phosphatase 80 U/L (46-116); Anion Gap 9.1 mmol/L (3-11); BUN 19 mg/dL (7-18); Bilirubin, Total 0.5 mg/dL (0.2-1.0); CO2 27.9 mmol/L (21.0-32.0); Chloride 100 mmol/L (98-107); Estimated GFR 69.49 (mL/min/1.73m2); Glucose 135 mg/dL (74-106); Lipase 97 U/L (73-393); Potassium 4.2 mmol/L (3.5-5.1); Sodium 137 mmol/L (136-145); Total Protein 8.3 g/dL (6.4-8.2)
--- NOTE | 2022-03-02 09:45 | DI.CT_ITS ---
Exam(s) CT ABDOMEN PELVIS W EXAM: CT ABDOMEN PELVIS W INDICATION: low abd pain, elevated wbc, diarrhea. COMPARISON: CT CT THORAX CTA from 12/24/2021 TECHNIQUE: FINDINGS: CT examination of the abdomen and pelvis was performed with intravenous infusion of 100 cc of Omnipaq ue 350. Images obtained through the lung bases are unremarkable. The liver is unremarkable in appearance. Gallbladder and bile ducts are CT normal. Pancreas appears normal. Spleen is unremarkable in appearance. Adrenals appear normal. The kidneys are unremarkable with no evidence of hydronephrosis, nephrolithiasis, or renal mass.. Ur inary bladder unremarkable. Abdominal aorta is of normal diameter and no major vascular abnormality is seen. No abdominal wall hernia. No abdominal or pelvic adenopathy. Uterus appears to be atrophic or absent. Appendix is normal. No evidence of diverticulitis or bowel obstruction. There is possible wall thickening descending and proximal sigmoid colon, this is difficult to confirm due to the lack of bowel contents. No gross pericolonic fat stranding. IMPRESSION: Appearance of the descending and proximal sigmoid colon is suspicious for colitis, please correlate c linically.. RADIATION DOSE DELIVERED: 1,407.48mGy.cm Total DLP 1,407.48mGy.cm Total DLP !Error CTDIvol RADIATION OPTIMIZATION: All CT scans at this facility use at least one of these dose optimization te chniques: automated exposure control; mA and/or kV adjustment per patient size (includes targeted exa ms where dose is matched to clinical indication); or iterative reconstruction.
[2022-03-02 10:03] VITALS: BP 145/89; PULSE 106; RESP 18; TEMP 37; O2SAT 97
[2022-03-02] MEDS: Omnipaque 350 MG/ML 100 ML BTL IJ (10:26)
[2022-03-02 11:18] VITALS: BP 137/86; PULSE 92; RESP 20; TEMP 36.9; O2SAT 96
== END 2022-03-02 11:30 | disposition home or self-care (01) ==
PROVIDERS: Emergency Provider Physician Assistant; PCP Nurse Practitioner
DX: K52.9 Noninfective gastroenteritis and colitis, unspecified (principal); D72.829 Elevated white blood cell count, unspecified; Z87.891 Personal history of nicotine dependence
CPT/HCPCS: 36415; 80053; 83690; 96360; 99285; 74177; 85025; 99284; J3490

== ENCOUNTER 2022-03-24 13:53 | Outpatient (CLI) | payer OTHER, SELFPAY ==
[2022-03-24 13:21] LABS: Abs Immature Grans 0.01 10^3/uL (0.0-0.06); Absolute Basophil Count 0.05 10^3/uL (0.0-0.2); Absolute Eosinophil Count 0.05 10^3/uL (0.0-0.7); Absolute Lymphocyte Count 3.02 10^3/uL (1.2-3.4); Absolute Monocyte Count 0.69 10^3/uL (0.1-0.8); Basophils % 0.6; Eosinophils % 0.6; HCT 39.9 % (36.0-46.0); HGB 13.1 g/dL (11.2-15.7); Immature Grans % 0.1; Lymphocytes % 38.1; MCH 28.4 pg (27.0-33.0); MCHC 32.8 % (32.0-36.0); MCV 87 fL (80-95); MPV 10.3 fL (8.0-11.0); Monocytes % 8.7; Neutrophils % 51.9; Platelet Count 272 10^3/uL (130-400); RBC 4.61 10^6/uL (3.93-5.22); RDW 13.4 % (11.7-14.6); RDW-SD 42.6 fL; WBC 7.92 10^3/uL (4.4-10.8)
[2022-03-24 13:45] LABS: C-Reactive Protein 0.07 mg/dL (0.0-0.3)
[2022-03-25 14:53] LABS: ANCA Interpretation Negative (Negative)
[2022-03-25 15:13] LABS: ANA Interpretation Negative (Negative)
== END 2022-03-24 13:54 | disposition home or self-care (01) ==
LOC: LBO 13:54
PROVIDERS: PCP Nurse Practitioner; Visit Provider Surgery
DX: K52.9 Noninfective gastroenteritis and colitis, unspecified (principal); N95.1 Menopausal and female climacteric states; R19.7 Diarrhea, unspecified; Z80.0 Family history of malignant neoplasm of digestive organs; Z83.79 Family history of other diseases of the digestive system
CPT/HCPCS: 36415; 86255; 85025; 86038; 86140

== ENCOUNTER 2022-06-15 02:29 | Outpatient (CLI) | payer OTHER, SELFPAY ==
--- NOTE | 2022-06-15 | DI.MAMMO_ITS ---
Exam(s) MG MAMMO DIAGNOSTIC UNI EXAM: MG MAMMO DIAGNOSTIC UNI CLINICAL HISTORY: 6 MO F/U, F/U ABNL/INCONCLUSIVE MAMMO, OVOID DENSITY,LT BREAST CYST,R92.8 TECHNIQUE: Left cc and MLO mammogram images were performed according to the usual protocol [facility] ng computer analysis with CAD system, tomosynthesis and C-view imaging. COMPARISON: 22 November 2021 and exams back to 2014. FINDINGS: The left breast is composed of scattered fibroglandular densities, Breast Density category B. No suspicious masses or suspicious microcalcifications are seen. There has been no change in size or appearance of the previously noted ovoid nodule in the central tissue. No skin thickening or abnormal axillary lymph nodes are seen. IMPRESSION: BI-RADS Cat 2 - Benign Findings Bilateral screening mammography is recommended, due in November of 2022.. Breast Density - Category B, scattered fibroglandular densities. A negative radiographic report should not delay biopsy if a dominant or clinically suspicious mass is present. Up to ten percent of cancers are not identified on mammography. A negative report may reinforce clinical impression. Adenosis and dense breasts may obscure an underlying neoplasm. False positive reports average 6 to 10%. Patient will receive a letter notifying them of these results.
== END 2022-06-15 02:49 ==
PROVIDERS: PCP Nurse Practitioner; Visit Provider Nurse Practitioner
DX: R92.8 Other abnormal and inconclusive findings on diagnostic imaging of breast (principal)
CPT/HCPCS: 77061; 77065; G0279

== ENCOUNTER 2022-09-23 13:40 | Outpatient (CLI) | payer OTHER, SELFPAY ==
[2022-09-25 10:28] LABS: HIV-1/2 Ag & Ab Screen Negative (Negative)
[2022-09-26 09:54] LABS: Hepatitis C Ab w Rflx HCV PCR Negative (Negative)
== END 2022-09-23 13:41 | disposition home or self-care (01) ==
LOC: LBO 13:42
PROVIDERS: PCP Nurse Practitioner; Visit Provider Nurse Practitioner
DX: Z11.59 Encounter for screening for other viral diseases (principal)
CPT/HCPCS: 36415; 86803; 87389

== ENCOUNTER 2022-12-07 01:18 | Outpatient (CLI) | payer OTHER, SELFPAY ==
--- NOTE | 2022-12-07 06:45 | DI.MAMMO_ITS ---
Exam(s) MAMMO SCREENING EXAM: MAMMO SCREENING CLINICAL HISTORY: screening due in November 2022, Z12.39 TECHNIQUE: Mammograms were interpreted according to the usual protocol including computer analysis w Dialective CAD system, tomosynthesis and C-view imaging. COMPARISON: 2014 through 2022 FINDINGS: The breasts are composed of scattered fibroglandular densities, Breast Density category B. No suspicious masses or suspicious microcalcifications are seen. No skin thickening or abnormal axillary lymph nodes are seen. There has been no significant change from prior exams. IMPRESSION: BI-RADS Category 1, Negative mammogram Yearly screening mammography is recommended. Breast Density - Category B, scattered fibroglandular densities. A negative radiographic report should not delay biopsy if a dominant or clinically suspicious mass is present. Up to ten percent of cancers are not identified on mammography. A negative report may reinforce clinical impression. Adenosis and dense breasts may obscure an underlying neoplasm. False positive reports average 6 to 10%. Patient will receive a letter notifying them of these results.
== END 2022-12-07 01:38 ==
LOC: DI 01:18
PROVIDERS: PCP Nurse Practitioner; Visit Provider Nurse Practitioner
DX: Z12.31 Encounter for screening mammogram for malignant neoplasm of breast (principal)
CPT/HCPCS: 77063; 77067

== ENCOUNTER 2023-01-30 02:36 | Outpatient (CLI) | payer OTHER, SELFPAY ==
[2023-01-30 13:30] LABS: Hemoglobin A1C 5.7 % (<5.7)
[2023-01-30 13:42] LABS: ALT 35 U/L (14-59); AST 16 U/L (15-37); Albumin 3.8 g/dL (3.4-5.0); Alkaline Phosphatase 82 U/L (46-116); Anion Gap 5.4 mmol/L (3-11); BUN 14 mg/dL (7-18); Bilirubin, Total 0.3 mg/dL (0.2-1.0); CO2 29.6 mmol/L (21.0-32.0); CREATININE 0.8 mg/dL (0.55-1.02); Calcium 9.1 mg/dL (8.5-10.1); Calculated LDL 66 mg/dL (<100); Chloride 104 mmol/L (98-107); Cholesterol 157 mg/dL (<200); Estimated GFR 90.27 (mL/min/1.73m2); Glucose 98 mg/dL (74-106); HDL Cholesterol 49 mg/dL (40-60); Potassium 3.9 mmol/L (3.5-5.1); Sodium 139 mmol/L (136-145); TSH (W/Ref FT4) 0.42 uIU/mL (0.36-3.74); Triglyceride 213 mg/dL (<150)
== END 2023-01-30 02:37 | disposition home or self-care (01) ==
LOC: LBO 02:37
PROVIDERS: PCP Nurse Practitioner; Visit Provider Nurse Practitioner
DX: E03.9 Hypothyroidism, unspecified (principal); E11.9 Type 2 diabetes mellitus without complications; E78.5 Hyperlipidemia, unspecified
CPT/HCPCS: 36415; 80053; 80061; 83036; 84443

== ENCOUNTER 2023-08-09 14:42 | Outpatient (CLI) | payer OTHER, SELFPAY ==
[2023-08-09 12:21] LABS: Abs Immature Grans 0.05 10^3/uL (0.0-0.06); Absolute Basophil Count 0.05 10^3/uL (0.0-0.2); Absolute Eosinophil Count 0.09 10^3/uL (0.0-0.7); Absolute Lymphocyte Count 3.23 10^3/uL (1.2-3.4); Absolute Monocyte Count 0.75 10^3/uL (0.1-0.8); Absolute Neutrophil Count 2.82 10^3/uL (1.2-6.7); Basophils % 0.7; Eosinophils % 1.3; HCT 35.1 % (36.0-46.0); HGB 11.3 g/dL (11.2-15.7); Immature Grans % 0.7; Lymphocytes % 46.2; MCH 27.8 pg (27.0-33.0); MCHC 32.2 % (32.0-36.0); MCV 86 fL (80-95); Monocytes % 10.7; Neutrophils % 40.4; Platelet Count 284 10^3/uL (130-400); RBC 4.07 10^6/uL (3.93-5.22); RDW 13.4 % (11.7-14.6); RDW-SD 40.9 fL; WBC 6.99 10^3/uL (4.4-10.8)
[2023-08-09 13:00] LABS: ALT 33 U/L (14-59); AST 12 U/L (15-37); Albumin 3.7 g/dL (3.4-5.0); Alkaline Phosphatase 106 U/L (46-116); Anion Gap 9.6 mmol/L (3-11); BUN 15 mg/dL (7-18); Bilirubin, Total 0.1 mg/dL (0.2-1.0); CO2 27.4 mmol/L (21.0-32.0); CREATININE 0.9 mg/dL (0.55-1.02); Calcium 9.3 mg/dL (8.5-10.1); Chloride 104 mmol/L (98-107); Estimated GFR 78.37 (mL/min/1.73m2); Glucose 192 mg/dL (74-106); Potassium 3.8 mmol/L (3.5-5.1); Sodium 141 mmol/L (136-145)
== END 2023-08-09 14:43 | disposition home or self-care (01) ==
LOC: LBO 14:44
PROVIDERS: PCP Nurse Practitioner; Visit Provider Obstetrics & Gynecology
DX: N95.1 Menopausal and female climacteric states (principal); E11.9 Type 2 diabetes mellitus without complications
CPT/HCPCS: 36415; 80053; 85025

== ENCOUNTER 2023-11-15 01:43 | Outpatient (CLI) | payer OTHER, SELFPAY ==
[2023-11-15 11:01] LABS: ALT 36 U/L (14-59); AST 12 U/L (15-37); Albumin 3.8 g/dL (3.4-5.0); Alkaline Phosphatase 111 U/L (46-116); Anion Gap 11.8 mmol/L (3-11); BUN 15 mg/dL (7-18); Bilirubin, Total 0.2 mg/dL (0.2-1.0); CO2 25.2 mmol/L (21.0-32.0); CREATININE 0.9 mg/dL (0.55-1.02); Calcium 9.6 mg/dL (8.5-10.1); Chloride 102 mmol/L (98-107); Estimated GFR 78.37 (mL/min/1.73m2); Glucose 249 mg/dL (74-106); Potassium 3.9 mmol/L (3.5-5.1); Sodium 139 mmol/L (136-145); Total Protein 7.3 g/dL (6.4-8.2)
== END 2023-11-15 01:44 | disposition home or self-care (01) ==
LOC: LBO 01:44
PROVIDERS: PCP Nurse Practitioner; Visit Provider Obstetrics & Gynecology
DX: N95.1 Menopausal and female climacteric states (principal)
CPT/HCPCS: 36415; 80053

== ENCOUNTER 2024-02-05 07:01 | Emergency (ER) | payer OTHER, SELFPAY ==
--- NOTE | 2024-02-05 07:00 | DI.RAD_ITS ---
Exam(s) XR FOREARM LT EXAM: XR FOREARM LT CLINICAL HISTORY: pain. TECHNIQUE: 2D digital imaging was performed. COMPARISON: No exams were available for comparison FINDINGS: Two views. No evidence of fracture or dislocation of the forearm bones. No evidence of elbow joint effusion or swelling of the olecranon bursa. No radiopaque foreign bodies. Radial head and neck appear intact a nd there are no significant osseous findings more distally in the radius and ulna. No radiopaque foreign body evident IMPRESSION: No acute osseous findings in the forearm bones. DATA REPOSITORY: RADIATION DOSE DELIVERED:
--- NOTE | 2024-02-05 07:00 | DI.RAD_ITS ---
Exam(s) XR WRIST LT COMPLETE EXAM: XR WRIST LT COMPLETE CLINICAL HISTORY: pain. TECHNIQUE: 2D digital imaging was performed. COMPARISON: No exams were available for comparison FINDINGS: 3 views No evidence of acute fracture or dislocation nor significant ulnar variance. Bone density is age-mayra ropriate. Moderate degenerative changes are noted in the 1st carpometacarpal joint. Other articulat ions appear unremarkable. IMPRESSION: No acute osseous findings in the wrist. There is degenerative change at the 1st carpometacarpal join t open (moderate) DATA REPOSITORY: RADIATION DOSE DELIVERED:
[2024-02-05 07:04] VITALS: BP 161/110; PULSE 97; RESP 16; TEMP 36.5; O2SAT 98
--- NOTE | 2024-02-05 07:10 | W.ED.GENAD ---
Discharge Plan Disposition Patient Disposition: Home Condition: Stable Discharge Details Clinical Impression: Left wrist sprain Primary Care Provider: Darby Reno ED Provider: Merlin Dorman Home Meds and New Rx's Prescriptions: Continued lorazepam 0.5 mg tablet 0.5 mg PO BID PRN PRN (Reason: anxiety) Qty: 60 0RF ferrous sulfate 325 mg (65 mg iron) tablet 325 mg PO DAILY Qty: 90 3RF Rx Instructions: FOR HISTORY OF LOW IRON turmeric 1 tab PO DAILY melatonin 5 mg tablet 10 mg PO HS nystatin 100,000 unit/gram powder 1 applic topical TID PRN (Reason: Abdominal fold rash) Qty: 60 3RF trazodone 50 mg tablet 100 mg PO HS PRN (Reason: insomnia) Qty: 180 3RF Rx Instructions: for mood and sleep venlafaxine [Effexor XR] 150 mg capsule,extended release 24hr 150 mg PO QHS Qty: 90 3RF lisinopril 20 mg tablet 20 mg PO DAILY Qty: 90 3RF mirabegron [Myrbetriq] 50 mg tablet extended release 24 hr 50 mg PO DAILY Qty: 90 3RF desipramine 25 mg tablet 50 mg PO QHS Qty: 180 3RF liothyronine 25 mcg tablet 25 mcg PO DAILY Qty: 90 3RF pregabalin 200 mg capsule 200 mg PO TID Qty: 90 3RF cholecalciferol (vitamin D3) 5,000 unit tablet 5,000 unit PO DAILY Qty: 90 3RF omega-3 fatty acids-fish oil 300-1,000 mg capsule 2 cap PO HS Qty: 180 2RF (DME) lancing device with lancets [OneTouch Delica Plus Lanc Dev] Kit See Rx Instructions .ROUTE .MEDSUPPLY Qty: 200 3RF Rx Instructions: Test BID (DME) FreeStyle Sandeep 14 Day [place] Misc See Rx Instructions .ROUTE .MEDSUPPLY Qty: 1 0RF Rx Instructions: Test BID, keep A1c under 7 (DME) FreeStyle Sandeep 14 Day Sensor Kit See Rx Instructions .ROUTE .MEDSUPPLY Qty: 1 12RF Rx Instructions: Test BID, keep A1c under 7 (DME) OneTouch Verio test strips Strip See Dose Instructions .ROUTE .MEDSUPPLY Qty: 200 3RF Dose Instruction: As directed Rx Instructions: Test BID (DME) lancets [OneTouch Delica Plus Lancet] 33 gauge misc 0 .ROUTE .MEDSUPPLY Qty: 200 3RF Rx Instructions: Test BID (DME) pen needle, diabetic [Advocate Pen Needle] 29 gauge x 1/2 needle See Rx Instructions .ROUTE .MEDSUPPLY Qty: 100 3RF Rx Instructions: As directed daily with Victoza (DME) blood-glucose meter [OneTouch Verio Meter] Misc See Rx Instructions .ROUTE .MEDSUPPLY Qty: 1 0RF Rx Instructions: As directed azelaic acid 15 % gel 1 applic topical BID Patient Comments: 02/13/23 encounter pantoprazole [Protonix] 40 mg tablet,delayed release (DR/EC) 40 mg PO DAILY Qty: 90 3RF atorvastatin [Lipitor] 20 mg tablet 20 mg PO DAILY Qty: 90 3RF Veozah 45 mg tablet 45 mg PO DAILY Qty: 90 3RF bupropion HCl [Wellbutrin XL] 300 mg tablet extended release 24 hr 300 mg PO QHS Qty: 90 3RF metformin 500 mg tablet extended release 24hr 1,000 mg PO DAILY Qty: 180 3RF acetaminophen [Acetaminophen Extra Strength] 500 MG tablet 1,000 mg PO Q8H PRN PRNQty: 120 0RF Vitamin B-12 50 mcg Tablet 50 mcg PO HS evening primrose oil 500 mg Capsule 500 mg PO HS Discharge Instructions Additional Instructions: Your x-rays on my read do not show any concerning findings, if the radiologist sees anything of concern I will reach out to you If pain is not improving in a week follow-up with your primary care provider You can take 600 mg of ibuprofen and 1000 mg of acetaminophen every 6 hours as needed You may apply ice to the wrist and also try to keep it elevated is much as possible can help Return to the ED if you feel more ill or have severe worsening pain. HPI General Mode of arrival: ambulatory. Date/Time Provider Initiated Documentation: 02/05/24 07:05. Limitations to Documentation: no limitations. Information obtained by: patient. History of Present Illness 49 year old F presents to the emergency department with the chief complaint of left wrist pain, Quality is described as aching, Patient started experiencing this day(s) (1) and it has been constant. Rest improves symptom(s), Movement worsens symptoms . Patient notes no other symptoms.. Related Data Home Medications ?Medication ?Instructions ?Recorded ?Confirmed acetaminophen 500 mg tablet 1,000 mg (2 x 500 mg) PO Q8H PRN 02/14/17 02/05/24 (Acetaminophen Extra Strength) PRN #120 tabs lorazepam 0.5 mg tablet 0.5 mg PO BID PRN PRN anxiety #60 04/16/18 02/05/24 tabs ferrous sulfate 325 mg (65 mg 325 mg PO DAILY #90 tab-caps 08/29/18 02/05/24 iron) tablet cyanocobalamin (vitamin B-12) 50 50 mcg PO HS 01/14/19 02/05/24 mcg tablet (Vitamin B-12) evening primrose oil 500 mg capsule 500 mg PO HS 01/14/19 02/05/24 cholecalciferol (vitamin D3) 125 5,000 unit PO DAILY #90 tab-caps 01/30/19 02/05/24 mcg (5,000 unit) tablet omega-3 fatty acids-fish oil 300 2 cap (2 x 300-1,000 mg) PO HS 02/07/19 02/05/24 mg-1,000 mg capsule #180 tab-caps lancing device with lancets kit #200 ea 11/14/19 02/05/24 (3[employer]Touch Delica Plus Lancing Device kit) turmeric 1 tab PO DAILY 05/25/20 02/05/24 flash glucose scanning reader #1 ea 06/15/20 02/05/24 (FreeStyle Sandeep 14 Day [place]) flash glucose sensor (FreeStyle #1 ea 06/15/20 02/05/24 Sandeep 14 Day Sensor kit) blood sugar diagnostic (OneTouch #200 ea 01/27/21 02/05/24 Verio test strips) lancets 33 gauge (OneTouch Delica #200 ea 01/27/21 02/05/24 Plus Lancet) pen needle, diabetic 29 gauge x #100 ea 01/27/21 02/05/24 1/2 (Advocate Pen Needle) blood-glucose meter (OneTouch #1 ea 01/29/21 02/05/24 Verio Meter) melatonin 5 mg tablet 10 mg PO HS 07/04/22 02/05/24 nystatin 100,000 unit/gram topical 1 applic topical TID PRN Abdominal 07/04/22 02/05/24 powder fold rash #60 grams azelaic acid 15 % topical gel 1 applic topical BID 02/23/23 02/05/24 pantoprazole 40 mg tablet,delayed 40 mg PO DAILY #90 tabs 03/06/23 02/05/24 release (Protonix) trazodone 50 mg tablet 100 mg (2 x 50 mg) PO HS PRN 05/08/23 02/05/24 insomnia #180 tabs venlafaxine 150 mg 150 mg PO QHS #90 caps 05/08/23 02/05/24 capsule,extended release 24 hr (Effexor XR) atorvastatin 20 mg tablet (Lipitor) 20 mg PO DAILY #90 tab-caps 06/06/23 02/05/24 fezolinetant 45 mg tablet (Veozah) 45 mg PO DAILY #90 tabs 08/09/23 02/05/24 bupropion HCl 300 mg 24 hr tablet, 300 mg PO QHS #90 tabs 08/19/23 02/05/24 extended release (Wellbutrin XL) desipramine 25 mg tablet 50 mg (2 x 25 mg) PO QHS #180 tabs 08/23/23 02/05/24 lisinopril 20 mg tablet 20 mg PO DAILY #90 tabs 08/23/23 02/05/24 mirabegron 50 mg tablet,extended 50 mg PO DAILY #90 tabs 08/23/23 02/05/24 release 24 hr (Myrbetriq) metformin 500 mg tablet,extended 1,000 mg (2 x 500 mg) PO DAILY 11/10/23 02/05/24 release 24hr (osmotic) #180 tabs liothyronine 25 mcg tablet 25 mcg PO DAILY #90 tab-caps 11/20/23 02/05/24 pregabalin 200 mg capsule 200 mg PO TID #90 caps 11/20/23 02/05/24 Previous Rx's ?Medication ?Instructions ?Recorded acetaminophen 500 mg tablet 1,000 mg (2 x 500 mg) PO Q8H PRN 02/14/17 (Acetaminophen Extra Strength) PRN #120 tabs lorazepam 0.5 mg tablet 0.5 mg PO BID PRN PRN anxiety #60 04/16/18 tabs ferrous sulfate 325 mg (65 mg 325 mg PO DAILY #90 tab-caps 08/29/18 iron) tablet cholecalciferol (vitamin D3) 125 5,000 unit PO DAILY #90 tab-caps 01/30/19 mcg (5,000 unit) tablet omega-3 fatty acids-fish oil 300 2 cap (2 x 300-1,000 mg) PO HS 02/07/19 mg-1,000 mg capsule #180 tab-caps lancing device with lancets kit #200 ea 11/14/19 (3[employer]Touch Delica Plus Lancing Device kit) flash glucose scanning reader #1 ea 06/15/20 (FreeStyle Sandeep 14 Day [place]) flash glucose sensor (FreeStyle #1 ea 06/15/20 Sandeep 14 Day Sensor kit) blood sugar diagnostic (3[employer]Touch #200 ea 01/27/21 Verio test strips) lancets 33 gauge ([employer] Delica #200 ea 01/27/21 Plus Lancet) pen needle, diabetic 29 gauge x #100 ea 01/27/21 1/2 (Advocate Pen Needle) blood-glucose meter ([employer]Touch #1 ea 01/29/21 Verio Meter) nystatin 100,000 unit/gram topical 1 applic topical TID PRN Abdominal 07/04/22 powder fold rash #60 grams pantoprazole 40 mg tablet,delayed 40 mg PO DAILY #90 tabs 03/06/23 release (Protonix) trazodone 50 mg tablet 100 mg (2 x 50 mg) PO HS PRN 05/08/23 insomnia #180 tabs venlafaxine 150 mg 150 mg PO QHS #90 caps 05/08/23 capsule,extended release 24 hr (Effexor XR) atorvastatin 20 mg tablet (Lipitor) 20 mg PO DAILY #90 tab-caps 06/06/23 fezolinetant 45 mg tablet (Veozah) 45 mg PO DAILY #90 tabs 08/09/23 bupropion HCl 300 mg 24 hr tablet, 300 mg PO QHS #90 tabs 08/19/23 extended release (Wellbutrin XL) desipramine 25 mg tablet 50 mg (2 x 25 mg) PO QHS #180 tabs 08/23/23 lisinopril 20 mg tablet 20 mg PO DAILY #90 tabs 08/23/23 mirabegron 50 mg tablet,extended 50 mg PO DAILY #90 tabs 08/23/23 release 24 hr (Myrbetriq) metformin 500 mg tablet,extended 1,000 mg (2 x 500 mg) PO DAILY 11/10/23 release 24hr (osmotic) #180 tabs liothyronine 25 mcg tablet 25 mcg PO DAILY #90 tab-caps 11/20/23 pregabalin 200 mg capsule 200 mg PO TID #90 caps 11/20/23 Allergies Allergy/AdvReac Type Severity Reaction Status Date / Time No Known Drug Allergies Allergy na Verified 02/05/24 07:14 General Stated Complaint: Orthopedic TARIK: 4 Review of Systems All systems reviewed & are unremarkable except as noted in HPI and below Musculoskeletal Musculoskeletal: Reports arthralgias Exam Const General: no acute distress Orientation: alert HENMT Head: normal to inspection Ears: external ears normal General nose exam: external nose normal Mouth: moist mucous membranes Eyes General: appearance normal, both eyes and all related structures Neck Neck: normal visual inspection Resp Effort & Inspection: normal respiratory effort and able to speak in complete sentences Cardio Rate: regular rate Neuro General: patient alert Extrem General: normal to inspection and normal gait Psych Mental Status: mental status grossly normal Course Vital Signs Vital signs: Vital Signs Temperature 36.5 C 02/05/24 07:04 Pulse 97 H 02/05/24 07:04 Respiratory Rate 16 02/05/24 07:04 Blood Pressure 161/110 H 02/05/24 07:04 Pulse Oximetry 98 02/05/24 07:04 Temperature 36.5 C 02/05/24 07:04 Temperature Source Tympanic 02/05/24 07:04 Pulse 97 H 02/05/24 07:04 Respiratory Rate 16 02/05/24 07:04 Blood Pressure 161/110 H 02/05/24 07:04 Pulse Oximetry 98 02/05/24 07:04 Oxygen Delivery Method Room Air 02/05/24 07:04 Oxygen Flow Rate 0 02/05/24 07:04 Pain Level 7 02/05/24 07:04 Medical Decision Making 49-year-old female comes in with left wrist pain. She says it started yesterday after she was helping an elderly man into a car and felt a pop in her left medial wrist. Denies falls or other injuries. She has no visible or palpable deformities of the wrist. There is no significant swelling. She has limited range of motion due to pain. No erythema or warmth. Suspect sprain will obtain x-rays to evaluate for possible fracture. She also has some tenderness of the mid forearm with no palpable deformity so will obtain forearm xray as well. X-rays on my read show no acute findings. Patient stable. Turnaround time for V rad is over an hour or so do not feel she needs to wait for these results, I will reach out to her if you are sees anything of concern. Will provider her with a very splint to wear and advised follow-up with your PCP if not improving in a week Differential Diagnosis Differential Diagnosis: Sprain, fracture, contusion Imaging Data Radiologic Study: Attestation: I personally reviewed and interpreted this imaging study as follows: Imaging: X-Ray My impression: No acute findings on wrist or forearm x-ray Quality:SDOH Health Related Social Needs: No Data to Display PFSH All Active Problems (Updated 02/05/24 @ 07:38 by Merlin Dorman MD) Left wrist sprain (Acute) Attention deficit hyperactivity disorder (ADHD) evaluation (Acute) Perimenopausal vasomotor symptoms (Acute) 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 (Acute ~07/2022) 07/08/22 Karen MCCARTHY Bilateral leg paresthesia (Acute) Yumiko Fitzpatrick DPM Other hereditary and idiopathic neuropathies (Acute ~07/2022) 07/08/22 Karen MCCARTHY Perimenopausal (Acute) Acute diarrhea (Acute) Family history of Crohn's disease (Acute) Tubular adenoma of colon (Acute) Vaginal irritation (Acute) Family history of colon cancer (Acute) maternal uncle in his 60's Screening for colon cancer (Acute) Abnormal mammogram of left breast (Acute) Type 2 diabetes mellitus (Acute) Primary osteoarthritis, left ankle and foot (Acute) 10/20/21 Podiatry note Neuralgia and neuritis (Acute) 10/20/21 Podiatry note COVID (Acute ~08/26/21) Encounter for screening laboratory testing for COVID-19 virus (Acute) URI (upper respiratory infection) (Acute) Obesity (Chronic) Hot flashes (Acute) Hoarseness (Acute) Headache (Acute) Dizziness (Acute) Cervicalgia (Acute) Bilateral leg pain (Acute) Skin breakdown (Acute) Chronic neck and back pain (Acute) Large breasts (Acute) 12/19/22 Plastics to discuss reduction Medial epicondylitis, left elbow (Acute) Arthritis of carpometacarpal (CMC) joint of thumb (Chronic) left Globus sensation (Acute) Left elbow pain (Acute) Binge eating (Acute) Obesity (Chronic) Bilateral carpal tunnel syndrome (Acute) Pain in both upper extremities (Acute) Neck pain, bilateral posterior (Acute) Chronic erosive gastritis (Acute) Hiatal hernia with GERD (Acute) Sleep apnea, obstructive (Chronic) 04/12/20-sleep study. baseline significant nocturnal hypoxemia. the degree of hypoxemia is out of proportion to the degree of sleep apnea. Govind Conroy MD Paresthesia and pain of both upper extremities (Acute) Peripheral nervous system disease (Acute) per Dr. Dee, 11/13/18, RH H/O bilateral salpingectomy (Acute 03/05/15) Tobacco use disorder (Acute) Status post vaginal hysterectomy (Acute) Pain in female pelvis (Acute 11/24/14) Migraine (Acute) Menorrhagia (Acute 11/24/14) Elevated blood-pressure reading without diagnosis of hypertension (Acute 06/16/15) Dysmenorrhea (Acute 11/24/14) Dry eye (Acute) Refraction error (Acute) Fibromyalgia (Acute) Chronic pain (Chronic) Memory changes (Acute) Cephalgia (Acute) Chest pressure (Acute) Fatigue (Acute) Paresthesia (Acute) Vision changes (Acute) Skin lesion (Acute) Encounter for screening for other viral diseases (Acute) GERD (gastroesophageal reflux disease) (Chronic) Kidney stone (Acute) Diabetic neuropathy (Acute) Incontinence in female (Acute) Diabetes mellitus (Chronic) H/O bilateral salpingectomy (Acute 03/05/15) Status post vaginal hysterectomy (Acute 03/05/15) History of viral pericarditis (Acute 04/17/17) Per pt. states, 04/2018 felt like her chest was so heavy and couldn't take a breath, was admitted for observation, and was tx with rx and stated it resolved Anxiety (Acute 04/17/17) Adult BMI > 30 (Acute) Adjustment disorder with mixed anxiety and depressed mood (Acute 08/17/17) Medical History Vitamin D deficiency Surgical History S/P bilateral breast reduction [facility] – [place] Plastics 04/12/23 History of colonoscopy (~02/2022) Stenosis of tear duct S/P tubal ligation S/P shoulder surgery left Tonsillectomy & uvulectomy (~2009) Pelvic floor reconstruction (~2009) [facility] [place] Dr. Hardin Hysteroscopy (02/04/15) uterus,cervix,left fallopian tube and salpingectomy. Dr. Wong Vaginal hysterectomy 2015 [facility] with Bilateral distal salpingectomy - Dr Smith Family History Mother Graves' disease Depression Father Alcoholism drug addicion Grandmother Personal history of malignant neoplasm skin Other Personal history of malignant neoplasm colon Social History (Updated 11/20/23 @ 09:54 by Mojgan Singh LPN) Smoking/Tobacco Use Status: Former Tobacco Use Quit Date: 04/05/17 Smoking risk assessment performed?: Yes Alcohol Intake: current Alcohol Intake frequency: holidays/special occasions only Drug use: Never Substance use type: does not use Household members: children Number of Children: 4 Communication Needs: Corrective Lenses 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
[2024-02-05] MEDS: Ibuprofen 600 MG TAB PO (07:16)
[2024-02-05 07:47] VITALS: BP 146/103; PULSE 89; RESP 14; O2SAT 98
--- NOTE | 2024-02-05 08:16 | DI.VRAD_ITS ---
PROCEDURE INFORMATION: Exam: XR Left Wrist Exam date and time: 02/05/2024 7:18 AM Age: 49 years old Clinical indication: Other: Left wrist pain TECHNIQUE: Imaging protocol: Radiologic exam of the left wrist. Views: 3 or more views. COMPARISON: CR XR WRIST LT COMP NAVICULAR 08/13/2020 11:04 AM FINDINGS: Bones/joints: Degenerative changes in the radiocarpal joint and thumb carpometacarpal joint. There is no evidence of acute fracture.There is no evidence of malalignment or dislocation. Soft tissues: Normal. IMPRESSION: There is no evidence of acute fracture.There is no evidence of malalignment or dislocation. Dictated and Authenticated by: Davis Hernandez MD. Ordering:GIGI Boyer MD
--- NOTE | 2024-02-05 08:17 | DI.VRAD_ITS ---
PROCEDURE INFORMATION: Exam: XR Left Forearm Exam date and time: 02/05/2024 7:20 AM Age: 49 years old Clinical indication: Other: Left forearm pain TECHNIQUE: Imaging protocol: Radiologic exam of the left forearm. Views: 2 views. COMPARISON: CR XR WRIST LT COMPLETE 02/05/2024 7:18 AM FINDINGS: Bones/joints: There is no evidence of acute fracture.There is no evidence of malalignment or dislocation. Degenerative changes in the radiocarpal joint Soft tissues: Normal. IMPRESSION: There is no evidence of acute fracture.There is no evidence of malalignment or dislocation. Dictated and Authenticated by: Davis Hernandez MD. Ordering:GIGI Boyer MD
== END 2024-02-05 07:48 | disposition home or self-care (01) ==
PROVIDERS: Emergency Provider Emergency Medicine; PCP Nurse Practitioner
DX: S63.502A Unspecified sprain of left wrist, initial encounter (principal); E11.9 Type 2 diabetes mellitus without complications; Z79.84 Long term (current) use of oral hypoglycemic drugs; Z87.891 Personal history of nicotine dependence; X50.9XXA Other and unspecified overexertion or strenuous movements or postures, initial encounter; Y93.F2 Activity, caregiving, lifting; Y92.89 Other specified places as the place of occurrence of the external cause; Y99.0 Civilian activity done for income or pay
CPT/HCPCS: 99283; 73090; 73110

== ENCOUNTER 2024-02-26 03:28 | Outpatient (CLI) | payer OTHER, SELFPAY ==
[2024-02-26 11:43] LABS: ALT 34 U/L (14-59); AST 18 U/L (15-37); Albumin 3.7 g/dL (3.4-5.0); Alkaline Phosphatase 95 U/L (46-116); Anion Gap 10.6 mmol/L (3-11); BUN 13 mg/dL (7-18); Bilirubin, Total 0.26 mg/dL (0.2-1.0); CO2 25.4 mmol/L (21.0-32.0); CREATININE 0.8 mg/dL (0.55-1.02); Calcium 9.2 mg/dL (8.5-10.1); Chloride 105 mmol/L (98-107); Estimated GFR 89.71 (mL/min/1.73m2); Glucose 106 mg/dL (74-106); Sodium 141 mmol/L (136-145); Total Protein 7.2 g/dL (6.4-8.2)
== END 2024-02-26 03:29 | disposition home or self-care (01) ==
LOC: LBO 03:28
PROVIDERS: PCP Nurse Practitioner; Visit Provider Obstetrics & Gynecology
DX: N95.1 Menopausal and female climacteric states (principal); E11.9 Type 2 diabetes mellitus without complications; Z23 Encounter for immunization
CPT/HCPCS: 36415; 80053

== ENCOUNTER 2024-04-08 01:24 | Outpatient (CLI) | payer OTHER, SELFPAY ==
--- NOTE | 2024-04-08 07:45 | DI.MAMMO_ITS ---
Exam(s) MAMMO SCREENING EXAM: MAMMO SCREENING CLINICAL HISTORY: screening,z12.39 TECHNIQUE: Bilateral full field digital CC and MLO mammographic images were obtained with 3D tomosyn thesis and utilizing computer aided detection (CAD). COMPARISON: Available for comparison. FINDINGS: Since the prior examination the patient has undergone a bilateral breast reduction. Masses/Architectural Distortion: None seen. Microcalcifications: No suspicious pleomorphic-type are seen. Skin Thickening/Nipple Retraction: None. IMPRESSION: 1. No significant interval change with no specific features of malignancy noted. 2. Unless there is more urgent need, screening mammography is recommended, as per [employer] guidelines. BI-RADS Category 1 - Negative Breast Density - Category B - Scattered areas of fibroglandular density Breast density category C or D implies that the patient has dense breast tissue. Dense breast tissue is very common and is not abnormal but dense breast tissue can make it harder to find cancer on a ma mmogram. Also, dense breast tissue may increase their breast cancer risk. This information about the result of the mammogram report was provided to the patient to raise their awareness. Use this report when you speak with the patient about their risks for breast cancer, which includes their family hist ory. At that time, you may recommend for more screening tests (Ultrasound or MRI) as they might be us eful based on their risk. A negative radiographic report should not delay biopsy if a dominant or clinically suspicious mass is present. Up to ten percent of cancers are not identified on mammography. A negative report may reinforce clinical impression. Adenosis and dense breasts may obscure an underlying neoplasm. False positive reports average 6 to 10%. Patient will receive a letter notifying them of these results.
== END 2024-04-08 01:44 ==
LOC: DI 01:24
PROVIDERS: PCP Nurse Practitioner; Visit Provider Nurse Practitioner
DX: Z12.31 Encounter for screening mammogram for malignant neoplasm of breast (principal)
CPT/HCPCS: 77063; 77067

== ENCOUNTER 2025-01-25 10:06 | Emergency (ER) | payer OTHER, SELFPAY ==
[2025-01-25 10:10] VITALS: BP 112/66; PULSE 118; RESP 18; TEMP 36.8; O2SAT 96
--- NOTE | 2025-01-25 10:17 | DI.CT_ITS ---
Exam(s) CT CHEST/ABD/PEL W EXAM: CT CHEST/ABD/PEL W CLINICAL HISTORY: Abdominal trauma, 24 hrs ago. TECHNIQUE: Imaging Protocol: Axial computed tomography images with coronal and sagittal reformatted images were created and reviewed CONTRAST MATERIAL: Intravenous: Omnipaque 350 Contrast volume:100 ml Oral: None COMPARISON: CT CT THORAX CTA from 12/24/[address] ABDOMEN PELVIS W from 03/02/2022 FINDINGS: CHEST: LUNGS: No evidence of lung contusion or pleural effusion or pneumothorax.. There is a fissure related nodule in the right lung which measures 7 x 3 mm. No other significant focal lung findings and no pleural effusions. MEDIASTINUM: No evidence sternal fracture nor mediastinal hematoma. Visualized thyroid unremarkable.No hilar nor mediastinal adenopathy. CARDIAC: Heart size is normal. There is no pericardial effusion.Thoracic aorta appears unremarkable. There are aneurysm. No dissection OSSEOUS: No fractures. No significant osseous lesions. ABDOMEN: No evidence of ascites and no evidence of bowel wall nor mesenteric hematoma. LIVER: Intact. No lacerations nor subcapsular hematomas. Hepatic steatosis noted GALLBLADDER/BILIARY: No obvious gallbladder pathology. CBD is not dilated. PANCREAS: No evidence of pancreatic mass nor dilatation of the pancreatic duct. SPLEEN: Intact. No lacerations nor subcapsular hematoma. Normal size. No lesions. Splenic and portal veins are patent. ADRENALS: No adrenal nodules nor intrarenal hemorrhage evident. KIDNEYS: No lacerations nor subcapsular hematomas.. No calculi nor hydronephrosis. No solid renal masses nor cysts. ABDOMINAL AORTA: Unremarkable. Iliac arteries also unremarkable as are the common femoral arteries. LYMPH NODES: There is no retroperitoneal nor paraaortic adenopathy. ABDOMINAL WALL: Small fat only containing umbilical hernia. GI: There is no evidence of bowel obstruction. PELVIS: LYMPH NODES: There is no intrapelvic nor inguinal adenopathy. GI: No evidence of appendicitis.There is no significant sigmoid diverticular disease. URINARY BLADDER: No calculi nor masses evident REPRODUCTIVE: Uterus is surgically absent. There are no abnormal adnexal masses. No free fluid in the pelvis. OSSEOUS: No fractures. No listhesis. Chronic disc space narrowing at L5-S1 level noted. IMPRESSION: 1. No significant acute trauma sequelae in the chest, abdomen, and pelvis. 2. There is a small umbilical region hernia which contains only fat. Preliminary virtual Radiology report was reviewed RADIATION DOSE DELIVERED: 625.46mGy.cm Total DLP DATA REPOSITORY: All CT scans at this facility are submitted to the National Radiology Data Registry (NRDR) Dose Index Registry (DIR) with the [employer] (ACR). RADIATION OPTIMIZATION: All CT scans at this facility use at least one of these dose optimization techniques: automated exposure control; mA and/or kV adjustment per patient size (includes targeted exams where dose is matched to clinical indication); or iterative reconstruction.
[2025-01-25] MEDS: Normal Saline 1,000 ML 1000 ML IV (10:43)
[2025-01-25 10:46] LABS: Abs Immature Grans 0.03 10^3/uL (0.0-0.06); HCT 44.0 % (36.0-46.0); HGB 14.3 g/dL (11.2-15.7); Immature Grans % 0.3 %; MCH 27.3 pg (27.0-33.0); MCHC 32.5 % (32.0-36.0); MCV 84 fL (80-95); MPV 10.5 fL (8.0-11.0); Platelet Count 212 10^3/uL (130-400); RBC 5.23 10^6/uL (3.93-5.22); RDW 13.4 % (11.7-14.6); RDW-SD 41.3 fL; WBC 10.21 10^3/uL (4.4-10.8)
--- NOTE | 2025-01-25 10:52 | W.ED.GENAD ---
Discharge Plan Disposition Patient Disposition: Home Condition: Stable Discharge Details Clinical Impression: Abdominal wall contusion Primary Care Provider: Darby Reno ED Provider: Julieth Navarro Home Meds and New Rx's Prescriptions: Continued lorazepam 0.5 mg tablet 0.5 mg PO BID PRN PRN (Reason: anxiety) Qty: 60 0RF ferrous sulfate 325 mg (65 mg iron) tablet 325 mg PO DAILY Qty: 90 3RF Rx Instructions: FOR HISTORY OF LOW IRON turmeric 1 tab PO DAILY melatonin 5 mg tablet 10 mg PO HS bupropion HCl [Wellbutrin XL] 300 mg tablet extended release 24 hr 300 mg PO QHS Qty: 90 3RF desipramine 25 mg tablet 50 mg PO QHS Qty: 180 3RF lisinopril 20 mg tablet 20 mg PO DAILY Qty: 90 3RF mirabegron [Myrbetriq] 50 mg tablet extended release 24 hr 50 mg PO DAILY Qty: 90 3RF pregabalin 200 mg capsule 200 mg PO TID Qty: 90 5RF nystatin 100,000 unit/gram powder 1 applic topical TID PRN (Reason: Abdominal fold rash) Qty: 60 3RF Mounjaro 2.5 mg/0.5 mL pen injector 2.5 mg subcut QWEEK Qty: 2 0RF Rx Instructions: weeks 1-4 Mounjaro 5 mg/0.5 mL pen injector 5 mg subcut QWEEK Qty: 2 0RF Rx Instructions: Weeks 5-8 pantoprazole [Protonix] 40 mg tablet,delayed release (DR/EC) 40 mg PO DAILY Qty: 90 3RF trazodone 50 mg tablet 100 mg PO HS PRN (Reason: insomnia) Qty: 180 3RF Rx Instructions: for mood and sleep venlafaxine [Effexor XR] 150 mg capsule,extended release 24hr 150 mg PO QHS Qty: 90 3RF metformin 500 mg tablet 1,000 mg PO BID Qty: 360 3RF atorvastatin [Lipitor] 20 mg tablet 20 mg PO DAILY Qty: 90 3RF cholecalciferol (vitamin D3) 5,000 unit tablet 5,000 unit PO DAILY Qty: 90 3RF omega-3 fatty acids-fish oil 300-1,000 mg capsule 2 cap PO HS Qty: 180 2RF (DME) lancing device with lancets [OneTouch Delica Plus Lanc Dev] Kit See Rx Instructions .ROUTE .MEDSUPPLY Qty: 200 3RF Rx Instructions: Test BID (DME) FreeStyle Sandeep 14 Day [place] Misc See Rx Instructions .ROUTE .MEDSUPPLY Qty: 1 0RF Rx Instructions: Test BID, keep A1c under 7 (DME) FreeStyle Sandeep 14 Day Sensor Kit See Rx Instructions .ROUTE .MEDSUPPLY Qty: 1 12RF Rx Instructions: Test BID, keep A1c under 7 (DME) OneTouch Verio test strips Strip See Dose Instructions .ROUTE .MEDSUPPLY Qty: 200 3RF Dose Instruction: As directed Rx Instructions: Test BID (DME) lancets [OneTouch Delica Plus Lancet] 33 gauge misc 0 .ROUTE .MEDSUPPLY Qty: 200 3RF Rx Instructions: Test BID (DME) pen needle, diabetic [Advocate Pen Needle] 29 gauge x 1/2 needle See Rx Instructions .ROUTE .MEDSUPPLY Qty: 100 3RF Rx Instructions: As directed daily with Victoza (DME) blood-glucose meter [OneTouch Verio Meter] [facility] See Rx Instructions .ROUTE .MEDSUPPLY Qty: 1 0RF Rx Instructions: As directed azelaic acid 15 % gel 1 applic topical BID PRN Patient Comments: 02/13/23 encounter liothyronine 25 mcg tablet 25 mcg PO DAILY Qty: 90 3RF Mounjaro 10 mg/0.5 mL pen injector 10 mg subcut QWEEK Qty: 2 0RF acetaminophen [Acetaminophen Extra Strength] 500 MG tablet 1,000 mg PO Q8H PRN PRNQty: 120 0RF Vitamin B-12 50 mcg Tablet 50 mcg PO HS evening primrose oil 500 mg Capsule 500 mg PO HS Discharge Instructions Instructions: Blunt Abdominal Trauma ED Additional Instructions: At this time preliminary CT shows no evidence of free fluid, free air or any acute abnormality. No evidence of any blood loss on your labs, Please take the muscle relaxers you are given as directed they may make you sleepy. Please take Tylenol with food every 4-6 hours as needed for pain and swelling. You may apply ice on and off every 20 minutes for the first couple of days. Follow up with primary care provider in 3-5 days. Return to ED sooner if any worsening abdominal pain, dizziness lightheadedness, vomiting blood, blood in your stools or dark stools or concerns. Thank you for allowing us to care for you today. Stand Alone Forms: Work Release Referrals: [facility] [Provider Group] - 5 days Discharge Data Discharge Date/Time-TO BE ENTERED AT DEPARTURE: 01/25/25 13:16 HPI General Mode of arrival: ambulatory. Date/Time Provider Initiated Documentation: 01/25/25 10:12. Limitations to Documentation: no limitations. Information obtained by: patient, RN notes reviewed and old records reviewed. HPI Narrative: 50-year-old female presents to the ER with a chief complaint of mid abdominal pain after standing on a stool yesterday, had a mechanical fall landing on a countertop. Did not fall to the ground did not hit her head denies any neck or back pain. She does have some increased pain with deep breathing. Past medical history of type 2 diabetes mellitus, hypertension, GERD, diabetic neuropathy, ADHD, Related Data Home Medications ?Medication ?Instructions ?Recorded ?Confirmed acetaminophen 500 mg tablet 1,000 mg (2 x 500 mg) PO Q8H PRN 02/14/17 01/25/25 (Acetaminophen Extra Strength) PRN #120 tabs lorazepam 0.5 mg tablet 0.5 mg PO BID PRN PRN anxiety #60 04/16/18 01/25/25 tabs ferrous sulfate 325 mg (65 mg 325 mg PO DAILY #90 tab-caps 08/29/18 01/25/25 iron) tablet cyanocobalamin (vitamin B-12) 50 50 mcg PO HS 01/14/19 01/25/25 mcg tablet (Vitamin B-12) evening primrose oil 500 mg capsule 500 mg PO HS 01/14/19 01/25/25 cholecalciferol (vitamin D3) 125 5,000 unit PO DAILY #90 tab-caps 01/30/19 01/25/25 mcg (5,000 unit) tablet omega-3 fatty acids-fish oil 300 2 cap (2 x 300-1,000 mg) PO HS 02/07/19 01/25/25 mg-1,000 mg capsule #180 tab-caps lancing device with lancets kit #200 ea 11/14/19 02/05/24 (KakaMobiTouch Delica Plus Lancing Device kit) turmeric 1 tab PO DAILY 05/25/20 01/25/25 flash glucose scanning reader #1 ea 06/15/20 02/05/24 (FreeStyle Sandeep 14 Day [place]) flash glucose sensor (FreeStyle #1 ea 06/15/20 02/05/24 Sandeep 14 Day Sensor kit) blood sugar diagnostic (OneTouch #200 ea 01/27/21 02/05/24 Verio test strips) lancets 33 gauge (OneTouch Delica #200 ea 01/27/21 02/05/24 Plus Lancet) pen needle, diabetic 29 gauge x #100 ea 01/27/21 02/05/24 1/2 (Advocate Pen Needle) blood-glucose meter (OneTouch #1 ea 01/29/21 02/05/24 Verio Meter) melatonin 5 mg tablet 10 mg PO HS 07/04/22 01/25/25 azelaic acid 15 % topical gel 1 applic topical BID PRN 02/23/23 01/25/25 metformin 500 mg tablet 1,000 mg (2 x 500 mg) PO BID #360 02/26/24 01/25/25 tabs pantoprazole 40 mg tablet,delayed 40 mg PO DAILY #90 tabs 02/26/24 01/25/25 release (Protonix) trazodone 50 mg tablet 100 mg (2 x 50 mg) PO HS PRN 02/26/24 01/25/25 insomnia #180 tabs venlafaxine 150 mg 150 mg PO QHS #90 caps 02/26/24 01/25/25 capsule,extended release 24 hr (Effexor XR) atorvastatin 20 mg tablet (Lipitor) 20 mg PO DAILY #90 tab-caps 05/27/24 01/25/25 bupropion HCl 300 mg 24 hr tablet, 300 mg PO QHS #90 tabs 09/09/24 01/25/25 extended release (Wellbutrin XL) desipramine 25 mg tablet 50 mg (2 x 25 mg) PO QHS #180 tabs 09/09/24 01/25/25 lisinopril 20 mg tablet 20 mg PO DAILY #90 tabs 09/09/24 01/25/25 mirabegron 50 mg tablet,extended 50 mg PO DAILY #90 tabs 09/09/24 01/25/25 release 24 hr (Myrbetriq) nystatin 100,000 unit/gram topical 1 applic topical TID PRN Abdominal 09/09/24 01/25/25 powder fold rash #60 grams pregabalin 200 mg capsule 200 mg PO TID #90 caps 09/09/24 01/25/25 tirzepatide 2.5 mg/0.5 mL 2.5 mg (0.5 mL) subcut QWEEK #2 mL 09/09/24 01/25/25 subcutaneous pen injector (Mounjaro) tirzepatide 5 mg/0.5 mL 5 mg (0.5 mL) subcut QWEEK #2 mL 09/09/24 01/25/25 subcutaneous pen injector (Mounjaro) liothyronine 25 mcg tablet 25 mcg PO DAILY #90 tab-caps 12/11/24 01/25/25 tirzepatide 10 mg/0.5 mL 10 mg (0.5 mL) subcut QWEEK #2 mL 01/24/25 01/25/25 subcutaneous pen injector (Mounjaro) Previous Rx's ?Medication ?Instructions ?Recorded acetaminophen 500 mg tablet 1,000 mg (2 x 500 mg) PO Q8H PRN 02/14/17 (Acetaminophen Extra Strength) PRN #120 tabs lorazepam 0.5 mg tablet 0.5 mg PO BID PRN PRN anxiety #60 04/16/18 tabs ferrous sulfate 325 mg (65 mg 325 mg PO DAILY #90 tab-caps 08/29/18 iron) tablet cholecalciferol (vitamin D3) 125 5,000 unit PO DAILY #90 tab-caps 01/30/19 mcg (5,000 unit) tablet omega-3 fatty acids-fish oil 300 2 cap (2 x 300-1,000 mg) PO HS 02/07/19 mg-1,000 mg capsule #180 tab-caps lancing device with lancets kit #200 ea 11/14/19 (BioScripuch Delica Plus Lancing Device kit) flash glucose scanning reader #1 ea 06/15/20 (FreeStyle Sandeep 14 Day [place]) flash glucose sensor (FreeStyle #1 ea 06/15/20 Sandeep 14 Day Sensor kit) blood sugar diagnostic (KakaMobiTouch #200 ea 01/27/21 Verio test strips) lancets 33 gauge (KakaMobiToEndomedix #200 ea 01/27/21 Plus Lancet) pen needle, diabetic 29 gauge x #100 ea 01/27/21 1/2 (Advocate Pen Needle) blood-glucose meter (OneTouch #1 ea 01/29/21 Verio Meter) metformin 500 mg tablet 1,000 mg (2 x 500 mg) PO BID #360 02/26/24 tabs pantoprazole 40 mg tablet,delayed 40 mg PO DAILY #90 tabs 02/26/24 release (Protonix) trazodone 50 mg tablet 100 mg (2 x 50 mg) PO HS PRN 02/26/24 insomnia #180 tabs venlafaxine 150 mg 150 mg PO QHS #90 caps 02/26/24 capsule,extended release 24 hr (Effexor XR) atorvastatin 20 mg tablet (Lipitor) 20 mg PO DAILY #90 tab-caps 05/27/24 bupropion HCl 300 mg 24 hr tablet, 300 mg PO QHS #90 tabs 09/09/24 extended release (Wellbutrin XL) desipramine 25 mg tablet 50 mg (2 x 25 mg) PO QHS #180 tabs 09/09/24 lisinopril 20 mg tablet 20 mg PO DAILY #90 tabs 09/09/24 mirabegron 50 mg tablet,extended 50 mg PO DAILY #90 tabs 09/09/24 release 24 hr (Myrbetriq) nystatin 100,000 unit/gram topical 1 applic topical TID PRN Abdominal 09/09/24 powder fold rash #60 grams pregabalin 200 mg capsule 200 mg PO TID #90 caps 09/09/24 tirzepatide 2.5 mg/0.5 mL 2.5 mg (0.5 mL) subcut QWEEK #2 mL 09/09/24 subcutaneous pen injector (Mounjaro) tirzepatide 5 mg/0.5 mL 5 mg (0.5 mL) subcut QWEEK #2 mL 09/09/24 subcutaneous pen injector (Mounjaro) liothyronine 25 mcg tablet 25 mcg PO DAILY #90 tab-caps 12/11/24 tirzepatide 10 mg/0.5 mL 10 mg (0.5 mL) subcut QWEEK #2 mL 01/24/25 subcutaneous pen injector (Mounjaro) Allergies Allergy/AdvReac Type Severity Reaction Status Date / Time No Known Drug Allergies Allergy na Verified 01/25/25 10:13 General Stated Complaint: Abd Prob TARIK: 3 Review of Systems All systems reviewed & are unremarkable except as noted in HPI and below Cardiovascular Cardiovascular: Denies chest pain (lower chest wall pain pain with deep breathing) and Denies diaphoresis Respiratory Respiratory: Denies cough, Denies hemoptysis, Denies pain on inspiration, Denies stridor and Denies wheezing Gastrointestinal Gastrointestinal: Reports abdominal pain, Denies melena, Denies hematochezia, Denies coffee ground emesis, Denies diarrhea, Reports nausea and Denies vomiting Allergic/Immunologic Allergic/Immunologic: Denies wheezing Exam Narrative Exam Narrative: General: Well Developed, Awake and Alert, conversant. Skin: Warm and Dry HEENT: Head: No palpable deformities, Normocephalic Eyes: Pupils PERRLA, EOM's intact. No periorbital eccymosis or step off Ears: Canal patent. Tympanic membranes are clear . No montiel's sign, no hemptympanum. Nose/Face: Atraumatic. Facial bones nontender to palpation and stable with manipulation. Mouth/Throat: No intraoral trauma. Teeth and mandible are intact. Neck: No midline tenderness, no step off, no deformity to palpation of C-spine. Trachea midline. Chest: No surface trauma. Nontender without crepitus or deformity. Lungs clear to ausculatation bilaterally. Heart: RRR, no rubs, murmurs or gallop. Abdomen: No abrasions, ecchymosis, or surface trauma. Nondistended. Generalized tenderness to palpation no guarding, rebound, or rigidity. Extremities: no surface trauma. Sensation intact. Peripheral pulses intact and equal. Neuro: ANO x4, GCS 15, cranial nerves II through XII intact. Motor and sensory exam nonfocal. Course Vital Signs Vital signs: Vital Signs Temperature 36.8 C 01/25/25 10:10 Pulse 118 H 01/25/25 10:10 Respiratory Rate 18 01/25/25 10:10 Blood Pressure 112/66 01/25/25 10:10 Pulse Oximetry 96 01/25/25 10:10 Temperature 36.8 C 01/25/25 10:10 Pulse 118 H 01/25/25 10:10 Respiratory Rate 18 01/25/25 10:10 Blood Pressure 112/66 01/25/25 10:10 Pulse Oximetry 96 01/25/25 10:10 Oxygen Delivery Method Room Air 01/25/25 10:10 Oxygen Flow Rate 0 01/25/25 10:10 Lab/Test Results Lab/Test Results: Laboratory Tests Range/Units 01/25/25 10:35 WBC (4.4-10.8) 10^3/uL 10.21 RBC (3.93-5.22) 10^6/uL 5.23 H Hgb (11.2-15.7) g/dL 14.3 Hct (36.0-46.0) % 44.0 MCV (80-95) fL 84 MCH (27.0-33.0) pg 27.3 MCHC (32.0-36.0) % 32.5 RDW (11.7-14.6) % 13.4 Plt Count (130-400) 10^3/uL 212 MPV (8.0-11.0) fL 10.5 Immature Gran % % 0.3 Neutrophils % % 84.6 Lymphocytes % % 3.8 Monocytes % % 6.6 Eosinophils % % 4.3 Basophils % % 0.4 Nucleated RBC % (0.0-0.3) % 0.0 Absolute Neutrophils (1.2-6.7) 10^3/uL 8.64 H Absolute Lymphocytes (1.2-3.4) 10^3/uL 0.39 L Absolute Monocytes (0.1-0.8) 10^3/uL 0.67 Absolute Eosinophils (0.0-0.7) 10^3/uL 0.44 Absolute Basophils (0.0-0.2) 10^3/uL 0.04 Medical Decision Making 50-year-old female presents to the ER with a chief complaint of mid abdominal pain after standing on a stool yesterday, had a mechanical fall landing on a countertop. Did not fall to the ground did not hit her head denies any neck or back pain. She does have some increased pain with deep breathing. Past medical history of type 2 diabetes mellitus, hypertension, GERD, diabetic neuropathy, ADHD, Initially she is tachycardic with a heart rate of 118, initially blood pressure 112/66, blood pressure then became slightly soft at 93/56, given a liter of normal saline. Differential diagnosis includes not limited to abdominal wall injury, intra-abdominal injury, rib fracture, pneumothorax, Workup ordered including CBC CMP lipase, CT chest abdomen pelvis with IV contrast. Preliminary V rad CT chest abdomen pelvis report shows no acute intrathoracic injury no acute abdominal or pelvic injury please see official report. Patient received a liter of normal saline, will give 3 tablets of Flexeril for muscle relaxer to go given per patient request. Blood pressure approved prior to DC. Discussed return instructions and follow-up care and further treatment. Patient verbalized understanding. This text was generated using Vocalyticsation system, please disregard any oddities of phrase or misspellings. Patient was ambulatory from department at discharge. Medical Records Medical records reviewed: Yes I reviewed the patient's medical records. Lab Data Lab results reviewed: Yes I reviewed the patient's lab results. Labs: Laboratory Tests Range/Units 01/25/25 10:35 WBC (4.4-10.8) 10^3/uL 10.21 RBC (3.93-5.22) 10^6/uL 5.23 H Hgb (11.2-15.7) g/dL 14.3 Hct (36.0-46.0) % 44.0 MCV (80-95) fL 84 MCH (27.0-33.0) pg 27.3 MCHC (32.0-36.0) % 32.5 RDW (11.7-14.6) % 13.4 Plt Count (130-400) 10^3/uL 212 MPV (8.0-11.0) fL 10.5 Immature Gran % % 0.3 Neutrophils % % 84.6 Lymphocytes % % 3.8 Monocytes % % 6.6 Eosinophils % % 4.3 Basophils % % 0.4 Nucleated RBC % (0.0-0.3) % 0.0 Absolute Neutrophils (1.2-6.7) 10^3/uL 8.64 H Absolute Lymphocytes (1.2-3.4) 10^3/uL 0.39 L Absolute Monocytes (0.1-0.8) 10^3/uL 0.67 Absolute Eosinophils (0.0-0.7) 10^3/uL 0.44 Absolute Basophils (0.0-0.2) 10^3/uL 0.04 Sodium (136-145) mmol/L 136 Potassium (3.5-5.1) mmol/L 3.9 Chloride (98-107) mmol/L 99 Carbon Dioxide (21.0-32.0) mmol/L 28.7 Anion Gap (3-11) mmol/L 8.3 BUN (7-18) mg/dL 15 Creatinine (0.55-1.02) mg/dL 1.0 Est GFR (CKD-EPI 2020) (mL/min/1.73m2) 68.21 Glucose (74-106) mg/dL 127 H Calcium (8.5-10.1) mg/dL 9.9 Magnesium (1.8-2.4) mg/dL 1.8 Total Bilirubin (0.2-1.0) mg/dL 0.6 AST (15-37) U/L 29 ALT (14-59) U/L 62 H Alkaline Phosphatase (46-116) U/L 77 Total Protein (6.4-8.2) g/dL 7.7 Albumin (3.4-5.0) g/dL 3.7 Lipase (<78) U/L 23 PFSH All Active Problems (Updated 01/25/25 @ 12:58 by Julieth Navarro NP) Abdominal wall contusion (Acute) Hyperhidrosis (Acute) Attention deficit hyperactivity disorder (ADHD) evaluation (Acute) Perimenopausal vasomotor symptoms (Acute) 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 (Acute ~07/2022) 07/08/22 Karen MCCARTHY Bilateral leg paresthesia (Acute) Yumiko Fitzpatrick DPM Other hereditary and idiopathic neuropathies (Acute ~07/2022) 07/08/22 Karen CMCARTHY Perimenopausal (Acute) Acute diarrhea (Acute) Family history of Crohn's disease (Acute) Tubular adenoma of colon (Acute) Vaginal irritation (Acute) Family history of colon cancer (Acute) maternal uncle in his 60's Screening for colon cancer (Acute) Abnormal mammogram of left breast (Acute) Type 2 diabetes mellitus (Acute) Primary osteoarthritis, left ankle and foot (Acute) 10/20/21 Podiatry note Neuralgia and neuritis (Acute) 10/20/21 Podiatry note COVID (Acute ~08/26/21) Encounter for screening laboratory testing for COVID-19 virus (Acute) URI (upper respiratory infection) (Acute) Obesity (Chronic) Hot flashes (Acute) Hoarseness (Acute) Headache (Acute) Dizziness (Acute) Cervicalgia (Acute) Bilateral leg pain (Acute) Skin breakdown (Acute) Chronic neck and back pain (Acute) Large breasts (Acute) 12/19/22 Plastics to discuss reduction Medial epicondylitis, left elbow (Acute) Arthritis of carpometacarpal (CMC) joint of thumb (Chronic) left Globus sensation (Acute) Left elbow pain (Acute) Binge eating (Acute) Obesity (Chronic) Bilateral carpal tunnel syndrome (Acute) Pain in both upper extremities (Acute) Neck pain, bilateral posterior (Acute) Chronic erosive gastritis (Acute) Hiatal hernia with GERD (Acute) Sleep apnea, obstructive (Chronic) 04/12/20-sleep study. baseline significant nocturnal hypoxemia. the degree of hypoxemia is out of proportion to the degree of sleep apnea. Govind Conroy MD Paresthesia and pain of both upper extremities (Acute) Peripheral nervous system disease (Acute) per Dr. Dee, 11/13/18, RH H/O bilateral salpingectomy (Acute 03/05/15) Tobacco use disorder (Acute) Status post vaginal hysterectomy (Acute) Pain in female pelvis (Acute 11/24/14) Migraine (Acute) Elevated blood-pressure reading without diagnosis of hypertension (Acute 06/16/15) Dry eye (Acute) Refraction error (Acute) Fibromyalgia (Acute) Chronic pain (Chronic) Memory changes (Acute) Cephalgia (Acute) Chest pressure (Acute) Fatigue (Acute) Paresthesia (Acute) Vision changes (Acute) Skin lesion (Acute) Encounter for screening for other viral diseases (Acute) GERD (gastroesophageal reflux disease) (Chronic) Kidney stone (Acute) Diabetic neuropathy (Acute) Incontinence in female (Acute) Diabetes mellitus (Chronic) H/O bilateral salpingectomy (Acute 03/05/15) Status post vaginal hysterectomy (Acute 03/05/15) History of viral pericarditis (Acute 04/17/17) Per pt. states, 04/2018 felt like her chest was so heavy and couldn't take a breath, was admitted for observation, and was tx with rx and stated it resolved Anxiety (Acute 04/17/17) Adult BMI > 30 (Acute) Adjustment disorder with mixed anxiety and depressed mood (Acute 08/17/17) Medical History Dermal nevus Multiple nevi Inflamed seborrheic keratosis Vitamin D deficiency Surgical History S/P bilateral breast reduction [facility] [place] Plastics 04/12/23 History of colonoscopy (~02/2022) Stenosis of tear duct S/P tubal ligation S/P shoulder surgery left Tonsillectomy & uvulectomy (~2009) Pelvic floor reconstruction (~2009) [facility] [place] [facility]. Hardin Hysteroscopy (02/04/15) uterus,cervix,left fallopian tube and salpingectomy. Dr. Wong Vaginal hysterectomy 2015 [facility] with Bilateral distal salpingectomy - Dr Smith Family History Mother Graves' disease Depression Father Alcoholism drug addicion Grandmother Personal history of malignant neoplasm skin Other Personal history of malignant neoplasm colon Social History Smoking/Tobacco Use Status: Former Tobacco Use Quit Date: 04/05/17 Smoking risk assessment performed?: Yes Alcohol Intake: current Alcohol Intake frequency: holidays/special occasions only Drug use: Never Substance use type: does not use Household members: children Number of Children: 4 Communication Needs: Corrective Lenses current occupation: Former [employer]; 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 [employer] Current gender identity: female How often do you talk on the phone with friends or family?: twice per week How often do you get together with friends or relatives?: twice per week Panel score (0-1 are the most socially isolated patients): 1 What type of physical activity do you participate in: none Do you feel safe at home: Yes Do you feel safe in your relationship?: Yes Additional Social history: not in relationship
[2025-01-25] MEDS: Omnipaque 350 MG/ML 100 ML BTL IJ (11:11)
[2025-01-25] MEDS: Normal Saline - Diluent 50 ML VIAL IJ (11:11)
[2025-01-25] MEDS: Normal Saline Flush 10 ML SYR IVP (11:12)
--- NOTE | 2025-01-25 11:58 | DI.VRAD_ITS ---
PROCEDURE INFORMATION: Exam: CT Chest With Contrast; Diagnostic Exam date and time: 01/25/2025 10:46 AM Age: 50 years old Clinical indication: Abd trauma 24 hours ago TECHNIQUE: Imaging protocol: Diagnostic computed tomography of the chest with contrast. 3D rendering (Not supervised by radiologist): MIP and/or 3D reconstructed images were created by the technologist. Radiation optimization: All CT scans at this facility use at least one of these dose optimization techniques: automated exposure control; mA and/or kV adjustment per patient size (includes targeted exams where dose is matched to clinical indication); or iterative reconstruction. Contrast material: OMNIPAQUE 350; Contrast volume: 100 ml; Contrast route: INTRAVENOUS (IV); COMPARISON: CT THORAX CTA 12/24/2021 11:18 PM FINDINGS: Lungs: The tracheobronchial tree is normal. Minimal bilateral dependent atelectasis. No lung contusion, hematoma or posttraumatic pneumatocele. Pleural spaces: No pneumothorax, hemothorax or pleural effusion. Heart: The heart is not enlarged. No pericardial effusion or hemothorax. Mediastinal space: No mediastinal hematoma or pneumomediastinum. Lymph nodes: No pathologically enlarged lymph nodes. Vasculature: No thoracic aortic aneurysm or dissection when allowing for pulsation artifact. No central acute pulmonary embolism. Bones/joints: No acute fracture or dislocation. Soft tissues: No acute soft tissue abnormality. IMPRESSION: No acute thoracic injury. PROCEDURE INFORMATION: Exam: CT Abdomen And Pelvis With Contrast Exam date and time: 01/25/2025 10:46 AM Age: 50 years old Clinical indication: Abd trauma 24 hours ago TECHNIQUE: Imaging protocol: Computed tomography of the abdomen and pelvis with contrast. 3D rendering (Not supervised by radiologist): MIP and/or 3D reconstructed images were created by the technologist. Radiation optimization: All CT scans at this facility use at least one of these dose optimization techniques: automated exposure control; mA and/or kV adjustment per patient size (includes targeted exams where dose is matched to clinical indication); or iterative reconstruction. Contrast material: OMNIPAQUE 350; Contrast volume: 100 ml; Contrast route: INTRAVENOUS (IV); COMPARISON: CT ABDOMEN PELVIS W 03/02/2022 10:22 AM FINDINGS: Liver: There is fatty change involving the liver parenchyma. The liver is homogeneous. No perihepatic fluid. No sign of liver injury. Gallbladder and biliary ducts: No calcified gallstones, gallbladder wall thickening, or pericholecystic inflammation. No biliary ductal dilation. Pancreas: The pancreatic parenchyma is homogeneous. No peripancreatic fluid. No sign of pancreatic injury. Spleen: The spleen is homogeneous. No perisplenic fluid. No sign of splenic injury. Adrenal glands: No adrenal mass. Kidneys and ureters: There are symmetric CT nephrograms allowing for what are likely tiny bilateral renal cysts. No perirenal fluid. No sign of renal injury. Stomach and bowel: No bowel obstruction or diverticulitis. Appendix: The appendix has a normal caliber. No periappendiceal inflammation. Intraperitoneal space: No hemoperitoneum, pneumoperitoneum or ascites. Vasculature: The abdominal aorta and iliofemoral arteries are normal. The mesenteric and renal arteries are patent. The mesenteric, splenic, portal, hepatic and renal veins are patent. The inferior vena cava and iliofemoral veins have normal calibers. Lymph nodes: No pathologically enlarged lymph nodes. Urinary bladder: The bladder is intact. No surrounding fluid. No sign of bladder injury. Reproductive: Prior hysterectomy. Bones/joints: Disc degeneration, facet arthropathy, and bilateral foraminal stenosis at L5-S1. No acute fracture or dislocation. Soft tissues: Small infraumbilical hernia containing fat. Tiny umbilical hernia containing fat. IMPRESSION: No acute abdominal or pelvic injury. Dictated and Authenticated by: Dimitris Michel MD. Orderin Melanie Clancy MD
[2025-01-25 12:40] LABS: ALT 62 U/L (14-59); AST 29 U/L (15-37); Albumin 3.7 g/dL (3.4-5.0); Alkaline Phosphatase 77 U/L (46-116); Anion Gap 8.3 mmol/L (3-11); BUN 15 mg/dL (7-18); Bilirubin, Total 0.6 mg/dL (0.2-1.0); CO2 28.7 mmol/L (21.0-32.0); Calcium 9.9 mg/dL (8.5-10.1); Chloride 99 mmol/L (98-107); Estimated GFR 68.21 (mL/min/1.73m2); Glucose 127 mg/dL (74-106); Lipase 23 U/L (<78); Magnesium 1.8 mg/dL (1.8-2.4); Potassium 3.9 mmol/L (3.5-5.1); Sodium 136 mmol/L (136-145); Total Protein 7.7 g/dL (6.4-8.2)
[2025-01-25 13:05] LABS: Glucose Negative (Negative)
[2025-01-25 15:42] VITALS: BP 112/66; PULSE 118; RESP 18; TEMP 36.8; O2SAT 96
[2025-01-25] MEDS: Cyclobenzaprine 10 MG TAB, 3 TABS/BTL PO (15:48)
== END 2025-01-25 13:16 | disposition home or self-care (01) ==
PROVIDERS: Emergency Provider Registered Nurse Emergency; PCP Nurse Practitioner
DX: S30.1XXA Contusion of abdominal wall, initial encounter (principal); W17.89XA Other fall from one level to another, initial encounter; R10.30 Lower abdominal pain, unspecified
CPT/HCPCS: 74177; 80053; 83690; 96360; 96361; 99285; 71260; 81003; 83735; 85025; 99284; J3490

== ENCOUNTER → 2025-06-02 13:38 | Outpatient (CLI) | payer OTHER, SELFPAY ==
--- NOTE | 2025-06-02 06:39 | DI.MAMMO_ITS ---
Exam(s) MAMMO SCREENING EXAM: MAMMO SCREENING CLINICAL HISTORY: screening,Z12.39,H/O BREAST REDUCTION,. TECHNIQUE: Bilateral full field digital CC and MLO mammographic images were obtained with 3D tomosynthesis and utilizing computer aided detection (CAD). COMPARISON: Prior mammograms were reviewed. FINDINGS: Again noted is evidence of recent bilateral reduction surgery following the mammogram December 2022 and prior to mammogram of April 1024. There are no new spiculated masses nor malignant-appearing microcalcification groups. There is some new benign calcification in the retro para areolar region of the right breast which is most probably related to an element of fat necrosis postsurgical. Benign appearance. No new skin thickening-traction. IMPRESSION: Benign findings. No radiographic evidence of malignancy. BI-RADS Category 2 - Benign Findings Breast Density - Category B - There are scattered areas of fibroglandular density. Breast density Category C or D implies that the patient has dense breast tissue. Dense breast tissue can make it harder to find cancer on a mammogram. Dense breast tissue is also associated with an increased risk of breast cancer. This information about the result of the mammogram report was provided to the patient to raise their awareness. Use this report when you speak with the patient about their risks for breast cancer, which includes their family history. At that time, you may recommend additional screening tests (Ultrasound or MRI) as these tests may add significant information. A negative radiographic report should not delay biopsy if a dominant or clinically suspicious mass is present. Up to ten percent of cancers are not identified on mammography. A negative report may reinforce clinical impression. Adenosis and dense breasts may obscure an underlying neoplasm. False positive reports average 6 to 10%. Patient will receive a letter notifying them of these results.
== END ==
LOC: DI 13:38
PROVIDERS: PCP Nurse Practitioner
DX: Z12.31 Encounter for screening mammogram for malignant neoplasm of breast (principal)
CPT/HCPCS: 77063; 77067